=== PATIENT | male | born 1940 | race Caucasian/White ===

== ENCOUNTER 2016-06-03 13:15 | Emergency (ER) | payer MEDICARE, OTHER ==
[~2016-06-03] VITALS: Ht 177.8 cm; Wt 81.1 kg
[~2016-06-03 13:15] MED LIST: ASPI-611 PO; BENZ100C97 PO; CALC-709 PO; DIPH-343 PO; DOXY100C40 PO; FLUT1DIS4 INH; HYDR-3995 PO; LEVO50TA4 PO; LORA10TA7 PO; MIRT15TA6 PO; MULT-806 PO; OMEG100T PO; OMEP40CA52 PO; PRED10TA PO; SERT-80 PO; SIMV20TA89 PO; ZOLP-109 PO; [UNRECOGNIZED DRUG - CODE] PO
[2016-06-03 13:19] VITALS: Ht 177.8 cm; Wt 81.1 kg
--- OUTSIDE RECORDS SUMMARY | 2016-06-03 13:20 | XMS REPORT | Continuity of Care Document ---
Author Author [facility] Organization [facility] Address Unknown Phone Unavailable Allergies Active Description Code Type Severity Reaction Onset Reported/Identified Relationship to Patient Clinical Status Yes No Known Medication Allergies NKMA N/A N/A 11/16/2013 Medications Problems Procedures Results Test Result Range CBC With Platelet and Differential - 02/16/16 08:55 Absolute Basophils 0.03 10*3 0.00-0.20 Absolute Eosinophils 0.19 10*3 0.00-0.50 Absolute Lymphocytes 1.58 10*3 0.80-3.30 Absolute Monocytes 0.74 10*3 0.30-1.00 Absolute Neutrophils 4.96 10*3 1.90-7.00 Basophils 0 % 0-2 Eosinophils 3 % 0-4 HCT 42.9 % 42.0-52.0 HGB 14.8 g/dL 14.0-18.0 Immature Granulocytes 0.1 % 0.0-1.0 Lymphocytes 21 % 20-46 MCH 32.5 pg 27.0-32.0 MCHC 34.5 g/dL 32.0-36.0 MCV 94.3 fL 82.0-99.0 Monocytes 10 % 4-11 MPV 11.2 fL 8.8-14.8 Neutrophils 66 % 51-75 Platelet Count 267 K/uL 150-400 RBC 4.55 10*6/uL 4.60-6.20 RDW 12.6 % 11.5-14.5 WBC 7.5 K/uL 4.8-10.8 Comprehensive Metabolic Panel (CMP) - 02/16/16 08:55 Albumin 4.2 g/dL 3.4-4.8 Alkaline Phosphatase 78 U/L 40-150 ALT (SGPT) 19 U/L 0-55 Anion Gap 11 NA 3-20 AST (SGOT) 32 U/L 5-34 Bilirubin Total 0.4 mg/dL 0.2-1.2 BUN 14 mg/dL 8-26 Calcium 9.3 mg/dL 8.9-10.5 Chloride 105 mEq/L 99-111 CO2 25 mEq/L 23-31 Creatinine 1.16 mg/dL 0.72-1.25 Globulin 2.1 g/dL 1.8-4.0 Glucose 93 mg/dL 70-99 Potassium 5.1 mEq/L 3.5-5.2 Protein 6.3 g/dL 6.0-7.6 Sodium 141 mEq/L 135-144 TSH with Reflex Free T4 - 02/16/16 08:55 TSH with Reflex Free T4 6.31 uIU/mL 0.35- 4.94 Lipid Panel - 02/16/16 08:55 Cardiac Risk 4.4 0.0-5.7 Cholesterol 192 mg/dL 0-199 HDL Cholesterol 44 mg/dL 40-84 LDL Cholesterol 110 mg/dL 0-130 Triglycerides 188 mg/dL 0-149 VLDL Cholesterol 38 mg/dL 0-28 C-Reactive Protein - 02/16/16 08:55 C-Reactive Protein <0.5 mg/dL <0.5 eGFR - 02/16/16 08:55 eGFR >60 mL/min >60 Free T4 - 02/16/16 08:55 Free T4 0.9 ng/dL 0.7-1.5 Sedimentation Rate - 02/16/16 08:55 Sedimentation Rate 6 mm/h 0-15 Hemoglobin A1C - 02/16/16 08:55 Hemoglobin A1C 4.9 % 4.1-5.6 Estimated Average Glucose - 02/16/16 08:55 Estimated Average Glucose 93.9 mg/dL Urinalysis with reflex microscopic - 02/16/16 09:03 Appearance Clear NA Bilirubin Negative NA Negative Blood Negative NA Negative Color DkYellow NA Glucose, Urine Negative Negative Ketones Negative Negative Leukocyte Esterase Negative NA Negative Nitrites Negative NA Negative pH 6.0 NA 5.0-8.0 Protein Negative Negative Specific [place] 1.033 NA 1.003-1.030 UA Collection type Voided NA Urobilinogen 1.0 mg/dL <1.0 CBC With Platelet and Differential - 05/29/16 11:55 Absolute Basophils 0.03 10*3/uL 0.00- 0.30 Absolute Eosinophils 0.24 10*3/uL 0.00- 0.60 Absolute Lymphocytes 1.96 10*3/uL 1.00- 4.00 Absolute Monocytes 1.30 10*3/uL 0.20- 0.80 Absolute Neutrophils 5.06 10*3/uL 2.50- 7.00 Basophils 0 % 0-2 Eosinophils 3 % 0-6 HCT 40.4 % 40.0-54.0 HGB 13.4 g/dL 12.0-16.0 Lymphocytes 23 % 20-40 MCH 32.6 pg 26.0-34.0 MCHC 33.2 g/dL 32.0-36.0 MCV 98.3 fL 80.0-96.0 Monocytes 15 % 4-8 MPV 10.4 fL 8.8-14.8 Neutrophils 59 % 50-70 Platelet Count 246 K/uL 150-400 RBC 4.11 10*6/uL 3.70-5.20 RDW 13.0 % 0.0-14.5 WBC 8.6 K/uL 5.0-10.0 i-STAT Metabolic Panel WB - 05/29/16 11:55 BUN Venous 14 mg/dl 4-20 Calcium Ionized Venous 1.23 mmol/L 1.19- 1.41 Creatinine Venous 1.0 mg/dL 0.7-1.2 Glucose Venous 101 mg/dL 70-100 Potassium, WB 3.9 mmol/L 3.6-5.1 Sodium Venous 143 mmol/L 136-144 Total CO2 Venous 28 mmol/L 25-29 Venous CL 104 mmol/L 99-109 Urinalysis with reflex microscopic - 05/29/16 12:02 Appearance Sl Cloudy NA Bilirubin Negative NA Negative Blood Pos 2+ NA Negative Color Dk Yellow NA Glucose, Urine Negative NA Negative Ketones Negative NA Negative Leukocyte Esterase Negative NA Negative Nitrites Negative NA Negative pH 5.5 NA 5.0-8.0 Protein Negative NA Negative Specific [place] 1.030 NA 1.003-1.030 UA Collection type Clean Catch NA Urobilinogen 0.2 mg/dL <=1.0 Urine Microscopic - 05/29/16 12:02 Bacteria Rare NA Epithelial Cells 0 /hpf Hyaline Casts 1 /lpf RBC, Urine 20 /hpf 0-2 Urine Mucus Present NA WBC, Urine 0 /hpf 0-4 Encounters ACCT No. Visit Date/Time Discharge Status Pt. Type Provider Facility Loc./Unit Complaint [id number] 04/24/2013 15:06:00 04/24/2013 23 :59:59 CLS Outpatient
--- OUTSIDE RECORDS SUMMARY | 2016-06-03 13:20 | XMS REPORT | Referral Summary ---
Author Author [facility] Organization [facility] Address Unknown Phone Unavailable Care Team Providers Care Media Assistant Name Role Phone Hannah Post Primary Care Physician [phone] Encounter VC Date(s): 11/19/14 - 11/19/14 [facility], [address] [place] [id number] Discharge Disposition: 01-Home or Self Care Attending Physician: Raoul Post MD Admitting Physician: Raoul Post MD Vital Signs Most recent to 1 oldest [Reference Range]: Blood Pressure 130/70 mmHg [90-140/60-90 mmHg] (11/19/14 9:06 AM) Problem List Condition Effective Dates Status Health Status Informant Chronic back Active pain(Confirmed) COPD (chronic Active obstructive pulmonary disease)(Confirmed) Depression(Confirmed Active ) Blood pressure Active elevated(Confirmed) GERD without Active esophagitis(Confirme d) Glaucoma(Confirmed) Active Elevated Active cholesterol(Confirme d) Hypothyroidism(Confi Active rmed) Elevated blood Active sugar(Confirmed) Chronic Active insomnia(Confirmed) Allergies, Adverse Reactions, Alerts No Known Medication Allergies Medications albuterol 2.5 mg/3 mL (0.083%) inhalation solution 2.5 mg 3 mL, NEB, q8hr, 2.5 mg/3 mL (0.083%) neb solution; inhale 3 mL by nebulization route 3 times every day, # 30 Each, 1 Refill(s), Pharmacy: [id number], 3 mL NEB q8hr,Instr:2.5 mg/3 mL (0.083%) neb solution; inhale 3 mL by nebuliz... Start Date: 12/22/14 Status: Ordered Aleve 220 mg oral tablet 1 tabs, Oral, q12hr, as needed Start Date: 11/16/13 Status: Ordered aspirin 81 mg oral tablet, chewable 1 tabs, Oral, Daily Start Date: 11/16/13 Status: Ordered Breo Ellipta 200 mcg-25 mcg/inh inhalation powder 1 puffs, Inhalation, Daily, # 1 Each, 0 Refill(s), samples given to patient (Rx) Start Date: 03/24/15 Status: Ordered Claritin 10 mg oral tablet 10 mg 1 tabs, Oral, Daily, X 300 days, # 300 tabs, 0 Refill(s), Pharmacy: [id number], 1 tabs Oral Daily,x300 days Start Date: 02/18/15 Stop Date: 12/15/15 Status: Ordered levothyroxine 50 mcg (0.05 mg) oral tablet See Instructions, TAKE 1 TABLET BY MOUTH EVERY DAY, # 60 tabs, 2 Refill(s), eRx : [facility] [id number], TAKE 1 TABLET BY MOUTH EVERY DAY Start Date: 04/11/15 Status: Ordered Misc Medication Patient takes Dann Red- Shrimp oil daily, 0 Refill(s) Start Date: 01/11/15 Status: Ordered multivitamin 1 tabs, Oral, Daily Start Date: 11/16/13 Status: Ordered [place] 10 mg-325 mg oral tablet 1-2 tabs, Oral, q8hr, as needed for pain, MUST LAST 30 DAYS. July. , # 120 tabs, 0 Refill(s) Start Date: 05/16/15 Status: Ordered PriLOSEC 40 mg oral delayed release capsule 40 mg 1 caps, Oral, Daily, # 100 caps, 0 Refill(s), Pharmacy: [facility] [id number], 1 caps Oral Daily,x100 days Start Date: 02/18/15 Stop Date: 05/29/15 Status: Ordered ProAir RespiClick 90 mcg/inh inhalation powder 1 puffs, Inhalation, q4hr, Shortness of Breath/Wheezing, No substitutes., # 1 Each, 2 Refill(s), samples given to patient (Rx) Start Date: 03/24/15 Status: Ordered Remeron 15 mg oral tablet See Instructions, 1 TABS ORAL BEDTIME (ONCE A DAY),X30 DAYS, # 30 tabs, 2 Refill (s), eRx: [facility] [id number], 1 TABS ORAL BEDTIME (ONCE A DAY),X30 DAYS Start Date: 03/22/15 Status: Ordered Senokot See Instructions, 2 tabs daily., 0 Refill(s) Start Date: 12/16/14 Status: Ordered sertraline 50 mg oral tablet See Instructions, TAKE 1 TABLET (50MG) BY ORAL ROUTE EVERY DAY, # 90 tabs, eRx: [facility] [id number], TAKE 1 TABLET (50MG) BY ORAL ROUTE EVERY DAY Start Date: 04/14/15 Status: Ordered simethicone 80 mg oral tablet See Instructions, 4 daily., 0 Refill(s) Start Date: 12/22/14 Status: Ordered simvastatin 20 mg oral tablet See Instructions, TAKE 1 TABLET (20MG) BY ORAL ROUTE EVERY DAY IN THE EVENING, # 90 tabs, eRx: [facility] [id number], TAKE 1 TABLET (20MG) BY ORAL ROUTE EVERY DAY IN THE EVENING Start Date: 04/25/15 Status: Ordered timolol See Instructions, Timolol maleate 0.5% eyedrops; place 1 drop in the right eye every morning, 0 Refill(s) Start Date: 11/16/13 Status: Ordered traZODone 100 mg oral tablet See Instructions, TAKE 1 TABLET BY MOUTH AT BEDTIME., # 90 tabs, eRx: [facility] [id number], TAKE 1 TABLET BY MOUTH AT BEDTIME. Start Date: 03/08/14 Status: Ordered zolpidem 10 mg oral tablet 0.5-1 tabs, Oral, Bedtime (once a day), as needed for sleep, fax to [facility] [phone], RX must last 30 days, # 30 tabs, 0 Refill(s) Start Date: 05/04/15 Status: Ordered Results No data available for this section Immunizations Vaccine Date Refusal Reason tetanus/diphth/pertuss (Tdap) adult/adol 01/07/15 influenza virus vaccine, inactivated 01/07/15 influenza virus vaccine, inactivated 02/16/14 influenza virus vaccine, live 01/13/13 pneumococcal 23-polyvalent vaccine 11/22/08 Procedures Procedure Date Related Diagnosis Body Site Esophagogastroduodenoscopy and biopsy1 11/23/15 Normal colonoscopy2 01/31/15 Colonoscopy3 12/21/04 History of knee surgery - left knee cartilage 1968 repair Knee replacement 1Irregular GE junction, mild gastritis otherwise normal. H. pylori and Mooney' s both negative 2Diverticulosis, will not need to repeat unless symptoms warrant 3hyperplastic polyps, repeat in 10 years Social History Social History Type Response Smoking Status Former smoker; Type: Cigarettes Assessment and Plan Extracted from: Title: Ambulatory Patient Education Author: Raoul Post MD Date: 01/23 Family Medicine Back Pain, Adult Low back pain is very common. About 1 in 5 people have back pain.The cause of low back pain is rarely dangerous. The pain often gets better over time.About half of people with a sudden onset of back pain feel better in just 2 weeks. About 8 in 10 people feel better by 6 weeks. CAUSES Some common causes of back pain include: Strain of the muscles or ligaments supporting the spine. Wear and tear (degeneration) of the spinal discs. Arthritis. Direct injury to the back. DIAGNOSIS Most of the time, the direct cause of low back pain is not known.However, back pain can be treated effectively even when the exact cause of the pain is unknown.Answering your caregiver's questions about your overall health and symptoms is one of the most accurate ways to make sure the cause of your pain is not dangerous. If your caregiver needs more information, he or she may order lab work or imaging tests (X-rays or MRIs).However, even if imaging tests show changes in your back, this usually does not require surgery. HOME CARE INSTRUCTIONS For many people, back pain returns.Since low back pain is rarely dangerous, it is often a condition that people can learn to manageon their own. Remain active. It is stressful on the back to sit or caravan park and camping ground manager one place. Do not sit, drive, or caravan park and camping ground manager one place for more than 30 minutes at a time. Take short walks on level surfaces as soon as pain allows.Try to increase the length of time you walk each day. Do not stay in bed.Resting more than 1 or 2 days can delay your recovery. Do not avoid exercise or work.Your body is made to move.It is not dangerous to be active, even though your back may hurt.Your back will likely heal faster if you return to being active before your pain is gone. Pay attention to your body when you bend and lift. Many people have less discomfortwhen lifting if they bend their knees, keep the load close to their bodies,and avoid twisting. Often, the most comfortable positions are those that put less stress on your recovering back. Find a comfortable position to sleep. Use a firm mattress and lie on your side with your knees slightly bent. If you lie on your back, put a pillow under your knees. Only take oqin-xyc-ywihuhp or prescription medicines as directed by your caregiver. Oxsk-hcr-ftxubyj medicines to reduce pain and inflammation are often the most helpful.Your caregiver may prescribe muscle relaxant drugs.These medicines help dull your pain so you can more quickly return to your normal activities and healthy exercise. Put ice on the injured area. Put ice in a plastic bag. Place a towel between your skin and the bag. Leave the ice on for 15-20 minutes, 03-04 times a day for the first 2 to 3 days. After that, ice and heat may be alternated to reduce pain and spasms. Ask your caregiver about trying back exercises and gentle massage. This may be of some benefit. Avoid feeling anxious or stressed.Stress increases muscle tension and can worsen back pain.It is important to recognize when you are anxious or stressed and learn ways to manage it.Exercise is a great option. SEEK MEDICAL CARE IF: You have pain that is not relieved with rest or medicine. You have pain that does not improve in 1 week. You have new symptoms. You are generally not feeling well. SEEK IMMEDIATE MEDICAL CARE IF: You have pain that radiates from your back into your legs. You develop new bowel or bladder control problems. You have unusual weakness or numbness in your arms or legs. You develop nausea or vomiting. You develop abdominal pain. You feel faint. Document Released: 02/25/2006 Document Revised: 08/26/2012 Document Reviewed: [employer] Patient Information 2015 [employer]. This information is not intended to replace advice given to you by your health care provider. Make sure you discuss any questions you have with your health care provider. No follow up information was provided. Extracted from: Title: Office Visit Note Author: Raoul Post MD Date: 11/19/14 Assessment/Plan Chronic back pain This issue is stable and appropriate refills, lab, and f/u have been discussed. Meds refilled. Chronic insomnia This issue is stable and appropriate refills, lab, and f/u have been discussed. COPD (chronic obstructive pulmonary disease) This issue is stable and appropriate refills, lab, and f/u have been discussed. Depression This issue is stable and appropriate refills, lab, and f/u have been discussed. Elevated cholesterol This issue is stable and appropriate refills, lab, and f/ u have been discussed. Hypothyroidism This issue is stable and appropriate refills, lab, and f/u have been discussed. Orders: HYDROcodone-acetaminophen, 1-2 tabs, Oral, q8hr, as needed for pain, rx must last 30 days May fill 11/22/14, # 120 tabs, 0 Refill(s)
--- OUTSIDE RECORDS SUMMARY | 2016-06-03 13:20 | XMS REPORT | Referral Summary ---
Author Organization Unknown Address Unknown Phone Unavailable Care Team Providers Care Family Medicine Chair Name Role Phone Hannah Post Primary Care Physician [phone] Encounter [facility] [id number] Date(s): 05/19/14 - 05/19/14 Via [facility] Blankenship, [place], Family [address] [place] [id number] Discharge Diagnosis: Hypothyroid Discharge Diagnosis: Blood pressure elevated Discharge Diagnosis: Hypertension Discharge Diagnosis: Chronic back pain Discharge Diagnosis: Elevated cholesterol Discharge Diagnosis: Chronic insomnia Discharge Diagnosis: Headache Discharge Disposition: Home or Self Care Attending Physician: Raoul Post MD Admitting Physician: Raoul Post MD Vital Signs Most recent to 1 oldest [Reference Range]: Blood Pressure 140/80 mmHg [90-140/60-90 mmHg] (05/19/14 10:37 AM) Problem List Condition Effective Dates Status Health Status Informant Chronic back Active pain(Confirmed) COPD (chronic Active obstructive pulmonary disease)(Confirmed) Depression(Confirmed Active ) Blood pressure Active elevated(Confirmed) Glaucoma(Confirmed) Active Elevated Active cholesterol(Confirme d) Hypothyroidism(Confi Active rmed) Chronic Active insomnia(Confirmed) Allergies, Adverse Reactions, Alerts No Known Medication Allergies Medications Advair Diskus 250 mcg-50 mcg inhalation powder 1 puffs, Inhalation, Daily Start Date: 11/16/13 Status: Ordered albuterol 2.5 mg/3 mL (0.083%) neb solution; inhale 3 mL by nebulization route 3 times every day, 0 Refill(s) Special Instructions: 2.5 mg/3 mL (0.083%) neb solution; inhale 3 mL by nebulization route 3 times every day Start Date: 11/16/13 Status: Ordered Aleve 220 mg oral tablet 1 tabs, Oral, q12hr, as needed Start Date: 11/16/13 Status: Ordered aspirin 81 mg oral tablet, chewable 1 tabs, Oral, Daily Start Date: 11/16/13 Status: Ordered multivitamin 1 tabs, Oral, Daily Start Date: 11/16/13 Status: Ordered [place] 10 mg-325 mg oral tablet 1-2 tabs, Oral, q8hr, as needed for pain, rx must last 30 days May fill 05/26/14 , # 120 tabs, 0 Refill(s) Special Instructions: rx must last 30 days May fill 05/26/14 Start Date: 05/19/14 Status: Ordered ProAir HFA 90 mcg/inh inhalation aerosol 1 puffs, Inhalation, q4hr, as needed Start Date: 11/16/13 Status: Ordered Promethazine VC with Codeine oral syrup 5 mL, Oral, q4hr, as needed for cold symptoms, [facility], # 120 mL, 0 Refill(s) Special Instructions: [facility] Start Date: 02/01/14 Status: Ordered Remeron 15 mg oral tablet See Instructions, 1 TABS ORAL BEDTIME (ONCE A DAY), # 30 tabs, 2 Refill(s), eRx : [facility] , 1 TABS ORAL BEDTIME (ONCE A DAY) Special Instructions: 1 TABS ORAL BEDTIME (ONCE A DAY) Start Date: 04/22/14 Status: Ordered sertraline 50 mg oral tablet See Instructions, TAKE 1 TABLET (50MG) BY ORAL ROUTE EVERY DAY, # 90 tabs, eRx: [facility] , TAKE 1 TABLET (50MG) BY ORAL ROUTE EVERY DAY Special Instructions: TAKE 1 TABLET (50MG) BY ORAL ROUTE EVERY DAY Start Date: 04/23/14 Status: Ordered simvastatin 20 mg oral tablet See Instructions, TAKE 1 TABLET (20MG) BY ORAL ROUTE EVERY DAY IN THE EVENING, # 90 tabs, eRx: [facility] , TAKE 1 TABLET (20MG) BY ORAL ROUTE EVERY DAY IN THE EVENING Special Instructions: TAKE 1 TABLET (20MG) BY ORAL ROUTE EVERY DAY IN THE EVENING Start Date: 05/07/14 Status: Ordered Synthroid 50 mcg (0.05 mg) oral tablet See Instructions, TAKE 1 TABLET (50MCG) BY ORAL ROUTE EVERY DAY, # 60 unknown unit, 2 Refill(s), eRx: [facility] , TAKE 1 TABLET (50MCG) BY ORAL ROUTE EVERY DAY Special Instructions: TAKE 1 TABLET (50MCG) BY ORAL ROUTE EVERY DAY Start Date: 02/09/14 Status: Ordered timolol See Instructions, Timolol maleate 0.5% eyedrops; place 1 drop in the right eye every morning, 0 Refill(s) Special Instructions: Timolol maleate 0.5% eyedrops; place 1 drop in the right eye every morning Start Date: 11/16/13 Status: Ordered traZODone 100 mg oral tablet See Instructions, TAKE 1 TABLET BY MOUTH AT BEDTIME., # 90 tabs, eRx: [facility] [id number], TAKE 1 TABLET BY MOUTH AT BEDTIME. Special Instructions: TAKE 1 TABLET BY MOUTH AT BEDTIME. Start Date: 03/08/14 Status: Ordered zolpidem 10 mg oral tablet 0.5-1 tabs, Oral, Bedtime (once a day), as needed for sleep, fax to [facility], RX must last 30 days, # 30 tabs, 0 Refill(s) Special Instructions: fax to [facility], RX must last 30 days Start Date: 05/06/14 Status: Ordered Results Hematology Most recent to 1 oldest [Reference Range]: WBC [4.8-10.8 K/uL] 7.7 K/uL (05/19/14 11:10 AM) RBC [4.60-6.20 M/uL] 4.95 M/uL (05/19/14 11:10 AM) Hgb [14.0-18.0 16.0 gm/dL gm/dL] (05/19/14 11:10 AM) Hct [42.0-52.0 %] 46.6 % (05/19/14 11:10 AM) MCV [82.0-99.0 fL] 94.1 fL (05/19/14 11:10 AM) MCH [27.0-32.0 pg] 32.3 pg *HI* (05/19/14 11:10 AM) MCHC [32.0-36.0 34.3 gm/dL gm/dL] (05/19/14 11:10 AM) RDW [11.5-14.5 %] 12.2 % (05/19/14 11:10 AM) Platelet [150-400 275 K/uL K/uL] (05/19/14) MPV [8.8-14.8 fL] 11.6 fL (05/19/14) Immature 0.1 % Granulocytes (05/19/14) [0.0-1.0 %] Neutrophils [51-75 61 % %] (05/19/14) Lymphocytes [20-46 24 % %] (05/19/14) Monocytes [4-11 %] 12 % *HI* (05/19/14) Eosinophils [0-4 %] 3 % (05/19/14) Basophils [0-2 %] 0 % (05/19/14) Neutro Absolute 4.70 THOUS [1.90-7.00 THOUS] (05/19/14) Lymph Absolute 1.81 THOUS [0.80-3.30 THOUS] (05/19/14) Kane Absolute 0.89 THOUS [0.30-1.00 THOUS] (05/19/14) Eos Absolute 0.24 THOUS [0.00-0.50 THOUS] (05/19/14) Baso Absolute 0.03 THOUS [0.00-0.20 THOUS] (05/19/14) Sed Rate [0-15 8 mm/hr mm/hr] (05/19/14) Chemistry Most recent to 1 oldest [Reference Range]: Sodium Lvl [135-144 141 mEq/L mEq/L] (05/19/14) Potassium Lvl 5.1 mEq/L [3.5-5.2 mEq/L] (05/19/14) Chloride [99-111 103 mEq/L mEq/L] (05/19/14) CO2 [23-31 mEq/L] 25 mEq/L (05/19/14 AM) AGAP [3-20] 13 (05/19/14 AM) BUN [8-26 mg/dL] 15 mg/dL (05/19/14) Glucose Lvl [70-99 107 mg/dL mg/dL] *HI* (05/19/14 AM) Creatinine Lvl 1.05 mg/dL [0.72-1.25 mg/dL] (05/19/14 AM) eGFR [>60 mL/min] >60 mL/min 1 (05/19/14 AM) Calcium Lvl 9.9 mg/dL [8.9-10.5 mg/dL] (05/19/14 AM) Albumin Lvl [3.4-4.8 4.6 gm/dL gm/dL] (05/19/14 AM) Total Protein 7.2 gm/dL [6.2-8.1 gm/dL] (05/19/14) Globulin [1.8-4.0 2.6 gm/dL gm/dL] (05/19/14 AM) ALT [0-55 unit/L] 24 unit/L (05/19/14 AM) AST [5-34 unit/L] 35 unit/L *HI* (05/19/14 AM) Alk Phos [40-150 75 unit/L unit/L] (05/19/14 AM) Bili Total [0.2-1.2 0.7 mg/dL mg/dL] (05/19/14 AM) Chol [0-199 mg/dL] 187 mg/dL (05/19/14 AM) Trig [0-149 mg/dL] 172 mg/dL *HI* (05/19/14) HDL [40-84 mg/dL] 49 mg/dL (05/19/14 AM) LDL [0-130 mg/dL] 104 mg/dL (05/19/14 AM) VLDL Cholesterol 34 mg/dL [0-28 mg/dL] *HI* (05/19/14 AM) Cardiac Risk 3.8 [0.0-5.7] (05/19/14 AM) TSH with Reflex Free 2.91 T4 [0.35-4.94] (05/19/14 AM) 1Result Comment: Multiply eGFR results by 1.21 for race. Immunizations Vaccine Date Refusal Reason influenza virus vaccine, inactivated 02/16/14 influenza virus vaccine, live 01/13/13 pneumococcal 23-polyvalent vaccine 11/22/08 Procedures Procedure Date Related Diagnosis Body Site Colonoscopy 2004 History of knee surgery - left knee cartilage 1968 repair Knee replacement Social History Social History Type Response Smoking Status Former smoker; Type: Cigarettes Assessment and Plan Extracted from: Title: Ambulatory Patient Education Author: Raoul Post MD Date: 01/23 Family Medicine Back Exercises Back exercises help treat and prevent back injuries. The goal of back exercises is to increase the strength of your abdominal and back muscles and the flexibility of your back. These exercises should be started when you no longer have back pain. Back exercises include: Pelvic Tilt. Lie on your back with your knees bent. Tilt your pelvis until the lower part of your back is against the floor. Hold this position 5 to 10 sec and repeat 5 to 10 times. Knee to Chest. Pull first 1 knee up against your chest and hold for 20 to 30 seconds, repeat this with the other knee, and then both knees. This may be done with the other leg straight or bent, whichever feels better. Sit-Ups or Curl-Ups. Bend your knees 90 degrees. Start with tilting your pelvis, and do a partial, slow sit-up, lifting your trunk only 30 to 45 degrees off the floor. Take at least 2 to 3 seconds for each sit-up. Do not do sit-ups with your knees out straight. If partial sit-ups are difficult, simply do the above but with only tightening your abdominal muscles and holding it as directed. Hip-Lift. Lie on your back with your knees flexed 90 degrees. Push down with your feet and shoulders as you raise your hips a couple inches off the floor; hold for 10 seconds, repeat 5 to 10 times. Back arches. Lie on your stomach, propping yourself up on bent elbows. Slowly press on your hands, causing an arch in your low back. Repeat 3 to 5 times. Any initial stiffness and discomfort should lessen with repetition over time. Shoulder-Lifts. Lie face down with arms beside your body. Keep hips and torso pressed to floor as you slowly lift your head and shoulders off the floor. Do not overdo your exercises, especially in the beginning. Exercises may cause you some mild back discomfort which lasts for a few minutes; however, if the pain is more severe, or lasts for more than 15 minutes, do not continue exercises until you see your caregiver. Improvement with exercise therapy for back problems is slow. See your caregivers for assistance with developing a proper back exercise program. Document Released: 04/04/2005 Document Revised: 05/19/2012 Document Reviewed: [facility] [place] Patient Information 2014 [employer] [facility]. No follow up information was provided. Extracted from: Title: Office Visit Note Author: Raoul Post MD Date: 05/19/14 Assessment/Plan Blood pressure elevated This issue is stable and appropriate refills, lab, and f/u have been discussed. The patient reports their blood pressure has been stable at home and is not having any significant or related problems. There has been no chest pain, chest pressure, soa/block. Monitor bp at home and call report. Chronic back pain This issue is stable and appropriate refills, lab, and f/u have been discussed. Meds refilled. Chronic insomnia This issue is stable and appropriate refills, lab, and f/u have been discussed. Elevated cholesterol This issue is stable and appropriate refills, lab, and f/ u have been discussed. Ordered: Lipid Panel Headache The patient's issue is nearly or completely resolved. There is no further issues or testing desired by them at this time. Call report if recurs. The patient has family members present who are agreeable with today' s plan and have no additional concerns or requests. ESR pending. Ordered: Sedimentation Rate Hypertension This issue is stable and appropriate refills, lab, and f/u have been discussed. The patient reports their blood pressure has been stable at home and is not having any significant or related problems. There has been no chest pain, chest pressure, soa/block. Ordered: Comprehensive Metabolic Panel Hypothyroid This issue is stable and appropriate refills, lab, and f/u have been discussed. Ordered: CBC w/ Differential TSH with Reflex Free T4 Orders: HYDROcodone-acetaminophen, 1-2 tabs, Oral, q8hr, as needed for pain, rx must last 30 days May fill 05/26/14, # 120 tabs, 0 Refill(s)
--- OUTSIDE RECORDS SUMMARY | 2016-06-03 13:20 | XMS REPORT | Referral Summary ---
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 Name Role Phone Hannah Post Primary Care Physician [phone] Encounter VC Date(s): 12/22/14 - 12/22/14 [facility] [address] [place] [address] Discharge Diagnosis: COPD (chronic obstructive pulmonary disease) Discharge Diagnosis: Epigastric abdominal pain Discharge Disposition: 01-Home or Self Care Attending Physician: Monica Salgado PA-C Admitting Physician: Monica Salgado PA-C Vital Signs Most recent to 1 oldest [Reference Range]: Temperature Tympanic 36.8 degC [36.6-38.1 degC] (12/22/14 11:03 AM) Peripheral Pulse 92 bpm Rate [60-100 bpm] (12/22/14 11:03 AM) Respiratory Rate 20 br/min [14-20 br/min] (12/22/14 11:03 AM) Blood Pressure 132/70 mmHg [90-140/60-90 mmHg] (12/22/14 11:03 AM) Problem List Condition Effective Dates Status [...] day, # 30 Each, 1 Refill(s), Pharmacy: [facility] [id number], 3 mL NEB q8hr,Instr:2.5 mg/3 mL (0.083%) [...] Inhalation, Daily, # 1 Each, 0 Refill(s), Pharmacy: [facility] [id number] Start Date: 06/20/15 Status: Ordered Claritin 10 mg oral tablet 10 mg 1 tabs, Oral, Daily, X 300 days, # 300 tabs, 0 Refill(s), Pharmacy: [facility], 1 tabs Oral Daily,x300 days Start Date: 02/18/15 Stop Date: 12/15/15 Status: Ordered levothyroxine 50 mcg (0.05 mg) oral tablet See Instructions, TAKE 1 TABLET BY MOUTH EVERY DAY, # 60 tabs, 2 Refill(s), eRx : [facility] [id number], TAKE 1 TABLET BY MOUTH EVERY DAY Start Date: 04/11/15 Status: Ordered Misc Medication Patient takes Dann Red- Shrimp oil daily, 0 Refill(s) Start Date: 01/11/15 Status: Ordered multivitamin 1 tabs, Oral, Daily Start Date: 11/16/13 Status: Ordered Berwick 10 mg-325 mg oral tablet 1-2 tabs, Oral, q8hr, as needed for pain, MUST LAST 30 DAYS. MAy fill . , # 120 tabs, 0 Refill(s) Start Date: 06/14/15 Status: Ordered PriLOSEC 40 mg oral delayed release capsule 40 mg 1 caps, Oral, Daily, # 100 caps, 0 Refill(s), Pharmacy: [facility] [id number], 1 caps Oral Daily,x100 days Start Date: 02/18/15 Stop Date: 05/29/15 Status: Ordered PriLOSEC 40 mg oral delayed release capsule See Instructions, 1 CAPS ORAL DAILY,X100 DAYS, # 100 caps, eRx: [facility] [id number], 1 CAPS ORAL DAILY,X100 DAYS Start Date: 06/14/15 Status: Ordered ProAir RespiClick 90 mcg/inh inhalation powder 1 puffs, Inhalation, q4hr, Shortness of Breath/Wheezing, No substitutes., # 1 Each, 2 Refill(s), samples given to patient (Rx) Start Date: 03/24/15 Status: Ordered Remeron 15 mg oral tablet See Instructions, 1 TABS ORAL BEDTIME (ONCE A DAY),X30 DAYS, # 30 tabs, eRx: [facility] [id number], 1 TABS ORAL BEDTIME (ONCE A DAY),X30 DAYS Start Date: 06/13/15 Status: Ordered Senokot See Instructions, 2 tabs daily., 0 Refill(s) Start Date: 12/16/14 Status: Ordered sertraline 50 mg oral tablet See Instructions, TAKE 1 TABLET (50MG) BY ORAL ROUTE EVERY DAY, # 90 tabs, eRx: [facility] [id number], TAKE 1 TABLET (50MG) BY ORAL ROUTE EVERY DAY Start Date: 04/14/15 Status: Ordered simethicone 80 mg oral tablet See Instructions, 4 daily., 0 Refill(s) Start Date: 12/22/14 Status: Ordered simvastatin 20 mg oral tablet See Instructions, TAKE 1 TABLET (20MG) BY ORAL ROUTE EVERY DAY IN THE EVENING, # 90 tabs, eRx: [facility] [id number], TAKE 1 TABLET (20MG) BY ORAL ROUTE EVERY DAY IN THE EVENING Start Date: 04/25/15 Status: Ordered timolol See Instructions, Timolol maleate 0.5% eyedrops; place 1 drop in the right eye every morning, 0 Refill(s) Start Date: 11/16/13 Status: Ordered traZODone 100 mg oral tablet See Instructions, TAKE 1 TABLET BY MOUTH AT BEDTIME., # 90 tabs, eRx: [facility] [id number], TAKE 1 TABLET BY MOUTH AT BEDTIME. Start Date: 03/08/14 Status: Ordered zolpidem 10 mg oral tablet 0.5-1 tabs, Oral, Bedtime (once a day), as needed for sleep, fax to [facility] [phone], RX must last 30 days, # 30 tabs, 0 Refill(s) Start Date: 06/02/15 Status: Ordered Results No data available for this section Immunizations Vaccine Date Refusal Reason tetanus/diphth/pertuss (Tdap) adult/adol 01/07/15 influenza virus vaccine, inactivated 01/07/15 influenza virus vaccine, inactivated 02/16/14 influenza virus vaccine, live 01/13/13 pneumococcal 23-polyvalent vaccine 11/22/08 Procedures Procedure Date Related Diagnosis Body Site Esophagogastroduodenoscopy and biopsy1 01/31/15 Normal colonoscopy2 01/31/15 Colonoscopy3 12/21/04 History of [...] Extracted from: Title: Ambulatory Patient Education Author: Monica Salgado PA-C Date : 12/22/14 Family Medicine Chronic Obstructive Pulmonary Disease Exacerbation Chronic obstructive pulmonary disease (COPD) is a common lung condition in which airflow from the lungs is limited. COPD is a general term that can be used to describe many different lung problems that limit airflow, including chronic bronchitis and emphysema. COPD exacerbations are episodes when breathing symptoms become much worse and require extra treatment. Without treatment, COPD exacerbations can be life threatening, and frequent COPD exacerbations can cause further damage to your lungs. CAUSES Respiratory infections. Exposure to smoke. Exposure to air pollution, chemical fumes, or dust. Sometimes there is no apparent cause or trigger. RISK FACTORS Smoking cigarettes. Older age. Frequent prior COPD exacerbations. SIGNS AND SYMPTOMS Increased coughing. Increased thick spit (sputum) production. Increased wheezing. Increased shortness of breath. Rapid breathing. Chest tightness. DIAGNOSIS Your medical history, a physical exam, and tests will help your health care provider make a diagnosis. Tests may include: A chest X-ray. Basic lab tests. Sputum testing. An arterial blood gas test. TREATMENT Depending on the severity of your COPD exacerbation, you may need to be admitted to a hospital for treatment. Some of the treatments commonly used to treat COPD exacerbations are: Antibiotic medicines. Bronchodilators. These are drugs that expand the air passages. They may be given with an inhaler or nebulizer. Spacer devices may be needed to help improve drug delivery. Corticosteroid medicines. Supplemental oxygen therapy. HOME CARE INSTRUCTIONS Do not smoke. Quitting smoking is very important to prevent COPD from getting worse and exacerbations from happening as often. Avoid exposure to all substances that irritate the airway, especially to tobacco smoke. If you were prescribed an antibiotic medicine, finish it all even if you start to feel better. Take all medicines as directed by your health care provider.It is important to use correct technique with inhaled medicines. Drink enough fluids to keep your urine clear or pale yellow (unless you have a medical condition that requires fluid restriction). Use a cool mist vaporizer. This makes it easier to clear your chest when you cough. If you have a home nebulizer and oxygen, continue to use them as directed. Maintain all necessary vaccinations to prevent infections. Exercise regularly. Eat a healthy diet. Keep all follow-up appointments as directed by your health care provider. SEEK IMMEDIATE MEDICAL CARE IF: You have worsening shortness of breath. You have trouble talking. You have severe chest pain. You have blood in your sputum. You have a fever. You have weakness, vomit repeatedly, or faint. You feel confused. You continue to get worse. MAKE SURE YOU: Understand these instructions. Will watch your condition. Will get help right away if you are not doing well or get worse. Document Released: 12/23/2007 Document Revised: 07/12/2014 Document Reviewed: [facility] Patient Information 2015 [facility]. This information is not intended to replace advice given to you by your health care provider. Make sure you discuss any questions you have with your health care provider. Peptic Ulcer A peptic ulcer is a sore in the lining of your esophagus (esophageal ulcer), stomach (gastric ulcer), or in the first part of your small intestine (duodenal ulcer). The ulcer causes erosion into the deeper tissue. CAUSES Normally, the lining of the stomach and the small intestine protects itself from the acid that digests food. The protective lining can be damaged by: An infection caused by a bacterium called Helicobacter pylori (H. pylori). Regular use of nonsteroidal anti-inflammatory drugs (NSAIDs), such as ibuprofen or aspirin. Smoking tobacco. Other risk factors include being older than 50, drinking alcohol excessively, and having a family history of ulcer disease. SYMPTOMS Burning pain or gnawing in the area between the chest and the belly button. Heartburn. Nausea and vomiting. Bloating. The pain can be worse on an empty stomach and at night. If the ulcer results in bleeding, it can cause: Black, tarry stools. Vomiting of bright red blood. Vomiting of irpcjy-thnntn-okrjlby materials. DIAGNOSIS A diagnosis is usually made based upon your history and an exam. Other tests and procedures may be performed to find the cause of the ulcer. Finding a cause will help determine the best treatment. Tests and procedures may include: Blood tests, stool tests, or breath tests to check for the bacterium H. pylori. An upper gastrointestinal (GI) series of the esophagus, stomach, and small intestine. An endoscopy to examine the esophagus, stomach, and small intestine. A biopsy. TREATMENT Treatment may include: Eliminating the cause of the ulcer, such as smoking, NSAIDs, or alcohol. Medicines to reduce the amount of acid in your digestive tract. Antibiotic medicines if the ulcer is caused by the H. pylori bacterium. An upper endoscopy to treat a bleeding ulcer. Surgery if the bleeding is severe or if the ulcer created a hole somewhere in the digestive system. HOME CARE INSTRUCTIONS Avoid tobacco, alcohol, and caffeine. Smoking can increase the acid in the stomach, and continued smoking will impair the healing of ulcers. Avoid foods and drinks that seem to cause discomfort or aggravate your ulcer. Only take medicines as directed by your caregiver. Do not substitute over- the-counter medicines for prescription medicines without talking to your caregiver. Keep any follow-up appointments and tests as directed. SEEK MEDICAL CARE IF: Your do not improve within 7 days of starting treatment. You have ongoing indigestion or heartburn. SEEK IMMEDIATE MEDICAL CARE IF: You have sudden, sharp, or persistent abdominal pain. You have bloody or dark black, tarry stools. You vomit blood or vomit that looks like coffee grounds. You become light-headed, weak, or feel faint. You become sweaty or clammy. MAKE SURE YOU: Understand these instructions. Will watch your condition. Will get help right away if you are not doing well or get worse. Document Released: 02/22/2001 Document Revised: 07/12/2014 Document Reviewed: [facility] Patient Information 2015 [employer]. This information is not intended to replace advice given to you by your health care provider. Make sure you discuss any questions you have with your health care provider. No follow up information was provided. Extracted from: Title: Office Visit Note Author: Monica Salgado PA-C Date: 12/22/14 Assessment/Plan COPD (chronic obstructive pulmonary disease) He is not moving a lot of air. Will have him continue with hisAdvair, and start doing Albuterol nebs routinely. Sent refills to pharmacy. He is to let me know if still not improving, and may need steroid burst. Epigastric abdominal pain, Epigastric abdominal pain Like I said, initially Ithought it could be constipation. I was also thinking possibly gallbladder. However, with h/o NSAID use, now more concentrated epigastric pain, and fact that food makes pain better, I believe he could have an ulcer. Will obtain H. Pylori IgG today. Willhave pt start taking Prilosec 20mg in AM for now. Will call in abx if H. Pylori + and have him increase to Prilosec BID for 2 weeks. I also advised pt to stop taking Aleve /Advil and take Tylenol instead for pain. Ordered: Helicobacter pylori Antibody IgG Office Visit Level 3 Est [id number] Orders: albuterol, 2.5 mg 3 mL, NEB, q8hr, 2.5 mg/3 mL (0.083%) neb solution; inhale 3 mL by nebulization route 3 times every day, # 30 Each, 1 Refill(s), [id number], 3 mL NEB q8hr,Instr:2.5 mg/3 mL (0.083%) neb solution; inhale 3 mL by nebuliz...
--- OUTSIDE RECORDS SUMMARY | 2016-06-03 13:20 | XMS REPORT | Referral Summary ---
Author Author [facility] Organization [facility] Address Unknown Phone Unavailable Care Team Providers Care Supervisor Seaming Name Role Phone Hannah Post Primary Care Physician [phone] Encounter VC Date(s): 08/19/14 - 08/19/14 [facility] [address] [place] [address] Discharge Disposition: 01-Home or Self Care Attending Physician: Raoul Post MD Vital Signs Most recent to 1 oldest [Reference Range]: Blood Pressure 100/60 mmHg [90-140/60-90 mmHg] (08/19/14 10:10 AM) Problem List Condition Effective Dates Status [...] Status: Ordered albuterol 2.5 mg/3 mL (0.083%) inhalation solution 2.5 mg 3 mL, NEB, q8hr, 2.5 mg/3 mL (0.083%) neb solution; inhale 3 mL by nebulization route 3 times every day, # 30 Each, 1 Refill(s), Pharmacy: [facility] [id number], 3 mL NEB q8hr,Instr:2.5 mg/3 mL (0.083%) neb solution; inhale 3 mL by nebuliz... Start Date: 12/22/14 Status: Ordered Aleve 220 mg oral tablet 1 tabs, Oral, q12hr, as needed Start Date: 11/16/13 Status: Ordered aspirin 81 mg oral tablet, chewable 1 tabs, Oral, Daily Start Date: 11/16/13 Status: Ordered Claritin 10 mg oral tablet 10 mg 1 tabs, Oral, Daily, X 300 days, # 300 tabs, 0 Refill(s), Pharmacy: [facility] [id number], 1 tabs Oral Daily,x300 days Start Date: 02/18/15 Stop Date: 12/15/15 Status: Ordered levothyroxine 50 mcg (0.05 mg) oral tablet See Instructions, TAKE 1 TABLET BY MOUTH EVERY DAY, # 60 tabs, 2 Refill(s), eRx : [facility] [id number], TAKE 1 TABLET BY MOUTH EVERY DAY Start Date: 10/15/14 Status: Ordered Misc Medication Patient takes Dann Red- Shrimp oil daily, 0 Refill(s) Start Date: 01/11/15 Status: Ordered multivitamin 1 tabs, Oral, Daily Start Date: 11/16/13 Status: Ordered Orem 10 mg-325 mg oral tablet 1-2 tabs, Oral, q8hr, as needed for pain, MUST LAST 30 DAYS., # 120 tabs, 0 Refill(s) Start Date: 02/15/15 Status: Ordered PriLOSEC 40 mg oral delayed release capsule 40 mg 1 caps, Oral, Daily, # 100 caps, 0 Refill(s), Pharmacy: [facility] [id number], 1 caps Oral Daily,x100 days Start Date: 02/18/15 Stop Date: 05/29/15 Status: Ordered PriLOSEC OTC 20 mg, Oral, Daily, 0 Refill(s) Start Date: 01/11/15 Status: Ordered ProAir HFA 90 mcg/inh inhalation aerosol 1 puffs, Inhalation, q4hr, as needed Start Date: 11/16/13 Status: Ordered Remeron 15 mg oral tablet See Instructions, 1 TABS ORAL BEDTIME (ONCE A DAY),X30 DAYS, # 30 tabs, 2 Refill (s), [facility] [id number], 1 TABS ORAL BEDTIME (ONCE A DAY),X30 DAYS Start Date: 12/29/14 Status: Ordered Senokot See Instructions, 2 tabs daily., 0 Refill(s) Start Date: 12/16/14 Status: Ordered sertraline 50 mg oral tablet See Instructions, TAKE 1 TABLET (50MG) BY ORAL ROUTE EVERY DAY, # 90 tabs, eRx: [facility] [id number], TAKE 1 TABLET (50MG) BY ORAL ROUTE EVERY DAY Start Date: 01/17/15 Status: Ordered simethicone 80 mg oral tablet See Instructions, 4 daily., 0 Refill(s) Start Date: 12/22/14 Status: Ordered simvastatin 20 mg oral tablet See Instructions, TAKE 1 TABLET (20MG) BY ORAL ROUTE EVERY DAY IN THE EVENING, # 90 tabs, 1 Refill(s), eRx: [facility] [id number], TAKE 1 TABLET (20MG) BY ORAL ROUTE EVERY DAY IN THE EVENING Start Date: 10/29/14 Status: Ordered timolol See Instructions, Timolol maleate 0.5% eyedrops; place 1 drop in the right eye every morning, 0 Refill(s) Start Date: 11/16/13 Status: Ordered traZODone 100 mg oral tablet See Instructions, TAKE 1 TABLET BY MOUTH AT BEDTIME., # 90 tabs, eRx: [facility] [id number], TAKE 1 TABLET BY MOUTH AT BEDTIME. Start Date: 03/08/14 Status: Ordered zolpidem 10 mg oral tablet 0.5-1 tabs, Oral, Bedtime (once a day), as needed for sleep, fax to [facility] RX must last 30 days, # 30 tabs, 0 Refill(s) Start Date: 02/02/15 Status: Ordered Results No data available for [...] Released: 04/04/2005 Document Revised: 05/19/2012 Document Reviewed: [employer] Patient Information 2014 [employer]. No follow up information was provided. Extracted from: Title: Office Visit Note Author: Raoul Post MD Date: 08/19/14 Assessment/Plan Chronic back pain This issue is stable and appropriate refills, lab, and f/u have been discussed. Orem refilled. Chronic insomnia This issue is stable and appropriate refills, lab, and f/u have been discussed. COPD (chronic obstructive pulmonary disease) This issue is stable and appropriate refills, lab, and f/u have been discussed. The patient has family members present who are agreeable with today's plan and have no additional concerns or requests. Samples and demo given onbreo to use in place of advair until affordable. Call if problems. Depression This issue is stable and appropriate refills, lab, and f/u have been discussed. Elevated cholesterol This issue is stable and appropriate refills, lab, and f/ u have been discussed. Hypothyroidism This issue is stable and appropriate refills, lab, and f/u have been discussed. Orders: HYDROcodone-acetaminophen, 1-2 tabs, Oral, q8hr, as needed for pain, rx must last 30 days May fill 08/24/14, # 120 tabs, 0 Refill(s)
--- OUTSIDE RECORDS SUMMARY | 2016-06-03 13:20 | XMS REPORT | Referral Summary ---
Author Author [facility], [facility] Organization [facility] Address Unknown Phone Unavailable Care Team Providers Care Public Relations Intern Name Role Phone Hannah Post Primary Care Physician [phone] Encounter VC Date(s): 02/16/16 - 02/16/16 [facility] [address] [place] [address] Discharge Diagnosis: Hypothyroidism Discharge Diagnosis: GERD without esophagitis Discharge Diagnosis: Chronic back pain Discharge Diagnosis: COPD (chronic obstructive pulmonary disease) Discharge Diagnosis: Blood pressure elevated Discharge Diagnosis: Acute headache Discharge Diagnosis: Chronic insomnia Discharge Disposition: 01-Home or Self Care Attending Physician: Raoul Post MD Admitting Physician: Raoul Post MD Vital Signs Most recent to 1 oldest [Reference Range]: Blood Pressure 120/80 mmHg [90-140/60-90 mmHg] (02/16/16 8:16 AM) Problem List Condition Effective Dates Status [...] day, # 30 Each, 1 Refill(s), Pharmacy: [id number], 3 mL NEB q8hr,Instr:2.5 mg/3 mL (0.083%) neb solution; inhale 3 mL by nebuliz... Start Date: 12/22/14 Status: Ordered Aleve 220 mg oral tablet 1 tabs, Oral, q12hr, as needed Start Date: 11/16/13 Status: Ordered aspirin 81 mg oral tablet, chewable 1 tabs, Oral, Daily Start Date: 11/16/13 Status: Ordered Breo Ellipta 200 mcg-25 mcg/inh inhalation powder See Instructions, INHALE 1 PUFF BY MOUTH DAILY, # 60 g, [id number], INHALE 1 PUFF BY MOUTH DAILY Start Date: 10/25/15 Status: Ordered Claritin 10 mg oral tablet 10 mg 1 tabs, Oral, Daily, X 300 days, # 300 tabs, 0 Refill(s), Pharmacy: [id number], 1 tabs Oral Daily,x300 days Start Date: 11/07/15 Stop Date: 09/02/16 Status: Ordered levothyroxine 50 mcg (0.05 mg) oral tablet See Instructions, TAKE 1 TABLET BY MOUTH EVERY DAY, # 60 tabs, [id number], TAKE 1 TABLET BY MOUTH EVERY DAY Start Date: 10/07/15 Status: Ordered mirtazapine 15 mg oral tablet See Instructions, TAKE 1 TABLET BY MOUTH AT BEDTIME, # 90 tabs, 1 Refill(s), Pharmacy: [id number], TAKE 1 TABLET BY MOUTH AT BEDTIME Start Date: 11/07/15 Status: Ordered Misc Medication Patient takes Dann Red- Shrimp oil daily, 0 Refill(s) Start Date: 01/11/15 Status: Ordered multivitamin 1 tabs, Oral, Daily Start Date: 11/16/13 Status: Ordered Uvalda 10 mg-325 mg oral tablet 1-2 tabs, Oral, q8hr, as needed for pain, RX must last 30 days may fill 02/09/16 , # 120 tabs, 0 Refill(s) Start Date: 02/09/16 Status: Ordered PriLOSEC 40 mg oral delayed release capsule 40 mg 1 caps, Oral, Daily, # 100 caps, 0 Refill(s), Pharmacy: [facility] [address], 1 caps Oral Daily,x100 days Start Date: 02/18/15 Stop Date: 05/29/15 Status: Ordered PriLOSEC 40 mg oral delayed release capsule See Instructions, 1 CAPS ORAL DAILY,X100 DAYS, # 100 caps, eRx: [facility] [id number], 1 CAPS ORAL DAILY,X100 DAYS Start Date: 06/14/15 Status: Ordered ProAir RespiClick 90 mcg/inh inhalation powder 1 puffs, Inhalation, q4hr, Shortness of Breath/Wheezing, No substitutes., # 1 Each, 2 Refill(s), samples given to patient (Rx) Start Date: 03/24/15 Status: Ordered Senokot See Instructions, 2 tabs daily., 0 Refill(s) Start Date: 12/16/14 Status: Ordered sertraline 50 mg oral tablet 50 mg 1 tabs, Oral, Daily, # 90 tabs, 0 Refill(s), Pharmacy: [id number], 1 tabs Oral Daily Start Date: 01/20/16 Status: Ordered simethicone 80 mg oral tablet See Instructions, 4 daily., 0 Refill(s) Start Date: 12/22/14 Status: Ordered simvastatin 20 mg oral tablet See Instructions, TAKE 1 TABLET BY MOUTH EVERY EVENING, # 90 tabs, 0 Refill(s), Pharmacy: [id number], TAKE 1 TABLET BY MOUTH EVERY EVENING Start Date: 02/07/16 Status: Ordered simvastatin 20 mg oral tablet See Instructions, TAKE 1 TABLET BY MOUTH EVERY EVENING, # 90 tabs, eRx: [facility] [id number], TAKE 1 TABLET BY MOUTH EVERY EVENING Start Date: 07/25/15 Status: Ordered timolol See Instructions, Timolol maleate 0.5% eyedrops; place 1 drop in the right eye every morning, 0 Refill(s) Start Date: 11/16/13 Status: Ordered traZODone 100 mg oral tablet See Instructions, TAKE 1 TABLET BY MOUTH AT BEDTIME., # 90 tabs, eRx: [facility] [id number], TAKE 1 TABLET BY MOUTH AT BEDTIME. Start Date: 03/08/14 Status: Ordered zolpidem 10 mg oral tablet 0.5-1 tabs, Oral, Bedtime (once a day), as needed for sleep, RX must last 30 days [facility], # 30 tabs, 0 Refill(s) Start Date: 01/27/16 Status: Ordered Results Hematology Most recent to 1 oldest [Reference Range]: WBC [4.8-10.8 7.5 10*3/uL 10*3/uL] (02/16/16 8:55 AM) RBC [4.60-6.20] 4.55 *LOW* (02/16/16 8:55 AM) Hgb [14.0-18.0 14.8 gm/dL gm/dL] (02/16/16 8:55 AM) Hct [42.0-52.0 %] 42.9 % (02/16/16 8:55 AM) MCV [82.0-99.0 fL] 94.3 fL (02/16/16 8:55 AM) MCH [27.0-32.0 pg] 32.5 pg *HI* (02/16/16 8:55 AM) MCHC [32.0-36.0 34.5 gm/dL gm/dL] (02/16/16 8:55 AM) RDW [11.5-14.5 %] 12.6 % (02/16/16 8:55 AM) Platelet [150-400 267 10*3/uL 10*3/uL] (02/16/16 8:55 AM) MPV [8.8-14.8 fL] 11.2 fL (02/16/16 8:55 AM) Immature 0.1 % Granulocytes (02/16/16 8:55 AM) [0.0-1.0 %] Neutrophils [51-75 66 % %] (02/16/16 8:55 AM) Lymphocytes [20-46 21 % %] (02/16/16 8:55 AM) Monocytes [4-11 %] 10 % (02/16/16 8:55 AM) Eosinophils [0-4 %] 3 % (02/16/16 8:55 AM) Basophils [0-2 %] 0 % (02/16/16 8:55 AM) Neutro Absolute 4.96 10*3 [1.90-7.00 10*3] (02/16/16 8:55 AM) Lymph Absolute 1.58 10*3 [0.80-3.30 10*3] (02/16/16 8:55 AM) [place] Absolute 0.74 10*3 [0.30-1.00 10*3] (02/16/16 8:55 AM) Eos Absolute 0.19 10*3 [0.00-0.50 10*3] (02/16/16 8:55 AM) Baso Absolute 0.03 10*3 [0.00-0.20 10*3] (02/16/16 8:55 AM) Sed Rate [0-15] 6 (02/16/16 8:55 AM) Chemistry Most recent to 1 oldest [Reference Range]: Sodium Lvl [135-144 141 mEq/L mEq/L] (02/16/16 8:55 AM) Potassium Lvl 5.1 mEq/L [3.5-5.2 mEq/L] (02/16/16 8:55 AM) Chloride [99-111 105 mEq/L mEq/L] (02/16/16 8:55 AM) CO2 [23-31 mEq/L] 25 mEq/L (02/16/16 8:55 AM) AGAP [3-20] 11 (02/16/16 8:55 AM) BUN [8-26 mg/dL] 14 mg/dL (02/16/16 8:55 AM) Glucose Lvl [70-99 93 mg/dL mg/dL] (02/16/16 8:55 AM) Creatinine Lvl 1.16 mg/dL [0.72-1.25 mg/dL] (02/16/16 8:55 AM) eGFR [>60 mL/min] >60 mL/min 1 (02/16/16 8:55 AM) Calcium Lvl 9.3 mg/dL [8.9-10.5 mg/dL] (02/16/16 8:55 AM) Albumin Lvl [3.4-4.8 4.2 gm/dL gm/dL] (02/16/16 8:55 AM) Total Protein 6.3 gm/dL [6.0-7.6 gm/dL] (02/16/16 8:55 AM) Globulin [1.8-4.0 2.1 gm/dL gm/dL] (02/16/16 8:55 AM) ALT [0-55 U/L] 19 U/L (02/16/16 8:55 AM) AST [5-34 U/L] 32 U/L (02/16/16 8:55 AM) Alk Phos [40-150 78 U/L U/L] (02/16/16 8:55 AM) Bili Total [0.2-1.2 0.4 mg/dL mg/dL] (02/16/16 8:55 AM) Chol [0-199 mg/dL] 192 mg/dL (02/16/16 8:55 AM) Trig [0-149 mg/dL] 188 mg/dL *HI* (02/16/16 8:55 AM) HDL [40-84 mg/dL] 44 mg/dL (02/16/16 8:55 AM) LDL [0-130 mg/dL] 110 mg/dL (02/16/16 8:55 AM) VLDL Cholesterol 38 mg/dL [0-28 mg/dL] *HI* (02/16/16 8:55 AM) Cardiac Risk 4.4 [0.0-5.7] (02/16/16 8:55 AM) T4 Free [0.7-1.5 0.9 ng/dL ng/dL] (02/16/16 8:55 AM) TSH with Reflex Free 6.31 T4 [0.35-4.94] *HI* (02/16/16 8:55 AM) Hgb A1c [4.1-5.6 %] 4.9 % (02/16/16 8:55 AM) eAvg Glucose 93.9 mg/dL (02/16/16 8:55 AM) 1Result Comment: Multiply eGFR results by 1.21 for race. Urinalysis Most recent to 1 oldest [Reference Range]: UA Color DkYellow (02/16/16 9:03 AM) UA Appear Clear (02/16/16 9:03 AM) UA pH [5.0-8.0] 6.0 (02/16/16 9:03 AM) UA Leuk Est Negative [Negative] (02/16/16 9:03 AM) UA Nitrite Negative [Negative] (02/16/16 9:03 AM) UA Protein Negative [Negative] (02/16/16 9:03 AM) UA Glucose Negative [Negative] (02/16/16 9:03 AM) UA Ketones Negative [Negative] (02/16/16 9:03 AM) UA Urobilinogen 1.0 mg/dL [<1.0 mg/dL] (02/16/16 9:03 AM) UA Bili [Negative] Negative (02/16/16 9:03 AM) UA Blood [Negative] Negative (02/16/16 9:03 AM) UA Spec Grav 1.033 [1.003-1.030] *HI* (02/16/16 9:03 AM) Type Voided (02/16/16 9:03 AM) Immunizations Vaccine Date Refusal Reason tetanus/diphth/pertuss (Tdap) adult/adol 01/07/15 influenza virus vaccine, inactivated 01/10/16 influenza virus vaccine, inactivated 01/07/15 influenza virus vaccine, inactivated 02/16/14 influenza virus vaccine, live 01/13/13 pneumococcal 13-valent conjugate vaccine 01/10/16 pneumococcal 23-polyvalent vaccine 11/22/08 Procedures Procedure Date [...] Patient Education Author: Raoul Post MD Date: Musculoskeletal Back Pain, Adult Back pain is very common in adults.The cause of back pain is rarely dangerous and the pain often gets better over time.The cause of your back pain may not be known. Some common causes of back pain include: Strain of the muscles or ligaments supporting the spine. Wear and tear (degeneration) of the spinal disks. Arthritis. Direct injury to the back. For many people, back pain may return. Since back pain is rarely dangerous, most people can learn to manage this condition on their own. HOME CARE INSTRUCTIONS Watch your back pain for any changes. The following actions may help to lessen any discomfort you are feeling: Remain active. It is stressful on your back to sit or bindery technician one place for long periods of time. Do not sit, drive, or bindery technician one place for more than 30 minutes at a time. Take short walks on even surfaces as soon as you are able.Try to increase the length of time you walk each day. Exercise regularly as directed by your health care provider. Exercise helps your back heal faster. It also helps avoid future injury by keeping your muscles strong and flexible. Do not stay in bed.Resting more than 12 days can delay your recovery. Pay attention to your body when you bend and lift. The most comfortable positions are those that put less stress on your recovering back. Always use proper lifting techniques, including: Bending your knees. Keeping the load close to your body. Avoiding twisting. Find a comfortable position to sleep. Use a firm mattress and lie on your side with your knees slightly bent. If you lie on your back, put a pillow under your knees. Avoid feeling anxious or stressed.Stress increases muscle tension and can worsen back pain.It is important to recognize when you are anxious or stressed and learn ways to manage it, such as with exercise. Take medicines only as directed by your health care provider. Over-the- counter medicines to reduce pain and inflammation are often the most helpful. Your health care provider may prescribe muscle relaxant drugs.These medicines help dull your pain so you can more quickly return to your normal activities and healthy exercise. Apply ice to the injured area: Put ice in a plastic bag. Place a towel between your skin and the bag. Leave the ice on for 20 minutes, 23 times a day for the first 23 days. After that, ice and heat may be alternated to reduce pain and spasms. Maintain a healthy weight. Excess weight puts extra stress on your back and makes it difficult to maintain good posture. SEEK MEDICAL CARE IF: You have pain that is not relieved with rest or medicine. You have increasing pain going down into the legs or buttocks. You have pain that does not improve in one week. You have night pain. You lose weight. You have a fever or chills. SEEK IMMEDIATE MEDICAL CARE IF: You develop new bowel or bladder control problems. You have unusual weakness or numbness in your arms or legs. You develop nausea or vomiting. You develop abdominal pain. You feel faint. This information is not intended to replace advice given to you by your health care provider. Make sure you discuss any questions you have with your health care provider. Document Released: 02/25/2006 Document Revised: 03/18/2015 Document Reviewed: [employer] Patient Education 2016 [employer] No follow up information was provided. Extracted from: Title: Office Visit Note Author: Raoul Post MD Date: 02/16/16 Assessment/Plan Acute headache, Headache We discussed several options for treatment for this condition. The patient declined any changes or other treatments at this time. Mild lab pending. CT head or consult when willing. He declines for now. The patient has family members present who are agreeable with today's plan and have no additional concerns or requests. here. Ordered: C-Reactive Protein (CRP) Sedimentation Rate Blood pressure elevated The patient's issue is nearly or completely resolved. There is no further issues or testing desired by them at this time. The patient had an elevated blood pressure reading and is to monitor their bp and call with a report if consistently > 140/90. Chronic back pain This issue was reviewed, appears stable, and current therapy continued except as mentioned. Appropriate lab was reviewed from the most recent appropriate entry and lab was ordered if needed in the cpoe/nursing orders, and follow up recommended generally in 90 days and no later then six months. Has norco. Chronic insomnia This issue was reviewed, appears stable, and current therapy continued except as mentioned. Appropriate lab was reviewed from the most recent appropriate entry and lab was ordered if needed in the cpoe/nursing orders, and follow up recommended generally in 90 days and no later then six months. COPD (chronic obstructive pulmonary disease) This issue was reviewed, appears stable, and current therapy continued except as mentioned. Appropriate lab was reviewed from the most recent appropriate entry and lab was ordered if needed in the cpoe/nursing orders, and follow up recommended generally in 90 days and no later then six months. Samples of the new medication were provided as a courtesy. Side effects were discussed and follow up was recommended. Breo samples given as a courtesy. GERD without esophagitis This issue was reviewed, appears stable, and current therapy continued except as mentioned. Appropriate lab was reviewed from the most recent appropriate entry and lab was ordered if needed in the cpoe/nursing orders, and follow up recommended generally in 90 days and no later then six months. High blood sugar This issue was reviewed, appears stable, and current therapy continued except as mentioned. Appropriate lab was reviewed from the most recent appropriate entry and lab was ordered if needed in the cpoe/nursing orders, and follow up recommended generally in 90 days and no later then six months. Lab pending. Ordered: CBC w/ Differential Comprehensive Metabolic Panel Hemoglobin A1c TSH with Reflex Free T4 Urinalysis with Culture if Indicated High cholesterol This issue was reviewed, appears stable, and current therapy continued except as mentioned. Appropriate lab was reviewed from the most recent appropriate entry and lab was ordered if needed in the cpoe/nursing orders, and follow up recommended generally in 90 days and no later then six months. Lab pending. Ordered: Lipid Panel Hypothyroidism This issue was reviewed, appears stable, and current therapy continued except as mentioned. Appropriate lab was reviewed from the most recent appropriate entry and lab was ordered if needed in the cpoe/nursing orders, and follow up recommended generally in 90 days and no later then six months. Lab pending.
--- OUTSIDE RECORDS SUMMARY | 2016-06-03 13:20 | XMS REPORT | Referral Summary ---
Author Author [facility] Organization [facility] Address Unknown Phone Unavailable Care Team Providers Care Production Underwriter Name Role Phone Hannah Post Primary Care Physician [phone] Encounter VC Date(s): 08/19/14 - 08/19/14 [facility], Family [address] [place] [id number] Discharge Disposition: 01-Home or Self Care [...] day, # 30 Each, 1 Refill(s), Pharmacy: [facility] [id number], 3 mL NEB q8hr,Instr:2.5 mg/3 mL (0.083%) neb solution; inhale 3 mL by nebuliz... Start Date: 12/22/14 Status: Ordered Aleve 220 mg oral tablet 1 tabs, Oral, q12hr, as needed Start Date: 11/16/13 Status: Ordered aspirin 81 mg oral tablet, chewable 1 tabs, Oral, Daily Start Date: 11/16/13 Status: Ordered levothyroxine 50 mcg (0.05 mg) oral tablet See Instructions, TAKE 1 TABLET BY MOUTH EVERY DAY, # 60 tabs, 2 Refill(s), eRx : [facility] [id number], TAKE 1 TABLET BY MOUTH EVERY DAY Start Date: 10/15/14 Status: Ordered Misc Medication Patient takes Dann Red- Shrimp oil daily, 0 Refill(s) Start Date: 01/11/15 Status: Ordered multivitamin 1 tabs, Oral, Daily Start Date: 11/16/13 Status: Ordered Cusseta 10 mg-325 mg oral tablet 1-2 tabs, Oral, q8hr, as needed for pain, rx must last 30 days May fill , # 120 tabs, 0 Refill(s) Start Date: 12/16/14 Status: Ordered PriLOSEC OTC 20 mg, Oral, Daily, 0 Refill(s) Start Date: 01/11/15 Status: Ordered ProAir HFA 90 mcg/inh inhalation aerosol 1 puffs, Inhalation, q4hr, as needed Start Date: 11/16/13 Status: Ordered Remeron 15 mg oral tablet See Instructions, 1 TABS ORAL BEDTIME (ONCE A DAY),X30 DAYS, # 30 tabs, 2 Refill (s), eRx: [facility] [id number], 1 TABS ORAL BEDTIME (ONCE A DAY),X30 DAYS Start Date: 12/29/14 Status: Ordered Senokot See Instructions, 2 tabs daily., 0 Refill(s) Start Date: 12/16/14 Status: Ordered sertraline 50 mg oral tablet See Instructions, TAKE 1 TABLET (50MG) BY ORAL ROUTE EVERY DAY, # 90 tabs, eRx: [facility] [id number], TAKE 1 TABLET (50MG) BY ORAL ROUTE EVERY DAY Start Date: 10/18/14 Status: Ordered simethicone 80 mg oral tablet See Instructions, 4 daily., 0 Refill(s) Start Date: 12/22/14 Status: Ordered simvastatin 20 mg oral tablet See Instructions, TAKE 1 TABLET (20MG) BY ORAL ROUTE EVERY DAY IN THE EVENING, # 90 tabs, 1 Refill(s), eRx: [facility] [id number], TAKE 1 TABLET (20MG) BY ORAL ROUTE EVERY DAY IN THE EVENING Start Date: 10/29/14 Status: Ordered timolol See Instructions, Timolol maleate 0.5% eyedrops; place 1 drop in the right eye every morning, 0 Refill(s) Start Date: 11/16/13 Status: Ordered traZODone 100 mg oral tablet See Instructions, TAKE 1 TABLET BY MOUTH AT BEDTIME., # 90 tabs, eRx: [facility] [id number], TAKE 1 TABLET BY MOUTH AT BEDTIME. Start Date: 03/08/14 Status: Ordered zolpidem 10 mg oral tablet 0.5-1 tabs, Oral, Bedtime (once a day), as needed for sleep, fax to [facility], RX must last 30 days, # 30 tabs, 0 Refill(s) Start Date: 12/31/14 Status: Ordered Results No data available for this section Immunizations Vaccine Date Refusal Reason tetanus/diphth/pertuss (Tdap) adult/adol 01/07/15 influenza virus vaccine, inactivated 01/07/15 influenza virus vaccine, inactivated 02/16/14 influenza virus vaccine, live 01/13/13 pneumococcal 23-polyvalent vaccine 11/22/08 Procedures Procedure Date Related Diagnosis Body Site Colonoscopy1 12/21/04 History of knee surgery - left knee cartilage 1968 repair Knee replacement 1hyperplastic polyps, repeat in 10 years Social History [...] Released: 04/04/2005 Document Revised: 05/19/2012 Document Reviewed: [facility] Patient Information 2014 [employer] [facility]. No follow up information was provided. Extracted from: Title: Office Visit Note Author: Raoul Post MD Date: 08/19/14 Assessment/Plan Chronic back pain This issue is stable and appropriate refills, lab, and f/u have been discussed. Cusseta refilled. Chronic insomnia This issue is stable [...]
--- OUTSIDE RECORDS SUMMARY | 2016-06-03 13:20 | XMS REPORT | Referral Summary ---
Author Author [facility] Organization [facility] Address Unknown Phone Unavailable Care Team Providers Care Measurer Machine Name Role Phone Hannah Post Primary Care Physician [phone] Encounter VC Date(s): 03/24/15 - 03/24/15 [facility] [address] [place] [address] Discharge Disposition: 01-Home or Self Care Attending Physician: Raoul Post MD Admitting Physician: Raoul Post MD Vital Signs Most recent to 1 oldest [Reference Range]: Peripheral Pulse 96 bpm Rate [60-100 bpm] (03/24/15 3:04 PM) Blood Pressure 120/80 mmHg [90-140/60-90 mmHg] (03/24/15 3:04 PM) SpO2 93 % (03/24/15 3:04 PM) Problem List Condition Effective Dates Status Health [...] day, # 30 Each, 1 Refill(s), Pharmacy: [id number], 3 mL NEB q8hr,Instr:2.5 mg/3 mL (0.083%) [...] days, # 300 tabs, 0 Refill(s), Pharmacy: [id number], 1 tabs Oral Daily,x300 days Start Date: 02/18/15 Stop Date: 12/15/15 Status: Ordered levothyroxine 50 mcg (0.05 mg) oral tablet See Instructions, TAKE 1 TABLET BY MOUTH EVERY DAY, # 60 tabs, 2 Refill(s), eRx : [facility] [id number], TAKE 1 TABLET BY MOUTH EVERY DAY Start Date: 10/15/14 Status: Ordered Misc Medication Patient takes Dann Red- Shrimp oil daily, 0 Refill(s) Start Date: 01/11/15 Status: Ordered multivitamin 1 tabs, Oral, Daily Start Date: 11/16/13 Status: Ordered Fairmont 10 mg-325 mg oral tablet 1-2 tabs, Oral, q8hr, as needed for pain, MUST LAST 30 DAYS., # 120 tabs, 0 Refill(s) Start Date: 03/16/15 Status: Ordered predniSONE 20 mg oral tablet 20 mg 1 tabs, Oral, Daily, X 10 days, # 10 tabs, 0 Refill(s), Pharmacy: [facility] [id number], 1 tabs Oral Daily,x10 days Start Date: 03/24/15 Stop Date: 04/03/15 Status: Ordered PriLOSEC 40 mg oral delayed release capsule 40 mg 1 caps, Oral, Daily, # 100 caps, 0 Refill(s), Pharmacy: [id number], 1 caps Oral Daily,x100 days Start Date: [...] # 30 tabs, 2 Refill (s), eRx: [facility] [id number], 1 TABS ORAL BEDTIME (ONCE A DAY),X30 DAYS Start Date: 03/22/15 Status: Ordered Senokot See Instructions, 2 tabs daily., 0 Refill(s) Start Date: 12/16/14 Status: Ordered sertraline 50 mg oral tablet See Instructions, TAKE 1 TABLET (50MG) BY ORAL ROUTE EVERY DAY, # 90 tabs, eRx: [facility] [id number], TAKE 1 TABLET (50MG) BY ORAL ROUTE EVERY DAY Start Date: 01/17/15 Status: Ordered simethicone 80 mg oral tablet See Instructions, 4 daily., 0 Refill(s) Start Date: 12/22/14 Status: Ordered simvastatin 20 mg oral tablet See Instructions, TAKE 1 TABLET (20MG) BY ORAL ROUTE EVERY DAY IN THE EVENING, # 90 tabs, 1 Refill(s), eRx: [facility] [id number], TAKE 1 TABLET (20MG) BY ORAL ROUTE EVERY DAY IN THE EVENING Start Date: 10/29/14 Status: Ordered timolol See Instructions, Timolol maleate 0.5% eyedrops; place 1 drop in the right eye every morning, 0 Refill(s) Start Date: 11/16/13 Status: Ordered traZODone 100 mg oral tablet See Instructions, TAKE 1 TABLET BY MOUTH AT BEDTIME., # 90 tabs, eRx: [facility] [id number], TAKE 1 TABLET BY MOUTH AT BEDTIME. Start Date: 03/08/14 Status: Ordered zolpidem 10 mg oral tablet 0.5-1 tabs, Oral, Bedtime (once a day), as needed for sleep, fax to [facility] [phone], RX must last 30 days, # 30 tabs, 0 Refill(s) Start Date: 03/03/15 Status: Ordered Results No data available for [...] Patient Education Author: Raoul Post MD Date: Family Medicine Asthma Asthma is a recurring condition in which the airways tighten and narrow. Asthma can make it difficult to breathe. It can cause coughing, wheezing, and shortness of breath. Asthma episodes, also called asthma attacks, range from minor to life-threatening. Asthma cannot be cured, but medicines and lifestyle changes can help control it. CAUSES Asthma is believed to be caused by inherited (genetic) and environmental factors , but its exact cause is unknown. Asthma may be triggered by allergens, lung infections, or irritants in the air. Asthma triggers are different for each person. Common triggers include: Animal dander. Dust mites. Cockroaches. Pollen from trees or grass. Mold. Smoke. Air pollutants such as dust, household media specialist, hair sprays, aerosol sprays, paint fumes, strong chemicals, or strong odors. Cold air, weather changes, and winds (which increase molds and pollens in the air). Strong emotional expressions such as crying or laughing hard. Stress. Certain medicines (such as aspirin) or types of drugs (such as beta- blockers). Sulfites in foods and drinks. Foods and drinks that may contain sulfites include dried fruit, potato chips, and sparkling grape juice. Infections or inflammatory conditions such as the flu, a cold, or an inflammation of the nasal membranes (rhinitis). Gastroesophageal reflux disease (GERD). Exercise or strenuous activity. SYMPTOMS Symptoms may occur immediately after asthma is triggered or many hours later. Symptoms include: Wheezing. Excessive nighttime or early childhood education worker coughing. Frequent or severe coughing with a common cold. Chest tightness. Shortness of breath. DIAGNOSIS The diagnosis of asthma is made by a review of your medical history and a physical exam. Tests may also be performed. These may include: Lung function studies. These tests show how much air you breathe in and out. Allergy tests. Imaging tests such as X-rays. TREATMENT Asthma cannot be cured, but it can usually be controlled. Treatment involves identifying and avoiding your asthma triggers. It also involves medicines. There are 2 classes of medicine used for asthma treatment: Controller medicines. These prevent asthma symptoms from occurring. They are usually taken every day. Reliever or rescue medicines. These quickly relieve asthma symptoms. They are used as needed and provide short-term relief. Your health care provider will help you create an asthma action plan. An asthma action plan is a written plan for managing and treating your asthma attacks. It includes a list of your asthma triggers and how they may be avoided. It also includes information on when medicines should be taken and when their dosage should be changed. An action plan may also involve the use of a device called a peak flow meter. A peak flow meter measures how well the lungs are working. It helps you monitor your condition. HOME CARE INSTRUCTIONS Take medicines only as directed by your health care provider. Speak with your health care provider if you have questions about how or when to take the medicines. Use a peak flow meter as directed by your health care provider. Record and keep track of readings. Understand and use the action plan to help minimize or stop an asthma attack without needing to seek medical care. Control your home environment in the following ways to help prevent asthma attacks: Do not smoke. Avoid being exposed to secondhand smoke. Change your heating and air conditioning filter regularly. Limit your use of fireplaces and wood stoves. Get rid of pests (such as roaches and mice) and their droppings. Throw away plants if you see mold on them. Clean your floors and dust regularly. Use unscented cleaning products. Try to have someone else vacuum for you regularly. Stay out of rooms while they are being vacuumed and for a short while afterward. If you vacuum, use a dust mask from a [employer] store, a double-layered or microfilter vacuum flask cleaner bag, or a vacuum flask cleaner with a HEPA filter. Replace carpet with wood, tile, or vinyl cruz. Carpet can trap dander and dust. Use allergy-proof pillows, mattress covers, and box spring covers. Wash bed sheets and blankets every week in hot water and dry them in a dryer. Use blankets that are made of polyester or cotton. Clean bathrooms and sofie with bleach. If possible, have someone repaint the dee in these rooms with mold-resistant paint. Keep out of the rooms that are being cleaned and painted. Wash hands frequently. SEEK MEDICAL CARE IF: You have wheezing, shortness of breath, or a cough even if taking medicine to prevent attacks. The colored mucus you cough up (sputum) is thicker than usual. Your sputum changes from clear or white to yellow, green, ortega, or bloody. You have any problems that may be related to the medicines you are taking ( such as a rash, itching, swelling, or trouble breathing). You are using a reliever medicine more than 23 times per week. Your peak flow is still at 5079% of your personal best after following your action plan for 1 hour. You have a fever. SEEK IMMEDIATE MEDICAL CARE IF: You seem to be getting worse and are unresponsive to treatment during an asthma attack. You are short of breath even at rest. You get short of breath when doing very little physical activity. You have difficulty eating, drinking, or talking due to asthma symptoms. You develop chest pain. You develop a fast heartbeat. You have a bluish color to your lips or fingernails. You are light-headed, dizzy, or faint. Your peak flow is less than 50% of your personal best. MAKE SURE YOU: Understand these instructions. Will watch your condition. Will get help right away if you are not doing well or get worse. Document Released: 02/25/2006 Document Revised: 07/12/2014 Document Reviewed: ExitCare Patient Information 2015 [employer], [facility]. This information is not intended to replace advice given to you by your health care provider. Make sure you discuss any questions you have with your health care provider. No follow up information was provided. Extracted from: Title: Office Visit Note Author: Raoul Post MD Date: 03/24/15 Assessment/Plan Acute bronchitis Discussed having prednisone on hand for exacerbations. Prednisone 20mg po daily for ten days and appt luly if starting. Chronic back pain This issue was reviewed, appears stable, and current therapy continued except as mentioned. Appropriate lab was reviewed from the most recent appropriate entry and lab was ordered if needed in the cpoe/nursing orders, and follow up recommended generally in 90 days and no later then six months. Has narcotic contract. Refill when due. COPD (chronic obstructive pulmonary disease) This issue was reviewed, appears stable, and current therapy continued except as mentioned. Appropriate lab was reviewed from the most recent appropriate entry and lab was ordered if needed in the cpoe/nursing orders, and follow up recommended generally in 90 days and no later then six months. Much improved. Melquiades from [facility] 03/07 reviewed. Samples of the new medication were provided as a courtesy. Side effects were discussed and follow up was recommended. Breo samples given 200. Demo given. GERD without esophagitis This issue was reviewed, appears stable, and current therapy continued except as mentioned. Appropriate lab was reviewed from the most recent appropriate entry and lab was ordered if needed in the cpoe/nursing orders, and follow up recommended generally in 90 days and no later then six months. Hypothyroidism This issue was reviewed, appears stable, and current therapy continued except as mentioned. Appropriate lab was reviewed from the most recent appropriate entry and lab was ordered if needed in the cpoe/nursing orders, and follow up recommended generally in 90 days and no later then six months. Lab stable and reviewed. Orders: albuterol, 1 puffs, Inhalation, q4hr, Shortness of Breath/Wheezing, No substitutes., # 1 Each, 2 Refill(s), samples given to patient (Rx) fluticasone-vilanterol, 1 puffs, Inhalation, Daily, # 1 Each, 0 Refill(s), samples given to patient (Rx) predniSONE, 20 mg 1 tabs, Oral, Daily, X 10 days, # 10 tabs, 0 Refill(s), Pharmacy: [facility] [id number], 1 tabs Oral Daily,x10 days
--- OUTSIDE RECORDS SUMMARY | 2016-06-03 13:21 | XMS REPORT | Referral Summary ---
Author Author [facility] Organization [facility] Address Unknown Phone Unavailable Care Team Providers Care Windows Software Engineer Name Role Phone Hannah Post Primary Care Physician [phone] Encounter Date(s): 12/16/14 - 12/16/14 [facility] [address] [place] [address]- Discharge Diagnosis: Abdominal pain Discharge Disposition: 01-Home or Self Care Attending Physician: Monica Salgado PA-C Admitting Physician: Monica Salgado PA-C Vital Signs Most recent to 1 oldest [Reference Range]: Temperature Tympanic 36.9 degC [36.6-38.1 degC] (12/16/14 3:16 PM) Peripheral Pulse 80 bpm Rate [60-100 bpm] (12/16/14 3:16 PM) Respiratory Rate 20 br/min [14-20 br/min] (12/16/14 3:16 PM) Blood Pressure 142/76 mmHg [90-140/60-90 mmHg] *HI* (12/16/14 3:16 PM) Problem List Condition Effective Dates Status [...] day, # 30 Each, 1 Refill(s), Pharmacy: [facility] [id number], 3 mL NEB q8hr,Instr:2.5 mg/3 mL (0.083%) [...] Daily, # 1 Each, 0 Refill(s), Pharmacy: [facility] [id number] Start Date: 06/20/15 Status: Ordered Claritin 10 mg oral tablet 10 mg 1 tabs, Oral, Daily, X 300 days, # 300 tabs, 0 Refill(s), Pharmacy: [facility] [id number], 1 tabs Oral Daily,x300 days Start Date: 02/18/15 Stop Date: 12/15/15 Status: Ordered levothyroxine 50 mcg (0.05 mg) oral tablet See Instructions, TAKE 1 TABLET BY MOUTH EVERY DAY, # 60 tabs, 2 Refill(s), eRx : [facility] [id number], TAKE 1 TABLET BY MOUTH EVERY DAY Start Date: 04/11/15 Status: Ordered Misc Medication Patient takes Dann Red- Shrimp oil daily, 0 Refill(s) Start Date: 01/11/15 Status: Ordered multivitamin 1 tabs, Oral, Daily Start Date: 11/16/13 Status: Ordered Laurel 10 mg-325 mg oral tablet 1-2 tabs, Oral, q8hr, as needed for pain, MUST LAST 30 DAYS. MAy fill . , # 120 tabs, 0 Refill(s) Start Date: 06/14/15 Status: Ordered PriLOSEC 40 mg oral delayed release capsule 40 mg 1 caps, Oral, Daily, # 100 caps, 0 Refill(s), Pharmacy: [facility] [id number], 1 caps Oral Daily,x100 days Start Date: 02/18/15 Stop Date: 05/29/15 Status: Ordered PriLOSEC 40 mg oral delayed release capsule See Instructions, 1 CAPS ORAL DAILY,X100 DAYS, # 100 caps, eRx: [facility] [id number], 1 CAPS ORAL DAILY,X100 DAYS Start Date: 06/14/15 Status: Ordered ProAir RespiClick 90 mcg/inh inhalation powder 1 puffs, Inhalation, q4hr, Shortness of Breath/Wheezing, No substitutes., # 1 Each, 2 Refill(s), samples given to patient (Rx) Start Date: 03/24/15 Status: Ordered Remeron 15 mg oral tablet See Instructions, 1 TABS ORAL BEDTIME (ONCE A DAY),X30 DAYS, # 30 tabs, eRx: [facility] [id number], 1 TABS ORAL BEDTIME (ONCE A DAY),X30 DAYS Start Date: 06/13/15 Status: Ordered Senokot See Instructions, 2 tabs daily., 0 Refill(s) Start Date: 12/16/14 Status: Ordered sertraline 50 mg oral tablet See Instructions, TAKE 1 TABLET (50MG) BY ORAL ROUTE EVERY DAY, # 90 tabs, eRx: [facility] [id number], TAKE 1 TABLET (50MG) BY ORAL ROUTE EVERY DAY Start Date: 04/14/15 Status: Ordered simethicone 80 mg oral tablet See Instructions, 4 daily., 0 Refill(s) Start Date: 12/22/14 Status: Ordered simvastatin 20 mg oral tablet See Instructions, TAKE 1 TABLET (20MG) BY ORAL ROUTE EVERY DAY IN THE EVENING, # 90 tabs, eRx: [facility] [id number], TAKE 1 TABLET (20MG) BY ORAL ROUTE EVERY DAY IN THE EVENING Start Date: 04/25/15 Status: Ordered timolol See Instructions, Timolol maleate 0.5% eyedrops; place 1 drop in the right eye every morning, 0 Refill(s) Start Date: 11/16/13 Status: Ordered traZODone 100 mg oral tablet See Instructions, TAKE 1 TABLET BY MOUTH AT BEDTIME., # 90 tabs, eRx: [facility] [id number], TAKE 1 TABLET BY MOUTH AT BEDTIME. Start Date: 03/08/14 Status: Ordered zolpidem 10 mg oral tablet 0.5-1 tabs, Oral, Bedtime (once a day), as needed for sleep, fax to [facility] [phone], RX must last 30 days, # 30 tabs, 0 Refill(s) Start Date: 06/02/15 Status: Ordered Results Chemistry Most recent to 1 oldest [Reference Range]: Sodium Lvl [135-144 142 mEq/L mEq/L] (12/16/14 3:40 PM) Potassium Lvl 5.2 mEq/L [3.5-5.2 mEq/L] (12/16/14 3:40 PM) Chloride [99-111 110 mEq/L mEq/L] (12/16/14 3:40 PM) CO2 [23-31 mEq/L] 24 mEq/L (12/16/14 3:40 PM) AGAP [3-20] 8 (12/16/14 3:40 PM) BUN [8-26 mg/dL] 11 mg/dL (12/16/14 3:40 PM) Glucose Lvl [70-99 97 mg/dL mg/dL] (12/16/14 3:40 PM) Creatinine Lvl 1.01 mg/dL [0.72-1.25 mg/dL] (12/16/14 3:40 PM) eGFR [>60 mL/min] >60 mL/min 1 (12/16/14 3:40 PM) Calcium Lvl 9.4 mg/dL [8.9-10.5 mg/dL] (12/16/14 3:40 PM) Albumin Lvl [3.4-4.8 4.0 gm/dL gm/dL] (12/16/14 3:40 PM) Total Protein 6.3 gm/dL [6.2-8.1 gm/dL] (12/16/14 3:40 PM) Globulin [1.8-4.0 2.3 gm/dL gm/dL] (12/16/14 3:40 PM) ALT [0-55 U/L] 20 U/L (12/16/14 3:40 PM) AST [5-34 U/L] 33 U/L (12/16/14 3:40 PM) Alk Phos [40-150 68 U/L U/L] (12/16/14 3:40 PM) Bili Total [0.2-1.2 0.4 mg/dL mg/dL] (12/16/14 3:40 PM) 1Result Comment: Multiply eGFR results by 1.21 for race. Immunizations Vaccine Date Refusal Reason tetanus/diphth/pertuss (Tdap) [...] Education Author: Monica Salgado PA-C Date : 12/16/14 Emergency Medicine Abdominal Pain Many things can cause abdominal pain. Usually, abdominal pain is not caused by a disease and will improve without treatment. It can often be observed and treated at home. Your health care provider will do a physical exam and possibly order blood tests and X-rays to help determine the seriousness of your pain. However, in many cases, more time must pass before a clear cause of the pain can be found. Before that point, your health care provider may not know if you need more testing or further treatment. HOME CARE INSTRUCTIONS Monitor your abdominal pain for any changes. The following actions may help to alleviate any discomfort you are experiencing: Only take [id number] or prescription medicines as directed by your health care provider. Do not take laxatives unless directed to do so by your health care provider. Try a clear liquid diet (broth, tea, or water) as directed by your health care provider. Slowly move to a bland diet as tolerated. SEEK MEDICAL CARE IF: You have unexplained abdominal pain. You have abdominal pain associated with nausea or diarrhea. You have pain when you urinate or have a bowel movement. You experience abdominal pain that wakes you in the night. You have abdominal pain that is worsened or improved by eating food. You have abdominal pain that is worsened with eating fatty foods. You have a fever. SEEK IMMEDIATE MEDICAL CARE IF: Your pain does not go away within 2 hours. You keep throwing up (vomiting). Your pain is felt only in portions of the abdomen, such as the right side or the left lower portion of the abdomen. You pass bloody or black tarry stools. MAKE SURE YOU: Understand these instructions. Will watch your condition. Will get help right away if you are not doing well or get worse. Document Released: 12/05/2005 Document Revised: 03/02/2014 Document Reviewed: ExitCare Patient Information 2015 [employer]. This information is not intended to replace advice given to you by your health care provider. Make sure you discuss any questions you have with your health care provider. No follow up information was provided. Extracted from: Title: Office Visit Note Author: Monica Salgado PA-C Date: 12/16/14 Assessment/Plan Abdominal pain, Abdominal pain Itdoes sound more like constipation issues. Will obtain x-ray today. Will let him know of results when available. Hemay continue with senokot for now- if x-ray shows constipation, will have him try Miralax. Push fluids and get plenty of exercise. Doesnot appear to be related to Gallbladder, but will obtain lab today, and may get US of RUQ if x-ray normal. Pt would also like to be set up again for colonoscopy. Will set up with Dr. Engel. Ordered: Comprehensive Metabolic Panel Office Visit Level 3 Est 35818 XR Abdomen AP
--- OUTSIDE RECORDS SUMMARY | 2016-06-03 13:21 | XMS REPORT | Referral Summary ---
Author Author [facility] Organization [facility] Address Unknown Phone Unavailable Care Team Providers Care Enterprise Account Manager Name Role Phone Hannah Post Primary Care Physician [phone] Encounter VC Date(s): 08/19/14 - 08/19/14 [facility], Family [address] [place] [address] Discharge Disposition: 01-Home or Self Care Attending [...] day, # 30 Each, 1 Refill(s), Pharmacy: [facility] [id number], 3 mL NEB q8hr,Instr:2.5 mg/3 mL (0.083%) [...] # 60 tabs, 2 Refill(s), eRx : [facility] [id number], TAKE 1 TABLET BY MOUTH EVERY DAY Start Date: 10/15/14 Status: Ordered Misc Medication Patient takes Dann Red- Shrimp oil daily, 0 Refill(s) Start Date: 01/11/15 Status: Ordered multivitamin 1 tabs, Oral, Daily Start Date: 11/16/13 Status: Ordered Meigs 10 mg-325 mg oral tablet 1-2 tabs, [...] # 30 tabs, 2 Refill (s), eRx: [facility] [id number], 1 TABS ORAL BEDTIME (ONCE A DAY),X30 DAYS Start Date: 12/29/14 Status: Ordered Senokot See Instructions, 2 tabs daily., 0 Refill(s) Start Date: 12/16/14 Status: Ordered sertraline 50 mg oral tablet See Instructions, TAKE 1 TABLET (50MG) BY ORAL ROUTE EVERY DAY, # 90 tabs, eRx: [facility] [id number], TAKE 1 TABLET (50MG) BY ORAL ROUTE EVERY DAY Start Date: 10/18/14 Status: Ordered simethicone 80 mg oral tablet See Instructions, 4 daily., 0 Refill(s) Start Date: 12/22/14 Status: Ordered simvastatin 20 mg oral tablet See Instructions, TAKE 1 TABLET (20MG) BY ORAL ROUTE EVERY DAY IN THE EVENING, # 90 tabs, 1 Refill(s), eRx: [facility] [id number], TAKE 1 TABLET (20MG) BY ORAL ROUTE EVERY DAY IN THE EVENING Start Date: 10/29/14 Status: Ordered timolol See Instructions, Timolol maleate 0.5% eyedrops; place 1 drop in the right eye every morning, 0 Refill(s) Start Date: 11/16/13 Status: Ordered traZODone 100 mg oral tablet See Instructions, TAKE 1 TABLET BY MOUTH AT BEDTIME., # 90 tabs, eRx: [facility] [id number], TAKE 1 TABLET BY MOUTH AT BEDTIME. Start Date: 03/08/14 Status: Ordered zolpidem 10 mg oral tablet 0.5-1 tabs, Oral, Bedtime (once a day), as needed for sleep, fax to [facility], RX must last 30 days, # 30 [...] Released: 04/04/2005 Document Revised: 05/19/2012 Document Reviewed: [facility] Patient Information 2014 [employer] [facility]. No follow up information was provided. Extracted from: Title: Office Visit Note Author: Raoul Post MD Date: 08/19/14 Assessment/Plan Chronic back pain This issue is stable and appropriate refills, lab, and f/u have been discussed. Meigs refilled. Chronic insomnia This issue is stable [...]
--- OUTSIDE RECORDS SUMMARY | 2016-06-03 13:21 | XMS REPORT | Referral Summary ---
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 Role Phone Hannah Post Primary Care Physician [phone] Encounter [facility] Date(s): 03/07/15 - 03/07/15 [facility] [address] [place] [address] Discharge Disposition: 01-Home or Self Care Attending Physician: Raoul Post MD Admitting Physician: Raoul Post MD Vital Signs Most recent to 1 oldest [Reference Range]: Peripheral Pulse 115 bpm Rate [60-100 bpm] *HI* (03/07/15 4:02 PM) Blood Pressure 140/80 mmHg [90-140/60-90 mmHg] (03/07/15 4:02 PM) SpO2 86 % (03/07/15 4:02 PM) Problem List Condition Effective Dates Status [...] day, # 30 Each, 1 Refill(s), Pharmacy: [id number], 3 mL NEB q8hr,Instr:2.5 mg/3 mL (0.083%) [...] days, # 300 tabs, 0 Refill(s), Pharmacy: [id number], 1 tabs Oral Daily,x300 days Start Date: 02/18/15 Stop Date: 12/15/15 Status: Ordered levothyroxine 50 mcg (0.05 mg) oral tablet See Instructions, TAKE 1 TABLET BY MOUTH EVERY DAY, # 60 tabs, 2 Refill(s), eRx : [facility] [id number], TAKE 1 TABLET BY MOUTH EVERY DAY Start Date: 10/15/14 Status: Ordered Misc Medication Patient takes Dann Red- Shrimp oil daily, 0 Refill(s) Start Date: 01/11/15 Status: Ordered multivitamin 1 tabs, Oral, Daily Start Date: 11/16/13 Status: Ordered [place] 10 mg-325 mg oral tablet 1-2 tabs, Oral, q8hr, as needed for pain, MUST LAST 30 DAYS., # 120 tabs, 0 Refill(s) Start Date: 02/15/15 Status: Ordered PriLOSEC 40 mg oral delayed release capsule 40 mg 1 caps, Oral, Daily, # 100 caps, 0 Refill(s), Pharmacy: [facility] [id number], 1 caps Oral Daily,x100 days Start Date: [...] # 30 tabs, 2 Refill (s), eRx: [facility] [id number], 1 TABS ORAL BEDTIME (ONCE A DAY),X30 DAYS Start Date: 12/29/14 Status: Ordered Senokot See Instructions, 2 tabs daily., 0 Refill(s) Start Date: 12/16/14 Status: Ordered sertraline 50 mg oral tablet See Instructions, TAKE 1 TABLET (50MG) BY ORAL ROUTE EVERY DAY, # 90 tabs, eRx: [facility] [id number], TAKE 1 TABLET (50MG) BY ORAL ROUTE EVERY DAY Start Date: 01/17/15 Status: Ordered simethicone 80 mg oral tablet See Instructions, 4 daily., 0 Refill(s) Start Date: 12/22/14 Status: Ordered simvastatin 20 mg oral tablet See Instructions, TAKE 1 TABLET (20MG) BY ORAL ROUTE EVERY DAY IN THE EVENING, # 90 tabs, 1 Refill(s), eRx: [facility] [id number], TAKE 1 TABLET (20MG) BY ORAL ROUTE EVERY DAY IN THE EVENING Start Date: 10/29/14 Status: Ordered timolol See Instructions, Timolol maleate 0.5% eyedrops; place 1 drop in the right eye every morning, 0 Refill(s) Start Date: 11/16/13 Status: Ordered traZODone 100 mg oral tablet See Instructions, TAKE 1 TABLET BY MOUTH AT BEDTIME., # 90 tabs, eRx: [facility] [id number], TAKE 1 TABLET BY MOUTH AT BEDTIME. Start Date: 03/08/14 Status: Ordered zolpidem 10 mg oral tablet 0.5-1 tabs, Oral, Bedtime (once a day), as needed for sleep, fax to [phone], RX must last 30 days, # 30 [...] Smoke. Air pollutants such as dust, household wildlife control operator, hair sprays, aerosol sprays, paint fumes, strong [...] later. Symptoms include: Wheezing. Excessive nighttime or motor scooter repairer coughing. Frequent or severe coughing with a [...] vacuum, use a dust mask from a hardware store, a double-layered or microfilter vacuum cell cleaner bag, or a vacuum cell cleaner with a HEPA filter. Replace carpet [...] Released: 02/25/2006 Document Revised: 07/12/2014 Document Reviewed: [facility] 2015 [facility]. This information is not intended to replace advice given to you by your health care provider. Make sure you discuss any questions you have with your health care provider. No follow up information was provided. Extracted from: Title: Office Visit Note Author: Raoul Post MD Date: 03/07/15 Assessment/Plan Blood pressure elevated This issue was reviewed, appears stable, and current therapy continued except as mentioned. Appropriate lab was reviewed from the most recent appropriate entry and lab was ordered if needed in the cpoe /nursing orders, and follow up recommended generally in 90 days and no later then six months. The patient reports their blood pressure has been stable at home and is not having any significant or related problems. There has been no chest pain, chest pressure, soa/block. Chronic back pain This issue was reviewed, appears stable, and current therapy continued except as mentioned. Appropriate lab was reviewed from the most recent appropriate entry and lab was ordered if needed in the cpoe/nursing orders, and follow up recommended generally in 90 days and no later then six months. Has narcotics. COPD (chronic obstructive pulmonary disease) O2Sats in the 85-86% range on RA today. COPD exacerbation To [facility] for evaluation and treatment.Supplemental oxygen given here. Expect CXR, lab, nebulizer, etc at [facility].Nursing staff took to ER. Elevated blood sugar This issue was reviewed, appears stable, and current therapy continued except as mentioned. Appropriate lab was reviewed from the most recent appropriate entry and lab was ordered if needed in the cpoe/nursing orders, and follow up recommended generally in 90 days and no later then six months. Lab reviewed andstable. Shortness of breath See above. Wheezing Plan nebulizer at ER.
--- OUTSIDE RECORDS SUMMARY | 2016-06-03 13:21 | XMS REPORT | Continuity of Care Document ---
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 Role Phone Raoul Post PP Unavailable Payers Payer name Insurance type Covered green party ID Authorization(s) Unknown Problems Condition Effective Dates (start - stop) Clinical Status COPD - *Chronic CHRONIC PAIN NEC - *Chronic Insomnia, Other - *Chronic Depression - *Chronic Other and unspecified hyperlipidemia - *Chronic COPD - Acute Exacerbation URI, acute - Acute Upper Respiratory Infection, Acute - Acute Other malaise and fatigue - *Acute Pneumonia - *Acute Pneumonia - *Resolved Other and unspecified hyperlipidemia - *Chronic Influenza Vaccine - Hyperlipidemia, NOS - *Chronic Insomnia - *Chronic COPD - *Chronic Depression - *Chronic Neck pain - *Chronic Chronic pain - *Chronic Abnormal glucose - *Chronic Abnormal involuntary movements - *Chronic Insomnia, Other - *Chronic COPD - Acute Exacerbation Cough - *Acute Hypertension, Benign - *Chronic Other and unspecified hyperlipidemia - *Chronic Insomnia, Other - *Chronic Lumbago - *Chronic CHRONIC PAIN NEC - *Chronic Depression - *Controlled COPD - Acute Exacerbation Upper Respiratory Infection, Acute - *Acute Pneumonia - *Acute Insomnia, Other - *Chronic COPD - *Chronic COPD - *Chronic Other and unspecified hyperlipidemia - *Chronic Insomnia, Other - *Chronic Depression - *Chronic Lumbago - *Chronic Encephalopathy, unspecified - *Resolved COPD - *Chronic Other and unspecified hyperlipidemia - *Controlled Depression - *Controlled Osteoarthrosis, generalized, involving unspecified site - * Chronic Insomnia, Other - *Chronic Pneumonia - Improved COPD - Chronic Upper Respiratory Infection, Acute - *Acute COPD - Acute Exacerbation Elevated blood pressure reading without diagnosis of hypertension - *Resolved Lumbago - *Chronic Depression - *Chronic Insomnia, Other - *Chronic Pneumonia - *Acute Insomnia, Other - *Chronic COPD - *Chronic Family History Family Member Diagnosis Age At Onset Status Father (Unknown) aneurysm Yes Mother (Unknown) unknown Yes Mother (Unknown) Unknown cause Yes Social History Social History Element Description Quantity Unknown Allergies, Adverse Reactions, Alerts Substance Reaction Severity Status Unknown Medications Medication Instructions Dosage Effective Dates (start - stop) Status Stanton-3 Fish Oil 910 mg-1,400 mg capsule 1 qd - Active simvastatin 20 mg tablet take 1 tablet (20MG) by oral route every day in the evening 20 MG - Active [place] 10 mg-325 mg tablet take 1 - 2 Tablet by oral route every 8 hours as needed for pain 0 - Active Ambien 10 mg tablet take 1/2 - 1 Tablet (5MG) by oral route every night at bedtime as needed for sleep 5 MG - No Longer Active timolol maleate 0.5 % eye drops Place 1 drop in right eye every morning. - Active Aleve 220 mg tablet take 1 tablet (220MG) by oral route every 12 hours as needed 220 MG - Active multivitamin tablet take 1 Tablet by Oral route every day 0 - Active albuterol sulfate 2.5 mg/3 mL (0.083 %) solution for nebulization inhale 3 milliliter (2.5MG) by nebulization route 3 times every day 2.5 MG 2011 - Active ProAir HFA 90 mcg/actuation aerosol inhaler inhale 2 puff by inhalation route every 4 - 6 hours as needed 0 - Active aspirin 81 mg chewable tablet chew 1 tablet (81MG) by oral route every day 81 MG - Active Advair Diskus 250 mcg-50 mcg/dose powder for inhalation Take 1 puff every day. - Active trazodone 100 mg tablet Take 1 tablet by mouth at bedtime. - Active sertraline 50 mg tablet take 1 tablet (50MG) by oral route every day 50 MG - Active Ambien 10 mg tablet take 1/2 - 1 Tablet (5MG) by oral route every night at bedtime as needed for sleep 5 MG - Active Immunizations Vaccine Date Status Comments Flu (split) (3 yrs or older) completed Results Test Name Date and Time Measure Units Reference Range Abnormal Flag Comments Unknown Vital Signs Date / Time: Height Weight Pulse Rate Blood Pressure Temperature /15:07:00 70.00 in 185.00 lbs 110/70 mm[Hg] 97.6 F Procedures Procedure Date Unknown Encounters Encounter Location Date Patient Visit [facility] Patient Visit Conversion Patient Visit [facility] Patient Visit [facility] Patient Visit [facility] Patient Visit [facility] Patient Visit [facility] Patient Visit [facility] Patient Visit [facility] Patient Visit [facility] Patient Visit [facility] Patient [facility] Patient [facility] Patient Visit [facility] Patient Visit [facility] Patient Visit [facility] Patient Visit [facility] Patient Visit [facility] Advance Directives Directive Effective Date Unknown
--- OUTSIDE RECORDS SUMMARY | 2016-06-03 13:21 | XMS REPORT | Referral Summary ---
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 Phone Hannah Post Primary Care Physician [phone] Encounter [facility] Date(s): 02/18/15 - 02/18/15 [facility], [address] [place] [address] Discharge Disposition: 01-Home or Self Care Attending Physician: Raoul Post MD Admitting Physician: Raoul Post MD Vital Signs Most recent to 1 oldest [Reference Range]: Blood Pressure 120/80 mmHg [90-140/60-90 mmHg] (02/18/15 8:41 AM) Problem List Condition Effective Dates Status [...] day, # 30 Each, 1 Refill(s), Pharmacy: [id number], 3 mL NEB q8hr,Instr:2.5 mg/3 mL (0.083%) [...] days, # 300 tabs, 0 Refill(s), Pharmacy: [facility] 46593, 1 tabs Oral Daily,x300 days Start Date: 02/18/15 Stop Date: 12/15/15 Status: Ordered levothyroxine 50 mcg (0.05 mg) oral tablet See Instructions, TAKE 1 TABLET BY MOUTH EVERY DAY, # 60 tabs, 2 Refill(s), eRx : [facility] 36103, TAKE 1 TABLET BY MOUTH EVERY DAY Start Date: 10/15/14 Status: Ordered Misc Medication Patient takes Dann Red- Shrimp oil daily, 0 Refill(s) Start Date: 01/11/15 Status: Ordered multivitamin 1 tabs, Oral, Daily Start Date: 11/16/13 Status: Ordered [place] 10 mg-325 mg oral tablet 1-2 tabs, Oral, q8hr, as needed for pain, MUST LAST 30 DAYS., # 120 tabs, 0 Refill(s) Start Date: 02/15/15 Status: Ordered PriLOSEC 40 mg oral delayed release capsule 40 mg 1 caps, Oral, Daily, # 100 caps, 0 Refill(s), Pharmacy: [facility] [id number], 1 caps Oral Daily,x100 days Start Date: [...] # 30 tabs, 2 Refill (s), eRx: [facility] 54635, 1 TABS ORAL BEDTIME (ONCE A DAY),X30 DAYS Start Date: 12/29/14 Status: Ordered Senokot See Instructions, 2 tabs daily., 0 Refill(s) Start Date: 12/16/14 Status: Ordered sertraline 50 mg oral tablet See Instructions, TAKE 1 TABLET (50MG) BY ORAL ROUTE EVERY DAY, # 90 tabs, eRx: [id number], TAKE 1 TABLET (50MG) BY ORAL ROUTE EVERY DAY Start Date: 01/17/15 Status: Ordered simethicone 80 mg oral tablet See Instructions, 4 daily., 0 Refill(s) Start Date: 12/22/14 Status: Ordered simvastatin 20 mg oral tablet See Instructions, TAKE 1 TABLET (20MG) BY ORAL ROUTE EVERY DAY IN THE EVENING, # 90 tabs, 1 Refill(s), eRx: [facility] [id number], TAKE 1 TABLET (20MG) BY ORAL ROUTE EVERY DAY IN THE EVENING Start Date: 10/29/14 Status: Ordered timolol See Instructions, Timolol maleate 0.5% eyedrops; place 1 drop in the right eye every morning, 0 Refill(s) Start Date: 11/16/13 Status: Ordered traZODone 100 mg oral tablet See Instructions, TAKE 1 TABLET BY MOUTH AT BEDTIME., # 90 tabs, eRx: [facility] [id number], TAKE 1 TABLET BY MOUTH AT BEDTIME. Start Date: 03/08/14 Status: Ordered zolpidem 10 mg oral tablet 0.5-1 tabs, Oral, Bedtime (once a day), as needed for sleep, fax to [facility], RX must last 30 days, # 30 [...] Smoke. Air pollutants such as dust, household eeg technician, hair sprays, aerosol sprays, paint fumes, strong [...] later. Symptoms include: Wheezing. Excessive nighttime or application security architect coughing. Frequent or severe coughing with a [...] hardware store, a double-layered or microfilter vacuum aircraft cleaner bag, or a vacuum aircraft cleaner with a HEPA filter. Replace carpet [...] 07/12/2014 Document Reviewed: [employer] Patient Information 2015 [employer]. This information is not intended to replace advice given to you by your health care provider. Make sure you discuss any questions you have with your health care provider. No follow up information was provided. Extracted from: Title: Office Visit Note Author: Raoul Post MD Date: 02/18/15 Assessment/Plan Chronic back pain This issue was reviewed, appears stable, and current therapy continued except as mentioned. Appropriate lab was reviewed from the most recent appropriate entry and lab was ordered if needed in the cpoe/nursing orders, and follow up recommended generally in 90 days and no later then six months. Has his narcotics. COPD (chronic obstructive pulmonary disease) This issue [...] were discussed and follow up was recommended. ProAir given as asample as a courtesy. Elevated blood sugar This issue was reviewed, appears stable, and current therapy continued except as mentioned. Appropriate lab was reviewed from the most recent appropriate entry and lab was ordered if needed in the cpoe/nursing orders, and follow up recommended generally in 90 days and no later then six months. Lab reviewed. Elevated cholesterol This issue was reviewed, appears stable, and current therapy continued except as mentioned. Appropriate lab was reviewed from the most recent appropriate entry and lab was ordered if needed in the cpoe/nursing orders, and follow up recommended generally in 90 days and no later then six months. Lab stable. Generalized pruritus This issue was reviewed, appears stable, and current therapy continued except as mentioned. Appropriate lab was reviewed from the most recent appropriate entry and lab was ordered if needed in the cpoe/nursing orders, and follow up recommended generally in 90 days and no later then six months. Restart claritin 10mg po daily as it worked well in the past. LFTs normal and lab normal from 12/2014. Use moisturizer. The patient has family members present who are agreeable with today's plan and have no additional concerns or requests. GERD without esophagitis This issue was reviewed, appears stable, and current therapy continued except as mentioned. Appropriate lab was reviewed from the most recent appropriate entry and lab was ordered if needed in the cpoe/nursing orders, and follow up recommended generally in 90 days and no later then six months. Prilosec 40mg po daily. EGD and colonoscopy with Dr. SHAH. Hypothyroidism This issue was reviewed, appears stable, and current therapy continued except as mentioned. Appropriate lab was reviewed from the most recent appropriate entry and lab was ordered if needed in the cpoe/nursing orders, and follow up recommended generally in 90 days and no later then six months. Lab stable. Orders: loratadine, 10 mg 1 tabs, Oral, Daily, X 300 days, # 300 tabs, 0 Refill(s), Pharmacy: [facility] [id number], 1 tabs Oral Daily,x300 days omeprazole, 40 mg 1 caps, Oral, Daily, # 100 caps, 0 Refill(s), Pharmacy: [facility] 89513, 1 caps Oral Daily,x100 days
--- OUTSIDE RECORDS SUMMARY | 2016-06-03 13:21 | XMS REPORT | Referral Summary ---
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 Name Role Phone Hannah Post Primary Care Physician [phone] Encounter [facility] Date(s): 08/19/14 - 08/19/14 [facility], Family [address] [place] [address] Discharge Disposition: 01-Home or Self Care [...] day, # 30 Each, 1 Refill(s), Pharmacy: [facility] [id number], 3 mL NEB q8hr,Instr:2.5 mg/3 mL (0.083%) [...] # 60 tabs, 2 Refill(s), eRx : [facility] [id number], TAKE 1 TABLET BY MOUTH EVERY DAY Start Date: 10/15/14 Status: Ordered Misc Medication Patient takes Dann Red- Shrimp oil daily, 0 Refill(s) Start Date: 01/11/15 Status: Ordered multivitamin 1 tabs, Oral, Daily Start Date: 11/16/13 Status: Ordered [place] 10 mg-325 mg oral tablet 1-2 tabs, [...] # 30 tabs, 2 Refill (s), eRx: [facility] [id number], 1 TABS ORAL BEDTIME (ONCE A DAY),X30 DAYS Start Date: 12/29/14 Status: Ordered Senokot See Instructions, 2 tabs daily., 0 Refill(s) Start Date: 12/16/14 Status: Ordered sertraline 50 mg oral tablet See Instructions, TAKE 1 TABLET (50MG) BY ORAL ROUTE EVERY DAY, # 90 tabs, eRx: [facility] [id number], TAKE 1 TABLET (50MG) BY ORAL ROUTE EVERY DAY Start Date: 10/18/14 Status: Ordered simethicone 80 mg oral tablet See Instructions, 4 daily., 0 Refill(s) Start Date: 12/22/14 Status: Ordered simvastatin 20 mg oral tablet See Instructions, TAKE 1 TABLET (20MG) BY ORAL ROUTE EVERY DAY IN THE EVENING, # 90 tabs, 1 Refill(s), eRx: [facility] [id number], TAKE 1 TABLET (20MG) BY ORAL ROUTE EVERY DAY IN THE EVENING Start Date: 10/29/14 Status: Ordered timolol See Instructions, Timolol maleate 0.5% eyedrops; place 1 drop in the right eye every morning, 0 Refill(s) Start Date: 11/16/13 Status: Ordered traZODone 100 mg oral tablet See Instructions, TAKE 1 TABLET BY MOUTH AT BEDTIME., # 90 tabs, eRx: [facility] [id number], TAKE 1 TABLET BY MOUTH AT BEDTIME. Start Date: 03/08/14 Status: Ordered zolpidem 10 mg oral tablet 0.5-1 tabs, Oral, Bedtime (once a day), as needed for sleep, fax to [facility], RX must last 30 days, # 30 [...] Released: 04/04/2005 Document Revised: 05/19/2012 Document Reviewed: [facility] Patient Information 2014 [employer] [facility]. No follow up information was provided. Extracted from: Title: Office Visit Note Author: Raoul Post MD Date: 08/19/14 Assessment/Plan Chronic back pain This issue is stable and appropriate refills, lab, and f/u have been discussed. Maxwell refilled. Chronic insomnia This issue is stable [...]
--- OUTSIDE RECORDS SUMMARY | 2016-06-03 13:21 | XMS REPORT | Referral Summary ---
Author Author [facility], Family Medicine Organization [facility] Address Unknown Phone Unavailable Care Team Providers Care Cellar Supervisor Name Role Phone Hannah Post Primary Care Physician [phone] Encounter VC Date(s): 10/20/15 - 10/20/15 [facility], Family [address] [place] [address] Discharge Disposition: 01-Home or Self Care Attending Physician: Raoul Post MD Admitting Physician: Raoul Post MD Vital Signs Most recent to 1 oldest [Reference Range]: Blood Pressure 120/70 mmHg [90-140/60-90 mmHg] (10/20/15 9:10 AM) Problem List Condition Effective Dates Status [...] day, # 30 Each, 1 Refill(s), Pharmacy: [facility] [id number], 3 mL NEB q8hr,Instr:2.5 mg/3 mL (0.083%) [...] INHALE 1 PUFF BY MOUTH DAILY, # 3 Each, 1 Refill(s), Pharmacy : [id number] Start Date: 10/20/15 Status: Ordered Claritin 10 mg oral tablet 10 mg 1 tabs, Oral, Daily, X 300 days, # 300 tabs, 0 Refill(s), Pharmacy: [facility] [id number], 1 tabs Oral Daily,x300 days Start Date: 02/18/15 Stop Date: 12/15/15 Status: Ordered levothyroxine 50 mcg (0.05 mg) oral tablet See Instructions, TAKE 1 TABLET BY MOUTH EVERY DAY, # 60 tabs, eRx: [facility] [id number], TAKE 1 TABLET BY MOUTH EVERY DAY Start Date: 10/07/15 Status: Ordered mirtazapine 15 mg oral tablet See Instructions, TAKE 1 TABLET BY MOUTH AT BEDTIME, # 30 tabs, eRx: [facility] [id number], TAKE 1 TABLET BY MOUTH AT BEDTIME Start Date: 10/05/15 Status: Ordered [facility] Medication Patient takes Dann Red- Shrimp oil daily, 0 Refill(s) Start Date: 01/11/15 Status: Ordered multivitamin 1 tabs, Oral, Daily Start Date: 11/16/13 Status: Ordered [place] 10 mg-325 mg oral tablet 1-2 tabs, Oral, q8hr, as needed for pain, RX must last 30 days, # 120 tabs, 0 Refill(s) Start Date: 10/12/15 Status: Ordered PriLOSEC 40 mg oral delayed release capsule 40 mg 1 caps, Oral, Daily, # 100 caps, 0 Refill(s), Pharmacy: [facility] [id number], 1 caps Oral Daily,x100 days Start Date: 02/18/15 Stop Date: 05/29/15 Status: Ordered PriLOSEC 40 mg oral delayed release capsule See Instructions, 1 CAPS ORAL DAILY,X100 DAYS, # 100 caps, [id number], 1 CAPS ORAL DAILY,X100 DAYS Start Date: [...] 1 TABLET BY MOUTH EVERY DAY, # 90 tabs, eRx: [facility] [id number], TAKE 1 TABLET BY MOUTH EVERY DAY Start Date: 10/10/15 Status: Ordered simethicone 80 mg oral tablet See Instructions, 4 daily., 0 Refill(s) Start Date: 12/22/14 Status: Ordered simvastatin 20 mg oral tablet See Instructions, TAKE 1 TABLET BY MOUTH EVERY EVENING, # 90 tabs, eRx: [facility] [id number], TAKE 1 TABLET BY MOUTH EVERY EVENING Start Date: 07/25/15 Status: Ordered timolol See Instructions, Timolol maleate 0.5% eyedrops; place 1 drop in the right eye every morning, 0 Refill(s) Start Date: 11/16/13 Status: Ordered traZODone 100 mg oral tablet See Instructions, TAKE 1 TABLET BY MOUTH AT BEDTIME., # 90 tabs, eRx: [facility] [id number], TAKE 1 TABLET BY MOUTH AT BEDTIME. Start Date: 03/08/14 Status: Ordered zolpidem 10 mg oral tablet 0.5-1 tabs, Oral, Bedtime (once a day), as needed for sleep, fax to [facility] [phone], RX must last 30 days, # 30 tabs, 0 Refill(s) Start Date: 09/30/15 Status: Ordered Results No data available for [...] Patient Education Author: Raoul Post MD Date: 01/24 Family Medicine Asthma, Adult Asthma is a recurring condition in which [...] Smoke. Air pollutants such as dust, household sanding supervisor, hair sprays, aerosol sprays, paint fumes, strong [...] later. Symptoms include: Wheezing. Excessive nighttime or volunteer assistant coughing. Frequent or severe coughing with a [...] hardware store, a double-layered or microfilter vacuum white work cleaner bag, or a vacuum white work cleaner with a HEPA filter. Replace carpet [...] related to the medicines you are taking (such as a rash, itching, swelling, or trouble [...] are not doing well or get worse. This information is not intended to replace advice given to you by your health care provider. Make sure you discuss any questions you have with your health care provider. Document Released: 02/25/2006 Document Revised: 03/18/2015 Document Reviewed: [facility] Patient Information 2016 [employer] [facility]. No follow up information was provided. Extracted from: Title: Office Visit Note Author: Raoul Post MD Date: 10/20/15 Assessment/Plan Blood pressure elevated This issue was [...] days and no later then six months. Stable on pain meds. Chronic insomnia This issue was reviewed, appears stable, and current therapy continued except as mentioned. Appropriate lab was reviewed from the most recent appropriate entry and lab was ordered if needed in the cpoe/nursing orders, and follow up recommended generally in 90 days and no later then six months. We discussed several options for treatment for this condition. The patient declined any changes or other treatments at this time. COPD (chronic obstructive pulmonary disease) This issue [...] were discussed and follow up was recommended. Samples of breo given as it is working well for him. Dizzy Low blood sugar? Frequent small meals. CheckBP when this occurs. We discussed several options for treatment for this condition. The patient declined any changes or other treatments at this time. Work up when interested. Elevated blood sugar This issue was reviewed, appears stable, and current therapy continued except as mentioned. Appropriate lab was reviewed from the most recent appropriate entry and lab was ordered if needed in the cpoe/nursing orders, and follow up recommended generally in 90 days and no later then six months. Lab stable. Elevated cholesterol This issue was reviewed, appears stable, and current therapy continued except as mentioned. Appropriate lab was reviewed from the most recent appropriate entry and lab was ordered if needed in the cpoe/nursing orders, and follow up recommended generally in 90 days and no later then six months. Lab stable. The patient has family members present who are agreeable with today's plan and have no additional concerns or requests. here. GERD without esophagitis This issue was reviewed, appears stable, and current therapy continued except as mentioned. Appropriate lab was reviewed from the most recent appropriate entry and lab was ordered if needed in the cpoe/nursing orders, and follow up recommended generally in 90 days and no later then six months. Orders: fluticasone-vilanterol, See Instructions, INHALE 1 PUFF BY MOUTH DAILY , # 3 Each, 1 Refill(s), Pharmacy: [id number]
--- OUTSIDE RECORDS SUMMARY | 2016-06-03 13:21 | XMS REPORT | Referral Summary ---
Author Author [facility], [facility] Medicine Organization [facility] Address Unknown Phone Unavailable Care Team Providers Care Mixing Technician Name Role Phone Hannah Post Primary Care Physician [phone] Encounter VC Date(s): 12/16/14 - 12/16/14 [facility] [address] [place] [address] Discharge Diagnosis: Abdominal pain Discharge Disposition: 01-Home [...] route 3 times every day, 0 Refill(s) Start Date: 11/16/13 Status: Ordered Aleve 220 mg oral tablet 1 tabs, Oral, q12hr, as needed Start Date: 11/16/13 Status: Ordered aspirin 81 mg oral tablet, chewable 1 tabs, Oral, Daily Start Date: 11/16/13 Status: Ordered levothyroxine 50 mcg (0.05 mg) oral tablet See Instructions, TAKE 1 TABLET BY MOUTH EVERY DAY, # 60 tabs, 2 Refill(s), eRx : [facility] [id number], TAKE 1 TABLET BY MOUTH EVERY DAY Start Date: 10/15/14 Status: Ordered multivitamin 1 tabs, Oral, Daily Start Date: 11/16/13 Status: Ordered [place] 10 mg-325 mg oral tablet 1-2 tabs, Oral, q8hr, as needed for pain, rx must last 30 days May fill , # 120 tabs, 0 Refill(s) Start Date: 12/16/14 Status: Ordered ProAir HFA 90 mcg/inh inhalation aerosol 1 puffs, Inhalation, q4hr, as needed Start Date: 11/16/13 Status: Ordered Promethazine VC with Codeine oral syrup 5 mL, Oral, q4hr, as needed for cold symptoms, [facility], # 120 mL, 0 Refill(s) Start Date: 02/01/14 Status: Ordered Remeron 15 mg oral tablet 1 tabs, Oral, Bedtime (once a day), X 30 days, # 30 tabs, 5 Refill(s), Pharmacy : [facility] [id number], 1 tabs Oral Bedtime (once a day),x30 days Start Date: 07/15/14 Stop Date: 01/11/15 Status: Ordered Senokot See Instructions, 2 tabs daily., 0 Refill(s) Start Date: 12/16/14 Status: Ordered sertraline 50 mg oral tablet See Instructions, TAKE 1 TABLET (50MG) BY ORAL ROUTE EVERY DAY, # 90 tabs, eRx: [facility] [id number], TAKE 1 TABLET (50MG) BY ORAL ROUTE EVERY DAY Start Date: 10/18/14 Status: Ordered simvastatin 20 mg oral tablet See Instructions, TAKE 1 TABLET (20MG) BY ORAL ROUTE EVERY DAY IN THE EVENING, # 90 tabs, 1 Refill(s), eRx: [facility] [id number], TAKE 1 TABLET (20MG) BY ORAL ROUTE EVERY DAY IN THE EVENING Start Date: 10/29/14 Status: Ordered timolol See Instructions, Timolol maleate 0.5% eyedrops; place 1 drop in the right eye every morning, 0 Refill(s) Start Date: 11/16/13 Status: Ordered traZODone 100 mg oral tablet See Instructions, TAKE 1 TABLET BY MOUTH AT BEDTIME., # 90 tabs, eRx: [facility] [id number], TAKE 1 TABLET BY MOUTH AT BEDTIME. Start Date: 03/08/14 Status: Ordered zolpidem 10 mg oral tablet 0.5-1 tabs, Oral, Bedtime (once a day), as needed for sleep, fax to [facility], RX must last 30 days, # 30 tabs, 0 Refill(s) Start Date: 12/02/14 Status: Ordered Results Chemistry Most recent to [...] any discomfort you are experiencing: Only take xais-mcz-xcsikna or prescription medicines as directed by your [...] Released: 12/05/2005 Document Revised: 03/02/2014 Document Reviewed: [facility] Patient Information 2015 [employer]. This information is not intended to replace [...] Metabolic Panel Office Visit Level 3 Est 02714 XR Abdomen AP
--- OUTSIDE RECORDS SUMMARY | 2016-06-03 13:21 | XMS REPORT | Referral Summary ---
Author Author [facility] Organization [facility] Address Unknown Phone Unavailable Care Team Providers Care Ward Service Supervisor Name Role Phone Hannah Post Primary Care Physician [phone] Encounter VC Date(s): 06/20/15 - 06/20/15 [facility], [address] [place] [address]- Discharge Disposition: 01-Home or Self Care Attending Physician: Raoul Post MD Admitting Physician: Raoul Post MD Vital Signs Most recent to 1 oldest [Reference Range]: Blood Pressure 100/70 mmHg [90-140/60-90 mmHg] (06/20/15 8:16 AM) Problem List Condition Effective Dates [...] day, # 30 Each, 1 Refill(s), Pharmacy: [facility] [id number], 3 mL NEB q8hr,Instr:2.5 mg/3 mL (0.083%) neb solution; inhale 3 mL by nebuliz... Start Date: 12/22/14 Status: Ordered Aleve 220 mg oral tablet 1 tabs, Oral, q12hr, as needed Start Date: 9/8/14 Status: Ordered aspirin 81 mg oral tablet, chewable 1 tabs, Oral, Daily Start Date: 11/16/13 Status: Ordered Breo Ellipta 200 mcg-25 mcg/inh inhalation powder 1 puffs, Inhalation, Daily, # 1 Each, 0 Refill(s), Pharmacy: [facility] [address] Start Date: 06/20/15 Status: Ordered Claritin 10 mg oral tablet 10 mg 1 tabs, Oral, Daily, X 300 days, # 300 tabs, 0 Refill(s), Pharmacy: [facility] 72710, 1 tabs Oral Daily,x300 days Start Date: 02/18/15 Stop Date: 12/15/15 Status: Ordered levothyroxine 50 mcg (0.05 mg) oral tablet See Instructions, TAKE 1 TABLET BY MOUTH EVERY DAY, # 60 tabs, 2 Refill(s), eRx : [facility] [id number], TAKE 1 TABLET BY MOUTH EVERY DAY Start Date: 04/11/15 Status: Ordered Misc Medication Patient takes Dann Red- Shrimp oil daily, 0 Refill(s) Start Date: 01/11/15 Status: Ordered multivitamin 1 tabs, Oral, Daily Start Date: 11/16/13 Status: Ordered [place] 10 mg-325 mg oral tablet 1-2 tabs, Oral, q8hr, as needed for pain, MUST LAST 30 DAYS. July. , # 120 tabs, 0 Refill(s) Start Date: 06/14/15 Status: Ordered PriLOSEC 40 mg oral delayed release capsule 40 mg 1 caps, Oral, Daily, # 100 caps, 0 Refill(s), Pharmacy: [facility] 76080, 1 caps Oral Daily,x100 days Start Date: 02/18/15 Stop Date: 05/29/15 Status: Ordered PriLOSEC 40 mg oral delayed release capsule See Instructions, 1 CAPS ORAL DAILY,X100 DAYS, # 100 caps, eRx: [facility] [id number], 1 CAPS ORAL DAILY,X100 DAYS Start Date: 06/14/15 Status: Ordered ProAir RespiClick 90 mcg/inh inhalation powder 1 puffs, Inhalation, q4hr, Shortness of Breath/Wheezing, No substitutes., # 1 Each, 2 Refill(s), samples given to patient (Rx) Start Date: 03/24/15 Status: Ordered Remeron 15 mg oral tablet See Instructions, 1 TABS ORAL BEDTIME (ONCE A DAY),X30 DAYS, # 30 tabs, eRx: [facility] [id number], 1 TABS ORAL BEDTIME (ONCE A DAY),X30 DAYS Start Date: 06/13/15 Status: Ordered Senokot See Instructions, 2 tabs daily., 0 Refill(s) Start Date: 12/16/14 Status: Ordered sertraline 50 mg oral tablet See Instructions, TAKE 1 TABLET (50MG) BY ORAL ROUTE EVERY DAY, # 90 tabs, eRx: [facility] [id number], TAKE 1 TABLET (50MG) BY ORAL ROUTE EVERY DAY Start Date: 04/14/15 Status: Ordered simethicone 80 mg oral tablet See Instructions, 4 daily., 0 Refill(s) Start Date: 12/22/14 Status: Ordered simvastatin 20 mg oral tablet See Instructions, TAKE 1 TABLET (20MG) BY ORAL ROUTE EVERY DAY IN THE EVENING, # 90 tabs, eRx: [facility] [id number], TAKE 1 TABLET (20MG) BY ORAL ROUTE EVERY DAY IN THE EVENING Start Date: 04/25/15 Status: Ordered timolol See Instructions, Timolol maleate 0.5% eyedrops; place 1 drop in the right eye every morning, 0 Refill(s) Start Date: 11/16/13 Status: Ordered traZODone 100 mg oral tablet See Instructions, TAKE 1 TABLET BY MOUTH AT BEDTIME., # 90 tabs, eRx: [facility] [id number], TAKE 1 TABLET BY MOUTH AT BEDTIME. Start Date: 03/08/14 Status: Ordered zolpidem 10 mg oral tablet 0.5-1 tabs, Oral, Bedtime (once a day), as needed for sleep, fax to [facility] [phone], RX must last 30 days, # 30 [...] Raoul Post MD Date: 01/24 Family Medicine Back Pain, Adult Back pain is very [...] stressful on your back to sit or combination operator one place for long periods of time. Do not sit, drive, or combination operator one place for more than 30 minutes [...] care provider. Document Released: 02/25/2006 Document Revised: 12/14/2014 Document Reviewed: [facility] Patient Information 2015 [employer] [employer]. No follow up information was provided. Extracted from: Title: Office Visit Note Author: Raoul Post MD Date: 06/20/15 Assessment/Plan Chronic back pain This issue was reviewed, appears stable, and current therapy continued except as mentioned. Appropriate lab was reviewed from the most recent appropriate entry and lab was ordered if needed in the cpoe/nursing orders, and follow up recommended generally in 90 days and no later then six months. Refill meds when do. Chronic insomnia This issue was reviewed, appears [...] discussed and follow up was recommended. Breo given. The patient has family members present who are agreeable with today's plan and have no additional concerns or requests. Depression This issue was reviewed, appears stable, and current therapy continued except as mentioned. Appropriate lab was reviewed from the most recent appropriate entry and lab was ordered if needed in the cpoe/nursing orders, and follow up recommended generally in 90 days and no later then six months. Mood stable. Lots of stress at home. Elevated cholesterol This issue was reviewed, appears stable, and current therapy continued except as mentioned. Appropriate lab was reviewed from the most recent appropriate entry and lab was ordered if needed in the cpoe/nursing orders, and follow up recommended generally in 90 days and no later then six months. Lab pending. Hypothyroidism This issue was reviewed, appears stable, and current therapy continued except as mentioned. Appropriate lab was reviewed from the most recent appropriate entry and lab was ordered if needed in the cpoe/nursing orders, and follow up recommended generally in 90 days and no later then six months. Lab pending. Orders: fluticasone-vilanterol, 1 puffs, Inhalation, Daily, # 1 Each, 0 Refill (s), Pharmacy: [facility] [id number] CBC w/ Differential Comprehensive Metabolic Panel Hemoglobin A1c Prostate Specific Antigen Urinalysis with Culture if Indicated
--- OUTSIDE RECORDS SUMMARY | 2016-06-03 13:21 | XMS REPORT | Referral Summary ---
Author Author [facility] Organization [facility] Address Unknown Phone Unavailable Care Team Providers Care Health Care Recruiter Name Role Phone Hannah Post Primary Care Physician [phone] Encounter VC Date(s): 12/22/14 - 12/22/14 [facility] [address] [place] [address] Discharge Diagnosis: COPD (chronic obstructive [...] day, # 30 Each, 1 Refill(s), Pharmacy: [facility] [id number], 3 mL NEB q8hr,Instr:2.5 mg/3 mL (0.083%) [...] # 60 tabs, 2 Refill(s), eRx : [facility] [id number], TAKE 1 TABLET BY MOUTH EVERY DAY Start Date: 10/15/14 Status: Ordered multivitamin 1 tabs, Oral, Daily Start Date: 11/16/13 Status: Ordered [place] 10 mg-325 mg oral tablet 1-2 tabs, [...] # 30 tabs, 5 Refill(s), Pharmacy : [facility] 25663, 1 tabs Oral Bedtime (once a day),x30 days Start Date: 07/15/14 Stop Date: 01/11/15 Status: Ordered Senokot See Instructions, 2 tabs daily., 0 Refill(s) Start Date: 12/16/14 Status: Ordered sertraline 50 mg oral tablet See Instructions, TAKE 1 TABLET (50MG) BY ORAL ROUTE EVERY DAY, # 90 tabs, eRx: [facility] [id number], TAKE 1 TABLET (50MG) BY ORAL ROUTE EVERY DAY Start Date: 10/18/14 Status: Ordered simethicone 80 mg oral tablet See Instructions, 4 daily., 0 Refill(s) Start Date: 12/22/14 Status: Ordered simvastatin 20 mg oral tablet See Instructions, TAKE 1 TABLET (20MG) BY ORAL ROUTE EVERY DAY IN THE EVENING, # 90 tabs, 1 Refill(s), eRx: [facility] [id number], TAKE 1 TABLET (20MG) BY ORAL ROUTE EVERY DAY IN THE EVENING Start Date: 10/29/14 Status: Ordered timolol See Instructions, Timolol maleate 0.5% eyedrops; place 1 drop in the right eye every morning, 0 Refill(s) Start Date: 11/16/13 Status: Ordered traZODone 100 mg oral tablet See Instructions, TAKE 1 TABLET BY MOUTH AT BEDTIME., # 90 tabs, eRx: [facility] [id number], TAKE 1 TABLET BY MOUTH AT BEDTIME. Start Date: 03/08/14 Status: Ordered zolpidem 10 mg oral tablet 0.5-1 tabs, Oral, Bedtime (once a day), as needed for sleep, fax to [facility], RX must last 30 days, # 30 tabs, 0 Refill(s) Start Date: 12/02/14 Status: Ordered Results No data available for this section Immunizations Vaccine Date Refusal Reason influenza virus vaccine, inactivated 02/16/14 influenza virus vaccine, live 01/13/13 pneumococcal 23-polyvalent vaccine 11/22/08 Procedures Procedure Date Related Diagnosis Body Site Colonoscopy 2005 History of knee surgery - left knee [...] Released: 12/23/2007 Document Revised: 07/12/2014 Document Reviewed: [facility] Patient Information 2015 [employer]. This information is not intended to replace [...] Vomiting of bright red blood. Vomiting of unpstd-lwvywg-ethsagg materials. DIAGNOSIS A diagnosis is usually made [...] Released: 02/22/2001 Document Revised: 07/12/2014 Document Reviewed: [facility] Patient Information 2015 [facility]. This information is not intended to [...] Antibody IgG Office Visit Level 3 Est 33652 Orders: albuterol, 2.5 mg 3 mL, NEB, q8hr, 2.5 mg/3 mL (0.083%) neb solution; inhale 3 mL by nebulization route 3 times every day, # 30 Each, 1 Refill(s), Pharmacy: [facility] [id number], 3 mL NEB q8hr,Instr:2.5 mg/3 mL (0.083%) neb solution; inhale 3 mL by nebuliz...
--- OUTSIDE RECORDS SUMMARY | 2016-06-03 13:21 | XMS REPORT | Referral Summary ---
Author Author [facility] Organization [facility] Address Unknown Phone Unavailable Care Team Providers Care Solderer Furnace Name Role Phone Hannah Post Primary Care Physician [phone] Encounter [facility] Date(s): 01/11/15 - 01/11/15 [facility] [address] [place] [address] [place]IP [place] [address] [place] Discharge Diagnosis: Screen for colon cancer Discharge Diagnosis: RUQ pain Discharge Disposition: 01-Home or Self Care Attending Physician: Justyn Verma MD Admitting Physician: Justyn Verma MD Referring Physician: Raoul Post MD Vital Signs Most recent to 1 oldest [Reference Range]: Temperature Tympanic 36.9 degC [36.6-38.1 degC] (01/11/15 3:25 PM) Blood Pressure 130/74 mmHg [90-140/60-90 mmHg] (01/11/15 3:25 PM) Problem List Condition Effective Dates Status [...] day, # 30 Each, 1 Refill(s), Pharmacy: [id number], 3 mL NEB q8hr,Instr:2.5 mg/3 mL (0.083%) [...] # 60 tabs, 2 Refill(s), eRx : [facility] [id number], TAKE 1 TABLET BY MOUTH EVERY DAY Start Date: 10/15/14 Status: Ordered Misc Medication Patient takes Dann Red- Shrimp oil daily, 0 Refill(s) Start Date: 01/11/15 Status: Ordered multivitamin 1 tabs, Oral, Daily Start Date: 11/16/13 Status: Ordered Donaldson 10 mg-325 mg oral tablet 1-2 tabs, [...] # 30 tabs, 2 Refill (s), eRx: [facility] [id number], 1 TABS ORAL BEDTIME (ONCE A DAY),X30 DAYS Start Date: 12/29/14 Status: Ordered Senokot See Instructions, 2 tabs daily., 0 Refill(s) Start Date: 12/16/14 Status: Ordered sertraline 50 mg oral tablet See Instructions, TAKE 1 TABLET (50MG) BY ORAL ROUTE EVERY DAY, # 90 tabs, eRx: [facility] [id number], TAKE 1 TABLET (50MG) BY ORAL ROUTE EVERY DAY Start Date: 10/18/14 Status: Ordered simethicone 80 mg oral tablet See Instructions, 4 daily., 0 Refill(s) Start Date: 12/22/14 Status: Ordered simvastatin 20 mg oral tablet See Instructions, TAKE 1 TABLET (20MG) BY ORAL ROUTE EVERY DAY IN THE EVENING, # 90 tabs, 1 Refill(s), eRx: [facility] [id number], TAKE 1 TABLET (20MG) BY ORAL ROUTE EVERY DAY IN THE EVENING Start Date: 10/29/14 Status: Ordered timolol See Instructions, Timolol maleate 0.5% eyedrops; place 1 drop in the right eye every morning, 0 Refill(s) Start Date: 11/16/13 Status: Ordered traZODone 100 mg oral tablet See Instructions, TAKE 1 TABLET BY MOUTH AT BEDTIME., # 90 tabs, eRx: [facility] [id number], TAKE 1 TABLET BY MOUTH AT BEDTIME. Start Date: 03/08/14 Status: Ordered zolpidem 10 mg oral tablet 0.5-1 tabs, Oral, Bedtime (once a day), as needed for sleep, fax to [facility], RX must last 30 days, # 30 [...] Extracted from: Title: Ambulatory Patient Education Author: Justyn Verma MD Date: 01/11/15 Family Medicine Colonoscopy A colonoscopy is an exam to look at the entire large intestine (colon). This exam can help find problems such as tumors, polyps, inflammation, and areas of bleeding. The exam takes about 1 hour. LET YOUR HEALTH CARE PROVIDER KNOW ABOUT: Any allergies you have. All medicines you are taking, including vitamins, herbs, eye drops, creams , and dtnv-iyv-jxsdynn medicines. Previous problems you or members of your family have had with the use of anesthetics. Any blood disorders you have. Previous surgeries you have had. Medical conditions you have. RISKS AND COMPLICATIONS Generally, this is a safe procedure. However, as with any procedure, complications can occur. Possible complications include: Bleeding. Tearing or rupture of the colon wall. Reaction to medicines given during the exam. Infection (rare). BEFORE THE PROCEDURE Ask your health care provider about changing or stopping your regular medicines. You may be prescribed an oral bowel prep. This involves drinking a large amount of medicated liquid, starting the day before your procedure. The liquid will cause you to have multiple loose stools until your stool is almost clear or light green. This cleans out your colon in preparation for the procedure. Do not eat or drink anything else once you have started the bowel prep, unless your health care provider tells you it is safe to do so. Arrange for someone to drive you home after the procedure. PROCEDURE You will be given medicine to help you relax (sedative). You will lie on your side with your knees bent. A long, flexible tube with a light and camera on the end (colonoscope) will be inserted through the rectum and into the colon. The camera sends video back to a computer screen as it moves through the colon. The colonoscope also releases carbon dioxide gas to inflate the colon. This helps your health care provider see the area better. During the exam, your health care provider may take a small tissue sample ( biopsy) to be examined under a microscope if any abnormalities are found. The exam is finished when the entire colon has been viewed. AFTER THE PROCEDURE Do not drive for 24 hours after the exam. You may have a small amount of blood in your stool. You may pass moderate amounts of gas and have mild abdominal cramping or bloating. This is caused by the gas used to inflate your colon during the exam. Ask when your test results will be ready and how you will get your results. Make sure you get your test results. Document Released: 02/22/2001 Document Revised: 12/16/2013 Document Reviewed: [employer] Patient Information 2015 [employer]. This information is not intended to replace advice given to you by your health care provider. Make sure you discuss any questions you have with your health care provider. No follow up information was provided. Extracted from: Title: Office Visit Note Author: Justyn Verma MD Date: 01/11/15 Assessment/Plan 1.RUQ pain Ordered: Office Visit Level 4 New 13491 2.Screen for colon cancer Ordered: Office Visit Level 4 New 94452 Plan:Bidirectional endoscopy I did review the patient's chart including office note performed by PCPs acid painter fromDecember 22, 2014. Reviewedplain abdominal film from December 16, 2014 that was within normal limits. Reviewed prior colonoscopy report from December 21, 2004. Patient was found to have a few hyperplastic polyps at that time. I informed the patientthat his history for right upper quadrant abdominal painabdominal painwas suggestive forpeptic ulcer disease versusbiliary colic. Painlikely was a result ofpeptic ulcer disease secondary the fact that it has resolved withempiric treatment with Prilosec. It was my reclination to the patient that we should proceed with a colonoscopy serve as a portion of his overall colorectal cancer surveillance secondary the fact that has beenmore than 10 years since his last colonoscopy. At the same setting I would also recommend that we go ahead and proceed with an EGDgiven his history for right upper quadrant abdominal painsuggestive for peptic ulcer disease.Risk of endoscopy was discussed with the patient. Risks include but are not inclusive of bleeding and/or perforation requiring surgery. Patient understood and was scheduled. Patient will need to be off his baby aspirin one week prior to the procedure. He also need to discontinue hisfish oilprior to his endoscopic evaluation.
--- OUTSIDE RECORDS SUMMARY | 2016-06-03 13:21 | XMS REPORT | Referral Summary ---
Author Author [facility] Organization [facility] Address Unknown Phone Unavailable Care Team Providers Care Air Intercept Controller Supervisor Name Role Phone Hannah Post Primary Care Physician [phone] Encounter [facility] [id number] Date(s): 05/02/16 - 05/02/16 [facility], [address] [place] [id number] Discharge Diagnosis: Elevated cholesterol Discharge Diagnosis: Chronic back pain Discharge Diagnosis: Chronic insomnia Discharge Diagnosis: Acute URI Discharge Diagnosis: Cough Discharge Diagnosis: Hypothyroidism Discharge Diagnosis: Other general symptoms and signs Discharge Diagnosis: Elevated blood sugar Discharge Diagnosis: COPD (chronic obstructive pulmonary disease) Discharge Disposition: 01-Home or Self Care Attending Physician: Raoul Post MD Admitting Physician: Raoul Post MD Vital Signs Most recent to 1 oldest [Reference Range]: Peripheral Pulse 104 bpm Rate [60-100 bpm] *HI* (05/02/16 1:06 PM) Blood Pressure 110/70 mmHg [90-140/60-90 mmHg] (05/02/16 1:06 PM) SpO2 91 % (05/02/16 1:06 PM) Problem List Condition Effective Dates Status [...] day, # 30 Each, 1 Refill(s), Pharmacy: [facility] [id number], 3 mL NEB q8hr,Instr:2.5 mg/3 mL (0.083%) [...] BY MOUTH DAILY, # 60 g, [id number], INHALE 1 PUFF BY MOUTH DAILY Start Date: 10/25/15 Status: Ordered Claritin 10 mg oral tablet 10 mg 1 tabs, Oral, Daily, X 300 days, # 300 tabs, 0 Refill(s), Pharmacy: [facility], 1 tabs Oral Daily,x300 days Start Date: 11/07/15 Stop Date: 09/02/16 Status: Ordered levothyroxine 50 mcg (0.05 mg) oral tablet See Instructions, TAKE 1 TABLET BY MOUTH EVERY DAY, # 60 tabs, eRx: [facility] [id number], TAKE 1 TABLET BY MOUTH EVERY DAY Start Date: 10/07/15 Status: Ordered mirtazapine 15 mg oral tablet See Instructions, TAKE ONE TABLET BY MOUTH ONCE DAILY AT BEDTIME, # 90 tabs, 1 Refill(s), eRx: [facility] Start Date: 04/23/16 Status: Or[place] [facility] Patient takes Dann Red- Shrimp oil daily, 0 Refill(s) Start Date: 01/11/15 Status: Ordered multivitamin 1 tabs, Oral, Daily Start Date: 11/16/13 Status: Ordered Tobyhanna 10 mg-325 mg oral tablet 1-2 tabs, Oral, q8hr, as needed for pain, RX must last 30 dayS., # 120 tabs, 0 Refill(s) Start Date: 04/09/16 Status: Ordered predniSONE 20 mg oral tablet 20 mg 1 tabs, Oral, Daily, X 5 days, # 5 tabs, 0 Refill(s), Pharmacy: [facility], 1 tabs Oral Daily,x5 days Start Date: 05/02/16 Stop Date: 05/07/16 Status: Ordered PriLOSEC 40 mg oral delayed release capsule 40 mg 1 caps, Oral, Daily, # 100 caps, 0 Refill(s), Pharmacy: [facility] [address], 1 caps Oral Daily,x100 days Start Date: 02/18/15 Stop Date: 05/29/15 Status: Ordered PriLOSEC 40 mg oral delayed release capsule See Instructions, 1 CAPS ORAL DAILY,X100 DAYS, # 100 caps, eRx: [facility] [id number], 1 CAPS ORAL DAILY,X100 DAYS Start Date: 06/14/15 Status: Ordered ProAir RespiClick 90 mcg/inh inhalation powder 1 puffs, Inhalation, q4hr, Shortness of Breath/Wheezing, No substitutes., # 1 Each, 2 Refill(s), samples given to patient (Rx) Start Date: 03/24/15 Status: Ordered promethazine-codeine 6.25 mg-10 mg/5 mL oral syrup 5 mL, Oral, q4hr, as needed for cough, # 120 mL, 0 Refill(s), called to pharmacy (Rx) Start Date: 05/02/16 Status: Ordered Senokot See Instructions, 2 tabs daily., 0 Refill(s) Start Date: 12/16/14 Status: Ordered sertraline 50 mg oral tablet See Instructions, TAKE ONE TABLET BY MOUTH ONCE DAILY, # 90 tabs, 1 Refill(s), eRx: [facility] Start Date: 04/23/16 Status: Ordered simethicone 80 mg oral tablet See Instructions, 4 daily., 0 Refill(s) Start Date: 12/22/14 Status: Ordered simvastatin 20 mg oral tablet See Instructions, TAKE 1 TABLET BY MOUTH EVERY EVENING, # 90 tabs, 0 Refill(s), Pharmacy: [facility], TAKE 1 TABLET BY MOUTH EVERY EVENING Start Date: 02/07/16 Status: Ordered simvastatin 20 mg oral tablet See Instructions, TAKE 1 TABLET BY MOUTH EVERY EVENING, # 90 tabs, eRx: [facility] [id number], TAKE 1 TABLET BY MOUTH EVERY EVENING Start Date: 07/25/15 Status: Ordered timolol See Instructions, Timolol maleate 0.5% eyedrops; place 1 drop in the right eye every morning, 0 Refill(s) Start Date: 11/16/13 Status: Ordered traZODone 100 mg oral tablet See Instructions, TAKE 1 TABLET BY MOUTH AT BEDTIME., # 90 tabs, eRx: [facility] [id number], TAKE 1 TABLET BY MOUTH AT BEDTIME. Start Date: 03/08/14 Status: Ordered zolpidem 10 mg oral tablet 0.5-1 tabs, Oral, Bedtime (once a day), as needed for sleep, RX must last 30 days Mary Arcenio, # 30 tabs, 0 Refill(s) Start Date: 04/26/16 Status: Ordered Results Hematology Most recent to 1 oldest [Reference Range]: WBC [4.8-10.8 7.3 10*3/uL 10*3/uL] (05/02/16 1:35 PM) RBC [4.60-6.20] 4.72 (05/02/16 1:35 PM) Hgb [14.0-18.0 15.1 gm/dL gm/dL] (05/02/16 1:35 PM) Hct [42.0-52.0 %] 46.2 % (05/02/16 1:35 PM) MCV [82.0-99.0 fL] 97.9 fL (05/02/16 1:35 PM) MCH [27.0-32.0 pg] 32.0 pg (05/02/16 1:35 PM) MCHC [32.0-36.0 32.7 gm/dL gm/dL] (05/02/16 1:35 PM) RDW [11.5-14.5 %] 12.8 % (05/02/16 1:35 PM) Platelet [150-400 240 10*3/uL 10*3/uL] (05/02/16 1:35 PM) MPV [8.8-14.8 fL] 11.7 fL (05/02/16 1:35 PM) Immature 0.1 % Granulocytes (05/02/16 1:35 PM) [0.0-1.0 %] Neutrophils [51-75 67 % %] (05/02/16 1:35 PM) Lymphocytes [20-46 19 % %] *LOW* (05/02/16 1:35 PM) Monocytes [4-11 %] 13 % *HI* (05/02/16 1:35 PM) Eosinophils [0-4 %] 0 % (05/02/16 1:35 PM) Basophils [0-2 %] 0 % (05/02/16 1:35 PM) Neutro Absolute 4.88 [1.90-7.00] (05/02/16 1:35 PM) Lymph Absolute 1.39 [0.80-3.30] (05/02/16 1:35 PM) Bryan Absolute 0.97 [0.30-1.00] (05/02/16 1:35 PM) Eos Absolute 0.03 [0.00-0.50] (05/02/16 1:35 PM) Baso Absolute 0.01 [0.00-0.20] (05/02/16 1:35 PM) Chemistry Most recent to 1 oldest [Reference Range]: Sodium Lvl [135-144 141 mEq/L mEq/L] (05/02/16 1:35 PM) Potassium Lvl 5.1 mEq/L [3.5-5.2 mEq/L] (05/02/16 1:35 PM) Chloride [99-111 101 mEq/L mEq/L] (05/02/16 1:35 PM) CO2 [23-31 mEq/L] 28 mEq/L (05/02/16 1:35 PM) AGAP [3-20] 12 (05/02/16 1:35 PM) BUN [8-26 mg/dL] 18 mg/dL (05/02/16 1:35 PM) Glucose Lvl [70-99 101 mg/dL mg/dL] *HI* (05/02/16 1:35 PM) Creatinine Lvl 1.38 mg/dL [0.72-1.25 mg/dL] *HI* (05/02/16 1:35 PM) Calcium Lvl 9.5 mg/dL 1 [8.4-10.2 mg/dL] (05/02/16 1:35 PM) Albumin Lvl [3.4-4.8 4.3 gm/dL gm/dL] (05/02/16 1:35 PM) Total Protein 7.2 gm/dL [6.0-7.6 gm/dL] (05/02/16 1:35 PM) Globulin [1.8-4.0 2.9 gm/dL gm/dL] (05/02/16 1:35 PM) ALT [0-55 U/L] 30 U/L (05/02/16 1:35 PM) AST [5-34 U/L] 66 U/L *HI* (05/02/16 1:35 PM) Alk Phos [40-150 78 U/L U/L] (05/02/16 1:35 PM) Bili Total [0.2-1.2 0.4 mg/dL mg/dL] (05/02/16 1:35 PM) 1Result Comment: Please note reference range change effective 04/13/2016. Immunizations Given and Recorded Vaccine Date Status Refusal Reason tetanus/diphth/pertuss (Tdap) adult/adol 01/07/15 Recorded influenza virus vaccine, inactivated 01/10/16 Recorded influenza virus vaccine, inactivated 01/07/15 Recorded influenza virus vaccine, inactivated 02/16/14 Recorded influenza virus vaccine, live 01/13/13 Given pneumococcal 13-valent conjugate vaccine 01/10/16 Recorded pneumococcal 23-polyvalent vaccine 11/22/08 Recorded Procedures Procedure Date Related Diagnosis Body Site [...] Patient Education Author: Raoul Post MD Date: Allergy Allergies An allergy is an abnormal reaction to a substance by the body's defense system ( immune system). Allergies can develop at any age. WHAT CAUSES ALLERGIES? An allergic reaction happens when the immune system mistakenly reacts to a normally harmless substance, called an allergen, as if it were harmful. The immune system releases antibodies to fight the substance. Antibodies eventually release a chemical called histamine into the bloodstream. The release of histamine is meant to protect the body from infection, but it also causes discomfort. An allergic reaction can be triggered by: Eating an allergen. Inhaling an allergen. Touching an allergen. WHAT TYPES OF ALLERGIES ARE THERE? There are many types of allergies. Common types include: Seasonal allergies. People with this type of allergy are usually allergic to substances that are only present during certain seasons, such as molds and pollens. Food allergies. Drug allergies. Insect allergies. Animal dander allergies. WHAT ARE SYMPTOMS OF ALLERGIES? Possible allergy symptoms include: Swelling of the lips, face, tongue, mouth, or throat. Sneezing, coughing, or wheezing. Nasal congestion. Tingling in the mouth. Rash. Itching. Itchy, red, swollen areas of skin (hives). Watery eyes. Vomiting. Diarrhea. Dizziness. Lightheadedness. Fainting. Trouble breathing or swallowing. Chest tightness. Rapid heartbeat. HOW ARE ALLERGIES DIAGNOSED? Allergies are diagnosed with a medical and family history and one or more of the following: Skin tests. Blood tests. A food diary. A food diary is a record of all the foods and drinks you have in a day and of all the symptoms you experience. The results of an elimination diet. An elimination diet involves eliminating foods from your diet and then adding them back in one by one to find out if a certain food causes an allergic reaction. HOW ARE ALLERGIES TREATED? There is no cure for allergies, but allergic reactions can be treated with medicine. Severe reactions usually need to be treated at a hospital. HOW CAN REACTIONS BE PREVENTED? The best way to prevent an allergic reaction is by avoiding the substance you are allergic to. Allergy shots and medicines can also help prevent reactions in some cases. People with severe allergic reactions may be able to prevent a life- threatening reaction called anaphylaxis with a medicine given right after exposure to the allergen. This information is not intended to replace advice given to you by your health care provider. Make sure you discuss any questions you have with your health care provider. Document Released: 05/21/2003 Document Revised: 03/18/2015 Document Reviewed: [employer] Interactive Patient Education 2016 [employer] No follow up information was provided. Extracted from: Title: Office Visit Note Author: Raoul Post MD Date: 05/02/16 Assessment/Plan Acute URI Flu swab pending. Tamiflu 75mg po bid for five days if positive or: Zpack and prednisone 20mg po daily for five days was given. Chronic back pain This issue was reviewed, appears stable, and current therapy continued except as mentioned. Appropriate lab was reviewed from the most recent appropriate entry and lab was ordered if needed in the cpoe/nursing orders, and follow up recommended generally in 90 days and no later then six months. Has norco. Impression: There are no diagnostic abnormalities in the abdomen. [1] Chronic insomnia This issue was reviewed, appears [...] days and no later then six months. O2Sats are 91% onRA. Has plenty of albuterol at home per him. CXR pending. Phenw/cod for a cough, may cause sedation. Cough See above. Elevated blood sugar This issue was reviewed, [...] days and no later then six months. Flu-like symptoms Flu swab pending. Ordered: Influenza A/B Hypothyroidism This issue was reviewed, appears stable, and current therapy continued except as mentioned. Appropriate lab was reviewed from the most recent appropriate entry and lab was ordered if needed in the cpoe/nursing orders, and follow up recommended generally in 90 days and no later then six months. TSH pending. Addendum by To ER if worse in any way. The patient has family members present who are agreeable Luinstra, with today's plan and have no additional concerns or requests. here. 45 minutes Raoul Young were utilized in care and coordination for this patient. Greater then 50% of the time MD on was used for counseling and/or coordination of the patients care. 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
--- NOTE | 2016-06-03 13:43 | ERPDOC ---
Departure Disposition Decision Date: Jun 03, 2016 Disposition Decision Time: 14:07 (RONNY TRUONG APRN) Disposition: 01 DISCHARGED HOME, SELF-CARE Impression Impression (RONNY TRUONG APRN) Impression: Primary Impression: Acute right-sided thoracic back pain Severity: Moderate (RONNY TRUONG APRN) Condition: Stable Seen By: Mid-level only (RONNY TRUONG APRN) Referrals: MASOOD HORAN MD (Family) Patient Instructions: Thoracic Back Strain (ED) Problems/Meds/Labs Reviewed?: Yes Medications reviewed and manag: Yes (RONNY TRUONG APRN) Additional Instructions: You may take 1-2 norco 10/325mg, every 8 hours for pain. Use medication sparingly. Follow with Dr. Horan tomorrow for re-evaluation. Follow treatment plan. Follow up care ordered?: Yes Mental Status: Alert, Oriented (RONNY TRUONG APRN) Scripts Hydrocodone/Apap (Mal[place] 10-325 Tablet) 10-325 Tablet 1-2 TAB PO q8 Y for PAIN, #15 TAB Prov: RONNY TRUONG APRN 06/03/16 HPI - Back Pain General Chief Complaint: Back Pain or Injury Stated Complaint: FELL, BACK PAIN Time Seen by Provider: 13:32 Source: patient (RONNY TRUONG APRN) Time Seen by Provider: 13:32 (HARVINDER OLIVARES DO) HPI - Back Pain Initial Comments 76-year-old male presents to ER with complaint of right thoracic pain. Patient states that he fell backwards along [place] last week and has been having increasing back pain since that time. Patient was seen by his PCP the next day and had a noncontrast CT scan of his back and chest x-ray done which did not show anything per patient. Patient states that he had 2 drops of blood in his urine after fall. Patient had an additional CT scan on the which was with contrast. Patient says after that CT scan he was scheduled to have a cystoscopy done next Saturday. Patient is ambulatory and has no difficulty with movement. Patient says pain is worse when he lies down at night and when he takes a deep breath. Patient takes Malta 10/325 up to 6 tablets daily prn. Patient has taken additional Malta since injury and now is out. Patient states he cannot refill is Malta total June 10. Patient denies any loss of sensation/function/numbness/tingling in extremities. Pain/Severity Scale: Now: 9/10 1 - Reports pain Associated Sypmtoms: DENIES: fever, lower back pain, muscle spasms, weakness ( RONNY TRUONG FEE CLERK) Allergies: Coded Allergies: No Known Allergies (Unverified , 03/07/15) Past History Past Medical History Metabolic: hypertension Cardiac: DENIES: angina Respiratory: COPD, pneumonia Male: DENIES: renal failure Neurological: DENIES: seizures Musculoskeletal: back pain Psychological: DENIES: depression (RONNY TRUONG FEE CLERK) Surgical History General: other Joint: knee (RONNY TRUONG APRN) Family History Family PMH: FOUND: CVA, aortic aneurysm (RONNY TRUONG APRN) Vaccines Hx Influenza Vaccination: Yes (JAN 2015) Hx Pneumococcal Vaccination: Yes (UP TO DATE ) (RONNY TRUONG APRN) Social History Sexuality: female partner (RONNY TRUONG APRN) Review of Systems Constitutional Constitutional: DENIES: chills, dizziness, fever, weakness (EVONNE TRUONGS Natan FEE CLERK) Eyes General: DENIES: erythema, exudate Lids/Accessories: DENIES: erythema, swelling (EVONNE TRUONGS A FEE CLERK) ENMT Ears: DENIES: pain Hearing: DENIES: hearing loss Sinuses: DENIES: congestion, rhinorrhea Mouth/Throat: DENIES: sore throat (EVONNE TRUONGS A FEE CLERK) Cardiovascular Cardiac: DENIES: chest pain, murmur Rhythm/Rate: DENIES: palpitations (EVONNE TRUONGS A FEE CLERK) Pulmonary Respiratory: DENIES: cough, dyspnea (EVONNE TRUONGS A FEE CLERK) GI Upper Abdomen: DENIES: nausea, pain, vomiting Lower Abdomen: DENIES: diarrhea, pain (EVONNE TRUONGS A FEE CLERK) General: hematuria, DENIES: dysuria, pain (EVONNE TRUONGS A FEE CLERK) Musculoskeletal General: pain, see HPI, tenderness (EVONNE TRUONGS A FEE CLERK) Integumentary Skin: DENIES: color change, itching, rash (EVONNE TRUONGS A FEE CLERK) Neurological General: DENIES: ataxia, change in strength, numbness, paralysis/paresis, weakness (EVONNE TRUONGS A FEE CLERK) Psychiatric Psychiatric: DENIES: anxiety, depression, nervousness (RONNY TRUONG FEE CLERK) Physical Exam General General Nourishment: well nourished, well developed, no acute distress, adult General Body Habitus: well groomed (RONNY TRUONG FEE CLERK) Vitals and Pain First Documented Vital Signs Date Time Temp Pulse Resp B/P Pulse Ox O2 Delivery O2 Flow Rate FiO2 06/03/16 13:19 97.4 106 16 144/80 94 Room Air (HARVINDER OLIVARES DO) Vitals and Pain Weight: Kilograms: Height (feet): 5 Height (inches): 9 Triage Pain Scale: (EVONNE TRUONGS A FEE CLERK) Eyes (brief) Eyes Brief: found: EOMI (EVONNE TRUONGS A FEE CLERK) ENMT (brief) ENMT Brief: NOT FOUND: nasal exudate, nasal swelling, pharnyx erythema (EVONNE TRUONGS A FEE CLERK) Neck (brief) Neck: FOUND: trachea midline, NOT FOUND: spasm, tenderness (EVONNE TRUONGS A FEE CLERK) Respiratory (brief) Respiratory: FOUND: clear all kaur, equal bilaterally, symmetrical (EVONNE TRUONGS A FEE CLERK) Cardiovascular (brief) Cardiac: FOUND: regular rate, regular rhythm (EVONNE TRUONGS A FEE CLERK) Abdomen (brief) Abdominal Brief: FOUND: bowel normo active x4, soft, NOT FOUND: distended, tender (EVONNE TRUONGS A FEE CLERK) Musculoskeletal Back: FOUND: tenderness (TTP over right posterior ribs 6-10, no brusing or crepitius noted), NOT FOUND: spasm, spine point tenderness (EVONNE TRUONGS A FEE CLERK) Integumentary (brief) Integumentary Brief: FOUND: dry, pink, warm (EVONNE TRUONGS A FEE CLERK) Neurologic Cranial Nerves: NOT FOUND: facial asymmetry Motor : Motor Side: bilateral Motor Location: foot extension, foot flexion, 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 Patient has had negative chest x-ray followed with CT scan which was negative. Patient requesting more Malta until he can call Dr. Horan for early refill. I asked patient if he had a pain contract with Dr. Horan and he said no. I told patient that I would write him for 15 Malta tends so he can follow with Dr. Horan tomorrow. Patient verbalizes understanding of treatment plan, follow-up and return precautions. (RONNY TRUONG APRN) RONNY TRUONG APRN Jun 03, 2016 13:42 HARVINDER OLIVARES DO Jun 06, 2016 06:33
--- NOTE | 2016-06-03 13:50 | NUR ---
STEPHANIE TRUONG APRN AT BEDSIDE.
--- NOTE | 2016-06-03 13:51 | NUR ---
REPORT RECEIVED FROM ELIZABETH UREÑA. CARE ASSUMED.
[2016-06-03] MEDS ORDERED: FISH1CAP10 PO (14:03)
[2016-06-03] MEDS ORDERED: HYDR-3995 PO (14:10)
--- OUTSIDE RECORDS SUMMARY | 2016-06-03 14:15 | XMS REPORT | Continuity of Care Document ---
Author Author [facility] Organization [facility] Address Unknown Phone Unavailable Allergies Active [...] 6.0 NA 5.0-8.0 Protein Negative Negative Specific [place] 1.033 NA 1.003-1.030 UA Collection type Voided [...] NA 5.0-8.0 Protein Negative NA Negative Specific [place] 1.030 NA 1.003-1.030 UA Collection type Clean Catch NA Urobilinogen 0.2 mg/dL <=1.0 Urine Microscopic - 05/29/16 12:02 Bacteria Rare NA Epithelial Cells 0 /hpf Hyaline Casts 1 /lpf RBC, Urine 20 /hpf 0-2 Urine Mucus Present NA WBC, Urine 0 /hpf 0-4 Encounters ACCT No. Visit Date/Time Discharge Status Pt. Type Provider Facility Loc./Unit Complaint [id number] 04/24/2013 15:06:00 04/24/2013 23 :59:59 [facility] Outpatient
[2016-06-03 14:26] VITALS: BP 146/84; PULSE 94; RESP 18; TEMP 98.7; O2SAT 91
--- NOTE | 2016-06-03 14:29 | NUR ---
DEPART PT AMBULATORY TO LOBBY WITH . RX AND DISMISSAL PAPERWORK IN HAND.
--- NOTE | 2016-06-03 14:55 | NUR ---
STATUS PT RETURNS TO REGISTRATION DESK. PT STATES THAT [facility] WILL NOT FILL RX GIVEN AT DISMISSAL HE PREVIOUS ONE WAS TO LAST 30 DAYS. PT CONFIRMS INTENT TO FOLLOW UP WITH DR BONNER IN THE MORNING.
== END 2016-06-03 14:29 | disposition home or self-care (01) ==
LOC: ED 13:15
DX: M54.6 Pain in thoracic spine (principal); W18.30XA Fall on same level, unspecified, initial encounter; Y93.9 Activity, unspecified; Y92.828 Other wilderness area as the place of occurrence of the external cause; Y99.8 Other external cause status

== ENCOUNTER 2017-03-13 14:01 | Inpatient (IN) ==
[2017-03-13] MEDS ORDERED: METHYLPREDNISOLONE SOD SUCC 125mg/2ml INJECTION IVP ONE (14:23)
[2017-03-13] MEDS ORDERED: ALBUTEROL/IPRATROPIUM 2.5mg-0.5mg/3ml NEB IH ONE (14:23)
[2017-03-13] MEDS: SALINE FLUSH 10ml SYRINGE IVF PRN ×3 (14:27→16:54)
--- OUTSIDE RECORDS SUMMARY | 2017-03-13 14:29 | External Medical Summary | Referral Summary ---
:1940 Author Organization [facility] [address] [place] [address] Care Team Providers Name Role Phone Raoul Post Primary Care Physician Encounter VC Date(s): 02/16/16 - 02/16/16 [facility] [place] [address] [place] Discharge Diagnosis: Hypothyroidism Discharge Diagnosis: GERD without esophagitis Discharge Diagnosis: Chronic back pain Discharge Diagnosis: COPD (chronic obstructive pulmonary disease) Discharge Diagnosis: Blood pressure elevated Discharge Diagnosis: Acute headache Discharge Diagnosis: Chronic insomnia Discharge Disposition: 01-Home or Self Care Attending Physician: Raoul Post MD Admitting Physician: Raoul Post MD Vital Signs Most recent to oldest [Reference Range]: 1 Blood Pressure [90-140/60-90 mmHg] 120/80 mmHg (02/16/16 8:16 AM) Problem List Condition Effective Dates Status Health Status Informant Chronic back pain(Confirmed) Active COPD (chronic obstructive pulmonary Active disease)(Confirmed) Depression(Confirmed) Active Blood pressure elevated(Confirmed) Active GERD without esophagitis(Confirmed) Active Glaucoma(Confirmed) Active Elevated cholesterol(Confirmed) Active Hypothyroidism(Confirmed) Active Elevated blood sugar(Confirmed) Active Chronic insomnia(Confirmed) Active Allergies, Adverse Reactions, Alerts No Known Medication Allergies Medications albuterol 2.5 mg/3 mL (0.083%) inhalation solution 2.5 mg 3 mL, NEB, q8hr, 2.5 mg/3 mL (0.083%) neb solution; inhale 3 mL by nebulization route 3 timesevery day, # 30 Each, 1 Refill(s), Pharmacy: [id number], 3 mL NEB q8hr,Instr:2.5 mg/3 mL (0.083%) neb solution; inhale 3 mL by nebuliz... Start Date: 12/22/14 Status: OrderedAleve 220 mg oral tablet 1 tabs, Oral, q12hr, as needed Start Date: 11/16/13 Status: Orderedaspirin 81 mg oral tablet, chewable 1 tabs, Oral, Daily Start Date: 11/16/13 Status: OrderedBreo Ellipta 200 mcg-25 mcg/inh inhalation powder See Instructions, INHALE 1 PUFF BY MOUTH DAILY, # 60 g[id number] INHALE 1 PUFF BY MOUTH DAILY Start Date: 10/25/15 Status: OrderedClaritin 10 mg oral tablet 10 mg 1 tabs, Oral, Daily, X 300 days, # 300 tabs, 0 Refill(s), Pharmacy: [id number], 1 tabs Oral Daily,x300 days Start Date: 11/07/15 Stop Date: 09/02/16 Status: Orderedlevothyroxine 50 mcg (0.05 mg) oral tablet See Instructions, TAKE 1 TABLET BY MOUTH EVERY DAY, # 60 tabs, eRx: [facility] [id number], TAKE1 TABLET BY MOUTH EVERY DAY Start Date: 10/07/15 Status: Orderedmirtazapine 15 mg oral tablet See Instructions, TAKE 1 TABLET BY MOUTH AT BEDTIME, # 90 tabs, 1 Refill(s), Pharmacy: [id number], TAKE 1 TABLET BY MOUTH AT BEDTIME Start Date: 11/07/15 Status: OrderedMisc Medication Patient takes Dann Red- Shrimp oil daily, 0 Refill(s) Start Date: 01/11/15 Status: Orderedmultivitamin 1 tabs, Oral, Daily Start Date: 11/16/13 Status: OrderedNorco 10 mg-325 mg oral tablet 1-2 tabs, Oral, q8hr, as needed for pain, RX must last 30 days may fill 02/09/16 , # 120 tabs, 0 Refill(s) Start Date: 02/09/16 Status: OrderedPriLOSEC 40 mg oral delayed release capsule 40 mg 1 caps, Oral, Daily, # 100 caps, 0 Refill(s), Pharmacy: [facility] [id number], 1 caps Oral Daily,x100 days Start Date: 02/18/15 Stop Date: 05/29/15 Status: OrderedPriLOSEC 40 mg oral delayed release capsule See Instructions, 1 CAPS ORAL DAILY,X100 DAYS, # 100 caps, eRx: [facility] [id number], 1 CAPS ORAL DAILY,X100 DAYS Start Date: 06/14/15 Status: OrderedProAir RespiClick 90 mcg/inh inhalation powder 1 puffs, Inhalation, q4hr, Shortness of Breath/Wheezing, No substitutes., # 1 Each, 2 Refill(s), samples given to patient (Rx) Start Date: 03/24/15 Status: OrderedSenokot See Instructions, 2 tabs daily., 0 Refill(s) Start Date: 12/16/14 Status: Orderedsertraline 50 mg oral tablet 50 mg 1 tabs, Oral, Daily, # 90 tabs, 0 Refill(s), Pharmacy: [facility], 1 tabs Oral Daily Start Date: 01/20/16 Status: Orderedsimethicone 80 mg oral tablet See Instructions, 4 daily., 0 Refill(s) Start Date: 12/22/14 Status: Orderedsimvastatin 20 mg oral tablet See Instructions, TAKE 1 TABLET BY MOUTH EVERY EVENING, # 90 tabs, 0 Refill(s), Pharmacy: [id number], TAKE 1 TABLET BY MOUTH EVERY EVENING Start Date: 02/07/16 Status: Orderedsimvastatin 20 mg oral tablet See Instructions, TAKE 1 TABLET BY MOUTH EVERY EVENING, # 90 tabs, eRx: [facility] [id number], TAKE 1 TABLET BY MOUTH EVERY EVENING Start Date: 07/25/15 Status: Orderedtimolol See Instructions, Timolol maleate 0.5% eyedrops; place 1 drop in the right eye every morning, 0 Refill(s) Start Date: 11/16/13 Status: OrderedtraZODone 100 mg oral tablet See Instructions, TAKE 1 TABLET BY MOUTH AT BEDTIME., # 90 tabs, eRx: [facility] [id number], TAKE 1 TABLET BY MOUTH AT BEDTIME. Start Date: 03/08/14 Status: Orderedzolpidem 10 mg oral tablet 0.5-1 tabs, Oral, Bedtime (once a day), as needed for sleep, RX must last 30 days [facility], # 30 tabs, 0 Refill(s) Start Date: 01/27/16 Status: Ordered Results Hematology Most recent to oldest [Reference Range]: 1 WBC [4.8-10.8 10*3/uL] 7.5 10*3/uL (02/16/16 8:55 AM) RBC [4.60-6.20] 4.55 *LOW* (02/16/16 8:55 AM) Hgb [14.0-18.0 gm/dL] 14.8 gm/dL (02/16/16 8:55 AM) Hct [42.0-52.0 %] 42.9 % (02/16/16 8:55 AM) MCV [82.0-99.0 fL] 94.3 fL (02/16/16 8:55 AM) MCH [27.0-32.0 pg] 32.5 pg *HI* (02/16/16 8:55 AM) MCHC [32.0-36.0 gm/dL] 34.5 gm/dL (02/16/16 8:55 AM) RDW [11.5-14.5 %] 12.6 % (02/16/16 8:55 AM) Platelet [150-400 10*3/uL] 267 10*3/uL (02/16/16 8:55 AM) MPV [8.8-14.8 fL] 11.2 fL (02/16/16 8:55 AM) Immature Granulocytes [0.0-1.0 %] 0.1 % (02/16/16 8:55 AM) Neutrophils [51-75 %] 66 % (02/16/16 8:55 AM) Lymphocytes [20-46 %] 21 % (02/16/16 8:55 AM) Monocytes [4-11 %] 10 % (02/16/16 8:55 AM) Eosinophils [0-4 %] 3 % (02/16/16 8:55 AM) Basophils [0-2 %] 0 % (02/16/16 8:55 AM) Neutro Absolute [1.90-7.00 10*3] 4.96 10*3 (02/16/16 8:55 AM) Lymph Absolute [0.80-3.30 10*3] 1.58 10*3 (02/16/16 8:55 AM) [place] Absolute [0.30-1.00 10*3] 0.74 10*3 (02/16/16 8:55 AM) Eos Absolute [0.00-0.50 10*3] 0.19 10*3 (02/16/16 8:55 AM) Baso Absolute [0.00-0.20 10*3] 0.03 10*3 (02/16/16 8:55 AM) Sed Rate [0-15] 6 (02/16/16 8:55 AM) Chemistry Most recent to oldest [Reference Range]: 1 Sodium Lvl [135-144 mEq/L] 141 mEq/L (02/16/16 8:55 AM) Potassium Lvl [3.5-5.2 mEq/L] 5.1 mEq/L (02/16/16 8:55 AM) Chloride [99-111 mEq/L] 105 mEq/L (02/16/16 8:55 AM) CO2 [23-31 mEq/L] 25 mEq/L (02/16/16 8:55 AM) AGAP [3-20] 11 (02/16/16 8:55 AM) BUN [8-26 mg/dL] 14 mg/dL (02/16/16 8:55 AM) Glucose Lvl [70-99 mg/dL] 93 mg/dL (02/16/16 8:55 AM) Creatinine Lvl [0.72-1.25 mg/dL] 1.16 mg/dL (02/16/16 8:55 AM) eGFR [>60 mL/min] >60 mL/min 1 (02/16/16 8:55 AM) Calcium Lvl [8.9-10.5 mg/dL] 9.3 mg/dL (02/16/16 8:55 AM) Albumin Lvl [3.4-4.8 gm/dL] 4.2 gm/dL (02/16/16 8:55 AM) Total Protein [6.0-7.6 gm/dL] 6.3 gm/dL (02/16/16 8:55 AM) Globulin [1.8-4.0 gm/dL] 2.1 gm/dL (02/16/16 8:55 AM) ALT [0-55 U/L] 19 U/L (02/16/16 8:55 AM) AST [5-34 U/L] 32 U/L (02/16/16 8:55 AM) Alk Phos [40-150 U/L] 78 U/L (02/16/16 8:55 AM) Bili Total [0.2-1.2 mg/dL] 0.4 mg/dL (02/16/16 8:55 AM) Chol [0-199 mg/dL] 192 mg/dL (02/16/16 8:55 AM) Trig [0-149 mg/dL] 188 mg/dL *HI* (02/16/16 8:55 AM) HDL [40-84 mg/dL] 44 mg/dL (02/16/16 8:55 AM) LDL [0-130 mg/dL] 110 mg/dL (02/16/16 8:55 AM) VLDL Cholesterol [0-28 mg/dL] 38 mg/dL *HI* (02/16/16 8:55 AM) Cardiac Risk [0.0-5.7] 4.4 (02/16/16 8:55 AM) T4 Free [0.7-1.5 ng/dL] 0.9 ng/dL (02/16/16 8:55 AM) TSH with Reflex Free T4 [0.35-4.94] 6.31 *HI* (02/16/16 8:55 AM) Hgb A1c [4.1-5.6 %] 4.9 % (02/16/16 8:55 AM) eAvg Glucose 93.9 mg/dL (02/16/16 8:55 AM) 1Result Comment: Multiply eGFR results by 1.21 for race.Urinalysis Most recent to oldest [Reference Range]: 1 UA Color DkYellow (02/16/16 9:03 AM) UA Appear Clear (02/16/16 9:03 AM) UA pH [5.0-8.0] 6.0 (02/16/16 9:03 AM) UA Leuk Est [Negative] Negative (02/16/16 9:03 AM) UA Nitrite [Negative] Negative (02/16/16 9:03 AM) UA Protein [Negative] Negative (02/16/16 9:03 AM) UA Glucose [Negative] Negative (02/16/16 9:03 AM) UA Ketones [Negative] Negative (02/16/16 9:03 AM) UA Urobilinogen [<1.0 mg/dL] 1.0 mg/dL (02/16/16 9:03 AM) UA Bili [Negative] Negative (02/16/16 9:03 AM) UA Blood [Negative] Negative (02/16/16 9:03 AM) UA Spec Grav [1.003-1.030] 1.033 *HI* (02/16/16 9:03 AM) Type Voided (02/16/16 [...] normal. H. 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 Your health care provider may prescribe muscl e relaxant drugs.These medicines help dull your pain [...] Released: 02/25/2006 Document Revised: 03/18/2015 Document Reviewed: 06/29/2014 [employer] Patient Education 2016 [employer] No follow up information was provided. [...] recent appropriate entry and lab was ordered i f needed in the cpoe/nursing orders, and follow [...] most recent appropriate entry and lab was o rdered if needed in the cpoe/nursing orders, and follow up recommended generally in 90 days and no later then six months. High blood sugar This issue was reviewed, appears stable, and current therapy continued except as mentioned. Appropriate lab was reviewed from the most recent appropriate entry and lab was ordered i f needed in the cpoe/nursing orders, and follow [...] recent appropriate entry and lab was ordered i f needed in the cpoe/nursing orders, and follow [...]
--- OUTSIDE RECORDS SUMMARY | 2017-03-13 14:29 | External Medical Summary | Referral Summary ---
:1940 Author Organization [facility] Address [address] [place] [address] [place] [address] Care Team Providers Name Role Phone Raoul Post Primary Care Physician Encounter VC Date(s): 12/22/14 - 12/22/14 [facility] [address] [place] [address] [place] Discharge Diagnosis: COPD (chronic obstructive pulmonary disease) Discharge Diagnosis: Epigastric abdominal pain Discharge Disposition: 01-Home or Self Care Attending Physician: Monica Salgado PA-C Admitting Physician: Monica Salgado PA-C Vital Signs Most recent to oldest [Reference Range]: 1 Temperature Tympanic [36.6-38.1 degC] 36.8 degC (12/22/14 11:03 AM) Peripheral Pulse Rate [60-100 bpm] 92 bpm (12/22/14 11:03 AM) Respiratory Rate [14-20 br/min] 20 br/min (12/22/14 11:03 AM) Blood Pressure [90-140/60-90 mmHg] 132/70 mmHg (12/22/14 11:03 AM) Problem List Condition Effective [...] day, # 30 Each, 1 Refill(s), Pharmacy: [id number], 3 mL NEB q8hr,Instr:2.5 mg/3 mL (0.083%) neb solution; inhale 3 mL by nebuliz... Start Date: 12/22/14 Status: OrderedAleve 220 mg oral tablet 1 tabs, Oral, q12hr, as needed Start Date: 11/16/13 Status: Orderedaspirin 81 mg oral tablet, chewable 1 tabs, Oral, Daily Start Date: 11/16/13 Status: OrderedBreo Ellipta 200 mcg-25 mcg/inh inhalation powder 1 puffs, Inhalation, Daily, # 1 Each, 0 Refill(s), Pharmacy: [id number] Start Date: 06/20/15 Status: OrderedClaritin 10 mg oral tablet 10 mg 1 tabs, Oral, Daily, X 300 days, # 300 tabs, 0 Refill(s), Pharmacy: [facility], 1 tabs Oral Daily,x300 days Start Date: 02/18/15 Stop Date: 12/15/15 Status: Orderedlevothyroxine 50 mcg (0.05 mg) oral tablet See Instructions, TAKE 1 TABLET BY MOUTH EVERY DAY, # 60 tabs, 2 Refill(s), eRx : [facility] [id number], TAKE 1 TABLET BY MOUTH EVERY DAY Start Date: 04/11/15 Status: OrderedMisc Medication Patient takes Dann Red- Shrimp oil daily, 0 Refill(s) Start Date: 01/11/15 Status: Orderedmultivitamin 1 tabs, Oral, Daily Start Date: 11/16/13 Status: OrderedNorco 10 mg-325 mg oral tablet 1-2 tabs, Oral, q8hr, as needed for pain, MUST LAST 30 DAYS. July. , # 120 tabs, 0 Refill(s) Start Date: 06/14/15 Status: OrderedPriLOSEC 40 mg oral delayed release capsule 40 mg 1 caps, Oral, Daily, # 100 caps, 0 Refill(s), Pharmacy: [facility] [id number], 1 caps Oral Daily,x100 days Start Date: 02/18/15 Stop Date: 05/29/15 Status: OrderedPriLOSEC 40 mg oral delayed release capsule See Instructions, 1 CAPS ORAL DAILY,X100 DAYS, # 100 caps, eRx: [facility] [id number], 1 CAPS ORAL DAILY,X100 DAYS Start Date: 06/14/15 Status: OrderedProAir RespiClick 90 mcg/inh inhalation powder 1 puffs, Inhalation, q4hr, Shortness of Breath/Wheezing, No substitutes., # 1 Each, 2 Refill(s), samples given to patient (Rx) Start Date: 03/24/15 Status: OrderedRemeron 15 mg oral tablet See Instructions, 1 TABS ORAL BEDTIME (ONCE A DAY),X30 DAYS, # 30 tabs, eRx: [facility] [id number], 1 TABS ORAL BEDTIME (ONCE A DAY),X30 DAYS Start Date: 06/13/15 Status: OrderedSenokot See Instructions, 2 tabs daily., 0 Refill(s) Start Date: 12/16/14 Status: Orderedsertraline 50 mg oral tablet See Instructions, TAKE 1 TABLET (50MG) BY ORAL ROUTE EVERY DAY, # 90 tabs, eRx: [id number], TAKE 1 TABLET (50MG) BY ORAL ROUTE EVERY DAY Start Date: 04/14/15 Status: Orderedsimethicone 80 mg oral tablet See Instructions, 4 daily., 0 Refill(s) Start Date: 12/22/14 Status: Orderedsimvastatin 20 mg oral tablet See Instructions, TAKE 1 TABLET (20MG) BY ORAL ROUTE EVERY DAY IN THE EVENING, # 90 tabs, eRx: [facility] [id number], TAKE 1 TABLET (20MG) BY ORAL ROUTE EVERY DAY IN THE EVENING Start Date: 04/25/15 Status: Orderedtimolol See Instructions, Timolol maleate 0.5% eyedrops; place 1 drop in the right eye every morning, 0 Refill(s) Start Date: 11/16/13 Status: OrderedtraZODone 100 mg oral tablet See Instructions, TAKE 1 TABLET BY MOUTH AT BEDTIME., # 90 tabs, eRx: [facility] [id number], TAKE 1 TABLET BY MOUTH AT BEDTIME. Start Date: 03/08/14 Status: Orderedzolpidem 10 mg oral tablet 0.5-1 tabs, Oral, Bedtime (once a day), as needed for sleep, fax to [employer] [phone], RX must last30 days, # 30 tabs, 0 Refill(s) Start [...] normal. H. pylori and Mooney' s both [id number], will not need to repeat unless symptoms [id number] polyps, repeat in 10 years Social History Social History Type Response Smoking Status Former smoker; Type: Cigarettes Assessment and Plan Extracted from: Title: Ambulatory Patient Education Author: Monica Salgado PA-C Date: 12/22/14 Family Medicine Chronic Obstructive Pulmonary Disease [...] require extra treatment. Without treatment, COPD exacerbations ca n be life threatening, and frequent COPD exacerbations [...] Released: 12/23/2007 Document Revised: 07/12/2014 Document Reviewed: 10/30/2013 [facility] Patient Information 2015 [facility]. This information is not intended to [...] Vomiting of bright red blood. Vomiting of fmcwbi-mkdxom-fobqusa materials. DIAGNOSIS A diagnosis is usually made [...] Released: 02/22/2001 Document Revised: 07/12/2014 Document Reviewed: 09/24/2012 ExitCare Patient Information 2015 [facility], [facility]. This information is not intended to [...] is to let me know if still notimproving, and may need steroid burst. Epigastric abdominal pain, Epigastric abdominal pain Like I said, initially Ithought it could be constipation. I was also thinking possibly gallbladder. However, with h/o NSAID use, now more concentrated epigastric pain, and fact that food makes pain better, I believe he could have an ulcer. Will obtain H. Pylori IgG today. Willve pt start taking Prilosec 20mg in AM for now. Will call in abx if H. Pylori + and have him increase to Prilosec BID f or 2 weeks. I also advised pt to stop taking Aleve/Advil and take Tylenol instead for pain. Ordered: Helicobacter pylori Antibody IgG Office Visit Level 3 Est [id number] Orders: albuterol, 2.5 mg 3 mL, NEB, q8hr, 2.5 mg/3 mL (0.083%) neb solution ; inhale 3 mL by nebulization route 3 times every day, # 30 Each, 1 Refill(s), Pharmacy: [id number], 3 mL NE B q8hr,Instr:2.5 mg/3 mL (0.083%) neb solution; inhale 3 mL by nebuliz...
--- OUTSIDE RECORDS SUMMARY | 2017-03-13 14:29 | External Medical Summary | Referral Summary ---
:1940 Author [facility] Address [address] [place] [address] [place] [address] Care Team Providers Name Role Phone Raoul Post Primary Care Physician Encounter VC Date(s): 03/24/15 - 03/24/15 [facility] [place] [address] [place] Discharge Disposition: 01-Home or Self Care Attending Physician: Raoul Post MD Admitting Physician: Raoul Post MD Vital Signs Most recent to oldest [Reference Range]: 1 Peripheral Pulse Rate [60-100 bpm] 96 bpm (03/24/15 3:04 PM) Blood Pressure [90-140/60-90 mmHg] 120/80 mmHg (03/24/15 3:04 PM) SpO2 93 % (03/24/15 [...] day, # 30 Each, 1 Refill(s), [id number], 3 mL NEB q8hr,Instr:2.5 mg/3 mL (0.083%) [...] to patient (Rx) Start Date: 03/24/15 Status: OrderedClaritin 10 mg oral tablet 10 mg 1 tabs, Oral, Daily, X 300 days, # 300 tabs, 0 Refill(s), Pharmacy: [facility] [id number], 1 tabs Oral Daily,x300 days Start Date: 02/18/15 Stop Date: 12/15/15 Status: Orderedlevothyroxine 50 mcg (0.05 mg) oral tablet See Instructions, TAKE 1 TABLET BY MOUTH EVERY DAY, # 60 tabs, 2 Refill(s), eRx : [facility] [id number], TAKE 1 TABLET BY MOUTH EVERY DAY Start Date: 10/15/14 Status: OrderedMisc Medication Patient takes Dann Red- Shrimp oil daily, 0 Refill(s) Start Date: 01/11/15 Status: Orderedmultivitamin 1 tabs, Oral, Daily Start Date: 11/16/13 Status: OrderedNorco 10 mg-325 mg oral tablet 1-2 tabs, Oral, q8hr, as needed for pain, MUST LAST 30 DAYS., # 120 tabs, 0 Refill(s) Start Date: 03/16/15 Status: OrderedpredniSONE 20 mg oral tablet 20 mg 1 tabs, Oral, Daily, X 10 days, # 10 tabs, 0 Refill(s), Pharmacy: [facility] [id number], 1 tabs Oral Daily,x10 days Start Date: 03/24/15 Stop Date: 04/03/15 Status: OrderedPriLOSEC 40 mg oral delayed release capsule 40 mg 1 caps, Oral, Daily, # 100 caps, 0 Refill(s), Pharmacy: [facility] 47084, 1 caps Oral Daily,x100 days Start Date: 02/18/15 Stop Date: 05/29/15 Status: OrderedProAir RespiClick 90 mcg/inh inhalation powder 1 puffs, Inhalation, q4hr, Shortness of Breath/Wheezing, No substitutes., # 1 Each, 2 Refill(s), samples given to patient (Rx) Start Date: 03/24/15 Status: OrderedRemeron 15 mg oral tablet See Instructions, 1 TABS ORAL BEDTIME (ONCE A DAY),X30 DAYS, # 30 tabs, 2 Refill (s), eRx: [facility] [id number], 1 TABS ORAL BEDTIME (ONCE A DAY),X30 DAYS Start Date: 03/22/15 Status: OrderedSenokot See Instructions, 2 tabs daily., 0 Refill(s) Start Date: 12/16/14 Status: Orderedsertraline 50 mg oral tablet See Instructions, TAKE 1 TABLET (50MG) BY ORAL ROUTE EVERY DAY, # 90 tabs, eRx: [id number], TAKE 1 TABLET (50MG) BY ORAL ROUTE EVERY DAY Start Date: 01/17/15 Status: Orderedsimethicone 80 mg oral tablet See Instructions, 4 daily., 0 Refill(s) Start Date: 12/22/14 Status: Orderedsimvastatin 20 mg oral tablet See Instructions, TAKE 1 TABLET (20MG) BY ORAL ROUTE EVERY DAY IN THE EVENING, # 90 tabs, 1 Refill(s), eRx: [facility] [id number], TAKE 1 TABLET (20MG) BY ORAL ROUTE EVERY DAY IN THE EVENING Start Date: 10/29/14 Status: Orderedtimolol See Instructions, Timolol maleate 0.5% eyedrops; place 1 drop in the right eye every morning, 0 Refill(s) Start Date: 11/16/13 Status: OrderedtraZODone 100 mg oral tablet See Instructions, TAKE 1 TABLET BY MOUTH AT BEDTIME., # 90 tabs, eRx: [facility] [id number], TAKE 1 TABLET BY MOUTH AT BEDTIME. Start Date: 03/08/14 Status: Orderedzolpidem 10 mg oral tablet 0.5-1 tabs, Oral, Bedtime (once a day), as needed for sleep, fax to [facility] [phone], RX must last30 days, # 30 tabs, [...] normal. H. pylori and Mooney' s both [id number], will not need to repeat unless symptoms [id number] polyps, repeat in 10 years Social History [...] shortness of breath. Asthma episodes, also called a sthma attacks, range from minor to life-threatening. Asthma cannot be cured, but medicines and lifestyle changes can help control it. CAUSES Asthma is believed to be caused by inherited (genetic) and environmental factors, but its exact cause is unknown. Asthma may be triggered by allergens, lung infections, or irritants in the air. Asthma t riggers are different for each person. Common triggers include: Animal dander. Dust mites. Cockroaches. Pollen from trees or grass. Mold. Smoke. Air pollutants such as dust, household disease intervention specialist, hair sprays, aerosol sprays, paint fumes, [...] later. Symptoms include: Wheezing. Excessive nighttime or mechanical maintenance supervisor coughing. Frequent or severe coughing with a [...] includes a list of your asthma triggers an d how they may be avoided. It also [...] dust mask from a hardware store, a double-la yered or microfilter vacuum casing cleaner bag, or a vacuum casing cleaner with a HEPA filter. Replace carpet [...] Released: 02/25/2006 Document Revised: 07/12/2014 Document Reviewed: 09/24/2013 ExitCare Patient Information 2015 [employer], [facility]. This information is not intended to [...] then six months. Much improved. Melquiades from [facility]/07 reviewed. Sa mples of the new medication were provided as [...] days, # 10 tabs, 0 Refill(s), Pharmacy: [id number], 1 tabs Oral Daily,x10 days
--- OUTSIDE RECORDS SUMMARY | 2017-03-13 14:30 | External Medical Summary | Referral Summary ---
:1940 Author [facility] Address [address] [place] [address] [place] [phone] Care Team Providers Name Role Phone Raoul Post Primary Care Physician Encounter VC Date(s): 08/19/14 - 08/19/14 [facility] [place] [address] [place] Discharge Disposition: 01-Home or Self Care Attending Physician: Raoul Post MD Vital Signs Most recent to oldest [Reference Range]: 1 Blood Pressure [90-140/60-90 mmHg] 100/60 mmHg (08/19/14 10:10 AM) Problem List Condition Effective Dates Status Health Status Informant Chronic back pain(Confirmed) Active COPD (chronic obstructive pulmonary Active disease)(Confirmed) Depression(Confirmed) Active Blood pressure elevated(Confirmed) Active Glaucoma(Confirmed) Active Elevated cholesterol(Confirmed) Active Hypothyroidism(Confirmed) Active Chronic insomnia(Confirmed) Active Allergies, Adverse Reactions, Alerts No Known Medication Allergies Medications Advair Diskus 250 mcg-50 mcg inhalation powder 1 puffs, Inhalation, Daily Start Date: 11/16/13 Status: Orderedalbuterol 2.5 mg/3 mL (0.083%) inhalation solution 2.5 mg 3 mL, NEB, q8hr, 2.5 mg/3 mL (0.083%) neb solution; inhale 3 mL by nebulization route 3 timesevery day, # 30 Each, 1 Refill(s), [id number], 3 mL NEB q8hr,Instr:2.5 mg/3 mL (0.083%) neb solution; inhale 3 mL by nebuliz... Start Date: 12/22/14 Status: OrderedAleve 220 mg oral tablet 1 tabs, Oral, q12hr, as needed Start Date: 11/16/13 Status: Orderedaspirin 81 mg oral tablet, chewable 1 tabs, Oral, Daily Start Date: 11/16/13 Status: Orderedlevothyroxine 50 mcg (0.05 mg) oral tablet See Instructions, TAKE 1 TABLET BY MOUTH EVERY DAY, # 60 tabs, 2 Refill(s), eRx : [facility] [id number], TAKE 1 TABLET BY MOUTH EVERY DAY [...] tabs, 0 Refill(s) Start Date: 12/16/14 Status: OrderedPriLOSEC OTC 20 mg, Oral, Daily, 0 Refill(s) Start Date: 01/11/15 Status: OrderedProAir HFA 90 mcg/inh inhalation aerosol 1 puffs, Inhalation, q4hr, as needed Start Date: 11/16/13 Status: OrderedRemeron 15 mg oral tablet See Instructions, 1 TABS ORAL BEDTIME (ONCE A DAY),X30 DAYS, # 30 tabs, 2 Refill (s), eRx: [facility] [id number], 1 TABS ORAL BEDTIME (ONCE A DAY),X30 DAYS Start Date: 12/29/14 Status: OrderedSenokot See Instructions, 2 tabs daily., 0 Refill(s) Start Date: 12/16/14 Status: Orderedsertraline 50 mg oral tablet See Instructions, TAKE 1 TABLET (50MG) BY ORAL ROUTE EVERY DAY, # 90 tabs, eRx: [id number], TAKE 1 TABLET (50MG) BY ORAL ROUTE EVERY DAY Start Date: 10/18/14 Status: Orderedsimethicone 80 mg oral tablet See Instructions, 4 daily., 0 Refill(s) Start Date: 12/22/14 Status: Orderedsimvastatin 20 mg oral tablet See Instructions, TAKE 1 TABLET (20MG) BY ORAL ROUTE EVERY DAY IN THE EVENING, # 90 tabs, 1 Refill(s), eRx: [facility] [id number], TAKE 1 TABLET (20MG) BY ORAL ROUTE EVERY DAY IN THE EVENING Start Date: 10/29/14 Status: Orderedtimolol See Instructions, Timolol maleate 0.5% eyedrops; place 1 drop in the right eye every morning, 0 Refill(s) Start Date: 11/16/13 Status: OrderedtraZODone 100 mg oral tablet See Instructions, TAKE 1 TABLET BY MOUTH AT BEDTIME., # 90 tabs, eRx: [id number], TAKE 1 TABLET BY MOUTH AT BEDTIME. Start Date: 03/08/14 Status: Orderedzolpidem 10 mg oral tablet 0.5-1 tabs, Oral, Bedtime (once a day), as needed for sleep, fax to [facility], RX must last 30 days,# 30 tabs, 0 Refill(s) Start Date: 12/31/14 [...] Author: Raoul Post MD Date: Family Medicine Back Exercises Back exercises help [...] with your knees out straight. If partial sit -ups are difficult, simply do the above but [...] Released: 04/04/2005 Document Revised: 05/19/2012 Document Reviewed: 12/27/2011 ExitCare Patient Information 2014 [employer] [facility]. No follow up information was provided. Extracted from: Title: Office Visit Note Author: Raoul Post MD Date: 08/19/14 Assessment/Plan Chronic back pain This issue is stable and appropriate refills, lab, and f/u have been discussed. [place] refilled. Chronic insomnia This issue is stable [...] is stable and appropriate refills, lab, and f /u have been discussed. Hypothyroidism This issue is stable and appropriate refills, lab, and f/u have been discussed. Orders: HYDROcodone-acetaminophen, 1-2 tabs, Oral, q8hr, as needed for pain, rx must last 30 days May fill 08/24/14, # 120 tabs, 0 Refill(s)
--- OUTSIDE RECORDS SUMMARY | 2017-03-13 14:30 | External Medical Summary | Referral Summary ---
:1940 Author [facility] Address [address] [place] [address] [place] [address] Care Team Providers Name Role Phone Raoul Post Primary Care Physician Encounter VC Date(s): 08/19/14 - 08/19/14 [facility] [place] [address]- Discharge Disposition: 01-Home or Self Care Attending [...] day, # 30 Each, 1 Refill(s), [id number], 3 mL NEB q8hr,Instr:2.5 mg/3 mL (0.083%) [...] # 60 tabs, 2 Refill(s), eRx : [facility] [id number], TAKE 1 TABLET BY MOUTH EVERY DAY [...] # 30 tabs, 2 Refill (s), eRx: [facility] [id number], 1 TABS ORAL BEDTIME (ONCE A DAY),X30 DAYS Start Date: 12/29/14 Status: OrderedSenokot See Instructions, 2 tabs daily., 0 Refill(s) Start Date: 12/16/14 Status: Orderedsertraline 50 mg oral tablet See Instructions, TAKE 1 TABLET (50MG) BY ORAL ROUTE EVERY DAY, # 90 tabs, eRx: [id number], TAKE 1 TABLET (50MG) BY ORAL ROUTE EVERY DAY Start Date: 10/18/14 Status: Orderedsimethicone 80 mg oral tablet See Instructions, 4 daily., 0 Refill(s) Start Date: 12/22/14 Status: Orderedsimvastatin 20 mg oral tablet See Instructions, TAKE 1 TABLET (20MG) BY ORAL ROUTE EVERY DAY IN THE EVENING, # 90 tabs, 1 Refill(s), eRx: [facility] [id number], TAKE 1 TABLET (20MG) BY ORAL ROUTE EVERY DAY IN THE EVENING Start Date: 10/29/14 Status: Orderedtimolol See Instructions, Timolol maleate 0.5% eyedrops; place 1 drop in the right eye every morning, 0 Refill(s) Start Date: 11/16/13 Status: OrderedtraZODone 100 mg oral tablet See Instructions, TAKE 1 TABLET BY MOUTH AT BEDTIME., # 90 tabs, eRx: [facility] [id number], TAKE 1 TABLET BY MOUTH AT BEDTIME. Start Date: 03/08/14 Status: Orderedzolpidem 10 mg oral tablet 0.5-1 tabs, Oral, Bedtime (once a day), as needed for sleep, fax to [facility], RX must last 30 days,# 30 tabs, [...] Document Reviewed: 12/27/2011 ExitCare Patient Information 2014 [employer] [facility]. No follow up information was provided. Extracted from: Title: Office Visit Note Author: Raoul Post MD Date: 08/19/14 Assessment/Plan Chronic back pain This issue is stable and appropriate refills, lab, and f/u have been discussed. [place] refilled. Chronic insomnia This issue is stable [...]
--- OUTSIDE RECORDS SUMMARY | 2017-03-13 14:30 | External Medical Summary | Referral Summary ---
:1940 Author Organization [facility] [place] [place] [address] Care Team Providers Name Role Phone Raoul Post Primary Care Physician Encounter [facility] [id number] Date(s): 05/02/16 - 05/02/16 [facility] [place] [place] [address] [place] Discharge Diagnosis: Elevated cholesterol Discharge Diagnosis: Chronic [...] Range]: 1 Peripheral Pulse Rate [60-100 bpm] 104 bpm *HI* (05/02/16 1:06 PM) Blood Pressure [90-140/60-90 mmHg] 110/70 mmHg (05/02/16 1:06 PM) SpO2 91 % (05/02/16 [...] day, # 30 Each, 1 Refill(s), Pharmacy: [facility] [id number], 3 mL NEB q8hr,Instr:2.5 mg/3 mL (0.083%) [...] BY MOUTH DAILY, # 60 g, eRx: [facility] [id number], INHALE 1 PUFF BY MOUTH DAILY Start Date: 10/25/15 Status: OrderedClaritin 10 mg oral tablet 10 mg 1 tabs, Oral, Daily, X 300 days, # 300 tabs, 0 Refill(s), Pharmacy: [facility], 1 tabs Oral Daily,x300 days Start Date: 11/07/15 Stop Date: 09/02/16 Status: Orderedlevothyroxine 50 mcg (0.05 mg) oral tablet See Instructions, TAKE 1 TABLET BY MOUTH EVERY DAY, # 60 tabs, eRx: [facility] [id number], TAKE1 TABLET BY MOUTH EVERY DAY Start Date: 10/07/15 Status: Orderedmirtazapine 15 mg oral tablet See Instructions, TAKE ONE TABLET BY MOUTH ONCE DAILY AT BEDTIME, # 90 tabs, 1 Refill(s), eRx: [id number] Start Date: 04/23/16 Status: OrderedMisc Medication Patient takes Dann Red- Shrimp oil daily, 0 Refill(s) Start Date: 01/11/15 Status: Orderedmultivitamin 1 tabs, Oral, Daily Start Date: 11/16/13 Status: OrderedNorco 10 mg-325 mg oral tablet 1-2 tabs, Oral, q8hr, as needed for pain, RX must last 30 dayS., # 120 tabs, 0 Refill(s) Start Date: 04/09/16 Status: OrderedpredniSONE 20 mg oral tablet 20 mg 1 tabs, Oral, Daily, X 5 days, # 5 tabs, 0 Refill(s), Pharmacy: [id number], 1 tabsOral Daily,x5 days Start Date: 05/02/16 Stop Date: 05/07/16 Status: OrderedPriLOSEC 40 mg oral delayed release capsule 40 mg 1 caps, Oral, Daily, # 100 caps, 0 Refill(s), Pharmacy: [facility] [id number], 1 caps Oral Daily,x100 days Start Date: 02/18/15 Stop Date: 05/29/15 Status: OrderedPriLOSEC 40 mg oral delayed release capsule See Instructions, 1 CAPS ORAL DAILY,X100 DAYS, # 100 caps, eRx: [facility] [id number], 1 CAPS ORAL DAILY,X100 DAYS Start Date: 06/14/15 Status: OrderedProAir RespiClick 90 mcg/inh inhalation powder 1 puffs, Inhalation, q4hr, Shortness of Breath/Wheezing, No substitutes., # 1 Each, 2 Refill(s), samples given to patient (Rx) Start Date: 03/24/15 Status: Orderedpromethazine-codeine 6.25 mg-10 mg/5 mL oral syrup 5 mL, Oral, q4hr, as needed for cough, # 120 mL, 0 Refill(s), called to pharmacy (Rx) Start Date: 05/02/16 Status: OrderedSenokot See Instructions, 2 tabs daily., 0 Refill(s) Start Date: 12/16/14 Status: Orderedsertraline 50 mg oral tablet See Instructions, TAKE ONE TABLET BY MOUTH ONCE DAILY, # 90 tabs, 1 Refill(s), eRx: [id number] Start Date: 04/23/16 Status: Orderedsimethicone 80 mg oral tablet See Instructions, 4 daily., 0 Refill(s) Start Date: 12/22/14 Status: Orderedsimvastatin 20 mg oral tablet See Instructions, TAKE 1 TABLET BY MOUTH EVERY EVENING, # 90 tabs, 0 Refill(s), Pharmacy: [facility], TAKE 1 TABLET BY MOUTH EVERY EVENING Start Date: 02/07/16 Status: Orderedsimvastatin 20 mg oral tablet See Instructions, TAKE 1 TABLET BY MOUTH EVERY EVENING, # 90 tabs, eRx: [facility] [id number], TAKE 1 TABLET BY MOUTH EVERY EVENING Start Date: 07/25/15 Status: Orderedtimolol See Instructions, Timolol maleate 0.5% eyedrops; place 1 drop in the right eye every morning, 0 Refill(s) Start Date: 11/16/13 Status: OrderedtraZODone 100 mg oral tablet See Instructions, TAKE 1 TABLET BY MOUTH AT BEDTIME., # 90 tabs, eRx: [facility] [id number], TAKE 1 TABLET BY MOUTH AT BEDTIME. Start Date: 03/08/14 Status: Orderedzolpidem 10 mg oral tablet 0.5-1 tabs, Oral, Bedtime (once a day), as needed for sleep, RX must last 30 days Mary Rg, # 30 tabs, 0 Refill(s) Start Date: 04/26/16 Status: Ordered Results Hematology Most recent to oldest [Reference Range]: 1 WBC [4.8-10.8 10*3/uL] 7.3 10*3/uL (05/02/16 1:35 PM) RBC [4.60-6.20] 4.72 (05/02/16 1:35 PM) Hgb [14.0-18.0 gm/dL] 15.1 gm/dL (05/02/16 1:35 PM) Hct [42.0-52.0 %] 46.2 % (05/02/16 1:35 PM) MCV [82.0-99.0 fL] 97.9 fL (05/02/16 1:35 PM) MCH [27.0-32.0 pg] 32.0 pg (05/02/16 1:35 PM) MCHC [32.0-36.0 gm/dL] 32.7 gm/dL (05/02/16 1:35 PM) RDW [11.5-14.5 %] 12.8 % (05/02/16 1:35 PM) Platelet [150-400 10*3/uL] 240 10*3/uL (05/02/16 1:35 PM) MPV [8.8-14.8 fL] 11.7 fL (05/02/16 1:35 PM) Immature Granulocytes [0.0-1.0 %] 0.1 % (05/02/16 1:35 PM) Neutrophils [51-75 %] 67 % (05/02/16 1:35 PM) Lymphocytes [20-46 %] 19 % *LOW* (05/02/16 1:35 PM) Monocytes [4-11 %] 13 % *HI* (05/02/16 1:35 PM) Eosinophils [0-4 %] 0 % (05/02/16 1:35 PM) Basophils [0-2 %] 0 % (05/02/16 1:35 PM) Neutro Absolute [1.90-7.00] 4.88 (05/02/16 1:35 PM) Lymph Absolute [0.80-3.30] 1.39 (05/02/16 1:35 PM) Maury Absolute [0.30-1.00] 0.97 (05/02/16 1:35 PM) Eos Absolute [0.00-0.50] 0.03 (05/02/16 1:35 PM) Baso Absolute [0.00-0.20] 0.01 (05/02/16 1:35 PM) Chemistry Most recent to oldest [Reference Range]: 1 Sodium Lvl [135-144 mEq/L] 141 mEq/L (05/02/16 1:35 PM) Potassium Lvl [3.5-5.2 mEq/L] 5.1 mEq/L (05/02/16 1:35 PM) Chloride [99-111 mEq/L] 101 mEq/L (05/02/16 1:35 PM) CO2 [23-31 mEq/L] 28 mEq/L (05/02/16 1:35 PM) AGAP [3-20] 12 (05/02/16 1:35 PM) BUN [8-26 mg/dL] 18 mg/dL (05/02/16 1:35 PM) Glucose Lvl [70-99 mg/dL] 101 mg/dL *HI* (05/02/16 1:35 PM) Creatinine Lvl [0.72-1.25 mg/dL] 1.38 mg/dL *HI* (05/02/16 1:35 PM) Calcium Lvl [8.4-10.2 mg/dL] 9.5 mg/dL 1 (05/02/16 1:35 PM) Albumin Lvl [3.4-4.8 gm/dL] 4.3 gm/dL (05/02/16 1:35 PM) Total Protein [6.0-7.6 gm/dL] 7.2 gm/dL (05/02/16 1:35 PM) Globulin [1.8-4.0 gm/dL] 2.9 gm/dL (05/02/16 1:35 PM) ALT [0-55 U/L] 30 U/L (05/02/16 1:35 PM) AST [5-34 U/L] 66 U/L *HI* (05/02/16 1:35 PM) Alk Phos [40-150 U/L] 78 U/L (05/02/16 1:35 PM) Bili Total [0.2-1.2 mg/dL] 0.4 mg/dL (05/02/16 1:35 PM) 1Result Comment: Please note [...] normal. H. pylori and Mooney' s both [id number], will not need to repeat unless symptoms [id number] polyps, repeat in 10 years Social History Social History Type Response Smoking Status Former smoker; Type: Cigarettes Assessment and Plan Extracted from: Title: Ambulatory Patient Education Author: Raoul Post MD Date: Allergy Allergies An allergy is an abnormal reaction to a substance by the body's defense system (immune system). Allergies can develop at any age. WHAT CAUSES ALLERGIES? An allergic reaction happens when the immune system mistakenly reacts to a normally harmless substance, called an allergen, as if it were harmful. The immune system releases antibodies to fight the subs tance. Antibodies eventually release a chemical called histamine [...] in some cases. People with severe allergic reac tions may be able to prevent a life-threatening reaction called anaphylaxis with a medicine given right after exposure to the allergen. This information is not intended to replace advice given to you by your health care provider. Make sure you discuss any questions you have with your health care provider. Document Released: 05/21/2003 Document Revised: 03/18/2015 Document Reviewed: 12/07/2014 [employer] Interactive Patient Education 2016 [employer] No follow up information was provided. [...] lab was ordered if needed in the c vincent/nursing orders, and follow up recommended generally in 90 days and no later then six months. Has norco. Impression: There are no diagnostic abnormalities in the abdomen. [1] Chronic insomnia This issue was reviewed, appears stable, and current therapy continued except as mentioned. Appropriate lab was reviewed from the most recent appropriate entry and lab was ordered if needed in the c vincent/nursing orders, and follow up recommended generally in 90 days and no later then six months. COPD (chronic obstructive pulmonary disease) This issue was reviewed, appears stable, and current therapy continued except as mentioned. Appropriate lab was reviewed from the most recent appropriate entry and lab was ordered if needed in the c vincent/nursing orders, and follow up recommended generally in [...] lab was ordered if needed in the c vincent/nursing orders, and follow up recommended generally in 90 days and no later then six months. Lab stable. Elevated cholesterol This issue was reviewed, appears stable, and current therapy continued except as mentioned. Appropriate lab was reviewed from the most recent appropriate entry and lab was ordered if needed in the c vincent/nursing orders, and follow up recommended generally in 90 days and no later then six months. Flu-like symptoms Flu swab pending. Ordered: Influenza A/B Hypothyroidism This issue was reviewed, appears stable, and current therapy continued except as mentioned. Appropriate lab was reviewed from the most recent appropriate entry and lab was ordered if needed in the c vincent/nursing orders, and follow up recommended generally in 90 days and no later then six months. TSH pending. 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 The patient has family members present who are agreeable with today's plan and have no additional concerns or requests. here.45 minutes were utilized in care and coordination for this patient. Greater then 50% of the time was used for counseling and/or coordination of the patients care.
--- OUTSIDE RECORDS SUMMARY | 2017-03-13 14:30 | External Medical Summary | Referral Summary ---
:1940 Author [facility] Address [address] [place] [address] [place] [address] Care Team Providers Name Role Phone Raoul Post Primary Care Physician Encounter [facility] Date(s): 11/19/14 - 11/19/14 [facility] [place] [place] [phone] [place] Discharge Disposition: 01-Home or Self Care Attending Physician: Raoul Post MD Admitting Physician: Raoul Post MD Vital Signs Most recent to oldest [Reference Range]: 1 Blood Pressure [90-140/60-90 mmHg] 130/70 mmHg (11/19/14 9:06 AM) Problem List Condition Effective [...] day, # 30 Each, 1 Refill(s), Pharmacy: [facility] [id number], 3 mL NEB q8hr,Instr:2.5 mg/3 mL (0.083%) [...] days, # 300 tabs, 0 Refill(s), Pharmacy: [facility] [id number], 1 tabs Oral Daily,x300 days Start Date: 02/18/15 Stop Date: 12/15/15 Status: Orderedlevothyroxine 50 mcg (0.05 mg) oral tablet See Instructions, TAKE 1 TABLET BY MOUTH EVERY DAY, # 60 tabs, 2 Refill(s), eRx : [facility] [id number], TAKE 1 TABLET BY MOUTH EVERY DAY Start Date: 04/11/15 Status: OrderedMisc Medication Patient takes Dann Red- Shrimp oil daily, 0 Refill(s) Start Date: 01/11/15 Status: Orderedmultivitamin 1 tabs, Oral, Daily Start Date: 11/16/13 Status: OrderedNorco 10 mg-325 mg oral tablet 1-2 tabs, Oral, q8hr, as needed for pain, MUST LAST 30 DAYS. July fill . , # 120 tabs, 0 Refill(s) Start Date: 05/16/15 Status: OrderedPriLOSEC 40 mg oral delayed release capsule 40 mg 1 caps, Oral, Daily, # 100 caps, 0 Refill(s), Pharmacy: [facility] [id number], 1 caps Oral Daily,x100 days Start Date: 02/18/15 Stop Date: 05/29/15 Status: OrderedProAir RespiClick 90 mcg/inh inhalation powder 1 puffs, Inhalation, q4hr, Shortness of Breath/Wheezing, No substitutes., # 1 Each, 2 Refill(s), samples given to patient (Rx) Start Date: 03/24/15 Status: OrderedRemeron 15 mg oral tablet See Instructions, 1 TABS ORAL BEDTIME (ONCE A DAY),X30 DAYS, # 30 tabs, 2 Refill (s), eRx: [facility] [id number], 1 TABS ORAL BEDTIME (ONCE A DAY),X30 DAYS Start Date: 03/22/15 Status: OrderedSenokot See Instructions, 2 tabs daily., 0 Refill(s) Start Date: 12/16/14 Status: Orderedsertraline 50 mg oral tablet See Instructions, TAKE 1 TABLET (50MG) BY ORAL ROUTE EVERY DAY, # 90 tabs, eRx: [id number], TAKE 1 TABLET (50MG) BY ORAL ROUTE EVERY DAY Start Date: 04/14/15 Status: Orderedsimethicone 80 mg oral tablet See Instructions, 4 daily., 0 Refill(s) Start Date: 12/22/14 Status: Orderedsimvastatin 20 mg oral tablet See Instructions, TAKE 1 TABLET (20MG) BY ORAL ROUTE EVERY DAY IN THE EVENING, # 90 tabs, eRx: [facility] [id number], TAKE 1 TABLET (20MG) BY ORAL ROUTE EVERY DAY IN THE EVENING Start Date: 04/25/15 Status: Orderedtimolol See Instructions, Timolol maleate 0.5% eyedrops; place 1 drop in the right eye every morning, 0 Refill(s) Start Date: 11/16/13 Status: OrderedtraZODone 100 mg oral tablet See Instructions, TAKE 1 TABLET BY MOUTH AT BEDTIME., # 90 tabs, eRx: [facility] [id number], TAKE 1 TABLET BY MOUTH AT BEDTIME. Start Date: 03/08/14 Status: Orderedzolpidem 10 mg oral tablet 0.5-1 tabs, Oral, Bedtime (once a day), as needed for sleep, fax to [facility] [phone], RX must last30 days, # 30 tabs, [...] normal. H. pylori and Mooney' s both [id number], will not need to repeat unless symptoms byjefub9zeagzntcehow polyps, repeat in 10 years Social History Social History Type Response Smoking Status Former smoker; Type: Cigarettes Assessment and Plan Extracted from: Title: Ambulatory Patient Education Author: Raoul Post MD Date: Family Medicine Back Pain, Adult Low back pain is very common. About 1 in 5 people have back pain.The cause of low back pain is rarely dangerous. The pain often gets better over time. About half of people with a sudden onset [...] the pain is unknown.Answering your caregiver's questions a bout your overall health and symptoms is one of the most accurate ways to make sure the cause of your pain is not dangerous. If your caregiver needs more information, he or she may order lab work or asaf ging tests (X-rays or MRIs).However, even if imaging tests show changes in your back, this usually does not require surgery. HOME CARE INSTRUCTIONS For many people, back pain returns.Since low back pain is rarely dangerous, it is often a condition that people can learn to manageon their own. Remain active. It is stressful on the back to sit or polyethylene combiner one place. Do not sit, drive, or polyethylene combiner one place for more than 30 minutes at a time. Take short walks on level surfaces as soon as p ain allows.Try to increase the length of time [...] to their bodies,and avoid twisting. Often, the mo st comfortable positions are those that put less stress on your recovering back. Find a comfortable position to sleep. Use a firm mattress and lie on your side with your knees slightly bent. If you lie on your back, put a pillow under your knees. Only take gsgk-ijy-dqzeuyu or prescription medicines as directed by your caregiver. Lfux-hvk-vtgvqum medicines to reduce pain and inflammation are often the most helpful.Your caregiver may prescr neftaly muscle relaxant drugs.These medicines help dull your [...] Released: 02/25/2006 Document Revised: 08/26/2012 Document Reviewed: 07/16/2011 ExitCare Patient Information 2015 [employer]. This information is not intended to replace [...]
--- OUTSIDE RECORDS SUMMARY | 2017-03-13 14:30 | External Medical Summary | Referral Summary ---
:1940 Author [facility] Address [address] [place] [address] [place] [phone] Care Team Providers Name Role Phone Raoul Post Primary Care Physician Encounter [facility] Date(s): 02/18/15 - 02/18/15 [facility] [address] [place] [phone] [place] Discharge Disposition: 01-Home or Self Care Attending Physician: Raoul Post MD Admitting Physician: Raoul Post MD Vital Signs Most recent to oldest [Reference Range]: 1 Blood Pressure [90-140/60-90 mmHg] 120/80 mmHg (02/18/15 8:41 AM) Problem List Condition Effective [...] day, # 30 Each, 1 Refill(s), [facility], 3 mL NEB q8hr,Instr:2.5 mg/3 mL (0.083%) neb solution; inhale 3 mL by nebuliz... Start Date: 12/22/14 Status: OrderedAleve 220 mg oral tablet 1 tabs, Oral, q12hr, as needed Start Date: 11/16/13 Status: Orderedaspirin 81 mg oral tablet, chewable 1 tabs, Oral, Daily Start Date: 11/16/13 Status: OrderedClaritin 10 mg oral tablet 10 mg 1 tabs, Oral, Daily, X 300 days, # 300 tabs, 0 Refill(s), Pharmacy: [place] [address], 1 tabs Oral Daily,x300 days Start Date: 02/18/15 Stop Date: 12/15/15 Status: Orderedlevothyroxine 50 mcg (0.05 mg) oral tablet See Instructions, TAKE 1 TABLET BY MOUTH EVERY DAY, # 60 tabs, 2 Refill(s), eRx : [place] [id number], TAKE 1 TABLET BY MOUTH EVERY DAY Start Date: 10/15/14 Status: OrderedMisc Medication Patient takes Dann Red- Shrimp oil daily, 0 Refill(s) Start Date: 01/11/15 Status: Orderedmultivitamin 1 tabs, Oral, Daily Start Date: 11/16/13 Status: OrderedNorco 10 mg-325 mg oral tablet 1-2 tabs, Oral, q8hr, as needed for pain, MUST LAST 30 DAYS., # 120 tabs, 0 Refill(s) Start Date: 02/15/15 Status: OrderedPriLOSEC 40 mg oral delayed release capsule 40 mg 1 caps, Oral, Daily, # 100 caps, 0 Refill(s), Pharmacy: [place] [address], 1 caps Oral Daily,x100 days Start Date: 02/18/15 Stop Date: 05/29/15 Status: OrderedPriLOSEC OTC 20 mg, Oral, Daily, 0 Refill(s) Start Date: 01/11/15 Status: OrderedProAir HFA 90 mcg/inh inhalation aerosol 1 puffs, Inhalation, q4hr, as needed Start Date: 11/16/13 Status: OrderedRemeron 15 mg oral tablet See Instructions, 1 TABS ORAL BEDTIME (ONCE A DAY),X30 DAYS, # 30 tabs, 2 Refill (s), [place]: [place] [id number], 1 TABS ORAL BEDTIME (ONCE A DAY),X30 DAYS Start Date: 12/29/14 Status: OrderedSenokot See Instructions, 2 tabs daily., 0 Refill(s) Start Date: 12/16/14 Status: Orderedsertraline 50 mg oral tablet See Instructions, TAKE 1 TABLET (50MG) BY ORAL ROUTE EVERY DAY, # 90 tabs, eRx: [id number], TAKE 1 TABLET (50MG) BY ORAL ROUTE EVERY DAY Start Date: 01/17/15 Status: Orderedsimethicone 80 mg oral tablet See Instructions, 4 daily., 0 Refill(s) Start Date: 12/22/14 Status: Orderedsimvastatin 20 mg oral tablet See Instructions, TAKE 1 TABLET (20MG) BY ORAL ROUTE EVERY DAY IN THE EVENING, # 90 tabs, 1 Refill(s), eRx: [facility] [id number], TAKE 1 TABLET (20MG) BY ORAL ROUTE EVERY DAY IN THE EVENING Start Date: 10/29/14 Status: Orderedtimolol See Instructions, Timolol maleate 0.5% eyedrops; place 1 drop in the right eye every morning, 0 Refill(s) Start Date: 11/16/13 Status: OrderedtraZODone 100 mg oral tablet See Instructions, TAKE 1 TABLET BY MOUTH AT BEDTIME., # 90 tabs, [place]: [place] [id number], TAKE 1 TABLET BY MOUTH AT BEDTIME. Start Date: 03/08/14 Status: Orderedzolpidem 10 mg oral tablet 0.5-1 tabs, Oral, Bedtime (once a day), as needed for sleep, fax to [facility], RX must last 30 days,# 30 tabs, 0 Refill(s) Start Date: 02/02/15 Status: Ordered Results No data available for this section Immunizations Vaccine Date Refusal Reason tetanus/diphth/pertuss (Tdap) adult/adol 01/07/15 influenza virus vaccine, inactivated 01/07/15 influenza virus vaccine, inactivated 02/16/14 influenza virus vaccine, live 01/13/13 pneumococcal 23-polyvalent vaccine 11/22/08 Procedures Procedure Date Related Diagnosis Body Site Esophagogastroduodenoscopy and biopsy1 01/31/15 Normal colonoscopy2 01/31/15 Colonoscopy3 10/13/05 History of knee surgery - left knee cartilage 1968 repair Knee replacement 1Irregular GE junction, mild gastritis otherwise normal. H. pylori and Mooney' s both [id number], will not need to repeat unless symptoms dftrufi6ozctohqsrvbb polyps, repeat in 10 years Social History Social History Type Response Smoking Status Former smoker; Type: Cigarettes Assessment and Plan Extracted from: Title: Ambulatory Patient Education Author: Raoul Post MD Date: 02/18 Family Medicine Asthma Asthma is a recurring [...] Smoke. Air pollutants such as dust, household investor relations associate, hair sprays, aerosol sprays, paint fumes, strong [...] include: Wheezing. Excessive nighttime or early childhood special educator coughing. Frequent or severe coughing with a [...] store, a double-la yered or microfilter vacuum service line bus cleaner bag, or a vacuum service line bus cleaner with a HEPA filter. Replace carpet [...] Document Reviewed: 09/24/2013 ExitCare Patient Information 2015 [facility], [facility]. This information is not intended to replace [...] the new medication were provided as a cour tesy. Side effects were discussed and follow up was recommended. ProAir given as asample as a courtesy. Elevated blood sugar This issue was reviewed, appears stable, and current therapy continued except as mentioned. Appropriate lab was reviewed from the most recent appropriate entry and lab was order ed if needed in the cpoe/nursing orders, and follow up recommended generally in 90 days and no later then six months. Lab reviewed. Elevated cholesterol This issue was reviewed, appears stable, and current therapy continued except as mentioned. Appropriate lab was reviewed from the most recent appropriate entry and lab was order ed if needed in the cpoe/nursing orders, and follow up recommended generally in 90 days and no later then six months. Lab stable. Generalized pruritus This issue was reviewed, appears stable, and current therapy continued except as mentioned. Appropriate lab was reviewed from the most recent appropriate entry and lab was order ed if needed in the cpoe/nursing orders, and [...] days, # 300 tabs, 0 Refill(s), Pharmacy: [facility] [id number], 1 tabs Oral Daily,x300 days omeprazole, 40 mg 1 caps, Oral, Daily, # 100 caps, 0 Refill(s), Pharmacy: [facility] [address], 1 caps Oral Daily,x100 days
--- OUTSIDE RECORDS SUMMARY | 2017-03-13 14:30 | External Medical Summary | Referral Summary ---
:1940 Author Organization [facility], [facility] Address [address] [place] [address] [place] [address] Care Team Providers Name Role Phone Raoul Post Primary Care Physician Encounter VC Date(s): 01/11/15 - 01/11/15 [facility], [address] [place] [address] [place] Discharge Diagnosis: Screen for colon cancer Discharge Diagnosis: RUQ pain Discharge Disposition: 01-Home or Self Care Attending Physician: Justyn Verma MD Admitting Physician: Justyn Verma MD Referring Physician: Raoul Post MD Vital Signs Most recent to oldest [Reference Range]: 1 Temperature Tympanic [36.6-38.1 degC] 36.9 degC (01/11/15 3:25 PM) Blood Pressure [90-140/60-90 mmHg] 130/74 mmHg (01/11/15 3:25 PM) Problem List Condition Effective [...] day, # 30 Each, 1 Refill(s), Pharmacy: [facility], 3 mL NEB q8hr,Instr:2.5 mg/3 mL (0.083%) [...] # 60 tabs, 2 Refill(s), eRx : [facility] [id number], TAKE 1 TABLET BY MOUTH EVERY DAY [...] # 30 tabs, 2 Refill (s), eRx: [facility] [id number], 1 TABS ORAL BEDTIME (ONCE A DAY),X30 DAYS Start Date: 12/29/14 Status: OrderedSenokot See Instructions, 2 tabs daily., 0 Refill(s) Start Date: 12/16/14 Status: Orderedsertraline 50 mg oral tablet See Instructions, TAKE 1 TABLET (50MG) BY ORAL ROUTE EVERY DAY, # 90 tabs, eRx: [id number], TAKE 1 TABLET (50MG) BY ORAL ROUTE EVERY DAY Start Date: 10/18/14 Status: Orderedsimethicone 80 mg oral tablet See Instructions, 4 daily., 0 Refill(s) Start Date: 12/22/14 Status: Orderedsimvastatin 20 mg oral tablet See Instructions, TAKE 1 TABLET (20MG) BY ORAL ROUTE EVERY DAY IN THE EVENING, # 90 tabs, 1 Refill(s), eRx: [facility] [id number], TAKE 1 TABLET (20MG) BY ORAL ROUTE EVERY DAY IN THE EVENING Start Date: 10/29/14 Status: Orderedtimolol See Instructions, Timolol maleate 0.5% eyedrops; place 1 drop in the right eye every morning, 0 Refill(s) Start Date: 11/16/13 Status: OrderedtraZODone 100 mg oral tablet See Instructions, TAKE 1 TABLET BY MOUTH AT BEDTIME., # 90 tabs, eRx: [facility] [id number], TAKE 1 TABLET BY MOUTH AT BEDTIME. Start Date: 03/08/14 Status: Orderedzolpidem 10 mg oral tablet 0.5-1 tabs, Oral, Bedtime (once a day), as needed for sleep, fax to [facility], RX must last 30 days,# 30 tabs, [...] Patient Education Author: Justyn Verma MD Date: Family Medicine Colonoscopy A colonoscopy is an exam to look at the entire large intestine (colon). This exam can help find problems such as tumors, polyps, inflammation, and areas of bleeding. The exam takes about 1 hour. LET YOUR HEALTH CARE PROVIDER KNOW ABOUT: Any allergies you have. All medicines you are taking, including vitamins, herbs, eye drops, creams , and esrr-wsu-rcgmunk medicines. Previous problems you or members of [...] a computer screen as it moves through t he colon. The colonoscope also releases carbon dioxide gas to inflate the colon. This helps your health care provider see the area better. During the exam, your health care provider may take a small tissue sample (biopsy) to be examined under a microscope if [...] Released: 02/22/2001 Document Revised: 12/16/2013 Document Reviewed: 11/02/2013 [facility] Patient Information 2015 [employer]. This information is not intended to replace advice given to you by your health care provider. Make sure you discuss any questions you have with your health care provider. No follow up information was provided. Extracted from: Title: Office Visit Note Author: Justyn Verma MD Date: 01/11/15 Assessment/Plan 1.RUQ pain Ordered: Office Visit Level 4 New 34919 2.Screen for colon cancer Ordered: Office Visit Level 4 New [address]221 Plan:Bidirectional endoscopy I did review the patient's chart including office note performed by PCPs interactive marketing strategist fromDecember 22, 2014. Reviewedplain abdominal film from December 16, 2014 that was within normal limits. R anguswed prior colonoscopy report from December 21, 2004. Patient was found to have a few hyperplastic polyps at that time. I informed the patientthat his history for right upper quadrant abdominal painabdominal painwas suggestive forpeptic ulcer disease versusbiliary colic. Painlikely was a result ofpeptic ulcer disease secondary the fact that it has resolved withempiric treatment withPrilosec. It was my reclination to the patient that we should proceed with a colonoscopy serve as a portion of his overall colorectal cancer surveillancesecondary the fact that has beenmore than 10 years since his last colonoscopy. At the same setting I would also recommend that we go ahead and proceed with an EGDgiven his history for right upper quadrant abdominal painsuggestive fo r peptic ulcer disease.Risk of endoscopy was discussed with the patient. Risks include but are not inclusive of bleeding and/or perforation requiring surgery. Patient understood and was scheduled. P atient will need to be off his baby aspirin one week prior to the procedure. He also need to discontinue hisfish oilprior to his endoscopic evaluation.
--- OUTSIDE RECORDS SUMMARY | 2017-03-13 14:30 | External Medical Summary | Referral Summary ---
:1940 Author [facility] Address [address] [place] [address] [place] [address] Care Team Providers Name Role Phone Raoul Post Primary Care Physician Encounter VC Date(s): 12/16/14 - 12/16/14 [facility] [place] [address] [place] Discharge Diagnosis: Abdominal pain Discharge Disposition: 01-Home or Self Care Attending Physician: Monica Salgado PA-C Admitting Physician: Monica Salgado PA-C Vital Signs Most recent to oldest [Reference Range]: 1 Temperature Tympanic [36.6-38.1 degC] 36.9 degC (12/16/14 3:16 PM) Peripheral Pulse Rate [60-100 bpm] 80 bpm (12/16/14 3:16 PM) Respiratory Rate [14-20 br/min] 20 br/min (12/16/14 3:16 PM) Blood Pressure [90-140/60-90 mmHg] 142/76 mmHg *HI* (12/16/14 3:16 PM) Problem List Condition [...] 11/16/13 Status: Orderedalbuterol 2.5 mg/3 mL (0.083%) neb solution; inhale 3 mL by nebulization route 3 times every day, 0 Refill(s) Start Date: 11/16/13 Status: OrderedAleve 220 mg oral tablet 1 tabs, Oral, q12hr, as needed Start Date: 11/16/13 Status: Orderedaspirin 81 mg oral tablet, chewable 1 tabs, Oral, Daily Start Date: 11/16/13 Status: Orderedlevothyroxine 50 mcg (0.05 mg) oral tablet See Instructions, TAKE 1 TABLET BY MOUTH EVERY DAY, # 60 tabs, 2 Refill(s), eRx : [facility] 26031, TAKE 1 TABLET BY MOUTH EVERY DAY Start Date: 10/15/14 Status: Orderedmultivitamin 1 tabs, Oral, Daily Start Date: 11/16/13 Status: OrderedNorco 10 mg-325 mg oral tablet 1-2 tabs, Oral, q8hr, as needed for pain, rx must last 30 days May fill , # 120 tabs, 0 Refill(s) Start Date: 12/16/14 Status: OrderedProAir HFA 90 mcg/inh inhalation aerosol 1 puffs, Inhalation, q4hr, as needed Start Date: 11/16/13 Status: OrderedPromethazine VC with Codeine oral syrup 5 mL, Oral, q4hr, as needed for cold symptoms, [facility], # 120 mL, 0 Refill(s) Start Date: 02/01/14 Status: OrderedRemeron 15 mg oral tablet 1 tabs, Oral, Bedtime (once a day), X 30 days, # 30 tabs, 5 Refill(s), Pharmacy : [facility] 76684, 1 tabs Oral Bedtime (once a day),x30 days Start Date: 07/15/14 Stop Date: 01/11/15 Status: OrderedSenokot See Instructions, 2 tabs daily., 0 Refill(s) Start Date: 12/16/14 Status: Orderedsertraline 50 mg oral tablet See Instructions, TAKE 1 TABLET (50MG) BY ORAL ROUTE EVERY DAY, # 90 tabs, eRx: [id number], TAKE 1 TABLET (50MG) BY ORAL ROUTE EVERY DAY Start Date: 10/18/14 Status: Orderedsimvastatin 20 mg oral tablet See Instructions, TAKE 1 TABLET (20MG) BY ORAL ROUTE EVERY DAY IN THE EVENING, # 90 tabs, 1 Refill(s), eRx: [facility] [place] [address], TAKE 1 TABLET (20MG) BY ORAL ROUTE EVERY DAY IN THE EVENING Start Date: 10/29/14 Status: Orderedtimolol See Instructions, Timolol maleate 0.5% eyedrops; place 1 drop in the right eye every morning, 0 Refill(s) Start Date: 11/16/13 Status: OrderedtraZODone 100 mg oral tablet See Instructions, TAKE 1 TABLET BY MOUTH AT BEDTIME., # 90 tabs, eRx: [facility] [place] [address], TAKE 1 TABLET BY MOUTH AT BEDTIME. Start Date: 03/08/14 Status: Orderedzolpidem 10 mg oral tablet 0.5-1 tabs, Oral, Bedtime (once a day), as needed for sleep, fax to [facility] RX must last 30 days,# 30 tabs, 0 Refill(s) Start Date: 12/02/14 Status: Ordered Results Chemistry Most recent to oldest [Reference Range]: 1 Sodium Lvl [135-144 mEq/L] 142 mEq/L (12/16/14 3:40 PM) Potassium Lvl [3.5-5.2 mEq/L] 5.2 mEq/L (12/16/14 3:40 PM) Chloride [99-111 mEq/L] 110 mEq/L (12/16/14 3:40 PM) CO2 [23-31 mEq/L] 24 mEq/L (12/16/14 3:40 PM) AGAP [3-20] 8 (12/16/14 3:40 PM) BUN [8-26 mg/dL] 11 mg/dL (12/16/14 3:40 PM) Glucose Lvl [70-99 mg/dL] 97 mg/dL (12/16/14 3:40 PM) Creatinine Lvl [0.72-1.25 mg/dL] 1.01 mg/dL (12/16/14 3:40 PM) eGFR [>60 mL/min] >60 mL/min 1 (12/16/14 3:40 PM) Calcium Lvl [8.9-10.5 mg/dL] 9.4 mg/dL (12/16/14 3:40 PM) Albumin Lvl [3.4-4.8 gm/dL] 4.0 gm/dL (12/16/14 3:40 PM) Total Protein [6.2-8.1 gm/dL] 6.3 gm/dL (12/16/14 3:40 PM) Globulin [1.8-4.0 gm/dL] 2.3 gm/dL (12/16/14 3:40 PM) ALT [0-55 U/L] 20 U/L (12/16/14 3:40 PM) AST [5-34 U/L] 33 U/L (12/16/14 3:40 PM) Alk Phos [40-150 U/L] 68 U/L (12/16/14 3:40 PM) Bili Total [0.2-1.2 mg/dL] 0.4 mg/dL (12/16/14 3:40 PM) 1Result Comment: Multiply eGFR results by 1.21 for race. Immunizations Vaccine Date Refusal Reason influenza virus vaccine, inactivated 02/16/14 influenza virus vaccine, live 01/13/13 pneumococcal 23-polyvalent vaccine 11/22/08 Procedures Procedure Date Related Diagnosis Body Site Colonoscopy 2004 History of knee surgery - left knee cartilage repair 1968 Knee replacement Social History Social History Type Response Smoking Status Former smoker; Type: Cigarettes Assessment and Plan Extracted from: Title: Ambulatory Patient Education Author: Monica Salgado PA-C Date: 12/16/14 Emergency Medicine Abdominal Pain Many things [...] cause of the pain can be found. Be fore that point, your health care provider may not know if you need more testing or further treatment. HOME CARE INSTRUCTIONS Monitor your abdominal pain for any changes. The following actions may help to alleviate any discomfort you are experiencing: Only take cxyd-oix-amtprdo or prescription medicines as directed by your [...] Released: 12/05/2005 Document Revised: 03/02/2014 Document Reviewed: 11/04/2013 [facility] Patient Information 2015 [employer]. This information is not intended to replace [...] if x-ray shows constipation, will have him tr y Miralax. Push fluids and get plenty of exercise. Doesnot appear to be related to Gallbladder, but will obtain lab today, and may get US of RUQ if x- ray normal. Pt would also like to be set up again for colonoscopy. Will set up with Dr. Engel. Ordered: Comprehensive Metabolic Panel Office Visit Level 3 Est 72029 XR Abdomen AP
--- OUTSIDE RECORDS SUMMARY | 2017-03-13 14:30 | External Medical Summary | Referral Summary ---
:1940 Author [facility] Address [address] [place] [address] [place] [address] Care Team Providers Name Role Phone Raoul Post Primary Care Physician Encounter VC Date(s): 08/19/14 - 08/19/14 [facility] [place] [phone]- Discharge Disposition: 01-Home or Self Care Attending [...] day, # 30 Each, 1 Refill(s), [facility], 3 mL NEB q8hr,Instr:2.5 mg/3 mL (0.083%) [...] # 60 tabs, 2 Refill(s), eRx : [facility] [id number], TAKE 1 TABLET BY MOUTH EVERY DAY [...] # 30 tabs, 2 Refill (s), eRx: [facility] [id number], 1 TABS ORAL BEDTIME (ONCE A DAY),X30 DAYS Start Date: 12/29/14 Status: OrderedSenokot See Instructions, 2 tabs daily., 0 Refill(s) Start Date: 12/16/14 Status: Orderedsertraline 50 mg oral tablet See Instructions, TAKE 1 TABLET (50MG) BY ORAL ROUTE EVERY DAY, # 90 tabs, eRx: [facility]07152, TAKE 1 TABLET (50MG) BY ORAL ROUTE EVERY DAY Start Date: 10/18/14 Status: Orderedsimethicone 80 mg oral tablet See Instructions, 4 daily., 0 Refill(s) Start Date: 12/22/14 Status: Orderedsimvastatin 20 mg oral tablet See Instructions, TAKE 1 TABLET (20MG) BY ORAL ROUTE EVERY DAY IN THE EVENING, # 90 tabs, 1 Refill(s), eRx: [facility] [id number], TAKE 1 TABLET (20MG) BY ORAL ROUTE EVERY DAY IN THE EVENING Start Date: 10/29/14 Status: Orderedtimolol See Instructions, Timolol maleate 0.5% eyedrops; place 1 drop in the right eye every morning, 0 Refill(s) Start Date: 11/16/13 Status: OrderedtraZODone 100 mg oral tablet See Instructions, TAKE 1 TABLET BY MOUTH AT BEDTIME., # 90 tabs, eRx: [facility] 29997, TAKE 1 TABLET BY MOUTH AT BEDTIME. Start Date: 03/08/14 Status: Orderedzolpidem 10 mg oral tablet 0.5-1 tabs, Oral, Bedtime (once a day), as needed for sleep, fax to [facility], RX must last 30 days,# 30 tabs, [...] Document Reviewed: 12/27/2011 ExitCare Patient Information 2014 [employer] [facility]. No follow up information was provided. Extracted from: Title: Office Visit Note Author: Raoul Post MD Date: 08/19/14 Assessment/Plan Chronic back pain This issue is stable and appropriate refills, lab, and f/u have been discussed. Boomer refilled. Chronic insomnia This issue is stable [...]
--- OUTSIDE RECORDS SUMMARY | 2017-03-13 14:30 | External Medical Summary | Referral Summary ---
:1940 Author [facility] Address [address] [place] [address] [place] [address] Care Team Providers Name Role Phone Raoul Post Primary Care Physician Encounter VC Date(s): 06/20/15 - 06/20/15 [facility] [address] [place] [address]- Discharge Disposition: 01-Home or Self Care Attending Physician: Raoul Post MD Admitting Physician: Raoul Post MD Vital Signs Most recent to oldest [Reference Range]: 1 Blood Pressure [90-140/60-90 mmHg] 100/70 mmHg (06/20/15 8:16 AM) Problem List Condition Effective [...] day, # 30 Each, 1 Refill(s), Pharmacy: [facility] 76093, 3 mL NEB q8hr,Instr:2.5 mg/3 mL (0.083%) [...] Daily, # 1 Each, 0 Refill(s), [facility] [address] Start Date: 06/20/15 Status: OrderedClaritin 10 mg oral tablet 10 mg 1 tabs, Oral, Daily, X 300 days, # 300 tabs, 0 Refill(s), Pharmacy: [facility] 74716, 1 tabs Oral Daily,x300 days Start Date: 02/18/15 Stop Date: 12/15/15 Status: Orderedlevothyroxine 50 mcg (0.05 mg) oral tablet See Instructions, TAKE 1 TABLET BY MOUTH EVERY DAY, # 60 tabs, 2 Refill(s), eRx : [facility] [id number], TAKE 1 TABLET BY MOUTH EVERY DAY [...] Daily, # 100 caps, 0 Refill(s), [facility] [address], 1 caps Oral Daily,x100 days Start Date: 02/18/15 Stop Date: 05/29/15 Status: OrderedPriLOSEC 40 mg oral delayed release capsule See Instructions, 1 CAPS ORAL DAILY,X100 DAYS, # 100 caps, eRx: [facility] [id number], 1 CAPS ORAL DAILY,X100 DAYS Start Date: 06/14/15 Status: OrderedProAir RespiClick 90 mcg/inh inhalation powder 1 puffs, Inhalation, q4hr, Shortness of Breath/Wheezing, No substitutes., # 1 Each, 2 Refill(s), samples given to patient (Rx) Start Date: 03/24/15 Status: OrderedRemeron 15 mg oral tablet See Instructions, 1 TABS ORAL BEDTIME (ONCE A DAY),X30 DAYS, # 30 tabs, eRx: [facility] [id number], 1 TABS ORAL BEDTIME (ONCE A DAY),X30 DAYS Start Date: 06/13/15 Status: OrderedSenokot See Instructions, 2 tabs daily., 0 Refill(s) Start Date: 12/16/14 Status: Orderedsertraline 50 mg oral tablet See Instructions, TAKE 1 TABLET (50MG) BY ORAL ROUTE EVERY DAY, # 90 tabs, eRx: [facility]07152, TAKE 1 TABLET (50MG) BY ORAL ROUTE EVERY DAY Start Date: 04/14/15 Status: Orderedsimethicone 80 mg oral tablet See Instructions, 4 daily., 0 Refill(s) Start Date: 12/22/14 Status: Orderedsimvastatin 20 mg oral tablet See Instructions, TAKE 1 TABLET (20MG) BY ORAL ROUTE EVERY DAY IN THE EVENING, # 90 tabs, eRx: [facility] [id number], TAKE 1 TABLET (20MG) BY ORAL ROUTE EVERY DAY IN THE EVENING Start Date: 04/25/15 Status: Orderedtimolol See Instructions, Timolol maleate 0.5% eyedrops; place 1 drop in the right eye every morning, 0 Refill(s) Start Date: 11/16/13 Status: OrderedtraZODone 100 mg oral tablet See Instructions, TAKE 1 TABLET BY MOUTH AT BEDTIME., # 90 tabs, eRx: [facility] [id number], TAKE 1 TABLET BY MOUTH AT BEDTIME. Start Date: 03/08/14 Status: Orderedzolpidem 10 mg oral tablet 0.5-1 tabs, Oral, Bedtime (once a day), as needed for sleep, fax to [facility] [phone], RX must last30 days, # 30 tabs, 0 Refill(s) Start Date: 06/02/15 Status: Ordered Results No data available for this section Immunizations Vaccine Date Refusal Reason tetanus/diphth/pertuss (Tdap) adult/adol 10/30/15 influenza virus vaccine, inactivated 01/07/15 influenza virus vaccine, inactivated 02/16/14 influenza virus vaccine, live 01/13/13 pneumococcal 23-polyvalent vaccine 11/22/08 Procedures Procedure Date Related Diagnosis Body Site Esophagogastroduodenoscopy and biopsy1 01/31/15 Normal colonoscopy2 01/31/15 Colonoscopy3 12/21/04 History of knee surgery - left knee cartilage 1968 repair Knee replacement 1Irregular GE junction, mild gastritis otherwise normal. H. 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 Do not sit, drive, or criminal justice social worker one place for more than 30 minutes [...] Released: 02/25/2006 Document Revised: 12/14/2014 Document Reviewed: 06/29/2014 [facility] Patient Information 2015 [employer]. No follow up information was provided. Extracted [...] appropriate entry and lab was ordered if need ed in the cpoe/nursing orders, and follow up [...] Daily, # 1 Each, 0 Refill(s), Pharmacy: [facility] [address] CBC w/ Differential Comprehensive Metabolic Panel Hemoglobin A1c Prostate Specific Antigen Urinalysis with Culture if Indicated
--- OUTSIDE RECORDS SUMMARY | 2017-03-13 14:30 | External Medical Summary | Referral Summary ---
:1940 Author [facility] Address [address] [place] [address] [place] [address] Care Team Providers Name Role Phone Raoul Psot Primary Care Physician Encounter VC Date(s): 12/22/14 - 12/22/14 [facility] [place] [address]- Discharge Diagnosis: COPD (chronic obstructive pulmonary disease) [...] day, # 30 Each, 1 Refill(s), Pharmacy: [facility] 97421, 3 mL NEB q8hr,Instr:2.5 mg/3 mL (0.083%) [...] # 60 tabs, 2 Refill(s), eRx : [facility] [id number], TAKE 1 TABLET BY MOUTH EVERY DAY [...] 11/16/13 Status: OrderedRemeron 15 mg oral tablet 1 tabs, Oral, Bedtime (once a day), X 30 days, # 30 tabs, 5 Refill(s), Pharmacy : [facility] 31039, 1 tabs Oral Bedtime (once a day),x30 days Start Date: 07/15/14 Stop Date: 01/11/15 Status: OrderedSenokot See Instructions, 2 tabs daily., 0 Refill(s) Start Date: 12/16/14 Status: Orderedsertraline 50 mg oral tablet See Instructions, TAKE 1 TABLET (50MG) BY ORAL ROUTE EVERY DAY, # 90 tabs, eRx: [facility]07152, TAKE 1 TABLET (50MG) BY ORAL ROUTE EVERY DAY Start Date: 10/18/14 Status: Orderedsimethicone 80 mg oral tablet See Instructions, 4 daily., 0 Refill(s) Start Date: 12/22/14 Status: Orderedsimvastatin 20 mg oral tablet See Instructions, TAKE 1 TABLET (20MG) BY ORAL ROUTE EVERY DAY IN THE EVENING, # 90 tabs, 1 Refill(s), eRx: [facility] 02958, TAKE 1 TABLET (20MG) BY ORAL ROUTE EVERY DAY IN THE EVENING Start Date: 10/29/14 Status: Orderedtimolol See Instructions, Timolol maleate 0.5% eyedrops; place 1 drop in the right eye every morning, 0 Refill(s) Start Date: 11/16/13 Status: OrderedtraZODone 100 mg oral tablet See Instructions, TAKE 1 TABLET BY MOUTH AT BEDTIME., # 90 tabs, eRx: [facility] 75176, TAKE 1 TABLET BY MOUTH AT BEDTIME. Start Date: 03/08/14 Status: Orderedzolpidem 10 mg oral tablet 0.5-1 tabs, Oral, Bedtime (once a day), as needed for sleep, fax to [facility], RX must last 30 days,# 30 tabs, [...] 12/23/2007 Document Revised: 07/12/2014 Document Reviewed: 10/30/2013 [facility] Patient Information 2015 [employer] [facility]. This information is not intended [...] Vomiting of bright red blood. Vomiting of wntasx-moodgn-kfchhak materials. DIAGNOSIS A diagnosis is usually made [...] Document Reviewed: 09/24/2012 ExitCare Patient Information 2015 [employer]. This information is not intended to replace [...] Antibody IgG Office Visit Level 3 Est 46832 Orders: albuterol, 2.5 mg 3 mL, NEB, q8hr, 2.5 mg/3 mL (0.083%) neb solution ; inhale 3 mL by nebulization route 3 times every day, # 30 Each, 1 Refill(s), [facility] [address], 3 mL NE B q8hr,Instr:2.5 mg/3 mL (0.083%) neb solution; inhale 3 mL by nebuliz...
--- OUTSIDE RECORDS SUMMARY | 2017-03-13 14:30 | External Medical Summary | Referral Summary ---
:1940 Author Organization [facility] Address [address] [place] [address] [place] [address] Care Team Providers Name Role Phone Raoul Post Primary Care Physician Encounter VC Date(s): 03/07/15 - 03/07/15 [facility] [address] [place] [phone] [place] Discharge Disposition: 01-Home or Self Care Attending Physician: Raoul Post MD Admitting Physician: Raoul Post MD Vital Signs Most recent to oldest [Reference Range]: 1 Peripheral Pulse Rate [60-100 bpm] 115 bpm *HI* (03/07/15 4:02 PM) Blood Pressure [90-140/60-90 mmHg] 140/80 mmHg (03/07/15 4:02 PM) SpO2 86 % (03/07/15 [...] day, # 30 Each, 1 Refill(s), Pharmacy: [id number], 3 mL NEB q8hr,Instr:2.5 mg/3 mL (0.083%) [...] days, # 300 tabs, 0 Refill(s), Pharmacy: [facility] 23398, 1 tabs Oral Daily,x300 days Start Date: 02/18/15 Stop Date: 12/15/15 Status: Orderedlevothyroxine 50 mcg (0.05 mg) oral tablet See Instructions, TAKE 1 TABLET BY MOUTH EVERY DAY, # 60 tabs, 2 Refill(s), eRx : [facility] [id number], TAKE 1 TABLET BY MOUTH EVERY DAY [...] Daily, # 100 caps, 0 Refill(s), Pharmacy: [facility] 58070, 1 caps Oral Daily,x100 days Start Date: 02/18/15 Stop Date: 05/29/15 Status: OrderedPriLOSEC OTC 20 mg, Oral, Daily, 0 Refill(s) Start Date: 01/11/15 Status: OrderedProAir HFA 90 mcg/inh inhalation aerosol 1 puffs, Inhalation, q4hr, as needed Start Date: 11/16/13 Status: OrderedRemeron 15 mg oral tablet See Instructions, 1 TABS ORAL BEDTIME (ONCE A DAY),X30 DAYS, # 30 tabs, 2 Refill (s), eRx: [facility] [id number], 1 TABS ORAL BEDTIME (ONCE A DAY),X30 DAYS Start Date: 12/29/14 Status: OrderedSenokot See Instructions, 2 tabs daily., 0 Refill(s) Start Date: 12/16/14 Status: Orderedsertraline 50 mg oral tablet See Instructions, TAKE 1 TABLET (50MG) BY ORAL ROUTE EVERY DAY, # 90 tabs, eRx: [id number], TAKE 1 TABLET (50MG) BY ORAL ROUTE EVERY DAY Start Date: 01/17/15 Status: Orderedsimethicone 80 mg oral tablet See Instructions, 4 daily., 0 Refill(s) Start Date: 12/22/14 Status: Orderedsimvastatin 20 mg oral tablet See Instructions, TAKE 1 TABLET (20MG) BY ORAL ROUTE EVERY DAY IN THE EVENING, # 90 tabs, 1 Refill(s), eRx: [facility] 39823, TAKE 1 TABLET (20MG) BY ORAL ROUTE EVERY DAY IN THE EVENING Start Date: 10/29/14 Status: Orderedtimolol See Instructions, Timolol maleate 0.5% eyedrops; place 1 drop in the right eye every morning, 0 Refill(s) Start Date: 11/16/13 Status: OrderedtraZODone 100 mg oral tablet See Instructions, TAKE 1 TABLET BY MOUTH AT BEDTIME., # 90 tabs, eRx: [facility] 43640, TAKE 1 TABLET BY MOUTH AT BEDTIME. Start Date: 03/08/14 Status: Orderedzolpidem 10 mg oral tablet 0.5-1 tabs, Oral, Bedtime (once a day), as needed for sleep, fax to [email or web address] [phone], RX must last30 days, # 30 tabs, [...] normal. H. pylori and Mooney' s both [id number], will not need to repeat unless symptoms [id number] polyps, repeat in 10 years Social History Social History Type Response Smoking Status Former smoker; Type: Cigarettes Assessment and Plan Extracted from: Title: Ambulatory Patient Education Author: Raoul Post MD Date: 03/07 Family Medicine Asthma Asthma is a recurring [...] Smoke. Air pollutants such as dust, household neonatal intensive care nurse, hair sprays, aerosol sprays, paint fumes, strong [...] later. Symptoms include: Wheezing. Excessive nighttime or residency coordinator coughing. Frequent or severe coughing with a [...] store, a double-la yered or microfilter vacuum grain cleaner bag, or a vacuum grain cleaner with a HEPA filter. Replace carpet [...] Document Reviewed: 09/24/2013 ExitCare Patient Information 2015 [facility], [facility]. This information is not intended to [...] the most recent appropriate entry and lab wa s ordered if needed in the cpoe/nursing orders, [...] range on RA today. COPD exacerbation To [facility] for evaluation and treatment.Supplemental oxygen given here. Expect CXR, lab, nebulizer, etc at [facility].Nursing staff took to ER. Elevated blood [...]
--- OUTSIDE RECORDS SUMMARY | 2017-03-13 14:30 | External Medical Summary | Referral Summary ---
:1940 Author Organization [facility] Address [address] [place] [address] [place] [address] Care Team Providers Name Role Phone Raoul Post Primary Care Physician Encounter VC Date(s): 08/19/14 - 08/19/14 [facility] [address] [place] [phone] [place] Discharge Disposition: [...] day, # 30 Each, 1 Refill(s), Pharmacy: [facility] [id number], 3 mL NEB q8hr,Instr:2.5 mg/3 mL (0.083%) [...] days, # 300 tabs, 0 Refill(s), Pharmacy: [facility] [id number], 1 tabs Oral Daily,x300 days Start Date: 02/18/15 Stop Date: 12/15/15 Status: Orderedlevothyroxine 50 mcg (0.05 mg) oral tablet See Instructions, TAKE 1 TABLET BY MOUTH EVERY DAY, # 60 tabs, 2 Refill(s), eRx : [facility] [id number], TAKE 1 TABLET BY MOUTH EVERY DAY [...] Daily, # 100 caps, 0 Refill(s), Pharmacy: [facility] [id number], 1 caps Oral Daily,x100 days Start Date: 02/18/15 Stop Date: 05/29/15 Status: OrderedPriLOSEC OTC 20 mg, Oral, Daily, 0 Refill(s) Start Date: 01/11/15 Status: OrderedProAir HFA 90 mcg/inh inhalation aerosol 1 puffs, Inhalation, q4hr, as needed Start Date: 11/16/13 Status: OrderedRemeron 15 mg oral tablet See Instructions, 1 TABS ORAL BEDTIME (ONCE A DAY),X30 DAYS, # 30 tabs, 2 Refill (s), eRx: [facility] 19456, 1 TABS ORAL BEDTIME (ONCE A DAY),X30 DAYS Start Date: 12/29/14 Status: OrderedSenokot See Instructions, 2 tabs daily., 0 Refill(s) Start Date: 12/16/14 Status: Orderedsertraline 50 mg oral tablet See Instructions, TAKE 1 TABLET (50MG) BY ORAL ROUTE EVERY DAY, # 90 tabs, eRx: [facility] [id number], TAKE 1 TABLET (50MG) BY ORAL ROUTE EVERY DAY Start Date: 01/17/15 Status: Orderedsimethicone 80 mg oral tablet See Instructions, 4 daily., 0 Refill(s) Start Date: 12/22/14 Status: Orderedsimvastatin 20 mg oral tablet See Instructions, TAKE 1 TABLET (20MG) BY ORAL ROUTE EVERY DAY IN THE EVENING, # 90 tabs, 1 Refill(s), eRx: [facility] 49957, TAKE 1 TABLET (20MG) BY ORAL ROUTE EVERY DAY IN THE EVENING Start Date: 10/29/14 Status: Orderedtimolol See Instructions, Timolol maleate 0.5% eyedrops; place 1 drop in the right eye every morning, 0 Refill(s) Start Date: 11/16/13 Status: OrderedtraZODone 100 mg oral tablet See Instructions, TAKE 1 TABLET BY MOUTH AT BEDTIME., # 90 tabs, eRx: [facility] [id number], TAKE 1 TABLET BY MOUTH AT BEDTIME. Start Date: 03/08/14 Status: Orderedzolpidem 10 mg oral tablet 0.5-1 tabs, Oral, Bedtime (once a day), as needed for sleep, fax to [facility], RX must last 30 days,# 30 tabs, [...] normal. H. pylori and Mooney' s both [id number], will not need to repeat unless symptoms [id number] polyps, repeat in 10 years Social History [...] Document Reviewed: 12/27/2011 ExitCare Patient Information 2014 [employer] [facility]. No follow up information was provided. Extracted from: Title: Office Visit Note Author: Raoul Post MD Date: 08/19/14 Assessment/Plan Chronic back pain This issue is stable and appropriate refills, lab, and f/u have been discussed. [place] refilled. Chronic insomnia This issue is stable [...]
--- OUTSIDE RECORDS SUMMARY | 2017-03-13 14:30 | External Medical Summary | Referral Summary ---
:1940 Author Organization [facility] [address] [place] [address] Care Team Providers Name Role Phone Bernienikolas Raoul Young Primary Care Physician Encounter VC Date(s): 12/16/14 - 12/16/14 [facility] [address] [place] [phone]- Discharge Diagnosis: Abdominal pain Discharge Disposition: 01-Home [...] day, # 30 Each, 1 Refill(s), Pharmacy: [facility] [id number], 3 mL NEB q8hr,Instr:2.5 mg/3 mL (0.083%) [...] Daily, # 1 Each, 0 Refill(s), Pharmacy: [facility] Start Date: 06/20/15 Status: OrderedClaritin 10 mg oral tablet 10 mg 1 tabs, Oral, Daily, X 300 days, # 300 tabs, 0 Refill(s), Pharmacy: [facility], 1 tabs Oral Daily,x300 days Start Date: 02/18/15 Stop Date: 12/15/15 Status: Orderedlevothyroxine 50 mcg (0.05 mg) oral tablet See Instructions, TAKE 1 TABLET BY MOUTH EVERY DAY, # 60 tabs, 2 Refill(s), eRx : [facility] [id number], TAKE 1 TABLET BY MOUTH EVERY DAY [...] Daily, # 100 caps, 0 Refill(s), Pharmacy: [facility] [id number], 1 caps Oral Daily,x100 days Start Date: 02/18/15 Stop Date: 05/29/15 Status: OrderedPriLOSEC 40 mg oral delayed release capsule See Instructions, 1 CAPS ORAL DAILY,X100 DAYS, # 100 caps, eRx: [facility] [id number], 1 CAPS ORAL DAILY,X100 DAYS Start Date: 06/14/15 Status: OrderedProAir [employer] 90 mcg/inh inhalation powder 1 puffs, Inhalation, q4hr, Shortness of Breath/Wheezing, No substitutes., # 1 Each, 2 Refill(s), samples given to patient (Rx) Start Date: 03/24/15 Status: OrderedRemeron 15 mg oral tablet See Instructions, 1 TABS ORAL BEDTIME (ONCE A DAY),X30 DAYS, # 30 tabs, eRx: [facility] [id number], 1 TABS ORAL BEDTIME (ONCE A DAY),X30 DAYS Start Date: 06/13/15 Status: OrderedSenokot See Instructions, 2 tabs daily., 0 Refill(s) Start Date: 12/16/14 Status: Orderedsertraline 50 mg oral tablet See Instructions, TAKE 1 TABLET (50MG) BY ORAL ROUTE EVERY DAY, # 90 tabs, eRx: [id number], TAKE 1 TABLET (50MG) BY ORAL ROUTE EVERY DAY Start Date: 04/14/15 Status: Orderedsimethicone 80 mg oral tablet See Instructions, 4 daily., 0 Refill(s) Start Date: 12/22/14 Status: Orderedsimvastatin 20 mg oral tablet See Instructions, TAKE 1 TABLET (20MG) BY ORAL ROUTE EVERY DAY IN THE EVENING, # 90 tabs, eRx: [facility] [id number], TAKE 1 TABLET (20MG) BY ORAL ROUTE EVERY DAY IN THE EVENING Start Date: 04/25/15 Status: Orderedtimolol See Instructions, Timolol maleate 0.5% eyedrops; place 1 drop in the right eye every morning, 0 Refill(s) Start Date: 11/16/13 Status: OrderedtraZODone 100 mg oral tablet See Instructions, TAKE 1 TABLET BY MOUTH AT BEDTIME., # 90 tabs, eRx: [facility] [id number], TAKE 1 TABLET BY MOUTH AT BEDTIME. Start Date: 03/08/14 Status: Orderedzolpidem 10 mg oral tablet 0.5-1 tabs, Oral, Bedtime (once a day), as needed for sleep, fax to [facility] [phone], RX must last30 days, # 30 tabs, [...] normal. H. pylori and Mooney' s both [id number], will not need to repeat unless symptoms [id number] polyps, repeat in 10 years Social History [...] any discomfort you are experiencing: Only take cqcb-oej-aetwbce or prescription medicines as directed by your [...] 12/05/2005 Document Revised: 03/02/2014 Document Reviewed: 11/04/2013 [facility] Patient Information 2015 [employer]. This information is not intended to replace [...] Metabolic Panel Office Visit Level 3 Est 79060 XR Abdomen AP
--- OUTSIDE RECORDS SUMMARY | 2017-03-13 14:31 | External Medical Summary | Continuity of Care Document ---
:1940 Author Organization Via [facility] Allergies Active Description Code Type Severity Reaction Onset Reported/ Identified Relationship Clinical to Patient Status Yes No Known NKMA N/A N/A 11/16/2013 Medication Allergies Medications Medication Packaging Start Date Stop Date Route Dosage Sig 11/19/2016 Oral zolpidem(zolpide 0.5-1 tabs, m 10 mg oral Oral, tablet) Bedtime (once a day), RX must last 30 days, may fill 11/21/16 LIZ Dang: as needed for sleep, 30 tabs, 0 Refill(s) 1 tabs 12/13/2016 Oral 100 mg sertraline(sertr 100 mg=1 chantell 100 mg tabs, Oral, oral tablet) Daily, 90 tabs, 0 Refill(s) 1 tabs 12/13/2016 Oral 15 mg mirtazapine(Zoya 15 mg=1 luke 15 mg oral tabs, Oral, tablet) Bedtime (once a day), 30 tabs, 0 Refill(s) Problems Date Dx Attending Type Code Diagnosis Diagnosed By Coded 02/16/2016 Sincere, Final E03.9 Hypothyroidism, Raoul Young unspecified 02/16/2016 Sincere, Final F51.04 Psychophysiologic Raoul Young insomnia 02/16/2016 Sincere, Final J44.9 Chronic obstructive Raoul Young pulmonary disease, unspecified 02/16/2016 Sincere, Final K21.9 Gastro-esophageal reflux Raoul Young disease without esophagitis 02/16/2016 Sincere, Final M54.9 Dorsalgia, unspecified Raoul Young 02/16/2016 Sincere, Final R03.0 Elevated blood-pressure Raoul Young reading, without diagnosis of hypertension 02/16/2016 Sincere, Final R51 Headache Raoul Young 05/02/2016 Sincere, Final E03.9 Hypothyroidism, Raoul Young unspecified 05/02/2016 Sincere, Final E78.0 Pure hypercholesterolemia Raoul Young 05/02/2016 Sincere, Final F51.04 Psychophysiologic Raoul W insomnia 05/02/2016 Luinstra, Final J06.9 Acute upper respiratory Raoul W infection, unspecified 05/02/2016 Luinstra, Final J44.9 Chronic obstructive Raoul W pulmonary disease, unspecified 05/02/2016 Luinstra, Final M54.9 Dorsalgia, unspecified Raoul W 05/02/2016 Luinstra, Final R05 Cough Raoul W 05/02/2016 Luinstra, Final R73.09 Other abnormal glucose Raoul W 05/02/2016 Luinstra, Final R68.89 Other general symptoms Raoul W and signs 05/29/2016 Luis Dent Final D64.9 Anemia, unspecified B 05/29/2016 Luis Dent Final M54.6 Pain in thoracic spine B 05/29/2016 Luis Dent Final R31.0 Gross hematuria B 05/29/2016 Luis Dent Final S20.221A Contusion of right back B wall of thorax, initial encounter 05/29/2016 Luis Dent Final S50.311A Abrasion of right elbow, B initial encounter 05/29/2016 Luis Dent Final S51.012A Laceration without B foreign body of left elbow, initial encounter 05/30/2016 La Mendoza Final R31.9 Hematuria, unspecified 06/05/2016 La Mendoza Final R31.9 Hematuria, unspecified 06/13/2016 Luinstra, Final E03.9 Hypothyroidism, Raoul W unspecified 06/13/2016 Luinstra, Final E78.0 Pure hypercholesterolemia Raoul W 06/13/2016 Luinstra, Final F32.9 Major depressive Raoul W disorder, single episode, unspecified 06/13/2016 Luinstra, Final F51.04 Psychophysiologic Raoul W insomnia 06/13/2016 Luinstra, Final 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 06/13/2016 Luinstra, Final J44.9 Chronic obstructive Raoul W pulmonary disease, unspecified 06/13/2016 Luinstra, Final K21.9 Gastro-esophageal reflux Raoul W disease without esophagitis 06/13/2016 Luinstra, Final M54.9 Dorsalgia, unspecified Raoul W 06/13/2016 Luinstra, Final N18.9 Chronic kidney disease, Raoul W unspecified 06/13/2016 Luinstra, Final R03.0 Elevated blood-pressure Raoul W reading, without diagnosis of hypertension 06/13/2016 Luinstra, Final R31.9 Hematuria, unspecified Raoul W 06/13/2016 Luinstra, Final R73.09 Other abnormal glucose Raoul W 06/29/2016 Ellis, Final E78.1 Pure hyperglyceridemia [place] 06/29/2016 Ellis, Final Z01.810 Encounter for S[place]ha preprocedural cardiovascular examination 06/29/2016 Ellis, Final Z78.9 Other specified health S[place]ha status 09/14/2016 Luinstra, Final E03.9 Hypothyroidism, Raoul W unspecified 09/14/2016 Luinstra, Final E78.0 Pure hypercholesterolemia Raoul W 09/14/2016 Luinstra, Final F51.04 Psychophysiologic Raoul W insomnia 09/14/2016 Luinstra, Final J44.9 Chronic obstructive Raoul W pulmonary disease, unspecified 09/14/2016 Luinstra, Final K21.9 Gastro-esophageal reflux Raoul W disease without esophagitis 09/14/2016 Luinstra, Final M54.9 Dorsalgia, unspecified Raoul W 09/14/2016 Luinstra, Final N18.9 Chronic kidney disease, Raoul W unspecified 09/14/2016 Luinstra, Final R03.0 Elevated blood-pressure Raoul W reading, without diagnosis of hypertension 09/14/2016 Luinstra, Final R31.9 Hematuria, unspecified Raoul W 09/14/2016 Luinstra, Final R73.09 Other abnormal glucose Raoul W 12/13/2016 Luinstra, Final E03.9 Hypothyroidism, Raoul W unspecified 12/13/2016 Luinstra, Final F32.9 Major depressive Raoul W disorder, single episode, unspecified 12/13/2016 Luinstra, Final J44.9 Chronic obstructive Raoul W pulmonary disease, unspecified 12/13/2016 Luinstra, Final K21.9 Gastro-esophageal reflux Raoul W disease without esophagitis 12/13/2016 Luinstra, Final M54.9 Dorsalgia, unspecified Raoul W 12/13/2016 Luinstra, Final N18.9 Chronic kidney disease, Raoul W unspecified 12/13/2016 Luinstra, Final R73.09 Other abnormal glucose Raoul W Procedures Code Description [place] [address] Office or other 10/20/2015 outpatient visit for the evaluation and management of an established patient, which requires at least 2 of these 3 velez components: A detailed history; A detailed examination; Medical d Office or other 02/16/2016 outpatient visit for the evaluation and management of an established patient, which requires at least 2 of these 3 velez components: A detailed history; A detailed examination; Medical d 13488 Radiologic 05/02/2016 examination, chest, 2 views, frontal and lateral; 55087 Noninvasive ear 05/02/2016 or pulse oximetry for oxygen saturation; multiple determinations (eg, during exercise) 26864 Therapeutic, 05/02/2016 prophylactic, or diagnostic injection (specify substance or drug); subcutaneous or intramuscular Office or other 05/02/2016 outpatient visit for the evaluation and management of an established patient, which requires at least 2 of these 3 velez components: A comprehensive history; A comprehensive examination; Office or other 05/29/2016 outpatient visit for the evaluation and management of an established patient, which requires at least 2 of these 3 velez components: A detailed history; A detailed examination; Medical d Office or other 05/29/2016 outpatient visit for the evaluation and management of an established patient, which requires at least 2 of these 3 velez components: A comprehensive history; A comprehensive examination; 55449 Cytopathology, 05/30/2016 selective cellular enhancement technique with interpretation (eg, liquid based slide preparation method), except cervical or vaginal.. 43915 Office or other 05/30/2016 outpatient visit for the evaluation and management of a new patient, which requires these 3 velez components: A detailed history; A detailed examination; [place] [address] 06/05/2016 Cystourethroscopy (separate procedure).. 15024 Office or other 06/05/2016 outpatient visit for the evaluation and management of an established patient, which requires at least 2 of these 3 velez components: A detailed history; A detailed examination; Medical d 82304 06/13/2016 Electrocardiogram, routine ECG with at least 12 leads; with interpretation and report 99166 Noninvasive ear 06/13/2016 or pulse oximetry for oxygen saturation; multiple determinations (eg, during exercise) 52979 Office or other 06/13/2016 outpatient visit for the evaluation and management of an established patient, which requires at least 2 of these 3 velez components: A comprehensive history; A comprehensive examination; 58215 06/29/2016 Electrocardiogram, routine ECG with at least 12 leads; with interpretation and report 30446 Office or other 09/14/2016 outpatient visit for the evaluation and management of an established patient, which requires at least 2 of these 3 velez components: A detailed history; A detailed examination; Medical d 35569 Office or other 12/13/2016 outpatient visit for the evaluation and management of an established patient, which requires at least 2 of these 3 velez components: A detailed history; A detailed examination; Medical d Results Test Result Range CBC With Platelet [...] TSH with Reflex Free T4 6.31 uIU/mL 0.35-4.94 Lipid Panel - 02/16/16 08:55 Cardiac Risk [...] 6.0 NA 5.0-8.0 Protein Negative Negative Specific Boyd 1.033 NA 1.003-1.030 UA Collection type Voided NA Urobilinogen 1.0 mg/dL <1.0 CBC With Platelet and Differential - 05/29/16 11:55 Absolute Basophils 0.03 10*3/uL 0.00-0.30 Absolute Eosinophils 0.24 10*3/uL 0.00-0.60 Absolute Lymphocytes 1.96 10*3/uL 1.00-4.00 Absolute Monocytes 1.30 10*3/uL 0.20-0.80 Absolute Neutrophils 5.06 10*3/uL 2.50-7.00 Basophils 0 % 0-2 Eosinophils 3 % [...] mg/dl 4-20 Calcium Ionized Venous 1.23 mmol/L 1.19-1.41 Creatinine Venous 1.0 mg/dL 0.7-1.2 Glucose Venous [...] NA 5.0-8.0 Protein Negative NA Negative Specific Boyd 1.030 NA 1.003-1.030 UA Collection type Clean Catch NA Urobilinogen 0.2 mg/dL <=1.0 Urine Microscopic - 05/29/16 12:02 Bacteria Rare NA Epithelial Cells 0 /hpf Hyaline Casts 1 /lpf RBC, Urine 20 /hpf 0-2 Urine Mucus Present NA WBC, Urine 0 /hpf 0-4 CBC With Platelet and Differential - 04/05/17 11:25 Absolute Basophils 0.04 10*3/uL 0.00-0.20 Absolute Eosinophils 0.14 10*3/uL 0.00-0.50 Absolute Lymphocytes 1.63 10*3/uL 0.80-3.30 Absolute Monocytes 0.93 10*3/uL 0.30-1.00 Absolute Neutrophils 4.58 10*3/uL 1.90-7.00 Basophils 1 % 0-2 Eosinophils 2 % 0-4 HCT 43.3 % 42.0-52.0 HGB 13.8 g/dL 14.0-18.0 Immature Granulocytes 0.1 % 0.0-1.0 Lymphocytes 22 % 20-46 MCH 31.2 pg 27.0-32.0 MCHC 31.9 g/dL 32.0-36.0 MCV 98.0 fL 82.0-99.0 Monocytes 13 % 4-11 MPV 11.1 fL 8.8-14.8 Neutrophils 63 % 51-75 Platelet Count 296 K/uL 150-400 RBC 4.42 10*6/uL 4.60-6.20 RDW 12.6 % 11.5-14.5 WBC 7.3 K/uL 4.8-10.8 Comprehensive Metabolic Panel (CMP) - 06/13/16 11:25 Albumin 4.2 g/dL 3.4-4.8 Alkaline Phosphatase 130 U/L 40-150 ALT (SGPT) 26 U/L 0-55 Anion Gap 6 NA 3-20 AST (SGOT) 37 U/L 5-34 Bilirubin Total 0.4 mg/dL 0.2-1.2 BUN 21 mg/dL 8-26 Calcium 9.2 mg/dL 8.4-10.2 Chloride 107 mEq/L 99-111 CO2 27 mEq/L 23-31 Creatinine 1.08 mg/dL 0.72-1.25 Globulin 2.6 g/dL 1.8-4.0 Glucose 92 mg/dL 70-99 Potassium 5.4 mEq/L 3.5-5.2 Protein 6.8 g/dL 6.0-7.6 Sodium 140 mEq/L 135-144 eGFR - 04/05/17 11:25 eGFR >60 mL/min >60 TSH with Reflex Free T4 - 06/13/16 11:25 TSH with Reflex Free T4 5.56 uIU/mL 0.35-4.94 Free T4 - 06/13/16 11:25 Free T4 1.0 ng/dL 0.7-1.5 Encounters ACCT No. Visit Discharge Status Pt. Type Provider Facility Loc./Unit Complaint Date/Time [id number] 04/24/2013 04/24/2013 CLS Outpatien 15:06:00 23:59:59 t [id number] 12/13/2016 12/13/2016 DIS Outpatien Luinstra, [facility] personal 242 11:13:00 23:59:00 marlen Banuelos issues. med Clinic check [id number] 09/14/2016 09/14/2016 DIS Outpatien Luinstra, [facility] 3MO RECHECK 065 09:16:00 23:59:00 marlen Banuelos Clinic [id number] 06/29/2016 06/29/2016 DIS Outpatien Kanjanaut [facility] NPV ABN EKG 096 13:13:00 23:59:00 t Lakisha luke CARDIAC [facility] CLEARANCE LU[facility]RA [id number] 06/29/2016 06/29/2016 DIS Outpatien Kanjanaut [facility] EKG /Z01.810 174 00:01:00 23:59:00 t Lakisha luke [facility] [id number] 06/13/2016 06/13/2016 DIS Outpatien Luinstra, [facility] PREOP 471 09:50:00 23:59:00 marlen Banuelos CLEARANCE Clinic FOR CYSTOSCOPY DR MENDOZA [id number] 06/13/2016 06/13/2016 DIS Outpatien Luinstra, [facility] pre op 702 00:01:00 23:59:00 marlen Banuelos Card Clinic [id number] 06/05/2016 06/05/2016 DIS Outpatien Madarabella, [facility] CYSTOSCOPY 136 09:20:00 23:59:00 marlen Banuelos Uro Clinic [id number] 05/30/2016 05/30/2016 DIS Outpatien Madarabella, [facility] BLOOD IN 165 13:18:00 23:59:00 t Alosh Lakisha Uro URINE AFTER Clinic FALL [id number] 05/29/2016 05/29/2016 DIS Outpatien Jailene, [facility] ACC FELL 167 11:31:00 23:59:00 marlen Banuelos [facility] Clinic [id number] 05/02/2016 05/02/2016 DIS Outpatien Luinstra, [facility] TCPA COLD. 648 12:51:00 23:59:00 marlen Banuelos COUGH. Clinic DIARRHEA. UPSET STOMACH [id number] 02/16/2016 02/16/2016 DIS Outpatien Luinstra, [facility] 4 MO LALA 339 07:53:00 23:59:00 marlen Banuelos Clinic [id number] 10/20/2015 10/20/2015 DIS Outpatien Luinstra, [facility] TCPA 4 mo 729 08:56:00 23:59:00 t Raoul Banuelos lala Clinic [id number] 06/20/2015 06/20/2015 DIS Outpatien Luinstra, [facility] 4 month 004 07:59:00 23:59:00 marlen Anni check Clinic [id number] 03/24/2015 03/24/2015 CLS Outpatien Luinstra, [facility] ER follow up 940 14:53:00 23:59:59 marlen Banuelos Clinic [id number] 03/07/2015 03/07/2015 DIS Outpatien Luinstra, [facility] cold, hard 662 15:51:00 23:59:00 marlen Banuelos to breath Clinic [id number] 02/18/2015 02/18/2015 DIS Outpatien Luinstra, [facility] 3 month 663 08:24:00 23:59:00 marlen Banuelos check Clinic [id number] 01/11/2015 01/11/2015 DIS Outpatien Bayron [facility] consult abd 764 15:20:00 23:59:00 Justyn gee Surg pain poss Clinic colonoscopy [id number] 12/16/2014 12/16/2014 CLS Outpatien Hughbanks [facility] pain in 750 15:09:00 23:59:59 Monica gee stomach M Clinic [id number] 11/19/2014 11/19/2014 DIS Outpatien Luinstra, Via [facility] New FM 3 month 703 08:53:00 23:59:00 marlen Banuelos check Clinic [id number] 02/16/2014 02/16/2014 DIS Outpatien Luinstra, Via [facility] New FM 3 month med 562 09:28:00 23:59:00 t Raoul Banuelos recheck Clinic [id number] 02/01/2014 02/01/2014 DIS Outpatien Shunley, Via [facility] New FM Cold 578 13:28:00 23:59:00 marlen Minor [facility] [id number] 12/14/2016 Document [id number] 05:18:16 Registrat ion [id number] 11/20/2016 Document [id number] 05:17:47 Registrat ion [id number] 08/19/2014 Document 126 09:56:00 Registrat ion
--- OUTSIDE RECORDS SUMMARY | 2017-03-13 14:31 | External Medical Summary | Referral Summary ---
:1940 Author Organization [facility] Address [address] [place] [address] [place] [phone] Care Team Providers Name Role Phone Raoul Post Primary Care Physician Encounter VC Date(s): 10/20/15 - 10/20/15 [facility] [address] [place] [address]- [place] Discharge Disposition: 01-Home or Self Care Attending Physician: Raoul Post MD Admitting Physician: Raoul Post MD Vital Signs Most recent to oldest [Reference Range]: 1 Blood Pressure [90-140/60-90 mmHg] 120/70 mmHg (10/20/15 9:10 AM) Problem List Condition Effective [...] day, # 30 Each, 1 Refill(s), [id number], 3 mL NEB q8hr,Instr:2.5 mg/3 mL (0.083%) [...] # 3 Each, 1 Refill(s), Pharmacy : [id number] Start Date: 10/20/15 Status: OrderedClaritin 10 mg oral tablet 10 mg 1 tabs, Oral, Daily, X 300 days, # 300 tabs, 0 Refill(s), Pharmacy: [facility] [id number], 1 tabs Oral Daily,x300 days Start Date: 02/18/15 Stop Date: 12/15/15 Status: Orderedlevothyroxine 50 mcg (0.05 mg) oral tablet See Instructions, TAKE 1 TABLET BY MOUTH EVERY DAY, # 60 tabs, eRx: [facility] [address]20, TAKE1 TABLET BY MOUTH EVERY DAY Start Date: 10/07/15 Status: Orderedmirtazapine 15 mg oral tablet See Instructions, TAKE 1 TABLET BY MOUTH AT BEDTIME, # 30 tabs, [facility], TAKE 1 TABLET BY MOUTH AT BEDTIME Start Date: 10/05/15 Status: OrderedMisc Medication Patient takes Dann Red- Shrimp oil daily, 0 Refill(s) Start Date: 01/11/15 Status: Orderedmultivitamin 1 tabs, Oral, Daily Start Date: 11/16/13 Status: OrderedNorco 10 mg-325 mg oral tablet 1-2 tabs, Oral, q8hr, as needed for pain, RX must last 30 days, # 120 tabs, 0 Refill(s) Start Date: 10/12/15 Status: OrderedPriLOSEC 40 mg oral delayed release capsule 40 mg 1 caps, Oral, Daily, # 100 caps, 0 Refill(s), Pharmacy: [facility] [address]96, 1 caps Oral Daily,x100 days Start Date: 02/18/15 Stop Date: 05/29/15 Status: OrderedPriLOSEC 40 mg oral delayed release capsule See Instructions, 1 CAPS ORAL DAILY,X100 DAYS, # 100 caps, eRx: [facility] 89457, 1 CAPS ORAL DAILY,X100 DAYS Start Date: [...] MOUTH EVERY DAY, # 90 tabs, eRx: [facility] [address], TAKE1 TABLET BY MOUTH EVERY DAY Start Date: 10/10/15 Status: Orderedsimethicone 80 mg oral tablet See Instructions, 4 daily., 0 Refill(s) Start Date: 12/22/14 Status: Orderedsimvastatin 20 mg oral tablet See Instructions, TAKE 1 TABLET BY MOUTH EVERY EVENING, # 90 tabs, eRx: [facility] 04126, TAKE 1 TABLET BY MOUTH EVERY EVENING Start Date: 07/25/15 Status: Orderedtimolol See Instructions, Timolol maleate 0.5% eyedrops; place 1 drop in the right eye every morning, 0 Refill(s) Start Date: 11/16/13 Status: OrderedtraZODone 100 mg oral tablet See Instructions, TAKE 1 TABLET BY MOUTH AT BEDTIME., # 90 tabs, eRx: [facility] 46542, TAKE 1 TABLET BY MOUTH AT BEDTIME. Start Date: 03/08/14 Status: Orderedzolpidem 10 mg oral tablet 0.5-1 tabs, Oral, Bedtime (once a day), as needed for sleep, fax to [facility] [phone], RX must last30 days, # 30 tabs, [...] normal. H. pylori and Mooney' s both [id number], will not need to repeat unless symptoms [id number] polyps, repeat in 10 years Social History Social History Type Response Smoking Status Former smoker; Type: Cigarettes Assessment and Plan Extracted from: Title: Ambulatory Patient Education Author: Raoul Post MD Date: Family Medicine Asthma, Adult Asthma is a [...] Smoke. Air pollutants such as dust, household antisubmarine weapons officer, hair sprays, aerosol sprays, paint fumes, strong [...] later. Symptoms include: Wheezing. Excessive nighttime or financial aid officer coughing. Frequent or severe coughing with a [...] dust mask from a hardware store, a double- layered or microfilter vacuum fur dry cleaner bag, or a vacuum fur dry cleaner with a HEPA filter. Replace carpet [...] Released: 02/25/2006 Document Revised: 03/18/2015 Document Reviewed: 09/24/2013 ExitCare Patient Information 2016 [employer]. No follow up information was provided. Extracted from: Title: Office Visit Note Author: Raoul Post MD Date: 10/20/15 Assessment/Plan Blood pressure elevated This issue was reviewed, appears stable, and current therapy continued except as mentioned. Appropriate lab was reviewed from the most recent appropriate entry and lab was or dered if needed in the cpoe/nursing orders, and [...] MOUTH DAILY, # 3 Each, 1 Refill(s), Pharmacy: [id number]
--- NOTE | 2017-03-13 15:25 | XRay Report ---
INDICATION: dyspnea PROCEDURE: CHEST 2-VIEWS UPRIGHT (PA & LAT) Encounter: Initial COMPARISON: March 07, 2015 FINDINGS: Emphysema and hyperinflation. New right upper lobe and bilateral lower lobe airspace consolidation. No definite pleural effusion. No pneumothorax. Heart size and mediastinal contours are stable. Pulmonary vascularity is normal. Impression: Bilateral pneumonia. .
--- NOTE | 2017-03-13 16:30 | Emergency Department Report ---
General Adult HPI - General Chief complaint: Shortness of Breath/Dyspnea Stated complaint: cough,low Oxygen Time Seen by Provider: 03/13/17 14:23 - Related Data Home Medications Medication Instructions Recorded Confirmed Sertraline HCl [Zoloft] 50 mg PO DAILY #0 04/01/12 03/13/17 Simvastatin 20 mg PO HS #0 04/01/12 03/13/17 Zolpidem Tartrate [Ambien] 10 mg PO HS #0 04/01/12 03/13/17 Aspirin [Ecotrin] 81 mg PO DAILY 03/13/17 03/13/17 Hydrocodone/APAP 10/325 [Leon 1 tab PO QID 03/13/17 03/13/17 10/325] Levothyroxine Sodium 50 mcg PO DAILY 03/13/17 03/13/17 [Levothyroxine Sodium] Mirtazapine [Remeron] 15 mg PO DAILY 03/13/17 03/13/17 Multivitamin [One Daily 1 each PO DAILY 03/13/17 03/13/17 Multivitamin] Gramercy-3/Dha/Epa/Fish Oil [Fish Oil 1 each PO DAILY 03/13/17 03/13/17 1,000 mg Softgel] Omeprazole [Omeprazole] 40 mg PO DAILY 03/13/17 03/13/17 Allergies Allergy/AdvReac Type Severity Reaction Status Date / Time No Known Allergies Allergy Verified 03/13/17 15:07 [facility] Patient Stated Medical History Other HEENT Yes: wears glasses Chronic Obstructive Pulmonary Yes Disease (COPD) - Social History Smoking status: Former smoker Course Vital Signs Temperature 97.7 F 03/13/17 14:04 Pulse Rate 116 H 03/13/17 14:04 Respiratory Rate 28 H 03/13/17 14:04 Blood Pressure 139/68 03/13/17 14:04 Pulse Oximetry 77 L 03/13/17 14:04 Temperature 97.7 F 03/13/17 14:04 Pulse Rate 94 03/13/17 15:45 Respiratory Rate 19 03/13/17 15:45 Blood Pressure 136/72 03/13/17 15:30 Pulse Oximetry 95 03/13/17 15:45 Medical Decision Making - Lab Data Result diagrams: 03/13/17 14:50 03/13/17 14:50 Lab Results 03/13/17 03/13/17 03/13/17 Range/Units 14:24 14:50 14:50 WBC 22.9 H (4.5-11.0) T/MM3 RBC 3.92 L (4.50-5.90) M/MM3 Hgb 12.4 L (13.5-17.5) GM/DL Hct 38.4 L (41-53) % MCV 98.0 (80-100) UM3 MCH 31.6 (26-34) UUG MCHC 32.3 (31-37) GM/DL RDW Std Deviation 46.1 (36.9-50.2) FL Plt Count 408 H (130-400) T/MM3 MPV 10.4 (9.4-12.4) UM3 Immature Gran % (Auto) Not performed Neut % (Auto) Not performed Lymph % (Auto) Not performed Spencer % (Auto) Not performed Eos % (Auto) Not performed Baso % (Auto) Not performed Neut # (Auto) Not performed Lymph # (Auto) Not performed Spencer # (Auto) Not performed Eos # (Auto) Not performed Baso # (Auto) Not performed Abs Immat Gran (auto) Not performed Neutrophils % (Manual) 87.0 H (33-66) % Band Neutrophils % 3.0 (0-6) % Lymphocytes % (Manual) 5.0 L (23-45) % Monocytes % (Manual) 5.0 (0-9.0) % Neutrophils # (Manual) 19.9 H (1.8-7.7) T/MM3 Band Neutrophils # 0.7 T/MM3 Lymphocytes # (Manual) 1.1 (1-4.8) T/MM3 Monocytes # (Manual) 1.1 H (0-0.8) T/MM3 RBC Morph Comment Normal Turbidity < 20 (0-20) Sodium 144 (134-144) MEQ/L Potassium 3.5 L (3.6-5) MEQ/L Chloride 103 (98-107) MEQ/L Carbon Dioxide 29 (22-30) MEQ/L Anion Gap 12 (5-15) MEQ/L BUN 28.0 H (9-20) MG/DL Creatinine 1.1 (0.8-1.5) MG/DL GFR Calculation 65 BUN/Creatinine Ratio 26 (6-26) RATIO Glucose 120 H (75-110) MG/DL Calculated Osmolality 284 H (261-280) MOSM/KG Calcium 9.0 (8.4-10.2) MG/DL Total Bilirubin 0.40 (0.20-1.30) MG/DL Icterus Index < 2 (0-7) AST 37 (17-59) U/L ALT 37 (21-72) U/L Alkaline Phosphatase 185 H (38-126) U/L Troponin I 0.652 H (0-0.12) ng/ml B-Natriuretic Peptide 778 H (0-175) pg/mL Total Protein 7.6 (6.3-8.2) G/DL Albumin 3.7 (3.5-5.0) G/DL Globulin 3.9 H (2.4-3.6) G/DL Albumin/Globulin Ratio 0.9 L (1.1-2.2) RATIO Specimen Hemolysis < 15 (0-25) Influenza Type A (PCR) Positive A* (Negative) Influenza Type B (PCR) Negative (Negative) Disposition Prescriptions: No Action Simvastatin 20 mg PO HS #0 Multivitamin [One Daily Multivitamin] 1 each PO DAILY Mirtazapine [Remeron] 15 mg PO DAILY [place]-3/Dha/Epa/Fish Oil [Fish Oil 1,000 mg Softgel] 1 each PO DAILY Omeprazole [Omeprazole] 40 mg PO DAILY Levothyroxine Sodium [Levothyroxine Sodium] 50 mcg PO DAILY Aspirin [Ecotrin] 81 mg PO DAILY Zolpidem Tartrate [Ambien] 10 mg PO HS #0 Sertraline HCl [Zoloft] 50 mg PO DAILY #0 Hydrocodone/APAP 10/325 [Leon 10/325] 1 tab PO QID Referrals: Raoul Post MD [Family Provider] -
[2017-03-13] MEDS ORDERED: CEFTRIAXONE (ER USE ONLY) 1 GM in NS 100 ML IV SCH (16:45)
--- NOTE | 2017-03-13 17:35 | History & Physical Report ---
History of Present Illness Date: 03/13/17 Chief complaint: Influenza A, Hypoxia, Elevated troponin HPI: Mr Morgan is a 77yr old male who presented to the emergency room today for acute evaluation of shortness of breath with coughing. Arrival to the ER He was found to be hypoxic with room air saturations of 77%. He was tachycardic with a heart rate of 116 and tachypnea, breathing 28 times per minute. Patient was placed on oxygen by nasal cannula to maintain adequate saturations. Upon further evaluation he was found to have leukocytosis with a white count of 22.9 , hemoglobin 12.4, platelet count elevated at 408,87% neutrophils, 3% bands. Chemistry panel did reveal slight hypokalemia, potassium of 3.5, sodium is normal at 144, glucose 120. Troponin was found to be slightly elevated at 0.652. Venous lactate 1.5, pro calcitonin 0.92. Patient was found to have influenza A positive. Chest x-ray was reported to have bilateral pneumonia. Given hypoxia, accompanied with leukocytosis, influenza A and pneumonia. The hospitalist services were contacted and accepted patient for inpatient admission for further evaluation and treatment. Dr. Art was contacted directly from the emergency room regarding elevated troponin and will follow patient in consultation. Patient is seen and examined. While in the emergency room. He reports he had an "respiratory illness." Several months ago and was treated with antibiotics by his primary care provider, Dr. Post. He reports approximately one week ago, his symptoms returned and he has been progressively more short of breath, worse times the last 3 days. Reports he is now having a productive cough. Denies any chest pain, lightheadedness, GI concerns. We did discuss advanced directives. He does verify he is a do not resuscitate Review of Systems All systems PM: 10-point ROS was reviewed, no additional remarkable complaints except - Constitutional Constitutional: Present: fatigue - Cardiovascular Cardiovascular: Present: dyspnea on exertion - Respiratory Respiratory: Present: cough, dyspnea Past Medical History COPD Chronic back pain Chronic insomnia Depression Glaucoma Surgical History: Colonoscopy-2015. Left knee surgery Family History Updates: Father-CVA. Brother with an aortic aneurysm - Social History Smoking status: Former smoker Substance use type: does not use Alcohol intake: former Alcohol intake frequency: former alcohol drinker Housing: house Social history: PCP Dr Post Requests to be a DNR Medications Home Medications Medication Instructions Recorded Confirmed Type Sertraline HCl [Zoloft] 50 mg PO DAILY #0 04/01/12 03/13/17 History Simvastatin 20 mg PO HS #0 04/01/12 03/13/17 History Zolpidem Tartrate [Ambien] 10 mg PO HS #0 04/01/12 03/13/17 History Aspirin [Ecotrin] 81 mg PO DAILY 03/13/17 03/13/17 History Hydrocodone/APAP 10/325 [[place] 1 tab PO QID 03/13/17 03/13/17 History 10/325] Levothyroxine Sodium 50 mcg PO DAILY 03/13/17 03/13/17 History [Levothyroxine Sodium] Mirtazapine [Remeron] 15 mg PO DAILY 03/13/17 03/13/17 History Multivitamin [One Daily 1 each PO DAILY 03/13/17 03/13/17 History Multivitamin] Wolcott-3/Dha/Epa/Fish Oil [Fish Oil 1 each PO DAILY 03/13/17 03/13/17 History 1,000 mg Softgel] Omeprazole [Omeprazole] 40 mg PO DAILY 03/13/17 03/13/17 History Allergies Allergy/AdvReac Type Severity Reaction Status Date / Time No Known Allergies Allergy Verified 03/13/17 15:07 Exam Vital Signs: Temperature 99.0 F 03/13/17 17:23 Pulse Rate 90 03/13/17 17:23 Respiratory Rate 20 03/13/17 17:23 Blood Pressure 158/74 H 03/13/17 17:23 Pulse Oximetry 97 03/13/17 17:23 - Constitutional Present: mild distress, well nourished, well developed - Routine HEENT Exam Eye: Present: EOMI ENT: Present: mucous membranes moist, dentition normal - Routine Respiratory Exam Present: CTA bilaterally. Absent: wheezes - Routine Cardiovascular Exam Present: RRR. Absent: murmur - Routine Abdominal Exam Present: soft, normoactive bowel sounds, non distended. Absent: tenderness - Routine Extremities Exam Present: edema (trace lower ext), full ROM, normal capillary refill - Routine Back/Spine/Pelvis Exam Back/Spine: Present: full ROM - Routine Skin Exam Present: intact, dry, warm - Routine Neurological Exam Present: alert, oriented X3, CN II-XII intact - Routine Psychiatric Exam Present: normal affect Results - Labs CBC & Chem 7: 03/13/17 14:50 03/13/17 14:50 Assessment and Plan (1) Sepsis Current visit: Yes Status: Acute (2) Acute respiratory failure with hypoxia Current visit: Yes Status: Acute (3) Influenza A Current visit: Yes Status: Acute Assessment and Plan: Impression Sepsis- 1. Leukocytosis-22, 2. tachycardia-116, 3. tachypnea-28, 4. suspected infectious process Acute respiratory failure with hypoxia-77% on room air, present on admission. Influenza A Elevated troponin Thrombocytosis- POA 408 COPD Chronic back pain Depression Plan Admit patient to inpatient status under the care of Dr. Matias for sepsis, influenza A, hypoxia, elevated troponin Given that patient did meet criteria 1st sepsis on admission. Patient was started on IV Rocephin 1 gram. Will obtain serial lactate levels. qSOFA score on admission - 03/13. (Indicating not high risk for in-hospital mortality at time of admission) Initiate normal saline with 20 KCl to run at 75 ML per hour for gentle hydration. Will also give one-time dose of potassium 40 milliequivalents for potassium supplementation. Scheduled DuoNeb breathing treatments 4 times a day and Pulmicort twice a day, given underlying history of COPD and influenza A At this point will hold off on initiating Tamiflu as patient reports symptoms have been present for 1 week. Monitor oxygen saturations, currently requiring 2-3 liters to maintain saturations. In light of elevated troponin, will place consultation with Dr. Art for further cardiac evaluation and recommendations. Continue to watch routine labs to monitor blood counts, renal function and electrolytes. Suspect thrombocytosis may be reactive in nature. Home medications reviewed and continued. SCDs to bilateral lower extremity for DVT prophylaxis Patient does wish to be a do not resuscitate and this orders written Will discuss further orders and plan of care with attending, Dr. Matias - Physician Narrative Physician: Lázaro Matias MD Narrative: Date: 03/13/17 Time: 1819 I have independently interviewed and examined pt. Chart reviewed. Case discussed with FILE CLERK. Care plan developed with my supervision; agree with above. Increasing SOA over the past week and much worse the past 3 day. He denies fever but had chills. He was SOA walking across a room. In ED he had O2 sat 77% on RA. He had HR 116 and RR 28. He is positive for Influenza Type A. His wbc is 22.9. Troponin was 0.652. Lactate was 1.1, and procalcitonin 0.92. He has had a productive cough with mostly clear sputum. Lungs: decreased bilaterally, scattered crackles. CV: regular MSE: awake alert appropriate Plan: Inpatient admission secondary to acute hypoxic resp failure. Rocephin for possible pneumonia. Will repeat CXR in a day or so. Continue Pulmicort and Duonebs. Consult Dr. Art for elevated troponin. Replace potassium. Home medications reviewed and continued. SCDs for DVT ppx. Hospital Course Summary Disclaimer: The visit summary below is not to be considered part of the above Progress Note. Hospital Course: 03/13/17 17:54 Impression Sepsis- 1. Leukocytosis-22, 2. tachycardia-116, 3. tachypnea-28, 4. suspected infectious process Acute respiratory failure with hypoxia-77% on room air, present on admission. Influenza A Elevated troponin Thrombocytosis- POA 408 COPD Chronic back pain Depression Plan Admit patient to inpatient status under the care of Dr. Matias for sepsis, influenza A, hypoxia, elevated troponin Given that patient did meet criteria 1st sepsis on admission. Patient was started on IV Rocephin 1 gram. Will obtain serial lactate levels. qSOFA score on admission - 1/3. (Indicating not high risk for in-hospital mortality at time of admission) Initiate normal saline with 20 KCl to run at 75 ML per hour for gentle hydration. Will also give one-time dose of potassium 40 milliequivalents for potassium supplementation. Scheduled DuoNeb breathing treatments 4 times a day and Pulmicort twice a day, given underlying history of COPD and influenza A At this point will hold off on initiating Tamiflu as patient reports symptoms have been present for 1 week. Monitor oxygen saturations, currently requiring 2-3 liters to maintain saturations. In light of elevated troponin, will place consultation with Dr. Art for further cardiac evaluation and recommendations. Continue to watch routine labs to monitor blood counts, renal function and electrolytes. Suspect thrombocytosis may be reactive in nature. Home medications reviewed and continued. SCDs to bilateral lower extremity for DVT prophylaxis Patient does wish to be a do not resuscitate and this orders written Will discuss further orders and plan of care with attending, Dr. Matias
[2017-03-13] MEDS: NS with KCL 20 mEq 1,000 ML IV SCH (18:22)
[2017-03-13] MEDS: ALBUTEROL/IPRATROPIUM 2.5mg-0.5mg/3ml NEB AEROSOL SCH ×2 (19:50→19:52)
[2017-03-13] MEDS: BUDESONIDE INH.SOLN 0.5mg/2ml NEB AEROSOL SCH (19:50)
[2017-03-13] MEDS: ZOLPIDEM 10 MG TABLET PO SCH (20:41)
[2017-03-13] MEDS: HYDROCODONE/APAP 10 MG/325 MG TABLET PO SCH (20:41)
[2017-03-13] MEDS: SIMVASTATIN 20 MG TABLET PO SCH (20:41)
[2017-03-14] MEDS: OMEPRAZOLE 20 MG CAPSULE PO SCH (05:49)
[2017-03-14] MEDS: LEVOTHYROXINE 50 MCG TABLET PO SCH (05:49)
[2017-03-14] MEDS: NS with KCL 20 mEq 1,000 ML IV SCH (07:52)
[2017-03-14] MEDS: BUDESONIDE INH.SOLN 0.5mg/2ml NEB AEROSOL SCH ×2 (08:21→19:33)
[2017-03-14] MEDS: ALBUTEROL/IPRATROPIUM 2.5mg-0.5mg/3ml NEB AEROSOL SCH ×4 (08:21→19:33)
[2017-03-14] MEDS: CEFTRIAXONE 1 G in NS 100 ML IV SCH (08:42)
[2017-03-14] MEDS: MIRTAZAPINE 15 MG TABLET PO SCH (08:42)
[2017-03-14] MEDS: MULTI-VITAMIN PLAIN TABLET PO SCH (08:42)
[2017-03-14] MEDS: SERTRALINE 50 MG TABLET PO SCH (08:42)
[2017-03-14] MEDS: HYDROCODONE/APAP 10 MG/325 MG TABLET PO SCH ×4 (08:42→20:34)
[2017-03-14] MEDS: ASPIRIN *EC* 81 MG TABLET PO SCH (08:43)
[2017-03-14] MEDS: OMEGA-3 ACID ESTERS 1 GM CAPSULE PO SCH (08:44)
--- NOTE | 2017-03-14 09:28 | Progress Note ---
- Date 03/14/17 Subjective: Kirby is seen this morning in follow up for Influenza A and hypoxia. He continues on 3 liters of oxygen by nasal canula to maintain saturations. He reports having moderate cough that is bothersome overnight. Denies having any chest pain or GI concerns. States overall he feels much better this morning and is able to eat breakfast. BP this morning is 154/59. Objective Vital signs: Temperature 97.2 F 03/14/17 07:58 Pulse Rate 82 03/14/17 08:19 Respiratory Rate 20 03/14/17 08:21 Blood Pressure 154/59 H 03/14/17 07:58 Pulse Oximetry 95 03/14/17 08:21 Height/Weight/BMI: Height 1.78 m Weight 70.9 kg Body Mass Index 21.9 - Constitutional Present: no acute distress, well nourished, well developed - Routine HEENT Exam Eye: Present: EOMI ENT: Present: mucous membranes moist, dentition normal - Routine Respiratory Exam Present: wheezes (slightly inspiratory wheeze) - Routine Cardiovascular Exam Present: RRR, S1, S2. Absent: murmur - Routine Abdominal Exam Present: soft, normoactive bowel sounds, non distended. Absent: tenderness - Routine Extremities Exam Present: full ROM, normal capillary refill - Routine Back/Spine/Pelvis Exam Back/Spine: Present: full ROM - Routine Skin Exam Present: intact, dry, warm - Routine Neurological Exam Present: alert, oriented X3, CN II-XII intact, moving all extremities - Routine Lymphatic Exam Lymphatic: Absent: adenopathy - Routine Psychiatric Exam Present: normal affect, cooperative Results - Labs CBC & Chem 7: 03/14/17 04:01 03/14/17 04:01 Assessment and Plan (1) Acute respiratory failure with hypoxia Current visit: Yes Status: Acute (2) Influenza A Current visit: Yes Status: Acute (3) Sepsis Current visit: Yes Status: Acute Assessment and Plan: Impression Sepsis- 1. Leukocytosis-22, 2. tachycardia-116, 3. tachypnea-28, 4. suspected infectious process Acute respiratory failure with hypoxia-77% on room air, present on admission. Influenza A Elevated troponin Thrombocytosis- POA 408 COPD Chronic back pain Depression Plan Will continue with scheduled breathing nebulizers. Will add codeine/guaifenesin cough syrup as requested by patient. Cardiology planning to see patient today regarding increase in troponin. Serial lactated levels remain normal. qSOFA score remains 1/3 (low mortality risk) Hypokalemia resolved. Continues on IV fluid NS with K supplementation. Leukocytosis improved, white count down to 11.8. Continue on Rocephin for antimicrobial coverage Continued Thrombocytosis, will continue to follow Place PT/OT orders to evaluate ambulation and strength as he does live independently SCDs for DVT prophylaxis Monitor elevated BP. No h/o HTN. - Physician Narrative Physician: Lázaro Matias MD Narrative: Date: 03/14/17 Time: 916 I have independently interviewed and examined pt. Chart reviewed. Case discussed with STAFFING ADMINISTRATOR. Care plan developed with my supervision; agree with above. Patient says he is tired, but that he slept well. He says he is not too soa at rest. He continues to have a cough and says it is a struggle to produce sputum. Lungs: decreased with exp wheezes left>right. CV: regular. ABD: s/nt/nd. MSE : awake alert appropriate Plan: WBC down on Rocephin. Will repeat CXR in AM. Continue Pulmicort and Duonebs. Consult Dr. Art for elevated troponin. Hold IVF with K. K up to 4.3. Home medications reviewed and continued. SCDs for DVT ppx. PT/OT and encourage activity. Hospital Course Summary Disclaimer: The visit summary below is not to be considered part of the above Progress Note. Hospital Course: 03/13/17 17:54 Impression Sepsis- 1. Leukocytosis-22, 2. tachycardia-116, 3. tachypnea-28, 4. suspected infectious process Acute respiratory failure with hypoxia-77% on room air, present on admission. Influenza A Elevated troponin Thrombocytosis- POA 408 COPD Chronic back pain Depression Plan Admit patient to inpatient status under the care of Dr. Matias for sepsis, influenza A, hypoxia, elevated troponin Given that patient did meet criteria 1st sepsis on admission. Patient was started on IV Rocephin 1 gram. Will obtain serial lactate levels. qSOFA score on admission - 1/3. (Indicating not high risk for in-hospital mortality at time of admission) Initiate normal saline with 20 KCl to run at 75 ML per hour for gentle hydration. Will also give one-time dose of potassium 40 milliequivalents for potassium supplementation. Scheduled DuoNeb breathing treatments 4 times a day and Pulmicort twice a day, given underlying history of COPD and influenza A At this point will hold off on initiating Tamiflu as patient reports symptoms have been present for 1 week. Monitor oxygen saturations, currently requiring 2-3 liters to maintain saturations. In light of elevated troponin, will place consultation with Dr. Art for further cardiac evaluation and recommendations. Continue to watch routine labs to monitor blood counts, renal function and electrolytes. Suspect thrombocytosis may be reactive in nature. Home medications reviewed and continued. SCDs to bilateral lower extremity for DVT prophylaxis Patient does wish to be a do not resuscitate and this orders written Will discuss further orders and plan of care with attending, Dr. Matias 03/14/17 Will continue with scheduled breathing nebulizers. Will add codeine/guaifenesin cough syrup as requested by patient. Cardiology planning to see patient today regarding increase in troponin. Serial lactated levels remain normal. qSOFA score remains 1/3 (low mortality risk) Hypokalemia resolved. Continues on IV fluid NS with K supplementation. Leukocytosis improved, white count down to 11.8. Continue on Rocephin for antimicrobial coverage Continued Thrombocytosis, will continue to follow Place PT/OT orders to evaluate ambulation and strength as he does live independently SCDs for DVT prophylaxis
--- NOTE | 2017-03-14 10:36 | Cardiology Consult Note ---
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 He presented to the ED yesterday for acute evaluation of shortness of breath with coughing. On arrival to the ED, he was found to be hypoxic with room air saturations of 77%. He was tachycardic with a heart rate of 116 and tachypnea, breathing 28 times per minute. He was placed on oxygen by nasal cannula to maintain adequate saturations. Upon further evaluation he was found to have leukocytosis with a white count of 22.9, hemoglobin 12.4, platelet count elevated at 408,87% neutrophils, 3% bands. Chemistry panel did reveal slight hypokalemia, potassium of 3.5, sodium is normal at 144, glucose 120. Troponin was found to be slightly elevated at 0.652. Venous lactate 1.5, pro calcitonin 0.92. He was also found to be influenza A positive. Chest x-ray was reported to have bilateral pneumonia. Given hypoxia, accompanied with leukocytosis, influenza A and pneumonia. The hospitalist services were contacted and accepted patient for inpatient admission for further evaluation and treatment. Dr. Art was contacted regarding elevated troponin and will be glad up follow patient in consultation. He is examined in his room where is in mild distress on O2/ NC. He denies chest pain, palpitations, history of dyspnea on exertion, or pedal edema. He states that he does not use inhalers as he should because he does not think about it. He has been progressively more short of breath the last 3 days and is now having a productive cough. He has never had an echocardiogram, stress test or heart catheterization to his knowledge. Review of Systems - Constitutional Constitutional: Present: fatigue. Absent: chills, fever(s) - EENMT Eyes: Absent: change in vision Balance: Absent: vertigo Mouth/Throat: Absent: sore throat - Cardiovascular Cardiovascular: Present: dyspnea on exertion. Absent: chest pain, palpitations , syncope Rhythm: Absent: abnormal rhythm Vascular: Absent: pedal edema - Respiratory Respiratory: Present: cough, dyspnea, chest congestion - Gastrointestinal Gastrointestinal: Absent: abdominal pain, constipation, diarrhea, nausea, vomiting - Genitourinary Genitourinary: Absent: dysuria - Integumentary/Breasts Integumentary: Absent: rash - Neurological Neurological: Absent: dizziness - Endocrine Endocrine: Absent: palpitations PFSH Patient Stated Medical History Other HEENT Yes: wears glasses Chronic Obstructive Pulmonary Yes Disease (COPD) Surgical History: Colonoscopy-2015. Left knee surgery Family History: Father-CVA. Mother- [place] in her 80s Brother-aortic aneurysm - Social History Smoking status: Former smoker Substance use type: does not use Alcohol intake frequency: former alcohol drinker Last drink: unknown Current residence: Apartment/Private Home Medications Home Medications Medication Instructions Recorded Confirmed Type Sertraline HCl [Zoloft] 50 mg PO DAILY #0 04/01/12 03/13/17 History Simvastatin 20 mg PO HS #0 04/01/12 03/13/17 History Zolpidem Tartrate [Ambien] 10 mg PO HS #0 04/01/12 03/13/17 History Aspirin [Ecotrin] 81 mg PO DAILY 03/13/17 03/13/17 History Hydrocodone/APAP 10/325 [[place] 1 tab PO QID 03/13/17 03/13/17 History 10/325] Levothyroxine Sodium 50 mcg PO DAILY 03/13/17 03/13/17 History Mirtazapine [Remeron] 15 mg PO DAILY 03/13/17 03/13/17 History Multivitamin [One Daily 1 each PO DAILY 03/13/17 03/13/17 History Multivitamin] [place]-3/Dha/Epa/Fish Oil [Fish Oil 1 each PO DAILY 03/13/17 03/13/17 History 1,000 mg Softgel] Omeprazole 40 mg PO DAILY 03/13/17 03/13/17 History Allergies Allergy/AdvReac Type Severity Reaction Status Date / Time No Known Allergies Allergy Verified 03/13/17 15:07 Exam Vital signs: Temperature 97.2 F 03/14/17 07:58 Pulse Rate 82 03/14/17 08:19 Respiratory Rate 20 03/14/17 08:21 Blood Pressure 154/59 H 03/14/17 07:58 Pulse Oximetry 95 03/14/17 08:21 - Constitutional mild distress, well nourished, cooperative - Routine HEENT Exam Head: Present: normocephalic ENT: Present: mucous membranes moist - Routine Neck Exam Absent: JVD, carotid bruit - Routine Chest/Breast/Axilla Exam Chest wall: Absent: tenderness - Routine Respiratory Exam Present: wheezes. Absent: CTA bilaterally - Routine Cardiovascular Exam Present: RRR, no murmur - Routine Abdominal Exam Present: soft, normoactive bowel sounds - Routine Extremities Exam Present: no edema, pulses intact - Routine Skin Exam Present: intact, dry, warm - Routine Neurological Exam Present: alert, oriented X3 - Routine Psychiatric Exam Present: normal affect, normal thought process Results 03/15/17 03:48 03/15/17 03:48 Cardiac Enzymes 03/13/17 Range/Units 21:55 Troponin I 0.546 H (0-0.12) ng/ml CBC 03/14/17 Range/Units 04:01 WBC 11.8 H D (4.5-11.0) T/MM3 RBC 3.65 L (4.50-5.90) M/MM3 Hgb 11.4 L (13.5-17.5) GM/DL Hct 35.5 L (41-53) % Plt Count 423 H (130-400) T/MM3 Neut # (Auto) Not performed Lymph # (Auto) Not performed [place] # (Auto) Not performed Eos # (Auto) Not performed Baso # (Auto) Not performed Comprehensive Metabolic Panel 03/14/17 Range/Units 04:01 Sodium 145 H (134-144) MEQ/L Potassium 4.3 D (3.6-5) MEQ/L Chloride 110 H D (98-107) MEQ/L Carbon Dioxide 27 (22-30) MEQ/L BUN 23.0 H (9-20) MG/DL Creatinine 1.0 (0.8-1.5) MG/DL Glucose 170 H (75-110) MG/DL Calcium 8.6 (8.4-10.2) MG/DL Intake and Output 03/13/17 03/14/17 03/14/17 22:59 06:59 14:59 Intake Total 500 / 500 150 / 150 1000 / 1000 Output Total 550 / 550 Balance 500 / 500 -400 / -400 1000 / 1000 Intake: IV 100 / 100 1000 / 1000 Ceftriaxone (ER Use Only) 1 gm 100 / 100 In Ns 100 ml @ 200 mls/hr IV Q24HR [facility] Rx#:[id number] NS with KCL 20 mEq 1,000 ml @ 1000 / 1000 75 mls/hr IV .[id number] [facility] Rx#: [id number] Oral 400 / 400 150 / 150 Output: Urine 550 / 550 Other: Urine Appearance Clear Urine Color Light Milena Urine Odor Strong Weight 153 lb 3.54 oz 156 lb 4.924 oz Patient Weight 03/15/17 06:59 Weight 156 lb 4.924 oz Laboratory Results - last 24 hr 03/13/17 03/13/17 03/13/17 14:24 14:50 14:50 WBC 22.9 H RBC 3.92 L Hgb 12.4 L Hct 38.4 L MCV 98.0 MCH 31.6 MCHC 32.3 RDW Std Deviation 46.1 Plt Count 408 H MPV 10.4 Immature Gran % (Auto) Not performed Neut % (Auto) Not performed Lymph % (Auto) Not performed [place] % (Auto) Not performed Eos % (Auto) Not performed Baso % (Auto) Not performed Neut # (Auto) Not performed Lymph # (Auto) Not performed [place] # (Auto) Not performed Eos # (Auto) Not performed Baso # (Auto) Not performed Abs Immat Gran (auto) Not performed Neutrophils % (Manual) 87.0 H Band Neutrophils % 3.0 Lymphocytes % (Manual) 5.0 L Monocytes % (Manual) 5.0 Neutrophils # (Manual) 19.9 H Band Neutrophils # 0.7 Lymphocytes # (Manual) 1.1 Monocytes # (Manual) 1.1 H RBC Morph Comment Normal Turbidity < 20 Sodium 144 Potassium 3.5 L Chloride 103 Carbon Dioxide 29 Anion Gap 12 BUN 28.0 H Creatinine 1.1 GFR Calculation 65 BUN/Creatinine Ratio 26 Glucose 120 H Calculated Osmolality 284 H Calcium 9.0 Total Bilirubin 0.40 Icterus Index < 2 AST 37 ALT 37 Alkaline Phosphatase 185 H Troponin I 0.652 H B-Natriuretic Peptide 778 H Total Protein 7.6 Albumin 3.7 Globulin 3.9 H Albumin/Globulin Ratio 0.9 L Plasma Lactate Procalcitonin Specimen Hemolysis < 15 Influenza Type A (PCR) Positive A* Influenza Type B (PCR) Negative 03/13/17 03/13/17 03/13/17 14:50 16:54 21:55 WBC RBC Hgb Hct MCV MCH MCHC RDW Std Deviation Plt Count MPV Immature Gran % (Auto) Neut % (Auto) Lymph % (Auto) [place] % (Auto) Eos % (Auto) Baso % (Auto) Neut # (Auto) Lymph # (Auto) [place] # (Auto) Eos # (Auto) Baso # (Auto) Abs Immat Gran (auto) Neutrophils % (Manual) Band Neutrophils % Lymphocytes % (Manual) Monocytes % (Manual) Neutrophils # (Manual) Band Neutrophils # Lymphocytes # (Manual) Monocytes # (Manual) RBC Morph Comment Turbidity Sodium Potassium Chloride Carbon Dioxide Anion Gap BUN Creatinine GFR Calculation BUN/Creatinine Ratio Glucose Calculated Osmolality Calcium Total Bilirubin Icterus Index AST ALT Alkaline Phosphatase Troponin I 0.546 H B-Natriuretic Peptide Total Protein Albumin Globulin Albumin/Globulin Ratio Plasma Lactate 1.5 1.9 Procalcitonin 0.92 Specimen Hemolysis < 15 Influenza Type A (PCR) Influenza Type B (PCR) 03/14/17 03/14/17 03/14/17 04:01 04:01 04:01 WBC 11.8 H D RBC 3.65 L Hgb 11.4 L Hct 35.5 L MCV 97.3 MCH 31.2 MCHC 32.1 RDW Std Deviation 44.6 Plt Count 423 H MPV 10.2 Immature Gran % (Auto) Not performed Neut % (Auto) Not performed Lymph % (Auto) Not performed [place] % (Auto) Not performed Eos % (Auto) Not performed Baso % (Auto) Not performed Neut # (Auto) Not performed Lymph # (Auto) Not performed [place] # (Auto) Not performed Eos # (Auto) Not performed Baso # (Auto) Not performed Abs Immat Gran (auto) Not performed Neutrophils % (Manual) 88.0 H Band Neutrophils % 6.0 Lymphocytes % (Manual) 3.0 L Monocytes % (Manual) 3.0 Neutrophils # (Manual) 10.4 H Band Neutrophils # 0.7 Lymphocytes # (Manual) 0.4 L Monocytes # (Manual) 0.4 RBC Morph Comment Normal Turbidity < 20 Sodium 145 H Potassium 4.3 D Chloride 110 H D Carbon Dioxide 27 Anion Gap 8 BUN 23.0 H Creatinine 1.0 GFR Calculation 73 BUN/Creatinine Ratio 23 Glucose 170 H Calculated Osmolality 287 H Calcium 8.6 Total Bilirubin Icterus Index < 2 AST ALT Alkaline Phosphatase Troponin I 0.469 H B-Natriuretic Peptide Total Protein Albumin Globulin Albumin/Globulin Ratio Plasma Lactate Procalcitonin Specimen Hemolysis < 15 < 15 Influenza Type A (PCR) Influenza Type B (PCR) - Imaging and Cardiology Imaging & Cardiology Narrative: Date of Exam: 03/13/17 Ordering Provider: Ryan Avendaño MD Type of Exam(s): XR chest 2V Reason for Exam(s): dyspnea INDICATION: dyspnea PROCEDURE: CHEST 2-VIEWS UPRIGHT (PA & LAT) Encounter: Initial COMPARISON: March 07, 2015 FINDINGS: Emphysema and hyperinflation. New right upper lobe and bilateral lower lobe airspace consolidation. No definite pleural effusion. No pneumothorax. Heart size and mediastinal contours are stable. Pulmonary vascularity is normal. Impression: Bilateral pneumonia. 03/15/17 17:45 Date of Exam: 03/14/17 Type of Exam(s): US echo doppler complete DATE OF PROCEDURE March 14, [address] Lázaro Matias This is a two-dimensional echo with spectral Doppler, color-flow and M-mode. It was obtained in a patient with hypoxia and influenza. Left atrial dimension is at the upper limits of normal. Left ventricular end- diastolic dimension is normal. Left ventricle wall thickness is normal. LV systolic function is hyperdynamic with ejection fraction of about 75%. Right atrium is dilated. Right ventricle is normal. Aortic root dimension is normal. Mitral valve is morphologically normal with trace of mitral regurgitation. Aortic valve is a trileaflet structure with no stenosis or insufficiency. Tricuspid valve shows mild tricuspid regurgitation with moderate pulmonary hypertension with estimated pulmonary artery systolic pressure of 45-50. Pulmonary valve shows no pulmonary insufficiency. There is no pericardial effusion. IMPRESSION 1. Hyperdynamic left ventricle with ejection fraction of about 75%. 2. Trace of mitral regurgitation. 3. Right atrial dilation. 4. Mild tricuspid regurgitation with mild to moderate pulmonary hypertension with estimated pulmonary artery systolic pressure of 45. EKG interpretations - EKG EKG results cardiology: sinus rhythm Assessment and Plan - Assessment and Plan (1) Acute respiratory failure with hypoxia Status: Acute per attending (2) Influenza A Status: Acute per attending (3) Sepsis Status: Acute per attending (4) Elevated troponin Status: Acute No Cardiac history of CAD, CHF or Arrhythmia - Denies chest pain, pressure, or tightness - Troponin trending down - Was hypoxic for unknown period of time before arrival - Obtain Echo to check for structural/ valvular disease. Thank you for allowing us to participate in the care of this patient. - Assessment and Plan Elevated Troponin: No Cardiac history of CAD, CHF or Arrhythmia - Denies chest pain, pressure, or tightness - Troponin trending down - Was hypoxic for unknown period of time before arrival - Obtain Echo to check for structural/ valvular disease. Thank you for allowing us to participate in the care of this patient. Hospital Course Summary Disclaimer: The visit summary below is not to be considered part of the above Progress Note. Hospital Course: 03/13/17 17:54 Impression Sepsis- 1. Leukocytosis-22, 2. tachycardia-116, 3. tachypnea-28, 4. suspected infectious process Acute respiratory failure with hypoxia-77% on room air, present on admission. Influenza A Elevated troponin Thrombocytosis- POA 408 COPD Chronic back pain Depression Plan Admit patient to inpatient status under the care of Dr. Matias for sepsis, influenza A, hypoxia, elevated troponin Given that patient did meet criteria 1st sepsis on admission. Patient was started on IV Rocephin 1 gram. Will obtain serial lactate levels. qSOFA score on admission - 1/3. (Indicating not high risk for in-hospital mortality at time of admission) Initiate normal saline with 20 KCl to run at 75 ML per hour for gentle hydration. Will also give one-time dose of potassium 40 milliequivalents for potassium supplementation. Scheduled DuoNeb breathing treatments 4 times a day and Pulmicort twice a day, given underlying history of COPD and influenza A At this point will hold off on initiating Tamiflu as patient reports symptoms have been present for 1 week. Monitor oxygen saturations, currently requiring 2-3 liters to maintain saturations. In light of elevated troponin, will place consultation with Dr. Art for further cardiac evaluation and recommendations. Continue to watch routine labs to monitor blood counts, renal function and electrolytes. Suspect thrombocytosis may be reactive in nature. Home medications reviewed and continued. SCDs to bilateral lower extremity for DVT prophylaxis Patient does wish to be a do not resuscitate and this orders written Will discuss further orders and plan of care with attending, Dr. Matias 03/14/17 Will continue with scheduled breathing nebulizers. Will add codeine/guaifenesin cough syrup as requested by patient. Cardiology planning to see patient today regarding increase in troponin. Serial lactated levels remain normal. qSOFA score remains 1/3 (low mortality risk) Hypokalemia resolved. Continues on IV fluid NS with K supplementation. Leukocytosis improved, white count down to 11.8. Continue on Rocephin for antimicrobial coverage Continued Thrombocytosis, will continue to follow Place PT/OT orders to evaluate ambulation and strength as he does live independently SCDs for DVT prophylaxis <Nicholas Art - Last Filed: 03/20/17 09:04> [facility] Patient Stated Medical History Other HEENT Yes: wears glasses Chronic Obstructive Pulmonary Yes Disease (COPD) Exam Vital signs: Temperature 97.8 F 03/19/17 07:00 Pulse Rate 86 03/19/17 11:00 Respiratory Rate 18 03/19/17 07:00 Blood Pressure 135/66 03/19/17 07:00 Pulse Oximetry 91 03/19/17 07:00 Results 03/19/17 04:17 03/18/17 04:09 Assessment and Plan - Attestation Attestation Narrative: 03/20/17 09:04 Recommendation After examining the patient I agree with the above assessment. I am involved in the formulation of the patient's plan of care. - Assessment and Plan (1) Acute respiratory failure with hypoxia Status: Acute (2) Influenza A Status: Acute (3) Sepsis Status: Acute (4) Elevated troponin Status: Acute (5) Essential (primary) hypertension Status: Acute Hospital Course Summary Disclaimer: The visit summary below is not to be considered part of the above Progress Note.
[2017-03-14] MEDS: GUAIFENESIN/CODEINE 5ml ORAL LIQUID PO PRN ×2 (13:27→20:35)
[2017-03-14] MEDS: SIMVASTATIN 20 MG TABLET PO SCH (20:34)
[2017-03-14] MEDS: ZOLPIDEM 10 MG TABLET PO SCH (20:34)
[2017-03-14] MEDS: SALINE FLUSH 10ml SYRINGE IVF PRN (20:35)
[2017-03-15] MEDS: GUAIFENESIN/CODEINE 5ml ORAL LIQUID PO PRN ×2 (04:54→12:14)
[2017-03-15] MEDS: OMEPRAZOLE 20 MG CAPSULE PO SCH (06:04)
[2017-03-15] MEDS: LEVOTHYROXINE 50 MCG TABLET PO SCH (06:04)
--- NOTE | 2017-03-15 07:18 | Echocardiogram ---
DATE OF PROCEDURE March 14, [address] Lázaro Matias This is a two-dimensional echo with spectral Doppler, color-flow and M-mode. It was obtained in a patient with hypoxia and influenza. Left atrial dimension is at the upper limits of normal. Left ventricular end- diastolic dimension is normal. Left ventricle wall thickness is normal. LV systolic function is hyperdynamic with ejection fraction of about 75%. Right atrium is dilated. Right ventricle is normal. Aortic root dimension is normal. Mitral valve is morphologically normal with trace of mitral regurgitation. Aortic valve is a trileaflet structure with no stenosis or insufficiency. Tricuspid valve shows mild tricuspid regurgitation with moderate pulmonary hypertension with estimated pulmonary artery systolic pressure of 45. Pulmonary valve shows no pulmonary insufficiency. There is no pericardial effusion. IMPRESSION 1. Hyperdynamic left ventricle with ejection fraction of about 75%. 2. Trace of mitral regurgitation. 3. Right atrial dilation. 4. Mild tricuspid regurgitation with mild to moderate pulmonary hypertension with estimated pulmonary artery systolic pressure of 45. MTDD
[2017-03-15] MEDS: ALBUTEROL/IPRATROPIUM 2.5mg-0.5mg/3ml NEB AEROSOL SCH ×4 (08:10→19:19)
[2017-03-15] MEDS: BUDESONIDE INH.SOLN 0.5mg/2ml NEB AEROSOL SCH ×2 (08:10→19:19)
[2017-03-15] MEDS: CEFTRIAXONE 1 G in NS 100 ML IV SCH (08:56)
[2017-03-15] MEDS: ASPIRIN *EC* 81 MG TABLET PO SCH (08:57)
[2017-03-15] MEDS: SERTRALINE 50 MG TABLET PO SCH (08:57)
[2017-03-15] MEDS: SALINE FLUSH 10ml SYRINGE IVF PRN ×2 (08:57→20:04)
[2017-03-15] MEDS: MIRTAZAPINE 15 MG TABLET PO SCH (08:57)
[2017-03-15] MEDS: MULTI-VITAMIN PLAIN TABLET PO SCH (08:57)
[2017-03-15] MEDS: HYDROCODONE/APAP 10 MG/325 MG TABLET PO SCH ×4 (08:57→20:01)
[2017-03-15] MEDS: OMEGA-3 ACID ESTERS 1 GM CAPSULE PO SCH (08:58)
[2017-03-15] MEDS: GUAIFENESIN LA 600 MG TABLET PO SCH ×2 (12:14→20:02)
[2017-03-15] MEDS ORDERED: HYDROCODONE/APAP 5mg/325mg TABLET PO PRN (15:11)
--- NOTE | 2017-03-15 15:12 | Progress Note ---
- Date 03/15/17 Subjective: Kirby is seen in follow-up. He is resting in bed watching television. He states he is not feeling as well today and is having some anterior rib discomfort from increased coughing. He does feel that the guaifenesin has slightly helped. Continues to require oxygen to maintain adequate saturations at 3 liters. Appetite decreased today. Objective Vital signs: Temperature 97.4 F 03/15/17 08:00 Pulse Rate 99 03/15/17 08:00 Respiratory Rate 22 03/15/17 11:30 Blood Pressure 196/81 H 03/15/17 08:00 Pulse Oximetry 98 03/15/17 11:30 Height/Weight/BMI: Height 1.78 m Weight 76.2 kg Body Mass Index 21.9 - Constitutional Present: no acute distress, well nourished, well developed - Routine HEENT Exam Eye: Present: EOMI ENT: Present: mucous membranes moist, dentition normal - Routine Respiratory Exam Present: wheezes - Routine Cardiovascular Exam Present: RRR, S1, S2. Absent: murmur - Routine Abdominal Exam Present: soft, normoactive bowel sounds, non distended. Absent: tenderness - Routine Extremities Exam Present: normal capillary refill - Routine Back/Spine/Pelvis Exam Back/Spine: Present: full ROM - Routine Musculoskeletal Exam Musculoskeletal: Present: other (Right anterior lower rib pain) - Routine Skin Exam Present: intact, dry, warm - Routine Neurological Exam Present: alert, oriented X3, CN II-XII intact, moving all extremities - Routine Lymphatic Exam Lymphatic: Absent: adenopathy - Routine Psychiatric Exam Present: normal affect, cooperative Results - Labs CBC & Chem 7: 03/15/17 03:48 03/15/17 03:48 Assessment and Plan (1) Acute respiratory failure with hypoxia Current visit: Yes Status: Acute (2) Influenza A Current visit: Yes Status: Acute (3) Sepsis Current visit: Yes Status: Acute Assessment and Plan: Impression Sepsis- 1. Leukocytosis-22, 2. tachycardia-116, 3. tachypnea-28, 4. suspected infectious process Acute respiratory failure with hypoxia-77% on room air, present on admission. Influenza A Elevated troponin Thrombocytosis- POA 408 COPD Chronic back pain Depression Plan Continue with codeine/guaifenesin cough syrup and tab for coughing and expectorant. Not feeling as good today. Will add Baxter for rib pain. Add incentive spirometry Continues to require oxygen to maintain saturations at 3 liters. Leukocytosis continues to improve, blood cultures remain negative. Continued thrombocytosis. Rocephin for antimicrobial coverage. Once feeling better encourage work with PT/OT given weakness - Physician Narrative Physician: Lázaro Matias MD Narrative: Date: 03/15/17 Time: 1735 I have independently interviewed and examined pt. Chart reviewed. Case discussed with FRUIT F[employer]. Care plan developed with my supervision; agree with above. Patient c/o right-side chest pain with coughing. He says he is coughing up some sputum now that he is getting Mucinex. Lungs: decreased with exp wheezes left>right. CV: regular. ABD: s/nt/nd. MSE : awake alert appropriate Plan: Continue Rocephin. Continue Pulmicort and Duonebs. Encourage activity. SCDs for DVT ppx. PT/OT and encourage activity. Hospital Course Summary Disclaimer: The visit summary below is not to be considered part of the above Progress Note. Hospital Course: 03/13/17 17:54 Impression Sepsis- 1. Leukocytosis-22, 2. tachycardia-116, 3. tachypnea-28, 4. suspected infectious process Acute respiratory failure with hypoxia-77% on room air, present on admission. Influenza A Elevated troponin Thrombocytosis- POA 408 COPD Chronic back pain Depression Plan Admit patient to inpatient status under the care of Dr. Matias for sepsis, influenza A, hypoxia, elevated troponin Given that patient did meet criteria 1st sepsis on admission. Patient was started on IV Rocephin 1 gram. Will obtain serial lactate levels. qSOFA score on admission - 1/3. (Indicating not high risk for in-hospital mortality at time of admission) Initiate normal saline with 20 KCl to run at 75 ML per hour for gentle hydration. Will also give one-time dose of potassium 40 milliequivalents for potassium supplementation. Scheduled DuoNeb breathing treatments 4 times a day and Pulmicort twice a day, given underlying history of COPD and influenza A At this point will hold off on initiating Tamiflu as patient reports symptoms have been present for 1 week. Monitor oxygen saturations, currently requiring 2-3 liters to maintain saturations. In light of elevated troponin, will place consultation with Dr. Art for further cardiac evaluation and recommendations. Continue to watch routine labs to monitor blood counts, renal function and electrolytes. Suspect thrombocytosis may be reactive in nature. Home medications reviewed and continued. SCDs to bilateral lower extremity for DVT prophylaxis Patient does wish to be a do not resuscitate and this orders written Will discuss further orders and plan of care with attending, Dr. Matias 03/14/17 Will continue with scheduled breathing nebulizers. Will add codeine/guaifenesin cough syrup as requested by patient. Cardiology planning to see patient today regarding increase in troponin. Serial lactated levels remain normal. qSOFA score remains 1/3 (low mortality risk) Hypokalemia resolved. Continues on IV fluid NS with K supplementation. Leukocytosis improved, white count down to 11.8. Continue on Rocephin for antimicrobial coverage Continued Thrombocytosis, will continue to follow Place PT/OT orders to evaluate ambulation and strength as he does live independently SCDs for DVT prophylaxis 03/15-Plan Continue with codeine/guaifenesin cough syrup and tab for coughing and expectorant. Not feeling as good today. Will add Baxter for rib pain. Add incentive spirometry Continues to require oxygen to maintain saturations at 3 liters. Leukocytosis continues to improve, blood cultures remain negative. Continued thrombocytosis. Rocephin for antimicrobial coverage. Once feeling better encourage work with PT/OT given weakness
[2017-03-15 15:31] VITALS: BMI 24.0
--- NOTE | 2017-03-15 17:49 | Cardiology Progress Note ---
<Mallika Johansen - Last Filed: 03/15/17 17:46> Subjective Principal diagnosis: elevated troponin Interval history: Kirby is seen in follow up for elevated troponin. He is sitting up in the chair and states he has been able to better cough up sputum today. He denies chest pain or pressure. He remains on 2L/NC. Exam Vital signs: Temperature 97.9 F 03/15/17 15:12 Pulse Rate 100 03/15/17 16:45 Respiratory Rate 20 03/15/17 15:28 Blood Pressure 152/67 H 03/15/17 15:12 Pulse Oximetry 92 03/15/17 17:32 - Constitutional no acute distress, well nourished, cooperative - Routine HEENT Exam Head: Present: normocephalic ENT: Present: mucous membranes moist - Routine Neck Exam Absent: JVD, carotid bruit - Routine Chest/Breast/Axilla Exam Chest wall: Absent: tenderness - Routine Respiratory Exam Present: wheezes, diminished air movement. Absent: CTA bilaterally - Routine Cardiovascular Exam Present: RRR, no murmur. Absent: JVD - Routine Abdominal Exam Present: soft, normoactive bowel sounds - Routine Extremities Exam Present: no edema - Routine Skin Exam Present: intact, dry, warm - Routine Neurological Exam Present: alert, oriented X3 - Routine Psychiatric Exam Present: normal affect, normal thought process - Additional findings Additional findings: Hydrocodone Bitart/Acetaminophen ([place] 10/325) 1 tab PO QID [facility] Last Admin: 03/15/17 16:32 Dose: 1 tab Hydrocodone Bitart/Acetaminophen ([place] 5/325) 1 tab PO Q4H PRN PRN Reason: Pain Albuterol/Ipratropium (Duoneb) 3 ml AEROSOL QID [facility] Last Admin: 03/15/17 15:28 Dose: 3 ml Aspirin (Ecotrin) 81 mg PO DAILY [facility] Last Admin: 03/15/17 08:57 Dose: 81 mg Budesonide (Pulmicort Inhalation) 0.5 mg AEROSOL RTBID [facility] Last Admin: 03/15/17 08:10 Dose: 0.5 mg Guaifenesin (Mucinex [place]) 600 mg PO BID [facility] Last Admin: 03/15/17 12:14 Dose: 600 mg Guaifenesin/Codeine Phosphate (Robitussin Ac) 5 ml PO Q6H PRN PRN Reason: Cough /Congestion Last Admin: 03/15/17 12:14 Dose: 5 ml Ceftriaxone Sodium 1 g/ Sodium (Chloride) 100 mls @ 200 mls/hr IV Q24H [facility] Last Infusion: 03/15/17 09:30 Dose: Infused Levothyroxine Sodium (Synthroid) 50 mcg PO ACB [facility] Last Admin: 03/15/17 06:04 Dose: 50 mcg Metoprolol Tartrate (Lopressor) 25 mg PO BIDWM [facility] Mirtazapine (Remeron) 15 mg PO DAILY [facility] Last Admin: 03/15/17 08:57 Dose: 15 mg Multivitamins (Theragran) 1 tab PO DAILY [facility] Last Admin: 03/15/17 08:57 Dose: 1 tab Qwlce-0-Hbde Ethyl Esters (Lovaza) 1 gm PO DAILY [facility] Last Admin: 03/15/17 08:58 Dose: 1 gm Omeprazole (Prilosec) 40 mg PO ACB [facility] Last Admin: 03/15/17 06:04 Dose: 40 mg Sertraline HCl (Zoloft) 50 mg PO DAILY [facility] Last Admin: 03/15/17 08:57 Dose: 50 mg Simvastatin (Zocor) 20 mg PO HS [facility] Last Admin: 03/14/17 20:34 Dose: 20 mg Sodium Chloride (Iv Flush) 10 - 80 ml IVF PRN PRN PRN Reason: Flushing Last Admin: 03/15/17 08:57 Dose: 10 ml Zolpidem Tartrate (Ambien) 10 mg PO HS [facility] Last Admin: 03/14/17 20:34 Dose: 10 mg Results 03/15/17 03:48 03/15/17 03:48 Cardiac Enzymes 03/14/17 03/15/17 Range/Units 21:34 03:48 Troponin I 0.363 H 0.361 H (0-0.12) ng/ml CBC 03/15/17 Range/Units 03:48 WBC 14.2 H (4.5-11.0) T/MM3 RBC 3.35 L (4.50-5.90) M/MM3 Hgb 10.4 L (13.5-17.5) GM/DL Hct 33.1 L (41-53) % Plt Count 420 H (130-400) T/MM3 Neut # (Auto) 11.7 H (1.8-7.7) T/MM3 Lymph # (Auto) 1.3 (1-4.8) T/MM3 [place] # (Auto) 1.0 H (0-0.8) T/MM3 Eos # (Auto) 0.0 (0-0.5) T/MM3 Baso # (Auto) 0.0 (0-0.2) T/MM3 Comprehensive Metabolic Panel 03/15/17 Range/Units 03:48 Sodium 142 (134-144) MEQ/L Potassium 4.3 (3.6-5) MEQ/L Chloride 109 H (98-107) MEQ/L Carbon Dioxide 26 (22-30) MEQ/L BUN 22.0 H (9-20) MG/DL Creatinine 0.9 (0.8-1.5) MG/DL Glucose 91 (75-110) MG/DL Calcium 8.2 L (8.4-10.2) MG/DL Intake and Output 03/15/17 03/15/17 03/15/17 06:59 14:59 22:59 Intake Total 100 / 100 800 / 800 Output Total 875 / 875 400 / 400 Balance 100 / 100 -75 / -75 -400 / -400 Intake: IV 100 / 100 Ceftriaxone 1 g In Ns 100 ml @ 100 / 100 200 mls/hr IV Q24H [facility] Rx#: [id number] Oral 100 / 100 700 / 700 Output: Urine 875 / 875 Urine Amount (Catheter) 400 / 400 Other: Urine Appearance Clear Clear Urine Color Straw Pale Yellow Stool Color Brown Brown Stool Consistency Formed Formed Size of Bowel Movement Large Moderate # Voids 1 # Bowel Movements 1 Weight 167 lb 15.876 oz 167 lb 15.876 oz Patient Weight 03/16/17 06:59 Weight 167 lb 15.876 oz - Imaging and Cardiology Imaging & Cardiology Narrative: Date of Exam: 03/14/17 Type of Exam(s): US echo doppler complete DATE OF PROCEDURE March 14, [address] Lázaro Matias This is a two-dimensional echo with spectral Doppler, color-flow and M-mode. It was obtained in a patient with hypoxia and influenza. Left atrial dimension is at the upper limits of normal. Left ventricular end- diastolic dimension is normal. Left ventricle wall thickness is normal. LV systolic function is hyperdynamic with ejection fraction of about 75%. Right atrium is dilated. Right ventricle is normal. Aortic root dimension is normal. Mitral valve is morphologically normal with trace of mitral regurgitation. Aortic valve is a trileaflet structure with no stenosis or insufficiency. Tricuspid valve shows mild tricuspid regurgitation with moderate pulmonary hypertension with estimated pulmonary artery systolic pressure of 45-50. Pulmonary valve shows no pulmonary insufficiency. There is no pericardial effusion. IMPRESSION 1. Hyperdynamic left ventricle with ejection fraction of about 75%. 2. Trace of mitral regurgitation. 3. Right atrial dilation. 4. Mild tricuspid regurgitation with mild to moderate pulmonary hypertension with estimated pulmonary artery systolic pressure of 45. 03/15/17 17:48 Assessment and Plan - Assessment and Plan (1) Acute respiratory failure with hypoxia Status: Acute (2) Influenza A Status: Acute (3) Sepsis Status: Acute (4) Elevated troponin Status: Acute trending down (5) Essential (primary) hypertension Status: Acute Suboptimal BP today - Start Metoprolol 25mg BID - Assessment and Plan 03/14/16 Elevated Troponin: No Cardiac history of CAD, CHF or Arrhythmia - Denies chest pain, pressure, or tightness - Troponin trending down - Was hypoxic for unknown period of time before arrival - Obtain Echo to check for structural/ valvular disease. Thank you for allowing us to participate in the care of this patient. 03/15/16 Troponin trending down HTN:Suboptimal BP today - Start Metoprolol 25mg BID Hospital Course Summary Disclaimer: The visit summary below is not to be considered part of the above Progress Note. Hospital Course: 03/13/17 17:54 Impression Sepsis- 1. Leukocytosis-22, 2. tachycardia-116, 3. tachypnea-28, 4. suspected infectious process Acute respiratory failure with hypoxia-77% on room air, present on admission. Influenza A Elevated troponin Thrombocytosis- POA 408 COPD Chronic back pain Depression Plan Admit patient to inpatient status under the care of Dr. Matias for sepsis, influenza A, hypoxia, elevated troponin Given that patient did meet criteria 1st sepsis on admission. Patient was started on IV Rocephin 1 gram. Will obtain serial lactate levels. qSOFA score on admission - 03/13. (Indicating not high risk for in-hospital mortality at time of admission) Initiate normal saline with 20 KCl to run at 75 ML per hour for gentle hydration. Will also give one-time dose of potassium 40 milliequivalents for potassium supplementation. Scheduled DuoNeb breathing treatments 4 times a day and Pulmicort twice a day, given underlying history of COPD and influenza A At this point will hold off on initiating Tamiflu as patient reports symptoms have been present for 1 week. Monitor oxygen saturations, currently requiring 2-3 liters to maintain saturations. In light of elevated troponin, will place consultation with Dr. Art for further cardiac evaluation and recommendations. Continue to watch routine labs to monitor blood counts, renal function and electrolytes. Suspect thrombocytosis may be reactive in nature. Home medications reviewed and continued. SCDs to bilateral lower extremity for DVT prophylaxis Patient does wish to be a do not resuscitate and this orders written Will discuss further orders and plan of care with attending, Dr. Matias 03/14/17 Will continue with scheduled breathing nebulizers. Will add codeine/guaifenesin cough syrup as requested by patient. Cardiology planning to see patient today regarding increase in troponin. Serial lactated levels remain normal. qSOFA score remains 1/3 (low mortality risk) Hypokalemia resolved. Continues on IV fluid NS with K supplementation. Leukocytosis improved, white count down to 11.8. Continue on Rocephin for antimicrobial coverage Continued Thrombocytosis, will continue to follow Place PT/OT orders to evaluate ambulation and strength as he does live independently SCDs for DVT prophylaxis <Nicholas Art - Last Filed: 03/20/17 09:29> Exam Vital signs: Temperature 97.8 F 03/19/17 07:00 Pulse Rate 86 03/19/17 11:00 Respiratory Rate 18 03/19/17 07:00 Blood Pressure 135/66 03/19/17 07:00 Pulse Oximetry 91 03/19/17 07:00 Results 03/19/17 04:17 03/18/17 04:09 Assessment and Plan - Assessment and Plan (1) Acute respiratory failure with hypoxia Status: Acute (2) Influenza A Status: Acute (3) Sepsis Status: Acute (4) Elevated troponin Status: Acute (5) Essential (primary) hypertension Status: Acute - Attestation Attestation Narrative: 03/20/17 09:29 Recommendation After examining the patient I agree with the above assessment. I am involved in the formulation of the patient's plan of care. Hospital Course Summary Disclaimer: The visit summary below is not to be considered part of the above Progress Note.
[2017-03-15] MEDS: SIMVASTATIN 20 MG TABLET PO SCH (20:01)
[2017-03-15] MEDS: ZOLPIDEM 10 MG TABLET PO SCH (20:01)
[2017-03-16] MEDS: OMEPRAZOLE 20 MG CAPSULE PO SCH (05:43)
[2017-03-16] MEDS: LEVOTHYROXINE 50 MCG TABLET PO SCH (05:43)
[2017-03-16] MEDS: GUAIFENESIN/CODEINE 5ml ORAL LIQUID PO PRN ×2 (05:47→20:31)
[2017-03-16] MEDS: ALBUTEROL/IPRATROPIUM 2.5mg-0.5mg/3ml NEB AEROSOL SCH ×4 (06:50→19:25)
[2017-03-16] MEDS: BUDESONIDE INH.SOLN 0.5mg/2ml NEB AEROSOL SCH ×2 (06:50→19:25)
[2017-03-16] MEDS: SERTRALINE 50 MG TABLET PO SCH (09:00)
[2017-03-16] MEDS: MIRTAZAPINE 15 MG TABLET PO SCH (09:00)
[2017-03-16] MEDS: OMEGA-3 ACID ESTERS 1 GM CAPSULE PO SCH (09:00)
[2017-03-16] MEDS: MULTI-VITAMIN PLAIN TABLET PO SCH (09:00)
[2017-03-16] MEDS: CEFTRIAXONE 1 G in NS 100 ML IV SCH (09:01)
[2017-03-16] MEDS: ASPIRIN *EC* 81 MG TABLET PO SCH (09:01)
[2017-03-16] MEDS: GUAIFENESIN LA 600 MG TABLET PO SCH ×2 (09:01→20:31)
[2017-03-16] MEDS: HYDROCODONE/APAP 10 MG/325 MG TABLET PO SCH ×4 (09:01→20:31)
[2017-03-16] MEDS ORDERED: ACETAMINOPHEN 325 MG TABLET PO PRN (09:29)
--- NOTE | 2017-03-16 09:37 | Progress Note ---
- Date 03/16/17 Subjective: *Heart is seen this morning while up in the chair eating breakfast. Overall, he appears to be feeling better than yesterday as he is more talkative in good spirits. He does complain of a mild headache over. He did just take a pain pill prior to exam. Reports some continued right anterior rib discomfort with deep coughing. At time of exam he is on 2 liters of oxygen and noted to have mild expiratory wheezing. Denies chest pain, abdominal pain. Appetite is improving. Objective Vital signs: Temperature 97.6 F 03/16/17 07:40 Pulse Rate 93 03/16/17 07:40 Respiratory Rate 26 H 03/16/17 07:40 Blood Pressure 140/66 H 03/16/17 07:40 Pulse Oximetry 94 03/16/17 07:40 Height/Weight/BMI: Height 1.78 m Weight 71 kg Body Mass Index 24.0 - Constitutional Present: no acute distress, well nourished, well developed - Routine HEENT Exam Eye: Present: EOMI ENT: Present: mucous membranes moist, dentition normal - Routine Respiratory Exam Present: wheezes (expiratory) - Routine Cardiovascular Exam Present: RRR, S1, S2. Absent: murmur - Routine Abdominal Exam Present: soft, normoactive bowel sounds, non distended. Absent: tenderness - Routine Extremities Exam Present: normal capillary refill - Routine Skin Exam Present: intact, dry, warm - Routine Neurological Exam Present: alert, oriented X3, CN II-XII intact, moving all extremities - Routine Lymphatic Exam Lymphatic: Absent: adenopathy - Routine Psychiatric Exam Present: normal affect, cooperative Results - Labs CBC & Chem 7: 03/16/17 04:57 03/16/17 04:57 Assessment and Plan (1) Acute respiratory failure with hypoxia Current visit: Yes Status: Acute (2) Influenza A Current visit: Yes Status: Acute (3) Sepsis Current visit: Yes Status: Acute Assessment and Plan: Impression Sepsis- 1. Leukocytosis-22, 2. tachycardia-116, 3. tachypnea-28, 4. suspected infectious process Acute respiratory failure with hypoxia-77% on room air, present on admission. Influenza A Elevated troponin Thrombocytosis- POA 408 COPD Chronic back pain Depression Plan Overall appears better today, in better spirits Continue to work on weaning down oxygen, currently on 2 liters. Encouraged utilizing codeine/guaifenesin some cough syrup [place] as needed for pain Rocephin for antimicrobial coverage. Continued Leukocytosis. BC negative Wound like pt to get up and ambulate QID to get stronger - Physician Narrative Physician: Lázaro Matias MD Narrative: Date: 03/16/17 Time: 163 I have independently interviewed and examined pt. Chart reviewed. Case discussed with CELL PHONE REPAIR TECHNICIAN. Care plan developed with my supervision; agree with above. Patient says his cough is more productive but better. He says he is not having as much pain when he coughs. Lungs: decreased with exp wheezes left>right. CV: regular. ABD: s/nt/nd. MSE : awake alert appropriate Plan: Continue Rocephin,Pulmicort, and Duonebs. Patient doing better on Mucinex PT/OT and encourage activity. SCDs for DVT ppx. Hospital Course Summary Disclaimer: The visit summary below is not to be considered part of the above Progress Note. Hospital Course: 03/13/17 17:54 Impression Sepsis- 1. Leukocytosis-22, 2. tachycardia-116, 3. tachypnea-28, 4. suspected infectious process Acute respiratory failure with hypoxia-77% on room air, present on admission. Influenza A Elevated troponin Thrombocytosis- POA 408 COPD Chronic back pain Depression Plan Admit patient to inpatient status under the care of Dr. Matias for sepsis, influenza A, hypoxia, elevated troponin Given that patient did meet criteria 1st sepsis on admission. Patient was started on IV Rocephin 1 gram. Will obtain serial lactate levels. qSOFA score on admission - 1/3. (Indicating not high risk for in-hospital mortality at time of admission) Initiate normal saline with 20 KCl to run at 75 ML per hour for gentle hydration. Will also give one-time dose of potassium 40 milliequivalents for potassium supplementation. Scheduled DuoNeb breathing treatments 4 times a day and Pulmicort twice a day, given underlying history of COPD and influenza A At this point will hold off on initiating Tamiflu as patient reports symptoms have been present for 1 week. Monitor oxygen saturations, currently requiring 2-3 liters to maintain saturations. In light of elevated troponin, will place consultation with Dr. Art for further cardiac evaluation and recommendations. Continue to watch routine labs to monitor blood counts, renal function and electrolytes. Suspect thrombocytosis may be reactive in nature. Home medications reviewed and continued. SCDs to bilateral lower extremity for DVT prophylaxis Patient does wish to be a do not resuscitate and this orders written Will discuss further orders and plan of care with attending, Dr. Matias 03/14/17 Will continue with scheduled breathing nebulizers. Will add codeine/guaifenesin cough syrup as requested by patient. Cardiology planning to see patient today regarding increase in troponin. Serial lactated levels remain normal. qSOFA score remains 1/3 (low mortality risk) Hypokalemia resolved. Continues on IV fluid NS with K supplementation. Leukocytosis improved, white count down to 11.8. Continue on Rocephin for antimicrobial coverage Continued Thrombocytosis, will continue to follow Place PT/OT orders to evaluate ambulation and strength as he does live independently SCDs for DVT prophylaxis 03/15/17 Overall appears better today, in better spirits Continue to work on weaning down oxygen, currently on 2 liters. Encouraged utilizing codeine/guaifenesin some cough syrup [place] as needed for pain Rocephin for antimicrobial coverage. Continued Leukocytosis. BC negative Wound like pt to get up and ambulate QID to get stronger
[2017-03-16] MEDS: SIMVASTATIN 20 MG TABLET PO SCH (20:31)
[2017-03-16] MEDS: ZOLPIDEM 10 MG TABLET PO SCH (20:31)
[2017-03-17] MEDS: OMEPRAZOLE 20 MG CAPSULE PO SCH (05:45)
[2017-03-17] MEDS: LEVOTHYROXINE 50 MCG TABLET PO SCH (05:45)
[2017-03-17] MEDS: GUAIFENESIN/CODEINE 5ml ORAL LIQUID PO PRN (07:29)
[2017-03-17] MEDS: ALBUTEROL/IPRATROPIUM 2.5mg-0.5mg/3ml NEB AEROSOL SCH ×4 (08:15→21:40)
[2017-03-17] MEDS: BUDESONIDE INH.SOLN 0.5mg/2ml NEB AEROSOL SCH ×2 (08:15→21:40)
[2017-03-17] MEDS: ASPIRIN *EC* 81 MG TABLET PO SCH (08:33)
[2017-03-17] MEDS: SERTRALINE 50 MG TABLET PO SCH (08:33)
[2017-03-17] MEDS: HYDROCODONE/APAP 10 MG/325 MG TABLET PO SCH ×4 (08:33→21:05)
[2017-03-17] MEDS: CEFTRIAXONE 1 G in NS 100 ML IV SCH (08:33)
[2017-03-17] MEDS: MULTI-VITAMIN PLAIN TABLET PO SCH (08:34)
[2017-03-17] MEDS: MIRTAZAPINE 15 MG TABLET PO SCH (08:34)
[2017-03-17] MEDS: GUAIFENESIN LA 600 MG TABLET PO SCH ×2 (08:34→21:04)
[2017-03-17] MEDS: OMEGA-3 ACID ESTERS 1 GM CAPSULE PO SCH (08:34)
--- NOTE | 2017-03-17 11:21 | Progress Note ---
- Date 03/17/17 Subjective: Kirby is seen today in follow up. Feeling "a little better", but still with SOA and fairly nonproductive cough. He continues to require O2- does not routinely wear oxygen at home. Does endorse the use of a nebulizer at home, however. He is not reporting any chest pain. Eating and drinking fairly well. Chart is reviewed for collateral information. Objective Vital signs: Temperature 97.9 F 03/17/17 07:00 Pulse Rate 88 03/17/17 07:00 Respiratory Rate 22 03/17/17 08:15 Blood Pressure 148/72 H 03/17/17 07:00 Pulse Oximetry 96 03/17/17 08:15 Height/Weight/BMI: Height 1.78 m Weight 70.2 kg Body Mass Index 24.0 - Constitutional Present: mild distress, well nourished, well developed, cooperative Comments: Smells of tobacco smoke. - Routine HEENT Exam Head: Present: normocephalic, atraumatic Eye: Present: EOMI, PERRL - Routine Respiratory Exam Present: dyspnea, decreased breath sounds, wheezes, distant breath sounds (Very diminished air movement. exp wheezes. Coarse, nonproductive cough. Mildly SOA at rest with minor activity. ) - Routine Cardiovascular Exam Present: RRR, S1, S2, no murmur - Routine Abdominal Exam Present: soft, normoactive bowel sounds, non distended, non tender - Routine Extremities Exam Present: no edema, non tender - Routine Back/Spine/Pelvis Exam Back/Spine: Present: full ROM - Routine Musculoskeletal Exam Musculoskeletal: Present: no clubbing or cyanosis, moving extremities well - Routine Skin Exam Present: intact, dry, warm - Routine Neurological Exam Present: alert, oriented X3, moving all extremities - Routine Psychiatric Exam Present: normal affect, normal thought process, cooperative Results - Labs CBC & Chem 7: 03/17/17 04:27 03/17/17 04:27 Assessment and Plan (1) Acute respiratory failure with hypoxia Current visit: Yes Status: Acute (2) Influenza A Current visit: Yes Status: Acute (3) Sepsis Current visit: Yes Status: Acute Assessment and Plan: Impression Sepsis- 1. Leukocytosis-22, 2. tachycardia-116, 3. tachypnea-28, 4. suspected infectious process Acute respiratory failure with hypoxia-77% on room air, present on admission. Influenza A Bilateral CAP, likely post-viral Elevated troponin Thrombocytosis- POA 408 (acute reactive) COPD with acute exacerbation. Chronic back pain Depression HTN Plan 03/17/17 Slow improvement, but continues to have diminished airflow and wheezing/cough. Will add PO prednisone BID to help with wheezing. Add Acapella to mobilize secretions. Attempt sputum cx if possible. Check strep pneumonia, but PNA is likely post viral. Repeat PA & LAT CXR tomorrow. Continue Duoneb, pulmicort. Add PRN albuterol given ongoing wheezing. Continue Ceftriaxone. Add Doxycycline to broaden coverage given COPD. May need O2 on dismissal. Leukocytosis is persisting, but is improved over admit. No acute fever observed per chart. No c/o CP. Continue remainder of home meds. Start LMWH in addition to SCDs for px. Echo reviewed- cardiology following. Appreciate assistance. DVT Prophylaxis: SCD's GI Prophylaxis: other (omeprazole) Resuscitation Status: Do Not Resuscitate - Physician Narrative Physician: Lázaro Matias MD Narrative: Date: 03/17/17 Time: 1650 I have independently interviewed and examined pt. Chart reviewed. Case discussed with COPY DIRECTOR. Care plan developed with my supervision; agree with above. Patient says he feels better. He is still needing O2. Says he is moving around in his room and plans to go on a 2nd walk later today. Lungs: decreased with exp wheezes. CV: regular. ABD: s/nt/nd. MSE: awake alert appropriate Plan: Continue Rocephin,Pulmicort, and Duonebs. Doxycycline and prednisone added. PT/OT and encourage activity. Lovenox/SCDs for DVT ppx. Will f/u outpatient with Dr. Art. Hospital Course Summary Disclaimer: The visit summary below is not to be considered part of the above Progress Note. Hospital Course: 03/13/17 17:54 Impression Sepsis- 1. Leukocytosis-22, 2. tachycardia-116, 3. tachypnea-28, 4. suspected infectious process Acute respiratory failure with hypoxia-77% on room air, present on admission. Influenza A Elevated troponin Thrombocytosis- POA 408 COPD Chronic back pain Depression Plan Admit patient to inpatient status under the care of Dr. Matias for sepsis, influenza A, hypoxia, elevated troponin Given that patient did meet criteria 1st sepsis on admission. Patient was started on IV Rocephin 1 gram. Will obtain serial lactate levels. qSOFA score on admission - 1/3. (Indicating not high risk for in-hospital mortality at time of admission) Initiate normal saline with 20 KCl to run at 75 ML per hour for gentle hydration. Will also give one-time dose of potassium 40 milliequivalents for potassium supplementation. Scheduled DuoNeb breathing treatments 4 times a day and Pulmicort twice a day, given underlying history of COPD and influenza A At this point will hold off on initiating Tamiflu as patient reports symptoms have been present for 1 week. Monitor oxygen saturations, currently requiring 2-3 liters to maintain saturations. In light of elevated troponin, will place consultation with Dr. Art for further cardiac evaluation and recommendations. Continue to watch routine labs to monitor blood counts, renal function and electrolytes. Suspect thrombocytosis may be reactive in nature. Home medications reviewed and continued. SCDs to bilateral lower extremity for DVT prophylaxis Patient does wish to be a do not resuscitate and this orders written Will discuss further orders and plan of care with attending, Dr. Matias 03/14/17 Will continue with scheduled breathing nebulizers. Will add codeine/guaifenesin cough syrup as requested by patient. Cardiology planning to see patient today regarding increase in troponin. Serial lactated levels remain normal. qSOFA score remains 1/3 (low mortality risk) Hypokalemia resolved. Continues on IV fluid NS with K supplementation. Leukocytosis improved, white count down to 11.8. Continue on Rocephin for antimicrobial coverage Continued Thrombocytosis, will continue to follow Place PT/OT orders to evaluate ambulation and strength as he does live independently SCDs for DVT prophylaxis 03/15/17 Overall appears better today, in better spirits Continue to work on weaning down oxygen, currently on 2 liters. Encouraged utilizing codeine/guaifenesin some cough syrup [place] as needed for pain Rocephin for antimicrobial coverage. Continued Leukocytosis. BC negative Wound like pt to get up and ambulate QID to get stronger Plan 03/17/17 Slow improvement, but continues to have diminished airflow and wheezing/cough. Will add PO prednisone BID to help with wheezing. Add Acapella to mobilize secretions. Attempt sputum cx if possible. Check strep pneumonia, but PNA is likely post viral. Repeat PA & LAT CXR tomorrow. Continue Duoneb, pulmicort. Add PRN albuterol given ongoing wheezing. Continue Ceftriaxone. Add Doxycycline to broaden coverage given COPD. May need O2 on dismissal. Leukocytosis is persisting, but is improved over admit. No acute fever observed per chart. No c/o CP. Continue remainder of home meds. Start LMWH in addition to SCDs for px. Echo reviewed- cardiology following. Appreciate assistance.
[2017-03-17] MEDS ORDERED: ALBUTEROL 2.5mg/3ml (0.083%) NEB IPPB PRN (11:34)
[2017-03-17] MEDS: PredniSONE 20 MG TABLET PO SCH ×2 (12:31→16:35)
--- NOTE | 2017-03-17 14:30 | Cardiology Progress Note ---
<Esther Chris - Last Filed: 03/17/17 15:14> Subjective Principal diagnosis: elevated troponin Interval history: Kirby is seen in follow up for elevated troponin. He is sitting up in the chair and states he has been able to better cough up sputum today. He denies chest pain or pressure. He remains on 2L/NC. He reports feeling significantly improved after two doses of steroids PO. We discussed at length his CAD risk factors and f/u with Dr. Art as an OP for further work up; after he recovers from his acute illness. Exam Vital signs: Temperature 97.9 F 03/17/17 07:00 Pulse Rate 88 03/17/17 07:00 Respiratory Rate 20 03/17/17 12:01 Blood Pressure 148/72 H 03/17/17 07:00 Pulse Oximetry 96 03/17/17 08:15 - Constitutional no acute distress, cooperative - Routine HEENT Exam Head: Present: normocephalic, atraumatic Eye: Present: PERRL, conjunctivae pink ENT: Present: mucous membranes moist - Routine Neck Exam Present: supple. Absent: JVD, carotid bruit - Routine Respiratory Exam Present: CTA bilaterally - Routine Cardiovascular Exam Present: RRR, no murmur - Routine Extremities Exam Present: no edema. Absent: cyanosis - Routine Skin Exam Present: intact - Routine Neurological Exam Present: alert, oriented X3 - Routine Psychiatric Exam Present: normal affect, normal thought process Results 03/17/17 04:27 03/17/17 04:27 CBC 03/17/17 Range/Units 04:27 WBC 14.0 H (4.5-11.0) T/MM3 RBC 3.57 L (4.50-5.90) M/MM3 Hgb 11.3 L (13.5-17.5) GM/DL Hct 34.9 L (41-53) % Plt Count 460 H (130-400) T/MM3 Neut # (Auto) 11.0 H (1.8-7.7) T/MM3 Lymph # (Auto) 1.5 (1-4.8) T/MM3 [place] # (Auto) 1.1 H (0-0.8) T/MM3 Eos # (Auto) 0.1 (0-0.5) T/MM3 Baso # (Auto) 0.0 (0-0.2) T/MM3 Comprehensive Metabolic Panel 03/17/17 Range/Units 04:27 Sodium 138 (134-144) MEQ/L Potassium 4.2 (3.6-5) MEQ/L Chloride 103 (98-107) MEQ/L Carbon Dioxide 28 (22-30) MEQ/L BUN 13.0 (9-20) MG/DL Creatinine 0.8 (0.8-1.5) MG/DL Glucose 108 (75-110) MG/DL Calcium 8.6 (8.4-10.2) MG/DL Intake and Output 03/16/17 03/17/17 03/17/17 22:59 06:59 14:59 Intake Total 150 / 150 120 / 120 100 / 100 Output Total 400 / 400 400 / 400 Balance 150 / 150 -280 / -280 -300 / -300 Intake: IV 100 / 100 Ceftriaxone 1 g In Ns 100 ml @ 100 / 100 200 mls/hr IV Q24H [facility] Rx#: [id number] Oral 150 / 150 120 / 120 Output: Urine 400 / 400 400 / 400 Other: Urine Appearance Clear Urine Color Dark Milena Urine Odor Strong Weight 70.2 kg Patient Weight 03/18/17 06:59 Weight 70.2 kg Assessment and Plan - Assessment and Plan (1) Acute respiratory failure with hypoxia Status: Acute (2) Influenza A Status: Acute (3) Sepsis Status: Acute (4) Elevated troponin Status: Acute (5) Essential (primary) hypertension Status: Acute - Assessment and Plan 03/14/17 Elevated Troponin: No Cardiac history of CAD, CHF or Arrhythmia - Denies chest pain, pressure, or tightness - Troponin trending down - Was hypoxic for unknown period of time before arrival - Obtain Echo to check for structural/ valvular disease. Thank you for allowing us to participate in the care of this patient. 03/15/17 Troponin trending down HTN:Suboptimal BP today - Start Metoprolol 25mg BID 03/17/17 Blood pressure control improved on Metoprolol Given personal hx of htn, hld and now NSTEMI, Pt would benefit from an OP CAD work up after he stabilizes from his acute illness Treat medically with ASA and statin, added in BB this hospitalization, metoprolol 25mg bid Hospital Course Summary Disclaimer: The visit summary below is not to be considered part of the above Progress Note. Hospital Course: 03/13/17 17:54 Impression Sepsis- 1. Leukocytosis-22, 2. tachycardia-116, 3. tachypnea-28, 4. suspected infectious process Acute respiratory failure with hypoxia-77% on room air, present on admission. Influenza A Elevated troponin Thrombocytosis- POA 408 COPD Chronic back pain Depression Plan Admit patient to inpatient status under the care of Dr. Matias for sepsis, influenza A, hypoxia, elevated troponin Given that patient did meet criteria 1st sepsis on admission. Patient was started on IV Rocephin 1 gram. Will obtain serial lactate levels. qSOFA score on admission - 1/3. (Indicating not high risk for in-hospital mortality at time of admission) Initiate normal saline with 20 KCl to run at 75 ML per hour for gentle hydration. Will also give one-time dose of potassium 40 milliequivalents for potassium supplementation. Scheduled DuoNeb breathing treatments 4 times a day and Pulmicort twice a day, given underlying history of COPD and influenza A At this point will hold off on initiating Tamiflu as patient reports symptoms have been present for 1 week. Monitor oxygen saturations, currently requiring 2-3 liters to maintain saturations. In light of elevated troponin, will place consultation with Dr. Art for further cardiac evaluation and recommendations. Continue to watch routine labs to monitor blood counts, renal function and electrolytes. Suspect thrombocytosis may be reactive in nature. Home medications reviewed and continued. SCDs to bilateral lower extremity for DVT prophylaxis Patient does wish to be a do not resuscitate and this orders written Will discuss further orders and plan of care with attending, Dr. Matias 03/14/17 Will continue with scheduled breathing nebulizers. Will add codeine/guaifenesin cough syrup as requested by patient. Cardiology planning to see patient today regarding increase in troponin. Serial lactated levels remain normal. qSOFA score remains 1/3 (low mortality risk) Hypokalemia resolved. Continues on IV fluid NS with K supplementation. Leukocytosis improved, white count down to 11.8. Continue on Rocephin for antimicrobial coverage Continued Thrombocytosis, will continue to follow Place PT/OT orders to evaluate ambulation and strength as he does live independently SCDs for DVT prophylaxis 03/15/17 Overall appears better today, in better spirits Continue to work on weaning down oxygen, currently on 2 liters. Encouraged utilizing codeine/guaifenesin some cough syrup [place] as needed for pain Rocephin for antimicrobial coverage. Continued Leukocytosis. BC negative Wound like pt to get up and ambulate QID to get stronger Plan 03/17/17 Slow improvement, but continues to have diminished airflow and wheezing/cough. Will add PO prednisone BID to help with wheezing. Add Acapella to mobilize secretions. Attempt sputum cx if possible. Check strep pneumonia, but PNA is likely post viral. Repeat PA & LAT CXR tomorrow. Continue Duoneb, pulmicort. Add PRN albuterol given ongoing wheezing. Continue Ceftriaxone. Add Doxycycline to broaden coverage given COPD. May need O2 on dismissal. Leukocytosis is persisting, but is improved over admit. No acute fever observed per chart. No c/o CP. Continue remainder of home meds. Start LMWH in addition to SCDs for px. Echo reviewed- cardiology following. Appreciate assistance. <Nicholas Art - Last Filed: 03/20/17 09:11> Exam Vital signs: Temperature 97.8 F 03/19/17 07:00 Pulse Rate 86 03/19/17 11:00 Respiratory Rate 18 03/19/17 07:00 Blood Pressure 135/66 03/19/17 07:00 Pulse Oximetry 91 03/19/17 07:00 Results 03/19/17 04:17 03/18/17 04:09 Assessment and Plan - Assessment and Plan (1) Acute respiratory failure with hypoxia Status: Acute (2) Influenza A Status: Acute (3) Sepsis Status: Acute (4) Elevated troponin Status: Acute (5) Essential (primary) hypertension Status: Acute Hospital Course Summary Disclaimer: The visit summary below is not to be considered part of the above Progress Note.
[2017-03-17] MEDS: SIMVASTATIN 20 MG TABLET PO SCH (21:04)
[2017-03-17] MEDS: ZOLPIDEM 10 MG TABLET PO SCH (21:05)
[2017-03-17] MEDS: SALINE FLUSH 10ml SYRINGE IVF PRN (21:05)
[2017-03-18] MEDS: LEVOTHYROXINE 50 MCG TABLET PO SCH (05:56)
[2017-03-18] MEDS: OMEPRAZOLE 20 MG CAPSULE PO SCH (05:57)
[2017-03-18] MEDS: SALINE FLUSH 10ml SYRINGE IVF PRN ×2 (05:57→08:28)
[2017-03-18] MEDS: BUDESONIDE INH.SOLN 0.5mg/2ml NEB AEROSOL SCH ×2 (07:28→19:50)
[2017-03-18] MEDS: ALBUTEROL/IPRATROPIUM 2.5mg-0.5mg/3ml NEB AEROSOL SCH ×4 (07:28→19:50)
[2017-03-18] MEDS: MULTI-VITAMIN PLAIN TABLET PO SCH (08:29)
[2017-03-18] MEDS: GUAIFENESIN LA 600 MG TABLET PO SCH ×2 (08:29→20:36)
[2017-03-18] MEDS: MIRTAZAPINE 15 MG TABLET PO SCH (08:30)
[2017-03-18] MEDS: ASPIRIN *EC* 81 MG TABLET PO SCH (08:30)
[2017-03-18] MEDS: PredniSONE 20 MG TABLET PO SCH (08:30)
[2017-03-18] MEDS: HYDROCODONE/APAP 10 MG/325 MG TABLET PO SCH ×4 (08:30→20:36)
[2017-03-18] MEDS: CEFTRIAXONE 1 G in NS 100 ML IV SCH (08:31)
[2017-03-18] MEDS: OMEGA-3 ACID ESTERS 1 GM CAPSULE PO SCH (08:32)
--- NOTE | 2017-03-18 09:08 | XRay Report ---
Indication: COPD XR chest 2V: Comparison: 03/13/2017 Technique: PA and lateral chest Findings: Patient continues to show significant chronic lung changes bilaterally with slight improvement currently in the right lower chest. Mildly less prominent interstitial prominence is seen. Heart, central vascular mediastinum are unremarkable. No acute new bony findings are appreciated. Impression: Patient showed slight improvement in chronic appearing lung changes bilaterally which is slightly less overall interstitial prominence in the right lower chest. .
[2017-03-18] MEDS: SERTRALINE 50 MG TABLET PO SCH (09:37)
[2017-03-18] MEDS: ENOXAPARIN 40 MG/0.4 ML INJECTION SQ SCH (09:38)
--- NOTE | 2017-03-18 11:57 | Progress Note ---
- Date 03/18/17 Subjective: Kirby is seen today in follow up today. He is dressed and up in the chair stating he is feeling much better. He is still on 2 liters by nasal canula. He reports that he was up and ambulate to the bathroom on room air and did not feel short of breath. Denies any pain. Appetite has improved greatly. Objective Vital signs: Temperature 97 F 03/18/17 07:35 Pulse Rate 91 03/18/17 11:10 Respiratory Rate 16 03/18/17 11:27 Blood Pressure 145/71 H 03/18/17 07:35 Pulse Oximetry 92 03/18/17 07:35 Height/Weight/BMI: Height 1.78 m Weight 71 kg Body Mass Index 24.0 - Constitutional Present: no acute distress, well nourished, well developed - Routine HEENT Exam Eye: Present: EOMI ENT: Present: mucous membranes moist, dentition normal - Routine Respiratory Exam Present: CTA bilaterally. Absent: wheezes - Routine Cardiovascular Exam Present: RRR, S1, S2. Absent: murmur - Routine Abdominal Exam Present: soft, normoactive bowel sounds, non distended. Absent: tenderness - Routine Extremities Exam Present: full ROM, normal capillary refill - Routine Back/Spine/Pelvis Exam Back/Spine: Present: full ROM - Routine Skin Exam Present: dry, warm - Routine Neurological Exam Present: alert, oriented X3, CN II-XII intact - Routine Lymphatic Exam Lymphatic: Absent: adenopathy - Routine Psychiatric Exam Present: normal affect Results - Labs CBC & Chem 7: 03/18/17 04:09 03/18/17 04:09 Microbiology Results: Microbiology 03/17/17 12:41 Sputum, Expectorated Gram Stain - Final 03/17/17 12:41 Sputum, Expectorated Sputum Culture - Preliminary Early growth Assessment and Plan (1) Acute respiratory failure with hypoxia Current visit: Yes Status: Acute (2) Influenza A Current visit: Yes Status: Acute (3) Sepsis Current visit: Yes Status: Acute Assessment and Plan: Impression Sepsis- 1. Leukocytosis-22, 2. tachycardia-116, 3. tachypnea-28, 4. suspected infectious process Acute respiratory failure with hypoxia-77% on room air, present on admission. Influenza A Bilateral CAP, likely post-viral Elevated troponin Thrombocytosis- POA 408 (acute reactive) COPD with acute exacerbation. Chronic back pain Depression HTN Plan-03/18/17 Yesterday added prednisone BID to help with wheezing. Asked RT to do ambulatory sat Chest Xray shows little change today Ceftriaxone and Doxycycline to broaden coverage given COPD. Continued Leukocytosis likely related to Steroid use Overall improving and getting close to Dc May require oxygen at time of discharge Resuscitation Status: Do Not Resuscitate - Time spent with patient Time with patient PN: 25 minutes - Physician Narrative Physician: Warren Brunner MD Narrative: Date: 03/18/17 Time: 1153 Have independently interviewed and examined pt. Chart reviewed. Case discussed with CM and my OFFICE SECRETARY. Care plan developed with my supervision; agree with above. Doing okay. Breathing well at rest-not needing O2 at rest or feeling SOA. Does wind readily with activities. Producing sputum. Chest not sore except with deep breathing/harsh cough. Eating well. No mouth pain. Denies ab pain or nausea. Bowels moving. Strength improving slowly. Lungs: decreased, no distress. CV: regular MSE: awake alert appropriate Plan: Will continue with antibiotics. Decrease steroids to 40mg daily. Continue breathing treatments. Encourage activities. Recheck CBC in am. Possible discharge home in near future. Hospital Course Summary Disclaimer: The visit summary below is not to be considered part of the above Progress Note. Hospital Course: 03/13/17 17:54 Impression Sepsis- 1. Leukocytosis-22, 2. tachycardia-116, 3. tachypnea-28, 4. suspected infectious process Acute respiratory failure with hypoxia-77% on room air, present on admission. Influenza A Elevated troponin Thrombocytosis- POA 408 COPD Chronic back pain Depression Plan Admit patient to inpatient status under the care of Dr. Matias for sepsis, influenza A, hypoxia, elevated troponin Given that patient did meet criteria 1st sepsis on admission. Patient was started on IV Rocephin 1 gram. Will obtain serial lactate levels. qSOFA score on admission - /3. (Indicating not high risk for in-hospital mortality at time of admission) Initiate normal saline with 20 KCl to run at 75 ML per hour for gentle hydration. Will also give one-time dose of potassium 40 milliequivalents for potassium supplementation. Scheduled DuoNeb breathing treatments 4 times a day and Pulmicort twice a day, given underlying history of COPD and influenza A At this point will hold off on initiating Tamiflu as patient reports symptoms have been present for 1 week. Monitor oxygen saturations, currently requiring 2-3 liters to maintain saturations. In light of elevated troponin, will place consultation with Dr. Art for further cardiac evaluation and recommendations. Continue to watch routine labs to monitor blood counts, renal function and electrolytes. Suspect thrombocytosis may be reactive in nature. Home medications reviewed and continued. SCDs to bilateral lower extremity for DVT prophylaxis Patient does wish to be a do not resuscitate and this orders written Will discuss further orders and plan of care with attending, Dr. Matias 03/14/17 Will continue with scheduled breathing nebulizers. Will add codeine/guaifenesin cough syrup as requested by patient. Cardiology planning to see patient today regarding increase in troponin. Serial lactated levels remain normal. qSOFA score remains 1/3 (low mortality risk) Hypokalemia resolved. Continues on IV fluid NS with K supplementation. Leukocytosis improved, white count down to 11.8. Continue on Rocephin for antimicrobial coverage Continued Thrombocytosis, will continue to follow Place PT/OT orders to evaluate ambulation and strength as he does live independently SCDs for DVT prophylaxis 03/15/17 Overall appears better today, in better spirits Continue to work on weaning down oxygen, currently on 2 liters. Encouraged utilizing codeine/guaifenesin some cough syrup [place] as needed for pain Rocephin for antimicrobial coverage. Continued Leukocytosis. BC negative Wound like pt to get up and ambulate QID to get stronger Plan 03/17/17 Slow improvement, but continues to have diminished airflow and wheezing/cough. Will add PO prednisone BID to help with wheezing. Add Acapella to mobilize secretions. Attempt sputum cx if possible. Check strep pneumonia, but PNA is likely post viral. Repeat PA & LAT CXR tomorrow. Continue Duoneb, pulmicort. Add PRN albuterol given ongoing wheezing. Continue Ceftriaxone. Add Doxycycline to broaden coverage given COPD. May need O2 on dismissal. Leukocytosis is persisting, but is improved over admit. No acute fever observed per chart. No c/o CP. Continue remainder of home meds. Start LMWH in addition to SCDs for px. Echo reviewed- cardiology following. Appreciate assistance. Plan-03/18/17 Yesterday added prednisone BID to help with wheezing. Asked RT to do ambulatory sat Chest Xray shows little change today Ceftriaxone and Doxycycline to broaden coverage given COPD. Continued Leukocytosis likely related to Steroid use Overall improving and getting close to Dc May require oxygen at time of discharge
--- NOTE | 2017-03-18 16:31 | Cardiology Progress Note ---
<Mallika Johansen - Last Filed: 03/18/17 16:40> Subjective Principal diagnosis: elevated troponin Interval history: Kirby is seen in follow up for elevated troponin. He is napping in the recliner, on room air. He denies chest pain or pressure, palpitations or dizziness. Exam Vital signs: Temperature 96.5 F L 03/18/17 15:33 Pulse Rate 101 H 03/18/17 15:33 Respiratory Rate 20 03/18/17 15:33 Blood Pressure 131/64 03/18/17 15:33 Pulse Oximetry 90 03/18/17 15:33 - Constitutional no acute distress, cooperative - Routine HEENT Exam Head: Present: normocephalic ENT: Present: mucous membranes moist - Routine Neck Exam Absent: JVD - Routine Chest/Breast/Axilla Exam Chest wall: Absent: tenderness - Routine Respiratory Exam Present: CTA bilaterally. Absent: rales, wheezes - Routine Cardiovascular Exam Present: RRR, no murmur. Absent: JVD - Routine Abdominal Exam Present: soft, normoactive bowel sounds - Routine Extremities Exam Present: no edema - Routine Skin Exam Present: intact, dry, warm - Routine Neurological Exam Present: alert, oriented X3 - Routine Psychiatric Exam Present: normal affect, normal thought process - Additional findings Additional findings: Acetaminophen (Tylenol) 325 - 650 mg PO Q5H PRN PRN Reason: Discomfort Last Admin: 03/16/17 09:48 Dose: 325 mg Hydrocodone Bitart/Acetaminophen ([place] 10/325) 1 tab PO QID [facility] Last Admin: 03/18/17 13:50 Dose: 1 tab Hydrocodone Bitart/Acetaminophen ([place] 5/325) 1 tab PO Q4H PRN PRN Reason: Pain Albuterol Sulfate (Proventil Neb (0.083%)) 5 mg IPPB Q4H PRN PRN Reason: Cough Albuterol/Ipratropium (Duoneb) 3 ml AEROSOL QID [facility] Last Admin: 03/18/17 14:51 Dose: 3 ml Aspirin (Ecotrin) 81 mg PO DAILY [facility] Last Admin: 03/18/17 08:30 Dose: 81 mg Budesonide (Pulmicort Inhalation) 0.5 mg AEROSOL RTBID [facility] Last Admin: 03/18/17 07:28 Dose: 0.5 mg Doxycycline Hyclate (Vibramycin) 100 mg PO BIDWM [facility] Last Admin: 03/18/17 08:30 Dose: 100 mg Enoxaparin Sodium (Lovenox) 40 mg SQ DAILY [facility] Last Admin: 03/18/17 09:38 Dose: 40 mg Guaifenesin (Mucinex La) 600 mg PO BID [facility] Last Admin: 03/18/17 08:29 Dose: 600 mg Guaifenesin/Codeine Phosphate (Robitussin Ac) 5 ml PO Q6H PRN PRN Reason: Cough /Congestion Last Admin: 03/17/17 07:29 Dose: 5 ml Ceftriaxone Sodium 1 g/ Sodium (Chloride) 100 mls @ 200 mls/hr IV Q24H [facility] Last Infusion: 03/18/17 12:16 Dose: Infused Levothyroxine Sodium (Synthroid) 50 mcg PO ACB [facility] Last Admin: 03/18/17 05:56 Dose: 50 mcg Metoprolol Tartrate (Lopressor) 25 mg PO BIDWM [facility] Last Admin: 03/18/17 08:30 Dose: 25 mg Mirtazapine (Remeron) 15 mg PO DAILY [facility] Last Admin: 03/18/17 08:30 Dose: 15 mg Multivitamins (Theragran) 1 tab PO DAILY [facility] Last Admin: 03/18/17 08:29 Dose: 1 tab [id number] Ethyl Esters (Lovaza) 1 gm PO DAILY [facility] Last Admin: 03/18/17 08:32 Dose: 1 gm Omeprazole (Prilosec) 40 mg PO ACB [facility] Last Admin: 03/18/17 05:57 Dose: 40 mg Prednisone (Deltasone) 40 mg PO WB [facility] Sertraline HCl (Zoloft) 50 mg PO DAILY [facility] Last Admin: 03/18/17 09:37 Dose: 50 mg Simvastatin (Zocor) 20 mg PO HS [facility] Last Admin: 03/17/17 21:04 Dose: 20 mg Sodium Chloride (Iv Flush) 10 - 80 ml IVF PRN PRN PRN Reason: Flushing Last Admin: 03/18/17 08:28 Dose: 10 ml Zolpidem Tartrate (Ambien) 10 mg PO [facility] Last Admin: 03/17/17 21:05 Dose: 10 mg Results 03/18/17 04:09 03/18/17 04:09 CBC 03/18/17 Range/Units 04:09 WBC 15.8 H (4.5-11.0) T/MM3 RBC 3.61 L (4.50-5.90) M/MM3 Hgb 11.3 L (13.5-17.5) GM/DL Hct 35.4 L (41-53) % Plt Count 594 H (130-400) T/MM3 Neut # (Auto) Not performed Lymph # (Auto) Not performed [place] # (Auto) Not performed Eos # (Auto) Not performed Baso # (Auto) Not performed Comprehensive Metabolic Panel 03/18/17 Range/Units 04:09 Sodium 138 (134-144) MEQ/L Potassium 4.8 (3.6-5) MEQ/L Chloride 104 (98-107) MEQ/L Carbon Dioxide 26 (22-30) MEQ/L BUN 20.0 D (9-20) MG/DL Creatinine 0.9 (0.8-1.5) MG/DL Glucose 175 H (75-110) MG/DL Calcium 8.9 (8.4-10.2) MG/DL Intake and Output 03/18/17 03/18/17 03/18/17 06:59 14:59 22:59 Intake Total 400 / 400 826 / 826 Output Total 275 / 275 Balance 125 / 125 826 / 826 Intake: IV 100 / 100 Ceftriaxone 1 g In Ns 100 ml @ 100 / 100 200 mls/hr IV Q24H [facility] Rx#: [id number] Oral 400 / 400 726 / 726 Output: Urine 275 / 275 Other: Urine Color Light Milena # Voids 3 Weight 156 lb 8.451 oz Patient Weight 03/19/17 06:59 Weight 156 lb 8.451 oz - Imaging and Cardiology Echo: report reviewed Imaging & Cardiology Narrative: Date of Exam: 03/18/17 Ordering Provider: Venus Contreras APRN Type of Exam(s): XR chest 2V Reason for Exam(s): COPD Indication: COPD XR chest 2V: Comparison: 03/13/2017 Technique: PA and lateral chest Findings: Patient continues to show significant chronic lung changes bilaterally with slight improvement currently in the right lower chest. Mildly less prominent interstitial prominence is seen. Heart, central vascular mediastinum are unremarkable. No acute new bony findings are appreciated. Impression: Patient showed slight improvement in chronic appearing lung changes bilaterally which is slightly less overall interstitial prominence in the right lower chest. 03/18/17 16:33 Assessment and Plan - Assessment and Plan (1) Acute respiratory failure with hypoxia Status: Acute (2) Influenza A Status: Acute (3) Sepsis Status: Acute (4) Elevated troponin Status: Acute (5) Essential (primary) hypertension Status: Acute - Assessment and Plan 03/14/17 Elevated Troponin: No Cardiac history of CAD, CHF or Arrhythmia - Denies chest pain, pressure, or tightness - Troponin trending down - Was hypoxic for unknown period of time before arrival - Obtain Echo to check for structural/ valvular disease. Thank you for allowing us to participate in the care of this patient. 03/15/17 Troponin trending down HTN:Suboptimal BP today - Start Metoprolol 25mg BID 03/17/17 Blood pressure control improved on Metoprolol Given personal hx of htn, hld and now NSTEMI, Pt would benefit from an OP CAD work up after he stabilizes from his acute illness Treat medically with ASA and statin, added in BB this hospitalization, metoprolol 25mg bid 03/18/16 BP well controlled on Metoprolol, continue current therapy On room air, able to lay flat without SOA. Hospital Course Summary Disclaimer: The visit summary below is not to be considered part of the above Progress Note. Hospital Course: 03/13/17 17:54 Impression Sepsis- 1. Leukocytosis-22, 2. tachycardia-116, 3. tachypnea-28, 4. suspected infectious process Acute respiratory failure with hypoxia-77% on room air, present on admission. Influenza A Elevated troponin Thrombocytosis- POA 408 COPD Chronic back pain Depression Plan Admit patient to inpatient status under the care of Dr. Matias for sepsis, influenza A, hypoxia, elevated troponin Given that patient did meet criteria 1st sepsis on admission. Patient was started on IV Rocephin 1 gram. Will obtain serial lactate levels. qSOFA score on admission - 3. (Indicating not high risk for in-hospital mortality at time of admission) Initiate normal saline with 20 KCl to run at 75 ML per hour for gentle hydration. Will also give one-time dose of potassium 40 milliequivalents for potassium supplementation. Scheduled DuoNeb breathing treatments 4 times a day and Pulmicort twice a day, given underlying history of COPD and influenza A At this point will hold off on initiating Tamiflu as patient reports symptoms have been present for 1 week. Monitor oxygen saturations, currently requiring 2-3 liters to maintain saturations. In light of elevated troponin, will place consultation with Dr. Art for further cardiac evaluation and recommendations. Continue to watch routine labs to monitor blood counts, renal function and electrolytes. Suspect thrombocytosis may be reactive in nature. Home medications reviewed and continued. SCDs to bilateral lower extremity for DVT prophylaxis Patient does wish to be a do not resuscitate and this orders written Will discuss further orders and plan of care with attending, Dr. Matias 03/14/17 Will continue with scheduled breathing nebulizers. Will add codeine/guaifenesin cough syrup as requested by patient. Cardiology planning to see patient today regarding increase in troponin. Serial lactated levels remain normal. qSOFA score remains 1/3 (low mortality risk) Hypokalemia resolved. Continues on IV fluid NS with K supplementation. Leukocytosis improved, white count down to 11.8. Continue on Rocephin for antimicrobial coverage Continued Thrombocytosis, will continue to follow Place PT/OT orders to evaluate ambulation and strength as he does live independently SCDs for DVT prophylaxis 03/15/17 Overall appears better today, in better spirits Continue to work on weaning down oxygen, currently on 2 liters. Encouraged utilizing codeine/guaifenesin some cough syrup [place] as needed for pain Rocephin for antimicrobial coverage. Continued Leukocytosis. BC negative Wound like pt to get up and ambulate QID to get stronger Plan 03/17/17 Slow improvement, but continues to have diminished airflow and wheezing/cough. Will add PO prednisone BID to help with wheezing. Add Acapella to mobilize secretions. Attempt sputum cx if possible. Check strep pneumonia, but PNA is likely post viral. Repeat PA & LAT CXR tomorrow. Continue Duoneb, pulmicort. Add PRN albuterol given ongoing wheezing. Continue Ceftriaxone. Add Doxycycline to broaden coverage given COPD. May need O2 on dismissal. Leukocytosis is persisting, but is improved over admit. No acute fever observed per chart. No c/o CP. Continue remainder of home meds. Start LMWH in addition to SCDs for px. Echo reviewed- cardiology following. Appreciate assistance. Plan-03/18/17 Yesterday added prednisone BID to help with wheezing. Asked RT to do ambulatory sat Chest Xray shows little change today Ceftriaxone and Doxycycline to broaden coverage given COPD. Continued Leukocytosis likely related to Steroid use Overall improving and getting close to Dc May require oxygen at time of discharge <Nicholas Art - Last Filed: 03/20/17 09:36> Exam Vital signs: Temperature 97.8 F 03/19/17 07:00 Pulse Rate 86 03/19/17 11:00 Respiratory Rate 18 03/19/17 07:00 Blood Pressure 135/66 03/19/17 07:00 Pulse Oximetry 91 03/19/17 07:00 Results 03/19/17 04:17 03/18/17 04:09 Assessment and Plan - Assessment and Plan (1) Acute respiratory failure with hypoxia Status: Acute (2) Influenza A Status: Acute (3) Sepsis Status: Acute (4) Elevated troponin Status: Acute (5) Essential (primary) hypertension Status: Acute - Attestation Attestation Narrative: Patient was examined independently by my BELLING MACHINE OPERATOR, findings were discussed and together we agreed on the plan of care. I am involved in the formulation of the patient's plan of care. 03/20/17 09:36 Hospital Course Summary Disclaimer: The visit summary below is not to be considered part of the above Progress Note.
[2017-03-18] MEDS: ZOLPIDEM 10 MG TABLET PO SCH (20:36)
[2017-03-18] MEDS: SIMVASTATIN 20 MG TABLET PO SCH (20:36)
[2017-03-19 01:33] VITALS: BP 135/66
[2017-03-19] MEDS: OMEPRAZOLE 20 MG CAPSULE PO SCH (07:01)
[2017-03-19] MEDS: LEVOTHYROXINE 50 MCG TABLET PO SCH (07:01)
[2017-03-19 07:48] VITALS: RESP 18; TEMP 97.8; O2SAT 91
[2017-03-19] MEDS ORDERED: PredniSONE 20 MG TABLET PO SCH (08:00)
[2017-03-19] MEDS: ASPIRIN *EC* 81 MG TABLET PO SCH (09:07)
[2017-03-19] MEDS: MIRTAZAPINE 15 MG TABLET PO SCH (09:07)
[2017-03-19] MEDS: GUAIFENESIN LA 600 MG TABLET PO SCH (09:07)
[2017-03-19] MEDS: SERTRALINE 50 MG TABLET PO SCH (09:07)
[2017-03-19] MEDS: HYDROCODONE/APAP 10 MG/325 MG TABLET PO SCH ×2 (09:07→14:19)
[2017-03-19] MEDS: MULTI-VITAMIN PLAIN TABLET PO SCH (09:08)
[2017-03-19] MEDS: CEFTRIAXONE 1 G in NS 100 ML IV SCH (09:09)
[2017-03-19] MEDS: ENOXAPARIN 40 MG/0.4 ML INJECTION SQ SCH (09:09)
[2017-03-19] MEDS: OMEGA-3 ACID ESTERS 1 GM CAPSULE PO SCH (09:09)
[2017-03-19 11:46] VITALS: PULSE 86
--- NOTE | 2017-03-19 11:46 | Progress Note ---
- Date 03/19/17 Subjective: F/U: Pneumonia, COPD, Influenza type A Doing well this morning. Some cough/congestion. Not hurting with breathing. Feels O2 helping. Eating well. No mouth pain. Bowels stable. Not having F/C. Strength improving. Objective Vital signs: Temperature 97.8 F 03/19/17 07:00 Pulse Rate 73 03/19/17 07:00 Respiratory Rate 18 03/19/17 07:00 Blood Pressure 135/66 03/19/17 07:00 Pulse Oximetry 91 03/19/17 07:00 Height/Weight/BMI: Height 1.78 m Weight 71 kg Body Mass Index 24.0 - Constitutional Present: well nourished, well developed, average body habitus, cooperative - Routine HEENT Exam Head: Present: normocephalic, atraumatic Eye: Present: EOMI, PERRL ENT: Present: mucous membranes moist (No thrush ) - Routine Respiratory Exam Present: decreased breath sounds, distant breath sounds. Absent: rales, respiratory distress, rhonchi, stridor, wheezes - Routine Cardiovascular Exam Present: RRR, no murmur - Routine Abdominal Exam Present: soft, normoactive bowel sounds, non distended, non tender. Absent: guarding - Routine Extremities Exam Present: no edema, pulses intact. Absent: cyanosis, clubbing - Routine Musculoskeletal Exam Musculoskeletal: Present: no clubbing or cyanosis, normal strength - Routine Skin Exam Present: intact, dry, warm - Routine Neurological Exam Present: alert, oriented X3, CN II-XII intact, moving all extremities, vision grossly intact, hearing grossly intact, normal speech. Absent: motor deficit, altered mental status - Routine Psychiatric Exam Present: normal affect, normal thought process, cooperative, good insight, good judgment Results - Labs CBC & Chem 7: 03/19/17 04:17 03/18/17 04:09 Microbiology Results: Microbiology 03/17/17 12:34 Urine Streptococcus pneumoniae Antigen (M - Final 03/17/17 12:41 Sputum, Expectorated Gram Stain - Final 03/17/17 12:41 Sputum, Expectorated Sputum Culture - Preliminary Early growth Assessment and Plan (1) Acute respiratory failure with hypoxia Current visit: Yes Status: Acute (2) Influenza A Current visit: Yes Status: Acute (3) Sepsis Current visit: Yes Status: Acute Assessment and Plan: Impression Sepsis- 1. Leukocytosis-22, 2. tachycardia-116, 3. tachypnea-28, 4. suspected infectious process Acute respiratory failure with hypoxia-77% on room air, present on admission. Influenza A Bilateral CAP, likely post-viral Elevated troponin - NSTEMI Thrombocytosis- POA 408 (acute reactive) COPD with acute exacerbation. Chronic back pain Depression HTN Plan Will discharge to home. Medically stable. Did qualify for home O2 at 2L per [place] continuously. RT educating patient on MDI use - will initiate Combivent 2 puffs QID. Continue Doxycycline 100mg po BID for 5 days. Prednisone 20mg daily for 5 days. Mucinex DM BID and Acapella QID for 1 week, then as needed for cough and congestion. Cardiology started metoprolol 25mg BID secondary to NSTEMI. F/U wit Dr Post in 1 week for medical evaluation. F/U with Dr Art in 2 weeks for cardiac evaluation secondary to NSTEMI. See orders for details. Time spent with patient care and discharge greater than 30 minutes. DVT Prophylaxis: SCD's, Lovenox Resuscitation Status: Do Not Resuscitate - Physician Narrative Physician: Warren Brunner MD Narrative: Date: 03/19/17 Time: 1142 Hospital Course Summary Disclaimer: The visit summary below is not to be considered part of the above Progress Note. Hospital Course: 03/13/17 17:54 Impression Sepsis- 1. Leukocytosis-22, 2. tachycardia-116, 3. tachypnea-28, 4. suspected infectious process Acute respiratory failure with hypoxia-77% on room air, present on admission. Influenza A Elevated troponin Thrombocytosis- POA 408 COPD Chronic back pain Depression Plan Admit patient to inpatient status under the care of Dr. Matias for sepsis, influenza A, hypoxia, elevated troponin Given that patient did meet criteria 1st sepsis on admission. Patient was started on IV Rocephin 1 gram. Will obtain serial lactate levels. qSOFA score on admission - 1/3. (Indicating not high risk for in-hospital mortality at time of admission) Initiate normal saline with 20 KCl to run at 75 ML per hour for gentle hydration. Will also give one-time dose of potassium 40 milliequivalents for potassium supplementation. Scheduled DuoNeb breathing treatments 4 times a day and Pulmicort twice a day, given underlying history of COPD and influenza A At this point will hold off on initiating Tamiflu as patient reports symptoms have been present for 1 week. Monitor oxygen saturations, currently requiring 2-3 liters to maintain saturations. In light of elevated troponin, will place consultation with Dr. Art for further cardiac evaluation and recommendations. Continue to watch routine labs to monitor blood counts, renal function and electrolytes. Suspect thrombocytosis may be reactive in nature. Home medications reviewed and continued. SCDs to bilateral lower extremity for DVT prophylaxis Patient does wish to be a do not resuscitate and this orders written Will discuss further orders and plan of care with attending, Dr. Matias 03/14/17 Will continue with scheduled breathing nebulizers. Will add codeine/guaifenesin cough syrup as requested by patient. Cardiology planning to see patient today regarding increase in troponin. Serial lactated levels remain normal. qSOFA score remains 1/3 (low mortality risk) Hypokalemia resolved. Continues on IV fluid NS with K supplementation. Leukocytosis improved, white count down to 11.8. Continue on Rocephin for antimicrobial coverage Continued Thrombocytosis, will continue to follow Place PT/OT orders to evaluate ambulation and strength as he does live independently SCDs for DVT prophylaxis 03/15/17 Not feeling as good today. Continue with codeine/guaifenesin cough syrup and tab for coughing and expectorant. Will add [place] for rib pain. Add incentive spirometry. Continues to require oxygen to maintain saturations at 3 liters. Leukocytosis continues to improve, blood cultures remain negative. Continued thrombocytosis. Rocephin for antimicrobial coverage. Once feeling better encourage work with PT/OT given weakness. 03/16/17 Overall appears better today, in better spirits. Continue to work on weaning down oxygen, currently on 2 liters. Encouraged utilizing codeine/guaifenesin some cough syrup. [place] as needed for pain. Rocephin for antimicrobial coverage. Continued Leukocytosis. BC negative. Wound like pt to get up and ambulate QID to get stronger. 03/17/17 Slow improvement, but continues to have diminished airflow and wheezing/cough. Will add PO prednisone BID to help with wheezing. Add Acapella to mobilize secretions. Attempt sputum cx if possible. Check strep pneumonia, but PNA is likely post viral. Repeat PA & LAT CXR tomorrow. Continue Duoneb, pulmicort. Add PRN albuterol given ongoing wheezing. Continue Ceftriaxone. Add Doxycycline to broaden coverage given COPD. May need O2 on dismissal. Leukocytosis is persisting, but is improved over admit. No acute fever observed per chart. No c/o CP. Continue remainder of home meds. Start LMWH in addition to SCDs for px. Echo reviewed- cardiology following. Appreciate assistance. 03/18/17 Asked RT to do ambulatory sat Chest Xray shows little change today. Ceftriaxone and Doxycycline to broaden coverage given COPD. Continued Leukocytosis likely related to Steroid use Overall improving and getting close to Dc May require oxygen at time of discharge 03/19/17 Will discharge to home. Medically stable. Did qualify for home O2 at 2L per [place] continuously. RT educating patient on MDI use - will initiate Combivent 2 puffs QID. Continue Doxycycline 100mg po BID for 5 days. Prednisone 20mg daily for 5 days. Mucinex DM BID and Acapella QID for 1 week, then as needed for cough and congestion. Cardiology started metoprolol 25mg BID secondary to NSTEMI. F/U wit Dr Post in 1 week for medical evaluation. F/U with Dr Art in 2 weeks for cardiac evaluation secondary to NSTEMI. See orders for details.
[2017-03-19] MEDS ORDERED: INHALER ASSIST DEVICE (Optichamber) MC ONE (12:00)
--- NOTE | 2017-03-19 12:25 | Discharge Summary ---
Discharge Information Date of admission: 03/13/17 16:19 Anticipated date of discharge: 03/19/17 Attending Physician: Warren Brunner MD Primary care physician: Raoul Post MD Consults: Physician Consult: Nicholas Art Reason For Exam: elevated trop PT/OT - Discharge Diagnosis (1) Acute respiratory failure with hypoxia Status: Acute (2) Influenza A Status: Acute (3) Sepsis Status: Acute Discharge diagnosis Sepsis- 1. Leukocytosis-22, 2. tachycardia-116, 3. tachypnea-28, 4. suspected infectious process (pneumonia) Associated conditions and complications Acute respiratory failure with hypoxia-77% on room air, present on admission. Influenza A Bilateral CAP, likely post-viral Elevated troponin - NSTEMI Thrombocytosis- POA 408 (acute reactive) COPD with acute exacerbation. Chronic back pain Depression HTN - Procedures Procedures: Date of Exam: 03/14/17 Type of Exam: US echo doppler complete Left atrial dimension is at the upper limits of normal. Left ventricular end- diastolic dimension is normal. Left ventricle wall thickness is normal. LV systolic function is hyperdynamic with ejection fraction of about 75%. Right atrium is dilated. Right ventricle is normal. Aortic root dimension is normal. Mitral valve is morphologically normal with trace of mitral regurgitation. Aortic valve is a trileaflet structure with no stenosis or insufficiency. Tricuspid valve shows mild tricuspid regurgitation with moderate pulmonary hypertension with estimated pulmonary artery systolic pressure of 45. Pulmonary valve shows no pulmonary insufficiency. There is no pericardial effusion. IMPRESSION 1. Hyperdynamic left ventricle with ejection fraction of about 75%. 2. Trace of mitral regurgitation. 3. Right atrial dilation. 4. Mild tricuspid regurgitation with mild to moderate pulmonary hypertension with estimated pulmonary artery systolic pressure of 45. - Laboratory Labs: Admit Lab 03/13/17 14:50 WBC 22.9 H Hgb 12.4 L Hct 38.4 L MCV 98.0 Plt Count 408 H Neutrophils % (Manual) 87.0 H Band Neutrophils % 3.0 Lymphocytes % (Manual) 5.0 L Monocytes % (Manual) 5.0 Admit Lab 03/13/17 14:50 Sodium 144 Potassium 3.5 L Chloride 103 Carbon Dioxide 29 Anion Gap 12 BUN 28.0 H Creatinine 1.1 GFR Calculation 65 BUN/Creatinine Ratio 26 Glucose 120 H Calculated Osmolality 284 H Total Bilirubin 0.40 AST 37 ALT 37 Alkaline Phosphatase 185 H Troponin I 0.652 H B-Natriuretic Peptide 778 H Total Protein 7.6 Albumin 3.7 Globulin 3.9 H Albumin/Globulin Ratio 0.9 L Laboratory Tests 03/13/17 14:24 Influenza Type A (PCR) Positive A* 03/19/17 04:17 03/18/17 04:09 - Microbiology Microbiology 03/17/17 12:34 Urine Streptococcus pneumoniae Antigen (M - Final) - Negative 03/17/17 12:41 Sputum, Expectorated Gram Stain - Final 03/17/17 12:41 Sputum, Expectorated Sputum Culture - Preliminary Early growth - Radiology Radiology: Date of Exam: 03/13/17 PROCEDURE: CHEST 2-VIEWS UPRIGHT (PA & LAT) FINDINGS: Emphysema and hyperinflation. New right upper lobe and bilateral lower lobe airspace consolidation. No definite pleural effusion. No pneumothorax. Heart size and mediastinal contours are stable. Pulmonary vascularity is normal. Impression: Bilateral pneumonia. Date of Exam: 03/18/17 Type of Exam: XR chest 2V Findings: Patient continues to show significant chronic lung changes bilaterally with slight improvement currently in the right lower chest. Mildly less prominent interstitial prominence is seen. Heart, central vascular mediastinum are unremarkable. No acute new bony findings are appreciated. Impression: Patient showed slight improvement in chronic appearing lung changes bilaterally which is slightly less overall interstitial prominence in the right lower chest. History of Present Illness HPI: Mr Morgan is a 77yr old male who presented to the emergency room today for acute evaluation of shortness of breath with coughing. Arrival to the ER He was found to be hypoxic with room air saturations of 77%. He was tachycardic with a heart rate of 116 and tachypnea, breathing 28 times per minute. Patient was placed on oxygen by nasal cannula to maintain adequate saturations. Upon further evaluation he was found to have leukocytosis with a white count of 22.9 , hemoglobin 12.4, platelet count elevated at 408,87% neutrophils, 3% bands. Chemistry panel did reveal slight hypokalemia, potassium of 3.5, sodium is normal at 144, glucose 120. Troponin was found to be slightly elevated at 0.652. Venous lactate 1.5, pro calcitonin 0.92. Patient was found to have influenza A positive. Chest x-ray was reported to have bilateral pneumonia. Given hypoxia, accompanied with leukocytosis, influenza A and pneumonia. The hospitalist services were contacted and accepted patient for inpatient admission for further evaluation and treatment. Dr. Art was contacted directly from the emergency room regarding elevated troponin and will follow patient in consultation. Patient is seen and examined. While in the emergency room. He reports he had an "respiratory illness." Several months ago and was treated with antibiotics by his primary care provider, Dr. Post. He reports approximately one week ago, his symptoms returned and he has been progressively more short of breath, worse times the last 3 days. Reports he is now having a productive cough. Denies any chest pain, lightheadedness, GI concerns. We did discuss advanced directives. He does verify he is a do not resuscitate For complete details of the H&P refer to that document. Objective Vital signs: Temperature 97.8 F 03/19/17 07:00 Pulse Rate 86 03/19/17 11:00 Respiratory Rate 18 03/19/17 07:00 Blood Pressure 135/66 03/19/17 07:00 Pulse Oximetry 91 03/19/17 07:00 Height/Weight/BMI: Height 1.78 m Weight 71 kg Body Mass Index 24.0 Hospital Course This is a general summary of the patient's hospital course. For more details refer to the complete medical record. Hospital course: 03/13/17 17:54 Impression Sepsis- 1. Leukocytosis-22, 2. tachycardia-116, 3. tachypnea-28, 4. suspected infectious process Acute respiratory failure with hypoxia-77% on room air, present on admission. Influenza A Elevated troponin Thrombocytosis- POA 408 COPD Chronic back pain Depression Plan Admit patient to inpatient status under the care of Dr. Matias for sepsis, influenza A, hypoxia, elevated troponin Given that patient did meet criteria 1st sepsis on admission. Patient was started on IV Rocephin 1 gram. Will obtain serial lactate levels. qSOFA score on admission - 1/3. (Indicating not high risk for in-hospital mortality at time of admission) Initiate normal saline with 20 KCl to run at 75 ML per hour for gentle hydration. Will also give one-time dose of potassium 40 milliequivalents for potassium supplementation. Scheduled DuoNeb breathing treatments 4 times a day and Pulmicort twice a day, given underlying history of COPD and influenza A At this point will hold off on initiating Tamiflu as patient reports symptoms have been present for 1 week. Monitor oxygen saturations, currently requiring 2-3 liters to maintain saturations. In light of elevated troponin, will place consultation with Dr. Art for further cardiac evaluation and recommendations. Continue to watch routine labs to monitor blood counts, renal function and electrolytes. Suspect thrombocytosis may be reactive in nature. Home medications reviewed and continued. SCDs to bilateral lower extremity for DVT prophylaxis Patient does wish to be a do not resuscitate and this orders written Will discuss further orders and plan of care with attending, Dr. Matias 03/14/17 Will continue with scheduled breathing nebulizers. Will add codeine/guaifenesin cough syrup as requested by patient. Cardiology planning to see patient today regarding increase in troponin. Serial lactated levels remain normal. qSOFA score remains 1/3 (low mortality risk) Hypokalemia resolved. Continues on IV fluid NS with K supplementation. Leukocytosis improved, white count down to 11.8. Continue on Rocephin for antimicrobial coverage Continued Thrombocytosis, will continue to follow Place PT/OT orders to evaluate ambulation and strength as he does live independently SCDs for DVT prophylaxis 03/15/17 Not feeling as good today. Continue with codeine/guaifenesin cough syrup and tab for coughing and expectorant. Will add Marshall for rib pain. Add incentive spirometry. Continues to require oxygen to maintain saturations at 3 liters. Leukocytosis continues to improve, blood cultures remain negative. Continued thrombocytosis. Rocephin for antimicrobial coverage. Once feeling better encourage work with PT/OT given weakness. 03/16/17 Overall appears better today, in better spirits. Continue to work on weaning down oxygen, currently on 2 liters. Encouraged utilizing codeine/guaifenesin some cough syrup. Marshall as needed for pain. Rocephin for antimicrobial coverage. Continued Leukocytosis. BC negative. Wound like pt to get up and ambulate QID to get stronger. 03/17/17 Slow improvement, but continues to have diminished airflow and wheezing/cough. Will add PO prednisone BID to help with wheezing. Add Acapella to mobilize secretions. Attempt sputum cx if possible. Check strep pneumonia, but PNA is likely post viral. Repeat PA & LAT CXR tomorrow. Continue Duoneb, pulmicort. Add PRN albuterol given ongoing wheezing. Continue Ceftriaxone. Add Doxycycline to broaden coverage given COPD. May need O2 on dismissal. Leukocytosis is persisting, but is improved over admit. No acute fever observed per chart. No c/o CP. Continue remainder of home meds. Start LMWH in addition to SCDs for px. Echo reviewed- cardiology following. Appreciate assistance. 03/18/17 Asked RT to do ambulatory sat. Chest Xray shows little change today. Ceftriaxone and Doxycycline to broaden coverage given COPD. Continued Leukocytosis likely related to Steroid use. Overall improving and getting close to Dc. May require oxygen at time of discharge. 03/19/17 Will discharge to home. Medically stable. Did qualify for home O2 at 2L per [place] continuously. RT educating patient on MDI use - will initiate Combivent 2 puffs QID. Continue Doxycycline 100mg po BID for 5 days. Prednisone 20mg daily for 5 days. Mucinex DM BID and Acapella QID for 1 week, then as needed for cough and congestion. Cardiology started metoprolol 25mg BID secondary to NSTEMI. F/U wit Dr Post in 1 week for medical evaluation. F/U with Dr Art in 2 weeks for cardiac evaluation secondary to NSTEMI. See orders for details. Time spent with patient: discharge greater than 30 minutes DVT Prophylaxis: SCD's, Lovenox Discharge Plan - Discharge Disposition Discharge Date: 03/19/17 Disposition: Discharged Home, Self-Care *Condition: Stable Reason For Visit (Visit label in EMR): acute hypoxia, influenza A - Discharge Medications *Discharge Medications: New Guaifenesin/Dextromethorphan [Mucinex Dm ER 600-30 mg Tablet] 1 each PO BID # 1 box Guaifenesin/Codeine Phosphate [Guaifenesin-Codeine Syrup] 5 ml PO Q6H PRN # 150 ml PRN Reason: Cough /Congestion Metoprolol Tartrate [Lopressor] 25 mg PO BIDWM #60 tab PredniSONE [Deltasone] 20 mg PO WB #5 tab Doxycycline [Vibramycin] 100 mg PO BIDWM #10 tab Ipatropium/Albuterol [Combivent Respimat Inhaler] 2 puff ORAL INH RTQID inhaler Continue Simvastatin 20 mg PO HS #0 Multivitamin [One Daily Multivitamin] 1 each PO DAILY Mirtazapine [Remeron] 15 mg PO DAILY Brandon-3/Dha/Epa/Fish Oil [Fish Oil 1,000 mg Softgel] 1 each PO DAILY Omeprazole 40 mg PO DAILY Levothyroxine Sodium 50 mcg PO DAILY Aspirin [Ecotrin] 81 mg PO DAILY Zolpidem Tartrate [Ambien] 10 mg PO HS #0 Sertraline HCl [Zoloft] 50 mg PO DAILY #0 Hydrocodone/APAP 10/325 [Marshall 10/325] 1 tab PO QID - Discharge Packet/Instructions *Diet: Low sodium, heart healthy diet *Activity: As tolerated *Pain Management/Treatment: Marshall as needed for pain *Wound Care: n/a Additional Instructions: Use Mucinex DM twice a day for 1 week, then as needed for cough/congestion. Use Acapella 4 times a day for 1 week, then as needed for congestion. Wear oxygen 2L per nasal canula all the time. Combivent can help breathing - use 2 puffs 4 times a day. *Expected Signs/Symptoms: Improvement of breathing and functional status. *Notify Physician if: Temp > 100.4. Increasing shortness or breath or difficulty breathing. *During Business Hours Contact: Dr Post *After Business Hours Contact: Call [facility] [place] and have Dr Post or his covering provider contacted. *Pending Lab/Results: No Pending Lab - Referrals/Follow Up *Referrals/Follow Up: Nicholas Art MD [Physician] - 2 Weeks (Cardiac evaluation for NSTEMI-type II ) Raoul Post MD [Family Provider] - 1 Week (Hospital follow up for pneumonia-did qualify for home O2 at 2L per [place] at discharge. ) - Patient Handouts Patient Handouts: Influenza (GEN), Hypoxia (GEN) - Dismissal Complete Discharge Instructions are:: Complete Physician Narrative - Narrative Physician: Warren Brunner MD Attestation Narrative: Date: 03/19/17 Time: 1218 I have independently interviewed and examined patient prior to discharge. See my progress note from today for details. Medically stable for discharge to home.
[2017-03-19] MEDS ORDERED: Ipatropium/Albuterol 20/100mcg INHALER (4gm) ORAL INH SCH (15:00)
== END 2017-03-19 15:45 | disposition home or self-care (01) | DRG 871 ==
LOC: ED 14:01 → MED 16:19 → SUATTDRO 16:19 → MED 17:15
PROVIDERS: ADMIT Hospitalist; ATTEND Hospitalist